=== PATIENT | female | born 1990 | race Caucasian/White ===

== ENCOUNTER 2022-12-03 11:03 | Outpatient (AMB) | payer OTHER, SELFPAY ==
--- NOTE | 2022-12-03 11:13 | A.OFFVIS_ITS ---
Intake Vital Signs 12/03/22 11:14 Height 5 ft 1 in Weight 223 lb BMI 42.1 BP 127/79 Blood Pressure Location Lt brachial Position Sitting Pulse 95 Intake Visit Reasons: IBS and abdominal cramping Intake Note: Patient new consult for IBS and abdominal pain. Patient cc: IBS symptoms ( flare up ), acid reflex on and off and between diarrhea and constipation. Gauge And Weigh Machine Operator Required: No Accompanied by: Self / Same As Patient Allergies morphine Allergy (Severe, Verified 12/03/22 11:23) Hives Penicillins Allergy (Severe, Verified 12/03/22 11:23) Hives fluconazole [From Diflucan] Allergy (Intermediate, Verified 12/03/22 11:23) Anaphylaxis HPI IBS and abdominal cramping HPI Details 32-year-old female here for initial eval uation of IBS cramping. She is referred by [facility] in [place]. 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 This pain also radiated to her back. She also had severe bloating that felt like it stretched my abd. The pain will start with a dull pain above the umbilicus and then progress down more midline/periumbilical. She will at times run a low grade fever. She has had Xrays, colonoscopy/EGD [facility] ([facility]). She had a couple of polyps only. 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 Her last GI felt it was porphoria. One of her levels came back elevated and she was referred to [facility], but she needs a second opinion before they will treat her. She has had food allergy testing Her stools are usually soft to liquid, she has been on Trulance and Linzess which made her very sick (weird given not a specific CIC presentation). She is on motegrity 2mg now. Colace too. She was on some IBS agents like bentyl and maybe donnatol but back in her teens w/o effect. She will have intermittent bouts of N/V and early satiety. This is not specific to foods that she can ID. She has a strong FHX of GB disease and had a neg HIDA scan in her early 20's but this has not been revisited. She has gained a lot of wt from 10lbs to 223. She exercises a great deal and follows diets diligently. She has had allergy and various exclusion diets w/o good effect. She has other possible manifestations of a systemic disease such as the compartment syndrome of her LE's, inability to lose weight. Her mother at age 21 and she used to have CIC. There is no other known FHX of similar sx. We will start her on a trial of dicyclomine and Creon try to get the records from [place] and see her back in 6 weeks. FOR[facility]LY [facility], [facility] Surgical History H/O bilateral inguinal hernia repair H/O fasciotomy History of appendectomy Social History (Updated 12/03/22 @ 11:16 by Ling Donohue) Household Members: Family Alcohol intake: never Patient Tobacco Use Status: Never used Tobacco Review of Systems Const Denies fatigue, Denies fever(s), Denies night sweats, Denies poor appetite, Reports weight gain and Denies weight loss ENT Reports Normal hearing present, Denies dental pain, Denies dysphagia, Denies hearing loss, Denies mouth pain, Denies odynophagia, Denies throat swelling, Denies tongue swelling and Reports other (Dentition adequate) Card Reports leg edema Resp Reports no additional complaints GI Reports abdominal pain, Denies melena, Reports bloating, Denies hematochezia, Reports constipation, Denies GI cramping, Denies dysphagia, Denies excessive flatus, Denies early satiety, Denies heartburn, Reports diarrhea, Reports nausea, Denies odynophagia, Reports vomiting and Denies hematemesis Skin/Breast Denies pruritus, Denies lesions, Denies rash and Denies jaundice Neuro Reports Normal hearing present and Denies Abnormal speech present Endo Denies fatigue Aller/Immun Denies throat swelling and Denies tongue swelling Physical Exam Vital Signs: Last Vital Signs Pulse 95 12/03/22 11:14 BP 127/79 12/03/22 11:14 BMI result Body Mass Index 42.1 Const General: cooperative, no acute distress, well developed and well groomed Nutritional Appearance: well nourished and obese morbidly obese Orientation/consciousness: oriented to person, oriented to place and oriented to time Limitations: No language barrier HEENT Head: Yes normocephalic and Yes atraumatic Eyes General: appearance normal, both eyes and all related structures Pupils: Equal, round and reactive pupils present Neck Neck: Yes normal visual inspection and Yes no lymphadenopathy Thyroid: Thyroid normal Resp Effort & Inspection: normal respiratory effort and able to speak in complete sentences Auscultation: clear to auscultation bilaterally Cardio Rate: regular rate Rhythm: regular rhythm Heart sounds: Normal, physiologic split S2 sound present Peripheral pulses: radial pulses present and posterior tibial pulses present GI Inspection: No distended, Yes Abdominal panniculus present, Yes obesity and Yes striae Palpation (GI): Soft to palpation, Tenderness to palpation present (GI) in the RLQ, no guarding, not rigid and No hepatosplenomegaly present Percussion: Yes normal to percussion Auscultation: normal bowel sounds Rectal Exam - Female: deferred Skin General skin exam: no rashes or lesions noted, turgor normal, skin not dry, no jaundice, No spider nevi and no striae Rashes: no rashes Nails: normal Neuro General: oriented to person, oriented to place and oriented to time Cranial nerves: Yes Equal, round and reactive pupils present and Yes Normal hearing present Speech: No Abnormal speech present Extrem General: Yes normal to inspection, No clubbing, No cyanosis and No edema Psych Appearance: grossly normal and well kempt Mental Status: mental status grossly normal Speech and movement: Normal speech and movement present Affect: normal affect Attitude: cooperative Thought process: Normal thought process present and not confabulating Thought content: Normal thought content present Insight: Fair insight present (Psych) Judgement: Fair judgement present (Psych) Assessment & Plan Assessment & Plan (1) IBS (irritable bowel syndrome): Code(s): K58.9 - Irritable bowel syndrome without diarrhea Plan: Starting in January she was having severe abd pain that started in the gastric area and shot down to the pubic bone area. This pain also radiated to her back. She also had severe bloating that felt like it stretched my abd. The pain will start with a dull pain above the umbilicus and then progress down more midline/periumbilical. She will at times run a low grade fever. She has had Xrays, colonoscopy/EGD [place] ([facility]). She had a couple of polyps only. 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 Her last GI felt it was porphoria. One of her levels came back elevated and she was referred to [facility], but she needs a second opinion before they will treat her. She has had food allergy testing Her stools are usually soft to liquid, she has been on Trulance and Linzess which made her very sick (weird given not a specific CIC presentation). She is on motegrity 2mg now. Colace too. She was on some IBS agents like bentyl and maybe donnatol but back in her teens w/o effect. She will have intermittent bouts of N/V and early satiety. This is not specific to foods that she can ID. She has a strong FHX of GB disease and had a neg HIDA scan in her early 20's but this has not been revisited. She has gained a lot of wt from 10lbs to 223. She exercises a great deal and follows diets diligently. She has had allergy and various exclusion diets w/o good effect. She has other possible manifestations of a systemic disease such as the compartment syndrome of her LE's, inability to lose weight. Her mother at age 21 and she used to have CIC. There is no other known FHX of similar sx. We will start her on a trial of dicyclomine and Creon try to get the records from [place] and see her back in 6 weeks. (2) Periumbilical abdominal pain: Code(s): R10.33 - Periumbilical pain (3) Nausea and vomiting: Code(s): R11.2 - Nausea with vomiting, unspecified Orders: Orders US abdomen complete 12/03/22 K58.9 - Irritable bowel syndrome without diarrhea, R10.33 - Periumbilical pain Pancreatic Elastase-1 12/03/22 K58.9 - Irritable bowel syndrome without diarrhea, R10.33 - Periumbilical pain NM gastric emptying study 12/03/22 R11.2 - Nausea with vomiting, unspecified Medications: New exiquo-gnuijpxy-ebdxhrl 36,000-114,000- 180,000 unit (Creon) administer with meals and/or snacks 2 caps PO BID 120 caps 3RF K58.9 - Irritable bowel syndrome without diarrhea dicyclomine 20 mg PO QID 120 tabs 1RF 30 days Coding Level of Care Code New Pt Level 3 (01516) Diagnoses IBS (irritable bowel syndrome) K58.9 Periumbilical abdominal pain R10.33 Nausea and vomiting R11.2
[2022-12-03 11:14] VITALS: BP 127/79; PULSE 95; BMI 42.1
== END 2022-12-03 12:42 | disposition home or self-care (01) ==
PROVIDERS: PCP Nurse Practitioner Primary Care; Visit Provider Nurse Practitioner
DX: K58.9 Irritable bowel syndrome, unspecified (principal); R10.33 Periumbilical pain; R11.2 Nausea with vomiting, unspecified
CPT/HCPCS: 99203

== ENCOUNTER → 2022-12-03 11:03 | Outpatient (BNVA) | payer SELFPAY | PROVIDERS: PCP Nurse Practitioner Primary Care; Visit Provider Nurse Practitioner ==

== ENCOUNTER 2023-01-03 08:30 | Outpatient (REF) | payer OTHER, SELFPAY ==
--- NOTE | ~2023-01-03 | US_ITS ---
EXAMINATION: US ABDOMEN COMPLETE CLINICAL INFORMATION: Irritable bowel syndrome without diarrhea. Nausea with vomiting. COMPARISON: Ultrasound abdomen complete 08/22/2020. TECHNIQUE: Real-time imaging of the abdominal viscera. FINDINGS: PANCREAS: Limited visualization of pancreatic tail and head. Imaged portion of pancreatic body is unremarkable. ABDOMINAL AORTA: Limited visualization. Imaged portions of abdominal aorta are nonaneurysmal. INFERIOR VENA CAVA: Visualized portions are normal. LIVER: Hepatomegaly, 20.4 cm. Increased hepatic parenchymal heterogeneity and echogenicity which could be associated with hepatic steatosis or hepatocellular disease and severely limits visualization. GALLBLADDER: No gallstones. No gallbladder wall thickening. COMMON BILE DUCT: Normal in caliber measuring 0.4 cm in diameter. RIGHT KIDNEY: No hydronephrosis. No renal calculi. Limited visualization. The kidney measures 12.8 cm in maximum dimension. LEFT KIDNEY: No hydronephrosis. No renal calculi. Limited visualization. The kidney measures 13.2 cm in maximum dimension. SPLEEN: Splenomegaly. The spleen measures 14.3 cm in maximum dimension. FREE FLUID: None. US/US abdomen complete IMPRESSION: 1. Increased hepatic parenchymal heterogeneity and echogenicity which could be associated with hepatic steatosis or hepatocellular disease and severely limits visualization. 2. Hepatosplenomegaly. 3. Limited visualization due to bowel gas and body habitus.
== END 2023-01-03 08:31 | disposition home or self-care (01) ==
LOC: HO.HMGCX 08:30
PROVIDERS: PCP Nurse Practitioner Adult Health; Visit Provider Nurse Practitioner
DX: R10.33 Periumbilical pain (principal); K58.9 Irritable bowel syndrome, unspecified
CPT/HCPCS: 76700

== ENCOUNTER → 2023-01-20 08:01 | Outpatient (REF) | payer OTHER, SELFPAY ==
--- NOTE | ~2023-01-20 | NM_ITS ---
EXAMINATION: OK RADIONUCLIDE SOLID FOOD GASTRIC EMPTYING 4-HOUR STUDY CLINICAL INFORMATION: Irritable bowel syndrome without diarrhea. COMPARISON: None available. TECHNIQUE: A standard meal consisting of 4 oz of Egg Beaters brand tagged with 1000 microcuries Tc-99m Sulfur Colloid, 8 oz water and 2 slices of toast with jelly was administered orally to the patient. Images were obtained using a dual head gamma camera in the anterior and posterior projections over of the stomach immediately post ingestion and at hourly intervals up to 4 hours post ingestion. The anterior and posterior counts at each time interval were averaged using the geometric mean and expressed as percentage of the immediate post ingestion counts. FINDINGS: There is good visualization of activity in the stomach immediately post ingestion. As the study progresses, there is good clearance of activity from the stomach and visualization of progressively increasing small bowel activity. By the end of the study, there is almost no retention noted in the stomach. Retention in the stomach at each time interval was: 1 hour 95% (normal 37%-90%) 2 hours 92% (normal 30%-60%) 3 hours 0% 4 hours imaging was not obtained since at 3 hours the stomach was empty. OK/OK gastric emptying study IMPRESSION: Normal 4-hour solid food gastric emptying study. (For solid meal, rapid gastric emptying is less than 30% at 60 minutes. Delayed gastric emptying criteria is more than 60% remaining at 120 minutes or more than 10% at 240 minutes. The 4-hour value is the best discriminator of a normal or abnormal result). Gastric emptying study grading per JNMT Consensus Recommendations in 2008 (https://tech.snmjournals.org/content/36/44) Grade 1 (mild retention): 11-20% at 4h Grade 2 (moderate retention): 21-35% at 4h Grade 3 (severe retention): 36-50% at 4h Grade 4 (very severe retention): >50% retention at 4h
== END ==
LOC: HO.NUCMED 08:01
PROVIDERS: PCP Nurse Practitioner Adult Health; Visit Provider Nurse Practitioner
DX: R11.2 Nausea with vomiting, unspecified (principal)
CPT/HCPCS: 78264; A9541

== ENCOUNTER 2024-02-01 13:15 | Outpatient (REF) | payer OTHER, SELFPAY ==
[2024-02-01 14:59] LABS: Appearance Urine Clear; Color Urine Yellow; Glucose Urine UA Negative (Negative); Leukocyte Esterase Urine Negative (Negative); Nitrite Urine Negative (Negative); Urine Blood Negative (Negative); Urine Ketones Negative (Negative); Urine Protein Negative (Neg-Trace)
[2024-02-01 15:04] LABS: Bacteria Urine 2+ (None Seen); Hyaline Casts Urine 0-2 /LPF (0-2); RBC Urine 0-2 /HPF (0-2); WBC Urine 0-5 /HPF (0-5)
[2024-02-02 04:35] LABS: HIV AB/AG Nonreactive (Nonreactive); HIV Num 1 0.06 S/CO (0.00-0.99); ~HepC Num1 0.07 S/CO (0.00-0.79); ~Hepatitis C Antibody Nonreactive (Nonreactive)
[2024-02-03 01:59] LABS: IgA 180 mg/dL (47-310); IgG 1102 mg/dL (600-1640); IgM 99 mg/dL (50-300)
== END 2024-02-01 13:16 | disposition home or self-care (01) ==
LOC: HO.LAB 13:15
PROVIDERS: PCP Nurse Practitioner Adult Health; Visit Provider Internal Medicine
DX: R10.33 Periumbilical pain (principal)
CPT/HCPCS: 36415; 81001; 82784; 86803; 87086; 87389

== ENCOUNTER 2024-02-01 13:15 | Outpatient (AMB) | payer OTHER, SELFPAY ==
--- NOTE | 2024-02-01 13:36 | A.OFFVIS_ITS ---
Vital Signs 02/01/24 13:41 Height 5 ft 1 in Weight 197 lb BMI 37.2 Pulse 94 Pulse Source Pulse Oximeter Pulse Oximetry (%) 99 Oxygen Delivery Method Room Air Intake Visit Reasons: [place] Uro/Ureaplasma Allergies morphine Allergy (Severe, Verified 02/01/24 13:42) Hives Penicillins Allergy (Severe, Verified 02/01/24 13:42) Hives fluconazole [From Diflucan] Allergy (Intermediate, Verified 02/01/24 13:42) Anaphylaxis oxcarbazepine [From Trileptal] Allergy (Unknown, Verified 02/01/24 13:42) Hives HPI HPI [place] Uro/Ureaplasma: Details: She is here for evaluation of intermittent abdominal pain in abdomen which is sharp and generalized and sometimes is accompanied by painful sweating as well as pink urine. She says sometimes she gets low back pain as well. She has seen Military Equipment Specialist as well as GI and Urology. She reports worse symptoms over last 24 months. 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 She has last taken Doxycycline for 10 days with not much help. She has anaphylaxis to penicillin. She has had IUD but denies PID or sexual relations at this time. She has had ureaplasma isolated from urine in spring ,summer and fall. [facility] Surgical History H/O bilateral inguinal hernia repair H/O fasciotomy History of appendectomy Social History Household Members: Family Alcohol intake: never Patient Tobacco Use Status: Never used Tobacco Review of Systems GI Reports abdominal pain Physical Exam Vital Signs: Last Vital Signs Pulse 94 02/01/24 13:41 Pulse Ox 99 02/01/24 13:41 Oxygen Delivery Method Room Air 02/01/24 13:41 BMI result Body Mass Index 37.2 Const General: cooperative Orientation/consciousness: patient oriented x3 HEENT Head: Yes normal to inspection Mouth: Normal oral and palatal mucosa present Eyes General: appearance normal, both eyes and all related structures Pupils: Equal, round and reactive pupils present Resp Effort & Inspection: normal respiratory effort Cardio Rate: regular rate Rhythm: regular rhythm GI Palpation (GI): Soft to palpation and nontender General: Yes no CVA tenderness Back/Spine/Pelvis Back: no CVA tenderness Skin General skin exam: no rashes or lesions noted Neuro General: patient oriented x3 Cranial nerves: Yes CN's II-XII intact bilaterally and Yes Equal, round and reactive pupils present Extrem General: Yes normal to inspection Psych Appearance: grossly normal Assessment & Plan Assessment & Plan (1) Periumbilical abdominal pain: Comment: She has had intermittent ureaplasma isolated from urine at [facility]. Antibiotics have not made her feel better consistently so think ureaplasma mostly is a colonizer without clinical effect' Code(s): R10.33 - Periumbilical pain Category: Medical Plan: try Azithromycin. If not feeling better on this please pursue other diagnoses for chronic pelvic pain including but not limited to endometriosis evaluation and evaluation of any potential renal mass Check HIV test Check immunoglobulin test. Orders: Orders Hepatitis C Antibody 02/01/24 R10.33 - Periumbilical pain UA w Microscopic 02/01/24 R10.33 - Periumbilical pain Urine Culture 02/01/24 R10.33 - Periumbilical pain HIV Ab/Ag 02/01/24 R10.33 - Periumbilical pain Immunoglobulins,IgG IgA IgM 02/01/24 R10.33 - Periumbilical pain Mycoplasma Ureaplasma Panel 02/01/24 R10.33 - Periumbilical pain Medications: New azithromycin For 250 mg dose pack: take 500 mg today (day 1), then 250 mg for 4 days (days 2-5) PO 6 tabs 0RF Coding Level of Care Code New Pt Level 3 (75287) Diagnoses Periumbilical abdominal pain R10.33
[2024-02-01 13:41] VITALS: PULSE 94; O2SAT 99; BMI 37.2
--- OUTSIDE RECORDS SUMMARY | 2024-02-03 14:03 | XMS_ITS | Continuity of Care Document ---
Author Organization [facility] [place] Address [address] [place] [address]- Care Team Providers Care Business Unit Manager Name Role Phone Claritza ETHYLBENZENE CRACKING SUPERVISOR, Marybel Godinez Primary Care Physician [phone] Encounter [facility] Date(s): 10/04/23 - 11/03/23 [facility] Care [place] [address], [place] [address] Allergies, Adverse Reactions, Alerts Substance Reaction Severity Status penicillin Severe Active morphine 1 rigidity, difficlut to breathe Active Diflucan hives Active 1rigid mucles Immunizations Given and Recorded Vaccine Date Status Refusal Reason influenza virus vaccine, inactivated 02/12/22 Mike rded influenza virus vaccine, inactivated 12/11/20 Mike rded SARS-CoV-2 (COVID-19) mRNA-1273 vaccine 04/10/20 R ecorded Medications Ativan 0.5 mg oral tablet 1 tablet = 0.5 mg, By Mouth, 2 times a day, PRN as needed for anxiety, 0 Refills, Maintenance, 02/21/18 16:11:52 EST, Tablet Start Date: 02/21/18 Status: Ordered clotrimazole 1% topical cream 1 application, Topically, 2 times a day, PRN fungal rash, # 113 Gm, 1 Refills, Maintenance, 09/09/23 4:54:00 EDT, Cream, [facility]/pharmacy #[id number], Partial fill upon patient request if the prescription is for a schedule II opioid drug., 1 application Topical... Start Date: 09/09/23 Status: Ordered doxycycline hyclate 100 mg oral tablet 1 tablet = 100 mg, By Mouth, 2 times a day, # 28 tablet, 0 Refills, Maintenance, 07/27/23 17:36:00 EDT, Tablet, Partial fill upon patient request if the prescription is for a schedule II opioid drug. Start Date: 07/27/23 Stop Date: 08/10/23 Status: Ordered Excedrin By Mouth, Every 6 hours, 0 Refills, Maintenance, 10/26/23 16:19:00 EDT, Partial fill upon patient request if the prescription is for a schedule II opioid drug. Start Date: 10/26/23 Status: Ordered hydrOXYzine pamoate 25 mg oral capsule 1 capsule = 25 mg, By Mouth, 4 times a day, PRN for anxiety, # 40 capsule, 0 Refills, Maintenance, 10/04/23 17:42:00 EDT, Capsule, Partial fill upon patient request if the prescription is for a schedule II opioid drug. Start Date: 10/04/23 Status: Ordered ketoconazole 2% topical shampoo 1 application, Topically, Once, Three times weekly, # 120 mL, 0 Refills, Maintenance, 07/27/23 17:51:00 EDT, Shampoo, Partial fill upon patient request if the prescription is for a schedule II opioiddrug. Start Date: 07/27/23 Status: Ordered Latuda By Mouth, Daily, 0 Refills, Maintenance, 05/23/19 10:19:00 EDT Start Date: 05/23/19 Status: Ordered metroNIDAZOLE 0.75% topical cream 1 application, Topically, 2 times a day, # 45 Gm, 0 Refills, Maintenance, 07/27/23 17:52:00 EDT, Cream, Partial fill upon patient request if the prescription is for a schedule II opioid drug. Start Date: 07/27/23 Status: Ordered Mirena 52 mg intrauteral device See Instructions, ins info faxed DOI [id number], # 1 each, 0 Refills, Soft Stop, 09/20/17 11:10:18 EDT Start Date: 09/20/17 Status: Ordered Motegrity 2 mg oral tablet 1 tablet = 2 mg, By Mouth, Daily, # 30 tablet, 0 Refills, Maintenance, 08/29/22 8:19:00 EDT, Tablet, Partial fill upon patient request if the prescription is for a schedule II opioid drug. Start Date: 08/29/22 Status: Ordered nystatin topical 064555 u/gm powder 1 application, Topically, 2 times a day, # 60 Gm, 1 Refills, Maintenance, 09/09/23 4:54:00 EDT, Powder, [facility]/pharmacy #[id number], Partial fill upon patient request if the prescription is for a schedule II opioid drug., 1 application Topically 2 times a day,... Start Date: 09/09/23 Status: Ordered omeprazole 40 mg oral enteric coated capsule 1 capsule = 40 mg, By Mouth, 2 times a day, PRN Dyspepsia, # 30 capsule, 0 Refills, Maintenance, 02/21/18 16:01:30 EST, EC Capsule Start Date: 02/21/18 Status: Ordered ondansetron 4 mg oral tablet, disintegrating 1 tablet = 4 mg, By Mouth, Every 6 hours, PRN as needed for nausea/vomiting, # 12 tablet, 0 Refills, Maintenance, 10/04/23 19:48:00 EDT, DIS Tablet, [facility]/pharmacy #[id number], Partial fill upon patient request if the prescription is for a schedule II opioid... Start Date: 10/04/23 Stop Date: 10/07/23 Status: Ordered OXcarbazepine 150 mg oral tablet 150 mg, 1, tablet, Refills 0, Maintenance, 06/21/23 17:38:00 EDT, Partial fill upon patient requestif the prescription is for a schedule II opioid drug. Start Date: 06/21/23 Status: Ordered OXcarbazepine 300 mg oral tablet Refills 0, Maintenance, 06/21/23 17:38:00 EDT, Partial fill upon patient request if the prescription is for a schedule II opioid drug. Start Date: 06/21/23 Status: Ordered propranolol 10 mg oral tablet Refills 0, Maintenance, 06/21/23 17:38:00 EDT, Partial fill upon patient request if the prescription is for a schedule II opioid drug. Start Date: 06/21/23 Status: Ordered Prozac Liquid = 80 mg, By Mouth, Daily, 0 Refills, Maintenance, 02/21/18 16:11:39 EST Start Date: 02/21/18 Status: Ordered spironolactone 50 mg oral tablet 1 tablet = 50 mg, By Mouth, 2 times a day, # 180 tablet, 0 Refills, Maintenance, 07/27/23 17:36:00 EDT, Tablet, Partial fill upon patient request if the prescription is for a schedule II opioid drug. Start Date: 07/27/23 Status: Ordered SUMAtriptan 50 mg oral tablet 1 tablet = 50 mg, By Mouth, Daily, PRN for migraine headache, may repeat dose after 2 hours up to amaximum of 2, # 20 tablet, 0 Refills, Maintenance, 10/06/23 16:59:00 EDT, Tablet, [id number], Partial fill upon patient request if the prescrip... Start Date: 10/06/23 Status: Ordered Tylenol 8 Hour 650 mg oral tablet, extended release 2 tablet = 1,300 mg, By Mouth, Every 8 hours, 0 Refills, Maintenance, 10/26/23 16:19:00 EDT, Partial fill upon patient request if the prescription is for a schedule II opioid drug. Start Date: 10/26/23 Status: Ordered Wegovy (1.7 mg dose) subcutaneous solution = 1.7 mg, Subcutaneous Injection, Every week, for 12 week(s), in the abdomen, thigh, or upper arm, # 9 mL, 1 Refills, Acute 03/08/24 17:45:00 EST, 09/22/23 17:45:00 EDT, Solution, [id number],Partial fill upon patient request if the prescripti... 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21, she is followed by neurosurgery Confirmed Active Excessive hair on females Confirmed Active GERD (gastroesophageal reflux disease) Confirmed Active Headache Confirmed Active Major depression, single episode Confirmed Active Migraine Confirmed Active Obsessive-compulsive disorder Confirmed Active PCOS (polycystic ovarian syndrome) Confirmed Active Posttraumatic stress disorder Confirmed Active Renal mass Confirmed Active Severe obesity Confirmed Active Uncomplicated asthma Confirmed Active 1benign 2colpo and pap smear at 6 month intervals x 1 year Social History Social History Type Response Smoking Status Never smoker entered on: 09/13/13 Sex Implantable Device List Procedure Provider Procedure Date Device Type Site Ethmoidectomy Maxillary Antrostomy Endos Lenny Jarquin MD 02/28/18 Unknown Nares Left Device Identifier Serial Number Lot or Batch Number Manufacturing Date Expiration Date Distinct Identification Code MRI Safety Implantable Status Assigning Authority Unknown Unknown [id number] Unknown 03/13/19 Unknown Unknown Active Unknown Patient Care team information Care Team Personnel Name: Syed Jimenes DO Position: [facility] EVIDENCE TECHNICIAN MD Member Role: Lifetime EVIDENCE TECHNICIAN Physician Address: Address: [address] [place] [id number] Name: Marybel Jerry NP Position: [facility] PCO Associate Professional Member Role: PCP Address: Address: [address] [place] [address] Primary Care [place], [place] [facility] Name: Izzy Muse RN Position: [facility] AMB Nurse Member Role: Primary Care Nurse Care Team Related Persons Name: SHANNAN FERREIRA Address: home [address] [place], [place] Name: SALMA RHODES Address: [address] [place], [place] Name: ELLIOT GARCIA Address: home [address] [place] [address] Name: ENIO GARCIA Address: home [address] [place], [place]
--- OUTSIDE RECORDS SUMMARY | 2024-02-03 14:03 | XMS_ITS | Continuity of Care Document ---
Author Organization [facility] Primary [facility] [place] Address [address] [place] [address]- Care Team Providers Care Athletics Teacher Name Role Phone Claritza WALTON, Marybel Godinez Primary Care Physician Encounter [facility] Date(s): 06/29/23 - 07/29/23 [facility] Care [place] [address] [place] [address]- Allergies, Adverse Reactions, Alerts Substance Reaction Severity Status penicillin Severe Active morphine 1 rigidity, difficlut to breathe Active Diflucan hives Active 1rigid mucles Immunizations Given and Recorded Vaccine Date Status Refusal Reason influenza virus vaccine, inactivated 02/12/22 Mike rded influenza virus vaccine, inactivated 12/11/20 Mike rded SARS-CoV-2 (COVID-19) mRNA-1569 vaccine 04/10/20 R ecorded Medications Ativan 0.5 mg oral tablet 1 tablet = 0.5 mg, By Mouth, 2 times a day, PRN as needed for anxiety, 0 Refills, Maintenance, 02/21/18 16:11:52 EST, Tablet Start Date: 02/21/18 Status: Ordered doxycycline hyclate 100 mg oral tablet 1 tablet = 100 mg, By Mouth, 2 times a day, # 28 tablet, 0 Refills, Maintenance, 07/27/23 17:36:00 EDT, Tablet, Partial fill upon patient request if the prescription is for a schedule II opioid drug. Start Date: 07/27/23 Stop Date: 08/10/23 Status: Ordered ketoconazole 2% topical shampoo 1 [...] device See Instructions, ins info faxed DOI [id number], # 1 each, 0 Refills, Soft Stop, 09/20/17 11:10:18 EDT Start Date: 09/20/17 Status: Ordered Motegrity 2 mg oral tablet 1 tablet = 2 mg, By Mouth, Daily, # 30 tablet, 0 Refills, Maintenance, 08/29/22 8:19:00 EDT, Tablet, Partial fill upon patient request if the prescription is for a schedule II opioid drug. Start Date: 08/29/22 Status: Ordered omeprazole 40 mg oral enteric coated capsule 1 capsule = 40 mg, By Mouth, 2 times a day, PRN Dyspepsia, # 30 capsule, 0 Refills, Maintenance, 02/21/18 16:01:30 EST, EC Capsule Start Date: 02/21/18 Status: Ordered OXcarbazepine 150 mg oral tablet [...] 16:11:39 EST Start Date: 02/21/18 Status: Ordered semaglutide 0.5 mg/0.5 mL (0.5 mg dose) subcutaneous solution = 0.5 mg, Subcutaneous Injection, Every week, for 4 week(s), in the abdomen, thigh, or upper arm, #2 mL, 0 Refills, Acute 08/24/23 17:48:00 EDT, 07/27/23 17:48:00 EDT, Solution, [id number], Partial fill upon patient request if the prescriptio... Start Date: 07/27/23 Stop Date: 08/24/23 Status: Ordered spironolactone 50 mg oral tablet 1 tablet = 50 mg, By Mouth, 2 times a day, # 180 tablet, 0 Refills, Maintenance, 07/27/23 17:36:00 EDT, Tablet, Partial fill upon patient request if the prescription is for a schedule II opioid drug. Start Date: 07/27/23 Status: Ordered ZyrTEC 10 mg oral tablet [...] Safety Implantable Status Assigning Authority Unknown Unknown [id number] Unknown 03/13/19 Unknown Unknown Active Unknown Patient Care team information Care Team Personnel Name: Syed Jimenes DO Position: [facility] HAMMER ADJUSTER MD Member Role: Lifetime HAMMER ADJUSTER Physician Address: Address: [address] [place] [address] - Name: Marybel Jerry NP Position: [facility] PCO Associate Professional Member Role: PCP Address: Address: [address] [place] [address] Primary [place], [place] - Name: Izzy Muse RN Position: [facility] AMB Nurse Member Role: Primary Care Nurse Care Team Related Persons Name: SHANNAN FERREIRA Address: [address] [place], [place] Name: SALMA RHODES Address: [address] [place], [place] Name: ELLIOT GARCIA Address: [address] [place] [address] Name: ENIO GARCIA Address: [address] [place] [address]
--- OUTSIDE RECORDS SUMMARY | 2024-02-03 14:03 | XMS_ITS | Continuity of Care Document ---
Author Organization [facility] Primary [facility] [place] Address [address] [place] [address]- Care Team Providers Care Machine Plate Stacker Name Role Phone Claritza DOG LICENSE OFFICER SUPERVISOR, Marybel Godinez Primary Care Physician Encounter [facility] Date(s): 10/07/23 - 11/06/23 [facility] [place] [address] [place], [place] [address] Allergies, Adverse Reactions, Alerts Substance Reaction [...] 1 Refills, Maintenance, 09/09/23 4:54:00 EDT, Cream, [id number], Partial fill upon patient request if the [...] Start Date: 08/29/22 Status: Ordered nystatin topical 452408 u/gm powder 1 application, Topically, 2 times a day, # 60 Gm, 1 Refills, Maintenance, 09/09/23 4:54:00 EDT, Powder, [facility]/pharmacy #[id number], Partial fill upon patient request if [...] Refills, Maintenance, 10/04/23 19:48:00 EDT, DIS Tablet, [facility]/pharmacy #[id number], Partial fill upon patient request if [...] Device Type Site Ethmoidectomy Maxillary Antrostomy Endos Milka FRY, Lenny Mohr 02/28/18 Unknown Nares Left Device Identifier Serial Number Lot or Batch Number Manufacturing Date Expiration Date Distinct Identification Code MRI Safety Implantable Status Assigning Authority Unknown Unknown [id number] Unknown 03/13/19 Unknown Unknown Active Unknown Patient Care team information Care Team Personnel Name: Syed Jimenes DO Position: [facility] INNOVATION MANAGER MD Member Role: Lifetime INNOVATION MANAGER Physician Address: Address: [address] [place] [address] - Name: Marybel Jerry NP Position: [facility] PCO Associate Professional Member Role: PCP Address: Address: [address] [place] [address] Primary Care [place], [place] [facility] Name: Izzy Muse RN Position: [facility] AMB Nurse Member Role: Primary Care Nurse Care Team Related Persons Name: SHANNAN FERREIRA Address: [address] [place], [place] Name: SALMA RHODES Address: [address] [place], [place] Name: ELLIOT GARCIA Address: [address] [place] [address] Name: ENIO GARCIA Address: [address] [place], [place]
--- OUTSIDE RECORDS SUMMARY | 2024-02-03 14:03 | XMS_ITS | Continuity of Care Document ---
Author Organization [facility] [place] Address [address] [place] [address]- Care Team Providers Care Certified Forklift Operator Name Role Phone Ana Maria Ramachandran NP Primary Care Physician [id number] Date[facility] - 06/25/[facility] [place] [address] [place], [place] [address] Attending Physician: Ana Maria Ramachandran NP Allergies, Adverse Reactions, Alerts Substance Reaction Severity [...] EST, Tablet Start Date: 02/21/18 Status: Ordered Latuda By Mouth, Daily, 0 Refills, Maintenance, 05/23/19 10:19:00 EDT Start Date: 05/23/19 Status: Ordered Mirena 52 mg intrauteral device See Instructions, ins info faxed DOI [phone], # 1 each, 0 Refills, Soft Stop, [...] 16:11:39 EST Start Date: 02/21/18 Status: Ordered Wegovy (0.25 mg dose) subcutaneous solution = 0.25 mg, Subcutaneous Injection, Every week, for 4 week(s), in the abdomen, thigh, or upper arm, # 2 mL, 0 Refills, Acute 07/19/23 18:22:00 EDT, 06/21/23 18:22:00 EDT, Solution, [facility]/pharmacy #[id number],Partial fill upon patient request if the prescripti... Start Date: 06/21/23 Stop Date: 07/19/23 Status: Ordered ZyrTEC 10 mg oral tablet [...] Safety Implantable Status Assigning Authority Unknown Unknown [id number] [id number] Unknown 03/13/19 Unknown Unknown Active Unknown Patient Care team information Care Team Personnel Name: Ana Maria Ramachandran NP Position: [facility] PCO Associate Professional Member Role: PCP Address: Address: [address] [place] [address]- Name: Syed Jimenes DO Position: [facility] PATIENT COORDINATOR MD Member Role: Lifetime PATIENT COORDINATOR Physician Address: Address: [address] [place] [id number]- Name: Izzy Muse RN Position: [facility] AMB Nurse Member Role: Primary Care Nurse Care Team Related Persons Name: SHANNAN FERREIRA Address: [address] [place], [place] Name: SALMA RHODES Address: [address] [place], [place] Name: ELLIOT GARCIA Address: [address] [place] [address] Name: ENIO GARCIA Address: [address] [place], [place]
--- OUTSIDE RECORDS SUMMARY | 2024-02-03 14:03 | XMS_ITS | Continuity of Care Document ---
Author Organization [facility] Primary Car [facility] [place] Address [address] [place] [address]- Care Team Providers Care Dog Handler Name Role Phone Claritza DENTURE LABORATORY TECHNICIAN, Marybel Godinez Primary Care Physician [id number] Date(s[facility]21[facility]23 - 10/21/23 [facility] Care [place] [address] [place], [place] [address] Allergies, Adverse Reactions, Alerts Substance [...] Refills, Maintenance, 09/09/23 4:54:00 EDT, Cream, [id number], Partial fill upon patient request if the [...] Date: 07/27/23 Stop Date: 08/10/23 Status: Ordered hydrOXYzine pamoate 25 mg oral [...] Start Date: 08/29/22 Status: Ordered nystatin topical 935808 u/gm powder 1 application, Topically, 2 times a day, # 60 Gm, 1 Refills, Maintenance, 09/09/23 4:54:00 EDT, Powder, [facility]/pharmacy #[id number], Partial fill upon patient request if the [...] Refills, Maintenance, 10/04/23 19:48:00 EDT, DIS Tablet, [facility]/pharmacy #[id number], Partial fill upon patient request if [...] the prescrip... Start Date: 10/06/23 Status: Ordered Wegovy (1.7 mg dose) subcutaneous [...] Active Renal mass Confirmed Active Severe obesity (BMI 35.0-39.9) with comorbidity Confirmed Active Uncomplicated asthma Confirmed Active 1benign 2colpo and pap smear at 6 month intervals x 1 year Social History Social History Type Response Smoking Status Never smoker entered on: 09/13/13 Sex Implantable Device List Procedure Provider Procedure Date Device Type Site Ethmoidectomy Maxillary Antrostomy Lenny Castorena MD 02/28/18 Unknown Nares Left Device Identifier Serial Number Lot or Batch Number Manufacturing Date Expiration Date Distinct Identification Code MRI Safety Implantable Status Assigning Authority Unknown Unknown [id number] Unknown 03/13/19 Unknown Unknown Active Unknown Patient Care team information Care Team Personnel Name: Syed Jimenes DO Position: [facility] ALL AROUND GEAR MACHINE OPERATOR MD Member Role: Lifetime ALL AROUND GEAR MACHINE OPERATOR Physician Address: Address: [address] [place] [address]- Name: Marybel Jerry NP Position: [facility] PCO Associate Professional Member Role: PCP Address: Address: [address] [facility] Primary Care [place], [place] - Name: Izzy Muse RN Position: [facility] AMB Nurse Member Role: Primary Care Nurse Care Team Related Persons Name: SHANNAN FERREIRA Address: [address] [place], [place] Name: SALMA RHODES Address: [address] [place], [place] Name: ELLIOT GARCIA Address: [address] [place] [address] Name: ENIO GARCIA Address: [address] [place] [address]
--- OUTSIDE RECORDS SUMMARY | 2024-02-03 14:03 | XMS_ITS | Continuity of Care Document ---
Author Organization [facility] Primary Car e [place] Address [address] [place] [address]- Care Team Providers Care Professor Of Poultry Science Name Role Phone Claritza DIRECTOR OF ACADEMIC SUPPORT, Marybel Godinez Primary Care Physician Encounter [facility] Date(s): 08/24/23 - 09/23/23 [facility] Primary [facility] [place] [address] [place], [place] [address] Allergies, Adverse Reactions, Alerts Substance Reaction Severity [...] Refills, Maintenance, 09/09/23 4:54:00 EDT, Cream, [id number], Partial fill upon patient request if the [...] device See Instructions, ins info faxed DOI 8, # 1 each, 0 Refills, Soft Stop, 09/20/17 11:10:18 EDT Start Date: 09/20/17 Status: Ordered Motegrity 2 mg oral tablet 1 tablet = 2 mg, By Mouth, Daily, # 30 tablet, 0 Refills, Maintenance, 08/29/22 8:19:00 EDT, Tablet, Partial fill upon patient request if the prescription is for a schedule II opioid drug. Start Date: 08/29/22 Status: Ordered nystatin topical 115087 u/gm powder 1 application, Topically, 2 times a day, # 60 Gm, 1 Refills, Maintenance, 09/09/23 4:54:00 EDT, Powder, [facility]/pharmacy #[id number], Partial fill upon patient request if the [...] opioid drug. Start Date: 07/27/23 Status: Ordered Wegovy (1.7 mg dose) subcutaneous solution = 1.7 mg, Subcutaneous Injection, Every week, for 12 week(s), in the abdomen, thigh, or upper arm, # 9 mL, 1 Refills, Acute 03/08/24 17:45:00 EST, 09/22/23 17:45:00 EDT, Solution, [facility]/pharmacy #[id number],Partial fill upon patient request if the [...] Safety Implantable Status Assigning Authority Unknown Unknown [id number] Unknown 03/13/19 Unknown Unknown Active Unknown Patient Care team information Care Team Personnel Name: Syed Jimenes DO Position: [facility] WORKCELL OPERATOR MD Member Role: Lifetime WORKCELL OPERATOR Physician Address: Address: [address] [place] [address] - Name: Marybel Jerry NP Position: [facility] PCO Associate Professional Member Role: PCP Address: Address: [address] [place] [address] Primary Care [place], [place] - Name: Izzy Muse RN Position: [facility] AMB Nurse Member Role: Primary Care Nurse Care Team Related Persons Name: SHANNAN FERREIRA Address: home [address] [place], [place] Name: SALMA RHODES Address: [address] [place], [place] Name: ELLIOT GARCIA Address: home [address] [place] [address] Name: ENIO GARCIA Address: home [address] [place], [place]
--- OUTSIDE RECORDS SUMMARY | 2024-02-03 14:03 | XMS_ITS | Continuity of Care Document ---
Author Organization [facility] Primary Car [place] Address [address] [place] [address]- Care Team Providers Care Local Driver Name Role Phone Claritza PERSONAL FITNESS TRAINER, Marybel Godinez Primary Care Physician [phone] [id number] Date(s): 06/23/23 - 07/23/23 [facility] Care [place] [address] [place], [place] [address] Allergies, Adverse Reactions, Alerts Substance Reaction Severity Status penicillin Severe Active morphine 1 rigidity, difficlut to breathe Active Diflucan hives Active 1rigid mucles Immunizations Given and Recorded Vaccine Date Status Refusal Reason influenza virus vaccine, inactivated 02/12/22 Mike rded influenza virus vaccine, inactivated 12/11/20 Mike rded SARS-CoV-2 (COVID-19) mRNA-127 vaccine 04/10/20 R ecorded Medications Ativan 0.5 [...] 16:11:39 EST Start Date: 02/21/18 Status: Ordered ZyrTEC 10 mg oral tablet [...] Response Smoking Status Never smoker entered on: 7/3/14 Sex Implantable Device List Procedure Provider Procedure Date Device Type Site Ethmoidectomy Maxillary Antrostomy Endos Lenny Jarquin MD 02/28/18 Unknown Nares Left Device Identifier Serial Number Lot or Batch Number Manufacturing Date Expiration Date Distinct Identification Code MRI Safety Implantable Status Assigning Authority Unknown Unknown [id number] Unknown 03/13/19 Unknown Unknown Active Unknown Patient Care team information Care Team Personnel Name: Syed Jimenes DO Position: [facility] FAMILY RESOURCE SPECIALIST MD Member Role: Lifetime FAMILY RESOURCE SPECIALIST Physician Address: Address: [address] [place] [address]- Name: Claritza PERSONAL FITNESS TRAINER, Marybel Godinez Position: [facility] PCO Associate Professional Member Role: PCP Address: Address: [address] [place] [address] Primary Care [place], [place] [facility] Name: Izzy Muse RN Position: [facility] AMB Nurse Member Role: Primary Care Nurse Care Team Related Persons Name: SHANNAN FERREIRA Address: home [address] [place], [place] Name: SALMA RHODES Address: [address] [place], [place] Name: ELLIOT GARCIA Address: [address] [place] [address] Name: ENIO GARCIA Address: home [address] [place] [address]
--- OUTSIDE RECORDS SUMMARY | 2024-02-03 14:03 | XMS_ITS | Continuity of Care Document ---
Author Organization [facility] Primary Car e [place] Address [address] [place] [address]- Care Team Providers Care Medical Coding Technician Name Role Phone Duarte AWLTON, Ana Maria Mohr Primary Care Physician Encounter [facility] Date(s): 04/25/23 - 05/25/23 [facility] [place] [address] [place], [place] [address] Allergies, Adverse Reactions, Alerts Substance Reaction Severity Status penicillin Severe Active morphine 1 rigidity, difficlut to breathe Active Diflucan hives Active 1rigid mucles Medications acetaminophen 500 mg oral capsule 2 capsule = 1,000 mg, By Mouth, Every 8 hours, # 100 capsule, 0 Refills, Maintenance, 05/12/20 8:29:00 EST, Capsule, [facility], Partial fill upon patient request if the prescriptionis for a schedule II opioid drug., 158, cm, ... Start Date: 05/12/20 Status: Ordered Ativan 0.5 mg oral tablet 1 tablet = 0.5 mg, By Mouth, 2 times a day, PRN as needed for anxiety, 0 Refills, Maintenance, 02/21/18 16:11:52 EST, Tablet Start Date: 02/21/18 Status: Ordered azelastine 137 mcg/inh (0.1%) nasal spray 2 sprays, Nares, Both, 2 times a day, PRN nasal allergy symptoms, # 1 each, 0 Refills, Maintenance,01/10/23 19:00:00 EDT, [id number], Partial fill upon patient request if the prescription is for a schedule II opioid drug., 2 sprays Carlos... Start Date: 01/10/23 Stop Date: 02/09/23 Status: Ordered Flonase 50 mcg/inh nasal spray Daily, 0 Refills, Maintenance, 02/21/18 16:12:11 EST Start Date: 02/21/18 Status: Ordered fluticasone 50 mcg/inh nasal spray 2 sprays, Nares, Both, Daily, # 1 each, 0 Refills, Maintenance, 01/10/23 19:02:00 EDT, [place], [id number], Partial fill upon patient request if the prescription is for a schedule II opioid drug., 2 sprays Nares, Both Daily,x30 days, 157, cm, 10... Start Date: 01/10/23 Stop Date: 02/09/23 Status: Ordered hydrOXYzine hydrochloride 25 mg oral tablet 1 tablet = 25 mg, By Mouth, Daily at bedtime, PRN Sleep, 0 Refills, Maintenance, 10/22/22 11:41:00 EDT, Partial fill upon patient request if the prescription is for a schedule II opioid drug. Start Date: 10/22/22 Status: Ordered Latuda By Mouth, Daily, 0 [...] opioid drug. Start Date: 08/29/22 Status: Ordered Multivitamin 1 tab, By Mouth, Daily, 0 Refills, Maintenance, 10/20/11 10:04:36 Start Date: 10/20/11 Status: Ordered omeprazole 40 mg oral enteric coated capsule 1 capsule = 40 mg, By Mouth, 2 times a day, PRN Dyspepsia, # 30 capsule, 0 Refills, Maintenance, 02/21/18 16:01:30 EST, EC Capsule Start Date: 02/21/18 Status: Ordered Prozac Liquid = 80 mg, [...] Safety Implantable Status Assigning Authority Unknown Unknown [id number] Unknown 03/13/19 Unknown Unknown Active Unknown Patient Care team information Care Team Personnel Name: Ana Maria Ramachandran NP Position: [facility] PCO Associate Professional Member Role: PCP Address: Address: [address] [place] [address] Primary Care [place], [place] [facility] Name: Syed Jimenes DO Position: [facility] IMPLEMENTATION DIRECTOR MD Member Role: Lifetime IMPLEMENTATION DIRECTOR Physician Address: Address: [address] [place] [address] [facility] Name: Izzy Muse RN Position: [facility] AMB Nurse Member Role: Primary Care Nurse Care Team Related Persons Name: SHANNAN FERREIRA Address: home [address] [place], [place] Name: SALMA RHODES Address: [address] [place], [place] Name: ELLIOT GARCIA Address: [address] [place] [address] Name: ENIO GARCIA Address: [address] [place] [address]
--- OUTSIDE RECORDS SUMMARY | 2024-02-03 14:03 | XMS_ITS | Continuity of Care Document ---
Author Organization [facility] Primary Car e [place] Address [address] [place] [address]- Care Team Providers Care Chief Design Drafter Name Role Phone Claritza PROGRAM DIRECTOR GROUP WORK, Marybel Godinez Primary Care Physician Encounter [facility] Date(s): 10/04/23 - 11/03/23 [facility] Care [place] [address] [place], [place] [email or web address] Allergies, Adverse Reactions, Alerts Substance Reaction Severity [...] Refills, Maintenance, 09/09/23 4:54:00 EDT, Cream, [id number], Partial fill upon patient request if the [...] Start Date: 08/29/22 Status: Ordered nystatin topical 269716 u/gm powder 1 application, Topically, 2 times a day, # 60 Gm, 1 Refills, Maintenance, 09/09/23 4:54:00 EDT, Powder, [facility]/pharmacy #[id number], Partial fill upon patient request [...] Refills, Maintenance, 10/04/23 19:48:00 EDT, DIS Tablet, [facility]/pharmacy #[id number], Partial fill upon patient request [...] Device Type Site Ethmoidectomy Maxillary Antrostomy Endos Mlika FRY, Lenny Mohr 02/28/18 Unknown Nares Left Device Identifier Serial Number Lot or Batch Number Manufacturing Date Expiration Date Distinct Identification Code MRI Safety Implantable Status Assigning Authority Unknown Unknown [id number] 8-114 Unknown 03/13/19 Unknown Unknown Active Unknown Patient Care team information Care Team Personnel Name: Syed Jimenes DO Position: [facility] SENIOR SVP MD Member Role: Lifetime SENIOR SVP Physician Address: Address: [address] [place] [address] - Name: Marybel Jerry NP Position: [facility] PCO Associate Professional Member Role: PCP Address: Address: [address] [place] [address] Primary Care [place], [place] [facility] [[email or web address]] Name: Izzy Muse RN Position: [facility] AMB Nurse Member Role: Primary Care Nurse Care Team Related Persons Name: SHANNAN FERREIRA Address: [address] [place], [place] Name: SALMA RHODES Address: [address] [place], [place] Name: ELLIOT GARCIA Address: [address] [place] [address] Name: ENIO GARCIA Address: home [address] [place], [place]
--- OUTSIDE RECORDS SUMMARY | 2024-02-03 14:03 | XMS_ITS | Continuity of Care Document ---
Author Organization [facility] Primary Car e [place] Address [address] [place] [address]- Care Team Providers Care Powder Worker Name Role Phone Claritza PAYROLL TECHNICIAN, Marybel Godinez Primary Care Physician Encounter [facility] Date(s): 07/08/23 - 08/07/23 [facility] Care [place] [address] [place] [address]- Allergies, Adverse Reactions, Alerts Substance Reaction Severity Status penicillin Severe Active morphine 1 rigidity, difficlut to breathe Active Diflucan hives Active 1rigid mucles Immunizations Given and Recorded Vaccine Date Status Refusal Reason influenza virus vaccine, inactivated 02/12/22 Mike rded influenza virus vaccine, inactivated 12/11/20 Mike rded SARS-CoV-2 (COVID-19) mRNA-5064 vaccine 04/10/20 R ecorded Medications Ativan 0.5 [...] Safety Implantable Status Assigning Authority Unknown Unknown [id number] 8-114 Unknown 03/13/19 Unknown Unknown Active Unknown Patient Care team information Care Team Personnel Name: Syed Jimenes DO Position: [facility] WEB CONTENT EXECUTIVE MD Member Role: Lifetime WEB CONTENT EXECUTIVE Physician Address: Address: [address] [place] [address] - Name: Marybel Jerry NP Position: [facility] PCO Associate Professional Member Role: PCP Address: Address: [address] [place] [address] Primary Care [place], [place] - Name: Izzy Muse RN Position: [facility] AMB Nurse Member Role: Primary Care Nurse Care Team Related Persons Name: SHANNAN FERREIRA Address: [address] [place], [place] Name: SALMA RHODES Address: [address] [place], [place] Name: ELLIOT GARCIA Address: [address] [place] [address] Name: ENIO GARCIA Address: [address] [place] [address]
--- OUTSIDE RECORDS SUMMARY | 2024-02-03 14:04 | XMS_ITS | Continuity of Care Document ---
Author Organization [facility] Primary Car e [place] Address [address] [place] [address]- Care Team Providers Care Research Test Engine Operator Name Role Phone Duarte WALTON, Ana Maria Mohr Primary Care Physician [id number] Date(s): 05/22/23 - 06/21/23 [facility] Care [place] [address] [place], [place] [address] Allergies, Adverse Reactions, Alerts Substance Reaction Severity Status penicillin Severe Active morphine 1 rigidity, difficlut to breathe Active Diflucan hives Active 1rigid mucles Immunizations Given and Recorded Vaccine Date Status Refusal Reason influenza virus vaccine, inactivated 02/12/22 Mike rded influenza virus vaccine, inactivated 12/11/20 Mike rded SARS-CoV-2 (COVID-19) mRNA-8761 vaccine 04/10/20 R ecorded Medications Ativan 0.5 [...] 07/19/23 18:22:00 EDT, 06/21/23 18:22:00 EDT, Solution, [id number] fill upon patient [...] Safety Implantable Status Assigning Authority Unknown Unknown [id number] 8-114 Unknown 03/13/19 Unknown Unknown Active Unknown Patient Care team information Care Team Personnel Name: Ana Maria Ramachandran NP Position: [facility] PCO Associate Professional Member Role: PCP Address: Address: [address] [place] [address] [place] [address]- Name: Syed Jimenes DO Position: [facility] OENOLOGIST MD Member Role: Lifetime OENOLOGIST Physician Address: Address: [address] [place] [address]- Name: Izzy Muse RN Position: [facility] AMB Nurse Member Role: Primary Care Nurse Care Team Related Persons Name: SHANNAN FERREIRA Address: [address] [place], [place] Name: SALMA RHODES Address: [address] [place], [place] Name: ELLIOT GARCIA Address: [address] [place] [address] Name: ENIO GARCIA Address: [address] [place], [place]
--- OUTSIDE RECORDS SUMMARY | 2024-02-03 14:04 | XMS_ITS | Continuity of Care Document ---
Author Organization [facility] Primary Car e [place] Address [address] [place] [address]- Care Team Providers Care Knifer Up Name Role Phone Claritza METAL FABRICATOR WELDER, Marybel Godinez Primary Care Physician Encounter [facility] Date(s): 06/13/23 - 07/13/23 [facility] Care [place] [address] [place], [place] [address] Allergies, Adverse Reactions, Alerts Substance Reaction Severity Status penicillin Severe Active Diflucan hives Active morphine 1 rigidity, difficlut to breathe Active 1rigid mucles Immunizations Given and Recorded [...] 07/19/23 18:22:00 EDT, 06/21/23 18:22:00 EDT, Solution, [facility]/pharmacy #[id number],Partial fill upon patient request if the prescripti... [...] Safety Implantable Status Assigning Authority Unknown Unknown [id number] [id number] Unknown 03/13/19 Unknown Unknown Active Unknown Patient Care team information Care Team Personnel Name: Syed Jimenes DO Position: [facility] SECONDARY SPANISH TEACHER MD Member Role: Lifetime SECONDARY SPANISH TEACHER Physician Address: Address: [address] [place] [address] Name: Claritza WALTON, Marybel Godinez Position: [facility] PCO Associate Professional Member Role: PCP Address: Address: [address] [place] [id number] Name: Izzy Muse RN Position: [facility] AMB Nurse Member Role: Primary Care Nurse Care Team Related Persons Name: SHANNAN FERREIRA Address: [address] [place], [place] Name: SALMA RHODES Address: [address] [place], [place] Name: ELLIOT GARCIA Address: [address] [place] [address] Name: ENIO GARCIA Address: [address] [place], [place]
--- OUTSIDE RECORDS SUMMARY | 2024-02-03 14:04 | XMS_ITS | Continuity of Care Document ---
Author Organization [facility] Primary Car e [place] Address [address] [place] [address]- Care Team Providers Care Any Commodity Buyer Name Role Phone Claritza EATING DISORDER SPECIALIST, Marybel Godinez Primary Care Physician [phone] Encounter [facility] Date(s): 10/05/23 - 11/04/23 [facility] Care [place] [address] [place], [place] [address] Allergies, Adverse Reactions, Alerts Substance Reaction [...] Refills, Maintenance, 09/09/23 4:54:00 EDT, Cream, [id number], Partial fill upon patient request if the [...] Start Date: 08/29/22 Status: Ordered nystatin topical 901897 u/gm powder 1 application, Topically, 2 times a day, # 60 Gm, 1 Refills, Maintenance, 09/09/23 4:54:00 EDT, Powder, [facility]/pharmacy #[id number], Partial fill upon patient request [...] Maintenance, 10/04/23 19:48:00 EDT, DIS Tablet, [facility]/pharmacy #[id number], Partial fill upon patient request [...] Safety Implantable Status Assigning Authority Unknown Unknown [id number] 8-114 Unknown 03/13/19 Unknown Unknown Active Unknown Patient Care team information Care Team Personnel Name: Syed Jimenes DO Position: [facility] OCEAN TRANSPORTATION INTERMEDIARY MD Member Role: Lifetime OCEAN TRANSPORTATION INTERMEDIARY Physician Address: Address: [address] [place] [address] - Name: Marybel Jerry NP Position: [facility] PCO Associate Professional Member Role: PCP Address: Address: [address] [place] [address] Primary Care [place], [place] [facility] Name: Izzy Muse RN Position: [facility] AMB Nurse Member Role: Primary Care Nurse Care Team Related Persons Name: SHANNAN FERREIRA Address: [address] [place], [place] Name: SALMA RHODES Address: [address] [place], [place] Name: ELLIOT GARCIA Address: [address] [place] [address] Name: ENIO GARCIA Address: [address] [place], [place]
--- OUTSIDE RECORDS SUMMARY | 2024-02-03 14:04 | XMS_ITS | Continuity of Care Document ---
Author Organization [facility] Primary Car e [place] Address [address] [place] [address]- Care Team Providers Care Route Sales Trainee Name Role Phone Claritza FULL STACK WEB DEVELOPER, Marybel Godinez Primary Care Physician En[facility] Date(s): 07/13/23 - 08/12/23 [facility] Care [place] [address] [place] [address]- Allergies, Adverse Reactions, Alerts Substance Reaction Severity Status penicillin Severe Active morphine 1 rigidity, difficlut to breathe Active Diflucan hives Active 1rigid mucles Immunizations Given and Recorded Vaccine Date Status Refusal Reason influenza virus vaccine, inactivated 02/12/22 Mkie rded influenza virus vaccine, inactivated 12/11/20 Mike [...] Safety Implantable Status Assigning Authority Unknown Unknown [id number] 8-114 Unknown 03/13/19 Unknown Unknown Active Unknown Patient Care team information Care Team Personnel Name: Syed Jimenes DO Position: [facility] VISUAL SUPERVISOR MD Member Role: Lifetime VISUAL SUPERVISOR Physician Address: Address: [address] [place] [address] - Name: Marybel Jerry NP Position: [facility] PCO Associate Professional Member Role: PCP Address: Address: [address] [place] [address] Primary Care [place], [place] - Name: Izzy Muse RN Position: [facility] AMB Nurse Member Role: Primary Care Nurse Care Team Related Persons Name: SHANNAN FERREIRA Address: [address] [place] [address] Name: SALMA RHODES Address: [address] [place] [address] Name: ELLIOT GARCIA Address: [address] [place] [address] Name: ENIO GARCIA Address: [address] [place] [address]
--- OUTSIDE RECORDS SUMMARY | 2024-02-03 14:04 | XMS_ITS | Continuity of Care Document ---
Author Organization [facility] Primary Car e [place] Address [address] [place] [address]- Care Team Providers Care Bell Person Name Role Phone Claritza STATISTICAL PROGRAMMER, Marybel Godinez Primary Care Physician Encounter [facility] Date(s): 08/12/23 - 09/11/23 [facility] Primary [place] [address] [place], [place] [address] Allergies, Adverse Reactions, Alerts Substance Reaction Severity Status penicillin Severe Active morphine 1 rigidity, difficlut to breathe Active Diflucan hives Active 1rigid mucles Immunizations Given and Recorded Vaccine Date Status Refusal Reason influenza virus vaccine, inactivated 02/12/22 Mike rded influenza virus vaccine, inactivated 12/11/20 Mike rded SARS-CoV-2 (COVID-19) mRNA-0243 vaccine 04/10/20 R ecorded Medications Ativan 0.5 mg oral tablet 1 tablet = 0.5 mg, By Mouth, 2 times a day, PRN as needed for anxiety, 0 Refills, Maintenance, 02/21/18 16:11:52 EST, Tablet Start Date: 02/21/18 Status: Ordered clotrimazole 1% topical cream 1 application, Topically, 2 times a day, PRN fungal rash, # 113 Gm, 1 Refills, Maintenance, 09/09/23 4:54:00 EDT, [facility], [id number], Partial fill upon patient request if the [...] Start Date: 08/29/22 Status: Ordered nystatin topical 161042 u/gm powder 1 application, Topically, 2 times a day, # 60 Gm, 1 Refills, Maintenance, 09/09/23 4:54:00 EDT, Powder, [facility]/pharmacy #[id number], Partial fill upon patient request if the [...] drug. Start Date: 07/27/23 Status: Ordered Wegovy (1 mg dose) subcutaneous solution = 1 mg, Subcutaneous Injection, Every week, for 4 week(s), in the abdomen, thigh, or upper arm, # 2mL, 0 Refills, Acute 09/23/23 6:22:00 EDT, 08/26/23 6:22:00 EDT, Solution, [facility]/pharmacy #[id number], Partial fill upon patient request if the prescription is... Start Date: 08/26/23 Stop Date: 09/23/23 Status: Ordered ZyrTEC 10 mg oral tablet [...] Safety Implantable Status Assigning Authority Unknown Unknown [id number] Unknown 03/13/19 Unknown Unknown Active Unknown Patient Care team information Care Team Personnel Name: Syed Jimenes DO Position: [facility] MEDICAL DETAILIST MD Member Role: Lifetime MEDICAL DETAILIST Physician Address: Address: [address] [place] [address] - Name: Marybel Jerry NP Position: [facility] PCO Associate Professional Member Role: PCP Address: Address: [address] [facility] Primary Care [place], [place] - Name: Izzy Muse RN Position: [facility] AMB Nurse Member Role: Primary Care Nurse Care Team Related Persons Name: SHANNAN FERREIRA Address: [address] [place] [address] Name: SALMA RHODES Address: [address] [place], [place] Name: ELLIOT GARCIA Address: [address] [place] [address] Name: ENIO GARCIA Address: [address] [place] [address]
--- OUTSIDE RECORDS SUMMARY | 2024-02-03 14:04 | XMS_ITS | Continuity of Care Document ---
Author Organization [facility] Address [address] [place] [address]- Care Team Providers Care Biscuitware Brusher Name Role Phone Duarte WALTON, Ana Maria Mohr Primary Care Physician Encounter [facility] NBR [id number] Date(s): 06/08/23 - 06/08/[address] [address]- Discharge Disposition: A-D/C Home Attending Physician: Johnathon Velasco MD Admitting Physician: Johnathon Velasco MD Referring Physician: Not on Staff, Referring MD Allergies, Adverse Reactions, Alerts Substance Reaction Severity Status penicillin Severe Active morphine 1 rigidity, difficlut to breathe Active Diflucan hives Active 1rigid mucles Medications acetaminophen 500 mg oral capsule 2 capsule = 1,000 mg, By Mouth, Every 8 hours, # 100 capsule, 0 Refills, Maintenance, 05/12/20 8:29:00 EST, Capsule, [facility], Partial fill upon patient request if the prescriptionis for a schedule II opioid drug., 158, cm, 2... Start Date: 05/12/20 Status: Ordered Ativan 0.5 [...] 1 each, 0 Refills, Maintenance,01/10/23 19:00:00 EDT, [place], [id number], Partial fill upon patient request [...] each, 0 Refills, Maintenance, 01/10/23 19:02:00 EDT, [place], [facility] #[id number], Partial fill upon patient request [...] tablet = 4 mg, By Mouth, Every 8 hours, PRN as needed for nausea/vomiting, for 3 days, # 10 tablet, 0 Refills, Acute 06/11/23 12:50:00 EDT, 06/08/23 12:50:00 EDT, DIS Tablet, [id number], Partial fill upon patient request if the prescription... Start Date: 06/08/23 Stop Date: 06/11/23 Status: Ordered Prozac Liquid = 80 mg, By Mouth, Daily, 0 Refills, Maintenance, 02/21/18 16:11:39 EST Start Date: 02/21/18 Status: Ordered Toradol Inj 15 mg, Injection, IV Push Slowly, Once, Routine, 06/08/23 11:00:00 EDT, Stop date 06/08/23 11:00:00EDT Start Date: 06/08/23 Stop Date: 06/08/23 Status: Completed ZyrTEC 10 mg oral tablet 1 tablet [...] at 6 month intervals x 1 year Results Radiology Reports * Exam Date Time Procedure Performing Provider Status 06/08/23 11:[address] Abd/Pelvis W/ IV Contrast Only Riri Lemons; Geovanni (Verified) Notes: (CT Abd/Pelvis W/ IV Contrast Only) Reason For Exam: Sided abdominal pain, tenderness, fever, status post appendectomy 5 years ago;Pain RESULT: CT Abd/Pelvis W/ IV Contrast Only CT Abd/Pelvis W/ IV Contrast Only Hx of Present Illness: abd pain, flank pain with nausea and fevers. Denies urinary symptoms. Abd pain is intermittent.; Reason: Pain; Sided abdominal pain, tenderness, fever, status post appendectomy5 years ago; Clinical Question(s): Biliary Obstruction TECHNIQUE: Spiral CT through the abdomen and pelvis with IV contrast formatted in 3 planes. 100 cc of Omnipaque 300 was administered intravenously. This study was performed oral contrast. Weight-based protocol using automatic tube modulation was used to optimize exposure parameters. CTDIvol Body: 23.99 mGy, DLP Body: 1154 mGy*cm. COMPARISON: None. FINDINGS: Photogrammetric Compilation Specialist View Findings, Lines and Tubes: None. Visualized Chest: Lung bases are clear. 5 mm subpleural nodule within the right lower lobe. No pleural effusion. The heart is normal in size. No pericardial effusion. Diaphragm: Normal. Liver: Liver is enlarged and moderately fatty infiltrated. Gallbladder: No CT evidence of gallbladder pathology. Bile ducts: No biliary ductal dilation. Spleen: Normal. Pancreas: Normal. Adrenal glands: Normal. Kidneys and ureters: No hydronephrosis, or stones. 4 mm exophytic enhancing lesion within the midpole of the left kidney posteriorly Bladder: Normal. Reproductive organs: There is a 2.1 cm right ovarian cyst. Small amount of free fluid in the right adnexa and cul-de-sac. An IUD is in place. Stomach, small bowel, and large bowel: Normal. Appendix: Status post appendectomy. Peritoneum and retroperitoneum: No ascites or pneumoperitoneum. No omental or mesenteric lesions. Lymph nodes: No enlarged lymph nodes. Blood vessels: Normal. No aneurysm. No evidence of venous thrombosis. Abdominal and pelvic wall: Unremarkable. Bones: No acute abnormality. IMPRESSION: Hepatomegaly with moderate hepatic steatosis. 5 mm exophytic area within the posterior aspect of the midpole of the left kidney. Recommend ultrasound or MRI with gadolinium for further evaluation. An actionable message (Cobb) has been communicated via the [employer] system on 06/08/2023 12:12 PM, Message ID [id number]. WSN: [id number] Ordering Physician: Johnathon Velasco Dictated By: Edilia Farah MD Dictated Date/Time: 06/08/23 12:13 p Reviewed By: Edilia Farah MD Signed By: Edilia Farah MD Signed Date/Time: 06/08/23 12:13 pm Transcribed By: DAO Transcribed Date/Time: 06/08/23 11:52 am Vital Signs Most recent to oldest [Reference Range]: 1 2 3 Height 155 cm (06/08/23 12:59 PM) 155 cm (06/08/23 9:32 AM) 155 cm (06/08/23 9:31 AM) Weight 97.8 kg (06/08/23 12:59 PM) 97.8 kg (06/08/23 9:32 AM) 97.8 kg (06/08/23 9:31 AM) Oxygen Saturation [94-100 %] 100 % (06/08/23 12:59 PM) 98 % (06/08/23 9:32 AM) Pulse Rate [55-90 bpm] 65 bpm (06/08/23 12:59 PM) 86 bpm (06/08/23 9:32 AM) Body Mass Index [18.5-24.99 kg/m2] 40.71 kg/m2 *>HHI* (06/08/23 12:59 PM) 40.71 kg/m2 *>HHI* (06/08/23 9:31 AM) Blood Pressure [90-138/55-84 mm Hg] 127/66mm Hg (06/08/23 12:59 PM) 138/85mm Hg (06/08/23 9:32 AM) Respiratory Rate [16-30 br/min] 17 br/min (06/08/23 12:59 PM) 18 br/min (06/08/23 11:44 AM) 18 br/min (06/08/23 9:32 AM) Temperature [96.8-100.4 DegF] 97.0 DegF (06/08/23 9:32 AM) Mode of Delivery (Oxygen) Room air (06/08/23 12:59 PM) Room air (06/08/23 9:32 AM) Blood pressure sites Arm, left (06/08/23 12:59 PM) Arm, left (06/08/23 9:32 AM) Temperature Route Temporal (06/08/23 9:32 AM) Dry Weight 97.8 kg (06/08/23 12:59 PM) 97.8 kg (06/08/23 9:32 AM) 97.8 kg (06/08/23 9:31 AM) Weight Obtained Via Standing scale (06/08/23 9:31 AM) Dry Weight Obtained Via Standing scale (06/08/23 9:32 AM) Standing scale (06/08/23 9:31 AM) Social History Social History Type Response Smoking Status Never smoker entered on: 09/13/13 Sex Implantable Device List Procedure Provider Procedure Date Device Type Site Ethmoidectomy Maxillary Antrostomy Endos Lenny Jarquin MD 02/28/18 Unknown Nares Left Device Identifier Serial Number Lot or Batch Number Manufacturing Date Expiration Date Distinct Identification Code MRI Safety Implantable Status Assigning Authority Unknown Unknown [id number] Unknown 03/13/19 Unknown Unknown Active Unknown Note * Johnathon Velasco MD: PERFORM Event Display: Patient Education Leaflets Authored Date: [id number] Viral Gastroenteritis (Adult) ?? [id number] Viral Gastroenteritis (Adult) Gastroenteritis is often called the stomach flu. But it has nothing to do with influenza. It's mostoften caused by a virus that affects the stomach and intestinal tract. Most bouts last from 2 to 7 days. Common viruses causing gastroenteritis include norovirus, rotavirus, and hepatitis A. Nonviralcauses of gastroenteritis include bacteria, parasites, and toxins. The danger from repeated vomiting or diarrhea is dehydration. This is when the body loses too??muchfluid. When this occurs, you must replace the body fluids. Antibiotics aren't an effective treatment for this condition because it's caused by a virus. Symptoms of viral gastroenteritis may include: ??? Watery, loose stools ??? Stomach pain or belly (abdominal) cramps ??? Fever and chills ??? Nausea and vomiting ??? Loss of bowel control ??? Headache Home care Gastroenteritis is spread by contact with the stool or vomit of an infected person. This can occur from person to person or from contact with a contaminated surface. Follow these guidelines when caring for yourself at home: ??? If symptoms are severe, rest at home for the next 24 hours or until you are feeling better. ???Wash your hands with soap and clean, running water or use alcohol-based dispatcher radio to prevent the spread of infection. Wash your hands after touching anyone who is sick. ??? Wash your hands or use alcohol-based dispatcher radio after using the toilet and before meals. Clean the toilet after each use. Remember these tips when preparing food: ??? People with diarrhea should not prepare or serve food??to others. When preparing foods, wash your hands before and after. ??? Wash your hands after using cutting boards, counter tops, knives, or utensils??that have been in contact with raw food. ??? Dry your hands with a single-use disposable towel. ??? Keep uncooked meats away from cooked and dfbrt-mg-eue foods. Medicine Use acetaminophen or nonsteroidal anti-inflammatory drugs (NSAID) such as ibuprofen or naproxen to control fever, unless another medicine was given. If you have chronic liver or kidney disease, talk with your healthcare provider before using these medicines. Also talk with your provider if you've??had a stomach ulcer or??gastrointestinal bleeding. Don't give aspirin??to anyone under 18 years of age who is ill with a fever. It may result in a serious illness called Luiz syndrome that may cause severe liver damage or even . Don't use NSAIDS if you're already taking one for another condition (like arthritis) or are on aspirin (such as for heart disease or after a stroke). If medicines for vomiting or diarrhea are prescribed, take these only as directed. Nausea and diarrhea medicines are generally OK unless you have bleeding, fever, or severe abdominal pain. Diet Follow these guidelines for??food: ??? Water and liquids are important so you don't get dehydrated. Drink small amounts often or suck on ice chips as tolerated if you are vomiting. ??? If you eat, stay away from fatty, greasy, spicy, or fried foods. ??? Don't eat dairy if you have diarrhea. This can make diarrhea worse. ??? Avoid tobacco, alcohol, and caffeine. These may worsen symptoms. During the first 24 hours (the first full day), follow the diet below: ??? Beverages. Sip sports drinks, soft drinks without caffeine, madhuri eloisa, mineral water (plain orflavored), decaffeinated tea and coffee. If you are very dehydrated, sports drinks aren't a good choice. They have too much sugar and not enough electrolytes. In this case, use products called oral rehydration solutions. You can buy these at pharmacies and grocery stores. ??? Soups. Eat clear broth, consomm??, and bouillon. ??? Desserts. Eat gelatin, ice pops, and fruit juice bars. During the next 24 hours (the second day), you may add the following to the above: ??? Hot cereal, plain toast, bread, rolls, and crackers ??? Plain noodles, rice, mashed potatoes, chicken noodle or rice soup ??? Unsweetened canned fruit (avoid pineapple), bananas ??? Limit fat intake to less than 15 grams per day. Do this by avoiding margarine, butter, oils, mayonnaise, sauces, gravies, fried foods, peanut butter, meat, poultry, and fish. ??? Limit fiber and avoid raw or cooked vegetables, fresh fruits (except bananas), and bran cereals. ??? Limit caffeine and chocolate. Don't use spices or seasonings other than salt. ??? Limit dairy products. ??? Avoid alcohol. During the next 24 hours: ??? Gradually resume a normal diet as you feel better and your symptoms improve. ??? If at any time it starts getting worse again, go back to clear liquids until you feel better. ?? Follow-up care Follow up with your healthcare provider, or??as advised. Call your provider if you don't get betterwithin 24 hours or if diarrhea lasts more than a few days. It's also important to follow up if you can't keep down liquids, which can lead to becoming dehydrated. If a stool (diarrhea) sample was taken, call as directed for the results. ?? Call 911 Call 911 if any of these occur: ??? Trouble breathing ??? Chest pain ??? Confused ??? Severe drowsiness or trouble awakening ??? Fainting or loss of consciousness ??? Rapid heart rate ??? Seizure ???Stiff neck ?? When to get medical advice Call your healthcare provider right away if any of these occur: ??? Abdominal pain that gets worse ??? Continued vomiting (can't keep liquids down) ??? Frequent diarrhea (more than 5 times a day) ???Blood in vomit or stool (black or red color) ??? Dark urine, reduced urine output, or extreme thirst ??? Weakness or dizziness ??? Drowsiness ??? Fever of 100.4??F (38??C)??or higher, or as advised by your provider ??? New rash ?? Last Reviewed Date: 2021 ?? [id number] [employer]. All rights reserved. This information is not intended as a substitute for professional medical care. Always follow your healthcare professional's instructions. ?? Patient Care team information Care Team Personnel Name: Ana Maria Ramachandran NP Position: [facility] PCO Associate Professional Member Role: PCP Address: Address: [address] [place] [address] Name: Syed Jimenes DO Position: [facility] MUTUAL FUND MANAGER MD Member Role: [employer] MUTUAL FUND MANAGER Physician Address: Address: [address], [place] [address] Name: Izzy Muse RN Position: [facility] AMB Nurse Member Role: Primary Care Nurse Care Team Related Persons Name: SHANNAN FERREIRA Address: home [address] [place] [address] Name: SALMA RHODES Address: [address] [place] [address] Name: ELLIOT GARCIA Address: [address] [place] [address] Name: ENIO GARCIA Address: [address] [place] [address]
--- OUTSIDE RECORDS SUMMARY | 2024-02-03 14:04 | XMS_ITS | Continuity of Care Document ---
Author Organization [facility] Primary [facility] [place] Address [address] [place] [address]- Care Team Providers Care Director Of Cardiopulmonary Services Name Role Phone Claritza COMPLIANCE FIELD TECHNICIAN, Marybel Godinez Primary Care Physician [phone] Encounter [facility] Date(s): 07/20/23 - 08/19/23 [facility] Care [place] [address] [place], [place] [address] Allergies, Adverse Reactions, Alerts Substance Reaction Severity Status penicillin Severe Active morphine 1 rigidity, difficlut to breathe Active Diflucan hives Active 1rigid mucles Immunizations Given and Recorded Vaccine Date Status Refusal Reason influenza virus vaccine, inactivated 02/12/22 Mike rded influenza virus vaccine, inactivated 12/11/20 Mike rded SARS-CoV-2 (COVID-19) mRNA-3205 vaccine 04/10/20 R ecorded Medications Ativan 0.5 [...] device See Instructions, ins info faxed DOI 8--18, # 1 each, 0 Refills, Soft Stop, [...] Safety Implantable Status Assigning Authority Unknown Unknown [id number] Unknown 03/13/19 Unknown Unknown Active Unknown Patient Care team information Care Team Personnel Name: Syed Jimenes DO Position: [facility] DOBBY LOOM FIXER MD Member Role: [employer] DOBBY LOOM FIXER Physician Address: Address: [address] [place] [address] - Name: Marybel Jerry NP Position: [facility] PCO Associate Professional Member Role: PCP Address: Address: [address] [place] [address] Primary Care [place], [place] - Name: Izzy Muse RN Position: [facility] AMB Nurse Member Role: Primary Care Nurse Care Team Related Persons Name: SHANNAN FERREIRA Address: home [address] [place], [place] Name: SALMA RHODES Address: [address] [place], [place] Name: ELLIOT GARCIA Address: [address] [place] [address] Name: ENIO GARCIA Address: [address] [place] [address]
--- OUTSIDE RECORDS SUMMARY | 2024-02-03 14:04 | XMS_ITS | Continuity of Care Document ---
Author Organization [facility] Primary Car e [place] Address [address] [place] [address]- Care Team Providers Care Surgical Garment Assembler Name Role Phone Claritza VICE SQUAD POLICE OFFICER, Marybel Godinez Primary Care Physician Encounter [facility] Date(s): 10/26/23 - 11/25/[address] [address] Attending Physician: Admtr, [id number] Admitting Physician: Admtr, [id number] Referring Physician: Admtr, [id number] Allergies, Adverse Reactions, Alerts Substance Reaction Severity [...] Refills, Maintenance, 09/09/23 4:54:00 EDT, [id number] Partial fill upon patient request if the [...] device See Instructions, ins info faxed DOI 8--, # 1 each, 0 Refills, Soft Stop, 09/20/17 11:10:18 EDT Start Date: 09/20/17 Status: Ordered Motegrity 2 mg oral tablet 1 tablet = 2 mg, By Mouth, Daily, # 30 tablet, 0 Refills, Maintenance, 08/29/22 8:19:00 EDT, Tablet, Partial fill upon patient request if the prescription is for a schedule II opioid drug. Start Date: 08/29/22 Status: Ordered nystatin topical 426000 u/gm powder 1 application, Topically, 2 times a day, # 60 Gm, 1 Refills, Maintenance, 09/09/23 4:54:00 EDT, [place], [facility]/pharmacy #[id number], Partial fill upon patient request if [...] Refills, Maintenance, 10/04/23 19:48:00 EDT, DIS Tablet, [facility]/pharmacy #[id number], Partial fill upon patient request if [...] drug. Start Date: 10/26/23 Status: Ordered Wegovy (1 mg dose) subcutaneous solution = 1 mg, Subcutaneous Injection, Every week, for 4 week(s), in the abdomen, thigh, or upper arm, # 2mL, 0 Refills, Acute 12/16/23 18:11:00 EDT, 11/18/23 18:11:00 EDT, [place], [id number] Partial fill upon patient request if the prescription... Start Date: 11/18/23 Stop Date: 12/16/23 Status: Ordered Wegovy (1.7 mg dose) subcutaneous [...] Safety Implantable Status Assigning Authority Unknown Unknown [id number] Unknown 03/13/19 Unknown Unknown Active Unknown Patient Care team information Care Team Personnel Name: Syed Jimenes DO Position: [facility] DRY DRUG WORKER MD Member Role: [employer]etime DRY DRUG WORKER Physician Address: Address: [address] [place] [address] - Name: Marybel Jerry NP Position: [facility] PCO Associate Professional Member Role: PCP Address: Address: [address] [place] [address] - Name: Izzy Muse RN Position: [facility] AMB Nurse Member Role: Primary Care Nurse Care Team Related Persons Name: SHANNAN FERREIRA Address: [address] [place], [place] Name: SALMA RHODES Address: [address] [place], [place] Name: ELLIOT GARCIA Address: [address] [place] [address] Name: ENIO GARCIA Address: [address] [place], [place]
--- OUTSIDE RECORDS SUMMARY | 2024-02-03 14:04 | XMS_ITS | Continuity of Care Document ---
Author Organization [facility] Primary Car e [place] Address [address] [place] [address]- Care Team Providers Care Chute Puller Name Role Phone Claritza CONTINUOUS PROCESS MACHINE OPERATOR, Marybel Godinez Primary Care Physician Encounter [facility] Date(s): 09/23/23 - 10/23/23 [facility] Care [place] [address] [place], [place] [address] Allergies, Adverse Reactions, Alerts Substance [...] Refills, Maintenance, 09/09/23 4:54:00 EDT, [place], [facility]/pharmacy #[id number], Partial fill upon patient request if the [...] Start Date: 08/29/22 Status: Ordered nystatin topical 124341 u/gm powder 1 application, Topically, 2 times a day, # 60 Gm, 1 Refills, Maintenance, 09/09/23 4:54:00 EDT, Pow[place], [facility]/pharmacy #[id number], Partial fill upon patient request if the [...] Safety Implantable Status Assigning Authority Unknown Unknown [id number] Unknown 03/13/19 Unknown Unknown Active Unknown Patient Care team information Care Team Personnel Name: Syed Jimenes DO Position: [facility] ELECTRON BEAM PHOTO MASK TECHNICIAN MD Member Role: Lifetime ELECTRON BEAM PHOTO MASK TECHNICIAN Physician Address: Address: [address] [place] [address]- Name: Marybel Jerry NP Position: [facility] PCO Associate Professional Member Role: PCP Address: Address: [address] [facility] Primary [place], [place] - Name: Izzy Muse RN Position: [facility] AMB Nurse Member Role: Primary Care Nurse Care Team Related Persons Name: SHANNAN FERREIRA Address: home [address] [place], [place] Name: SALMA RHODES Address: [address] [place], [place] Name: ELLIOT GARCIA Address: [address] [place] [address] Name: ENIO GARCIA Address: [address] [place] [address]
--- OUTSIDE RECORDS SUMMARY | 2024-02-03 14:04 | XMS_ITS | Continuity of Care Document ---
Author Organization [facility] Primary Car e [place] Address [address] [place] [address]- Care Team Providers Care Remote Control Assembler Name Role Phone Claritza TRIP FOLLOWER, Marybel Godinez Primary Care Physician Encounter [facility] Date(s): 08/22/23 - 09/21/23 [facility] Primary [facility] [place] [address] [place], [place] [address] Allergies, Adverse Reactions, Alerts Substance Reaction Severity Status penicillin Severe Active morphine 1 rigidity, difficlut to breathe Active Diflucan hives Active 1rigid mucles Immunizations Given and Recorded Vaccine Date Status Refusal Reason influenza virus vaccine, inactivated 02/12/22 Mike rded influenza virus vaccine, inactivated 12/11/20 Mike rded SARS-CoV-2 (COVID-19) mRNA-7363 vaccine 04/10/20 R ecorded Medications Ativan 0.5 mg oral tablet 1 tablet = 0.5 mg, By Mouth, 2 times a day, PRN as needed for anxiety, 0 Refills, Maintenance, 02/21/18 16:11:52 EST, Tablet Start Date: 02/21/18 Status: Ordered clotrimazole 1% topical cream 1 application, Topically, 2 times a day, PRN fungal rash, # 113 Gm, 1 Refills, Maintenance, 09/09/23 4:54:00 EDT, [id number] Partial fill upon patient request if the [...] Start Date: 08/29/22 Status: Ordered nystatin topical 383896 u/gm powder 1 application, Topically, 2 times a day, # 60 Gm, 1 Refills, Maintenance, 09/09/23 4:54:00 EDT, Powder, [facility]/pharmacy #[id number], Partial fill upon patient request if the [...] 09/23/23 6:22:00 EDT, 08/26/23 6:22:00 EDT, Solution, [facility]/pharmacy #[id number], Partial fill upon patient request if [...] Safety Implantable Status Assigning Authority Unknown Unknown [id number] Unknown 03/13/19 Unknown Unknown Active Unknown Patient Care team information Care Team Personnel Name: Syed Jimenes DO Position: [facility] BEHAVIORAL HEALTH CASE MANAGER MD Member Role: [employer] BEHAVIORAL HEALTH CASE MANAGER Physician Address: Address: [address] [place] [address] - Name: Marybel Jerry NP Position: [facility] PCO Associate Professional Member Role: PCP Address: Address: [address] [facility] Primary Care [place], [place] - Name: Izzy Muse RN Position: [facility] AMB Nurse Member Role: Primary Care Nurse Care Team Related Persons Name: SHANNAN FERREIRA Address: [address] [place], [place] Name: SALMA RHODES Address: [address] [place], [place] Name: ELLIOT GARCIA Address: [address] [place] [address] Name: ENIO GARCIA Address: [address] [place] [address]
--- OUTSIDE RECORDS SUMMARY | 2024-02-03 14:04 | XMS_ITS | Continuity of Care Document ---
Author Organization [facility] Primary Car [place] Address [address] [place] [address]- Care Team Providers Care Unattended Ground Sensor Specialist Name Role Phone Claritza WALTON, Marybel Godinez Primary Care Physician [phone] Encounter [facility] Date(s): 07/27/23 - 08/26/23 [facility] [address], [place] [address] Attending Physician: Juanis Will Admitting Physician: Juanis Wlil Referring Physician: AdmtrJuanis Allergies, Adverse Reactions, Alerts Substance Reaction Severity [...] 09/23/23 6:22:00 EDT, 08/26/23 6:22:00 EDT, Solution, [id number], Partial fill upon [...] Safety Implantable Status Assigning Authority Unknown Unknown [id number] Unknown 03/13/19 Unknown Unknown Active Unknown Patient Care team information Care Team Personnel Name: Syed Jimenes DO Position: [facility] SEO MARKETING SPECIALIST MD Member Role: Lifetime SEO MARKETING SPECIALIST Physician Address: Address: [address] [place] [address]- Name: Marybel Jerry NP Position: [facility] PCO Associate Professional Member Role: PCP Address: Address: [address] [place] [address] Primary Care [place], [place] [facility] Name: Izzy Muse RN Position: [facility] AMB Nurse Member Role: Primary Care Nurse Care Team Related Persons Name: SHANNAN FERREIRA Address: home [address] [place], [place] Name: SALMA RHODES Address: [address] [place], [place] Name: ELLIOT GARCIA Address: home [address] [place] [address] Name: ENIO GARCIA Address: home [address] [place], [place]
--- OUTSIDE RECORDS SUMMARY | 2024-02-03 14:04 | XMS_ITS | Continuity of Care Document ---
Author Organization [facility] Primary Car e [place] Address [address] [place] [address]- Care Team Providers Care Warp Tension Tester Name Role Phone Claritza HR REPRESENTATIVE, Marybel Godinez Primary Care Physician [id number] Date(s): 09/16/23 - 10/16/23 [facility] Care [place] [address] [place], [place] [address] Allergies, Adverse Reactions, Alerts Substance Reaction Severity [...] Refills, Maintenance, 09/09/23 4:54:00 EDT, Cream, [id number], Partial fill upon patient request if the [...] Start Date: 08/29/22 Status: Ordered nystatin topical 602053 u/gm powder 1 application, Topically, 2 times a day, # 60 Gm, 1 Refills, Maintenance, 09/09/23 4:54:00 EDT, Powder, [id number], Partial fill upon patient request if the [...] Maintenance, 10/04/23 19:48:00 EDT, DIS Tablet, [facility][id number], Partial fill upon patient request if [...] Safety Implantable Status Assigning Authority Unknown Unknown [id number] [id number] Unknown 03/13/19 Unknown Unknown Active Unknown Patient Care team information Care Team Personnel Name: Syed Jimenes DO Position: [facility] MOTEL KEEPER MD Member Role: Lifetime MOTEL KEEPER Physician Address: Address: [address] [place] [address]- Name: Marybel Jerry NP Position: [facility] PCO Associate Professional Member Role: PCP Address: Address: [address] [facility] Primary Care [place], [place] - Name: Izzy Muse RN Position: [facility]B Nurse Member Role: Primary Care Nurse Care Team Related Persons Name: SHANNAN FERREIRA Address: home [address] [place], [place] Name: SALMA RHODES Address: [address] [place], [place] Name: ELLIOT GARCIA Address: [address] [place] [address] Name: ENIO GARCIA Address: [address] [place] [address]
--- OUTSIDE RECORDS SUMMARY | 2024-02-03 14:04 | XMS_ITS | Continuity of Care Document ---
Author Organization [facility] Primary Car e [place] Address [address] [place] [address]- Care Team Providers Care Mammal Control Agent Name Role Phone Claritza WARRANTY ADMINISTRATOR, Marybel Godinez Primary Care Physician [phone] [facility] Date(s): 08/05/23 - 09/04/23 [facility] Care [place] [address] [place], [place] [address] Allergies, Adverse Reactions, Alerts Substance Reaction Severity Status penicillin Severe Active Diflucan hives Active morphine 1 rigidity, difficlut to breathe Active 1rigid mucles Immunizations Given and Recorded Vaccine Date Status Refusal Reason influenza virus vaccine, inactivated 02/12/22 Mike rded influenza virus vaccine, inactivated 12/11/20 Mike rded SARS-CoV-2 (COVID-19) mRNA-[id number] vaccine 04/10/20 R ecorded Medications Ativan 0.5 [...] Date Device Type Site Ethmoidectomy Maxillary Antrostomy Gwendolyn Jarquin MD, Lenny Mohr 02/28/18 Unknown Nares Left Device Identifier Serial Number Lot or Batch Number Manufacturing Date Expiration Date Distinct Identification Code MRI Safety Implantable Status Assigning Authority Unknown Unknown [id number] Unknown 03/13/19 Unknown Unknown Active Unknown Patient Care team information Care Team Personnel Name: Syed Jimenes DO Position: [facility] COMMERCIAL DRONE SOFTWARE DEVELOPER MD Member Role: Lifetime COMMERCIAL DRONE SOFTWARE DEVELOPER Physician Address: Address: [address] [place] [address]- Name: Marybel Jerry NP Position: [facility] PCO Associate Professional Member Role: PCP Address: Address: [address] [place] [address] Primary Care [place], [place] - Name: Izzy Muse RN Position: [facility] AMB Nurse Member Role: Primary Care Nurse Care Team Related Persons Name: SHANNAN FERREIRA Address: [address] [place] [address] Name: SALMA RHODES Address: [address] [place] [address] Name: ELLIOT GARCIA Address: [address] [place] [address] Name: ENIO GARCIA Address: [address] [place] [address]
--- OUTSIDE RECORDS SUMMARY | 2024-02-03 14:04 | XMS_ITS | Continuity of Care Document ---
Author Organization [facility] Primary Car e [place] Address [address] [place] [address]- Care Team Providers Care Smoking Tobacco Packer Hand Name Role Phone Claritza CAN FEEDER, Marybel Godinez Primary Care Physician [phone] Encounter [facility] Date(s): 07/18/23 - 08/17/23 [facility] [place] [address] [place], [place] [address] Allergies, Adverse Reactions, Alerts Substance Reaction Severity Status penicillin Severe Active morphine 1 rigidity, difficlut to breathe Active Diflucan hives Active 1rigid mucles Immunizations Given and Recorded Vaccine Date Status Refusal Reason influenza virus vaccine, inactivated 02/12/22 Mike rded influenza virus vaccine, inactivated 12/11/20 Mike rded SARS-CoV-2 (COVID-19) mRNA-[id number] vaccine 04/10/20 R ecorded Medications Ativan 0.5 [...] Safety Implantable Status Assigning Authority Unknown Unknown [id number] Unknown 03/13/19 Unknown Unknown Active Unknown Patient Care team information Care Team Personnel Name: Syed Jimenes DO Position: [facility] CASINO GAMING INSPECTOR MD Member Role: Lifetime CASINO GAMING INSPECTOR Physician Address: Address: [address] [place] [address] - Name: Marybel Jerry NP Position: [facility] PCO Associate Professional Member Role: PCP Address: Address: [address] [place] [address] Primary Care [place], [place] - Name: Izzy Muse RN Position: [facility] AMB Nurse Member Role: Primary Care Nurse Care Team Related Persons Name: SHANNAN FERREIRA Address: home [address] [place], [place] Name: SALMA RHODES Address: home [address] [place], [place] Name: ELLIOT GARCIA Address: [address] [place] [address] Name: ENIO GARCIA Address: [address] [place] [address]
--- OUTSIDE RECORDS SUMMARY | 2024-02-03 14:04 | XMS_ITS | Continuity of Care Document ---
Author Organization [facility] Primary Car e [place] Address [address] [place] [address]- Care Team Providers Care Security Advisor Name Role Phone Claritza WALTON, Marybel Godinez Primary Care Physician [facility] [id number] Date(s): 06/29/23 - 07/29/23 [facility] Care [place] [address] [place] [address]- Allergies, Adverse Reactions, Alerts Substance Reaction Severity Status penicillin Severe Active morphine 1 rigidity, difficlut to breathe Active Diflucan hives Active 1rigid mucles Immunizations Given and Recorded Vaccine Date Status Refusal Reason influenza virus vaccine, inactivated 02/12/22 Mike rded influenza virus vaccine, inactivated 12/11/20 Mike rded SARS-CoV-2 (COVID-19) mRNA-[id number] vaccine 04/10/20 R ecorded Medications Ativan 0.5 [...] Safety Implantable Status Assigning Authority Unknown Unknown [id number] 8-114 Unknown 03/13/19 Unknown Unknown Active Unknown Patient Care team information Care Team Personnel Name: Syed Jimenes DO Position: [facility] DOUBLE BASS PLAYER MD Member Role: Lifetime DOUBLE BASS PLAYER Physician Address: Address: [address] [place] [address] - Name: Marybel Jerry NP Position: [facility] PCO Associate Professional Member Role: PCP Address: Address: [address] [place] [address] Primary Care [place], [place] - Name: Izzy Muse RN Position: [facility] AMB Nurse Member Role: Primary Care Nurse Care Team Related Persons Name: SHANNAN FERREIRA Address: home [address] [place], [place] Name: SALMA RHODES Address: [address] [place], [place] Name: ELLIOT GARCIA Address: home [address] [place] [address] Name: ENIO GARCIA Address: home [address] [place] [address]
--- OUTSIDE RECORDS SUMMARY | 2024-02-03 14:04 | XMS_ITS | Continuity of Care Document ---
Author Organization [facility] Address [address] [place] [address]- Care Team Providers Care Leadership Intern Name Role Phone Edna Mathis NP Primary Care Physician Encounter [facility] NBR [id number] Date(s): 10/22/22 - 10/22/[address] [address]- Encounter Diagnosis Rectal bleeding(Final) - 10/22/22 Discharge Disposition: A-D/C Home Attending Physician: Maciel Alexandra MD Admitting Physician: Maciel Alexandra MD Referring Physician: Not on Staff, Referring MD Allergies, Adverse Reactions, Alerts Substance Reaction Severity Status penicillin Severe Active morphine 1 rigidity, difficlut to breathe Active Diflucan hives Active 1rigid mucles Medications acetaminophen 500 mg oral capsule 2 capsule = 1,000 mg, By Mouth, Every 8 hours, # 100 capsule, 0 Refills, Maintenance, 05/12/20 8:29:00 EST, Capsule, [facility], Partial fill upon patient request if the prescriptionis for a schedule II opioid drug., 158, cm, 2... 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 Excessive hair on females Confirmed Active Migraine Confirmed Active PCOS (polycystic ovarian syndrome) Confirmed Active Severe obesity Confirmed Active 1benign 2colpo and pap smear at 6 month intervals x 1 year Vital Signs Most recent to oldest [Reference Range]: 1 2 Height 157 cm (10/22/22 11:52 AM) 157 cm (10/22/22:34 AM) Weight 102.8 kg (10/22/22:52 AM) 102.8 kg (10/22/22:34 AM) Oxygen Saturation [94-100 %] 97 % (10/22/22:34 AM) Pulse Rate [55-90 bpm] 93 bpm *H* (10/22/2234 AM) Body Mass Index [18.5-24.99 kg/m2] 41.71 kg/m2 *>HHI* (10/22/22 11:52 AM) Blood Pressure [90-138/55-84 mm Hg] 147/ 85mm Hg *H* (10/22/22: AM) Respiratory Rate [16-30 br/min] 18 br/mi n (10/22/22:34 AM) Temperature [96.8-100.4 DegF] 98.4 DegF (10/22/22: AM) Mode of Delivery (Oxygen) Room air (10/22/22 AM) Blood pressure sites Arm, right (10/22/22 11:52 AM) Temperature Route Oral (10/22/22:34 AM) Dry Weight 102.8 kg (10/22/22 11:52 AM) 102.8 kg (10/22/22:34 AM) Social History Social History Type Response Smoking Status Never smoker entered on: 09/13/13 Sex Implantable Device List Procedure Provider Procedure Date Device Type Site Ethmoidectomy Maxillary Antrostomy Endos Milka FRY, Lenny Mohr 02/28/18 Unknown Nares Left Device Identifier Serial Number Lot or Batch Number Manufacturing Date Expiration Date Distinct Identification Code MRI Safety Implantable Status Assigning Authority Unknown Unknown [id number] Unknown 03/13/19 Unknown Unknown Active Unknown Note * Maged Lucia DO: PERFORM Event Display: Patient Education Leaflets Authored Date: [id number] Hemorrhoids ?? [id number] Hemorrhoids Hemorrhoids are swollen and inflamed veins inside the rectum and near the anus. The rectum is the last several inches of the colon. The anus is the passage between the rectum and the outside of the body. Causes The veins can become swollen because of increased pressure in them. This is most often caused by: ??? Long-term (chronic) constipation or diarrhea ??? Straining when having a bowel movement ??? Sitting too long on the toilet ??? A low-fiber diet ? Weakening of supporting tissues of the anus and rectum from aging ?? Symptoms ??? Bleeding from the rectum. You may notice this after bowel movements. If you see blood from bowel movements, talk with your provider. They can determine if it's likely to be hemorrhoids, or if youneed more assessment. ??? Lump near the anus ??? Itching around the anus ??? Pain around the anus ??? Mucus leaks from the anus There are different types of hemorrhoids. Depending on the type you have and the severity, you may be able to treat yourself at home. In some cases, certain procedures may be the best treatment options. Your healthcare provider can tell you more about this, if needed. ?? Home care General care ??? To get relief from pain or itching, try: o Medicines. Your healthcare provider may recommend stool softeners, suppositories, or laxatives to help manage constipation. Use these exactly as directed. o Sitz baths. A sitz bath involves sitting in a few inches of warm bath water. Be careful not to make the water so hot that you burn yourself???test it before sitting in it. Soak for about 10 to 15minutes a few times a day. This may help relieve pain. o Topical products. Your healthcare providermay prescribe or recommend creams, ointments, or pads that can be applied to the hemorrhoid. Use these exactly as directed. Tips to help prevent hemorrhoids ??? Eat more fiber. Fiber adds bulk to stool and absorbs water as it moves through your colon. This makes stool softer and easier to pass. o Increase the fiber in your diet with more fiber-rich foods. These include fresh fruit, vegetables, and whole grains. o Take afiber supplement or bulking agent, if advised by your healthcare provider. These include products such as psyllium or methylcellulose. ??? Drink??more water. Your healthcare provider may direct you to drink plenty of water. This can help keep stool soft. ??? Be more active. Frequent exercise aids digestion and helps prevent constipation. It may also help make bowel movements more regular. ??? Don???t strain during bowel movements. This can make hemorrhoids more likely. Also, don???t sit on the toilet for long periods of time. ?? Follow-up care Follow up with your healthcare provider as advised. If a culture or imaging tests were done, someone will let you know the results when they are ready. This may take a few days or longer.??If your healthcare provider recommends a procedure for your hemorrhoids, these options can be discussed. Options may include surgery and outpatient office treatments. ?? When to seek medical advice Call your healthcare provider right away if any of these occur: ??? Increased bleeding from the rectum ??? Increased pain around the rectum or anus ??? Weakness or dizziness ?? Call 911 Call 911??if any of these occur: ??? Trouble breathing or swallowing ??? Fainting or loss of consciousness ??? Unusually fast heart rate ??? Vomiting blood ??? Large amounts of blood in stool or black, tarry stools ?? Last Reviewed Date: 2021 ?? [id number] The [employer]. All rights reserved. This information is not intended as a substitute for professional medical care. Always follow your healthcare professional's instructions. ?? * Maged Lucia DO: PERFORM Event Display: Patient Education Leaflets Authored Date: [id number] Lower Gastrointestinal (GI) Bleeding (Stable) ?? [id number] Lower Gastrointestinal (GI) Bleeding (Stable) You have signs of blood in your stool. This is called rectal bleeding. The bleeding may have begun in another part of your gastrointestinal (GI) tract. If the blood is bright red, it's likely coming from the lower part of the GI tract. If the blood is black or dark, it might be coming from higher up in the GI tract. Very small amounts of GI bleeding may not be visible and can only be discovered during a test on your stool. Possible causes of lower GI bleeding include: ??? Swollen inflamed veins in the rectum (hemorrhoids) ??? Tear in the lining of the anus (anal fissures) ??? Bleeding from a blood vessel in a small pouch in the large intestine (diverticular bleeding) ??? Inflammatory bowel disease (Crohn's disease or ulcerative colitis) ??? Polyps (growths) in the intestine ??? Swelling and irritation of the colon (infectious colitis or other types of colitis)??? Colon cancer Note:??Iron supplements and medicines for diarrhea or upset stomach can cause black stools. Foods, such as licorice and red beets, can also discolor the stool and be mistaken for bleeding. These are not bleeding and are not a cause for alarm. Home care You have not lost a large amount of blood and your condition appears stable at this time.??You may resume normal activity as long as you feel well. Don't take NSAIDs, such as aspirin, ibuprofen, or naproxen. They can irritate the stomach and causefurther bleeding. If you are taking these medicines for other medical reasons, talk to your healthcare provider before you stop them.? Follow-up care Follow up with your healthcare provider, or as advised. Further tests may be needed to find??the cause of your bleeding. ?? When to get medical advice Call your healthcare provider??right away??if any of the following occur: ??? Rectal bleeding?Increasing belly (abdominal) pain ??? Weakness, dizziness ??? Current symptoms get worse, or you have new symptoms ?? Call 911 Call 911 if any of the following occur: ??? Loss of consciousness ??? Vomiting blood ??? Large amount of rectal bleeding? Last Reviewed Date: 2022 ?? [id number] [employer]. All rights reserved. This information is not intended as a substitute for professional medical care. Always follow your healthcare professional's instructions. ?? * Maged Lucia DO: PERFORM Event Display: Patient Education Leaflets Authored Date: [id number] Lower Gastrointestinal (GI) Bleeding (Stable) ?? [id number] Lower Gastrointestinal (GI) Bleeding (Stable) You have signs of blood in your stool. This is called rectal bleeding. The bleeding may have begun in another part of your gastrointestinal (GI) tract. If the blood is bright red, it's likely coming from the lower part of the GI tract. If the blood is black or dark, it might be coming from higher up in the GI tract. Very small amounts of GI bleeding may not be visible and can only be discovered during a test on your stool. Possible causes of lower GI bleeding include: ??? Swollen inflamed veins in the rectum (hemorrhoids) ??? Tear in the lining of the anus (anal fissures) ??? Bleeding from a blood vessel in a small pouch in the large intestine (diverticular bleeding) ??? Inflammatory bowel disease (Crohn's disease or ulcerative colitis) ??? Polyps (growths) in the intestine ??? Swelling and irritation of the colon (infectious colitis or other types of colitis)??? Colon cancer Note:??Iron supplements and medicines for diarrhea or upset stomach can cause black stools. Foods, such as licorice and red beets, can also discolor the stool and be mistaken for bleeding. These are not bleeding and are not a cause for alarm. Home care You have not lost a large amount of blood and your condition appears stable at this time.??You may resume normal activity as long as you feel well. Don't take NSAIDs, such as aspirin, ibuprofen, or naproxen. They can irritate the stomach and causefurther bleeding. If you are taking these medicines for other medical reasons, talk to your healthcare provider before you stop them.? Follow-up care Follow up with your healthcare provider, or as advised. Further tests may be needed to find??the cause of your bleeding. ?? When to get medical advice Call your healthcare provider??right away??if any of the following occur: ??? Rectal bleeding?Increasing belly (abdominal) pain ??? Weakness, dizziness ??? Current symptoms get worse, or you have new symptoms ?? Call 911 Call 911 if any of the following occur: ??? Loss of consciousness ??? Vomiting blood ??? Large amount of rectal bleeding? Last Reviewed Date: 2022 ?? [employer]. All rights reserved. This information is not intended as a substitute for professional medical care. Always follow your healthcare professional's instructions. ?? Patient Care team information Care Team Personnel Name: Edna Mathis NP Position: [facility] Office Staff Member Role: PCP Address: Address: [address] [place] [address] [address] [place] [address]- Name: Syed Jimenes DO Position: [facility] RETAIL CHAIN STORE AREA SUPERVISOR MD Member Role: [employer]etime RETAIL CHAIN STORE AREA SUPERVISOR Physician Address: Address: [address] [facility] [employer] [place] [address]- [place] Name: Izzy Muse RN Position: [facility] AMB Nurse Member Role: Primary Care Nurse Name: Edwige Ferrell Position: [facility] ED [facility] Name: Lola [place] RN Position: [facility] ED RN W/OE and Tasks Member Role: Patient Care Provider Name: Maciel Alexandra MD Position: [facility] ED Medicine MD Member Role: Admitting Physician Address: Address: [address] [facility] [address]- Name: Maged Lucia DO Position: [facility] Resident Member Role: ED Resident Address: Address: [address] [place] [address] [place] [address]- Care Team Related Persons Name: SHANNAN FERREIRA Address: [address] [place] [address] Name: SALMA RHODES Address: [address] [place] [address] Name: ELLIOT GARCIA Address: [address] [place] [address] Name: ENIO GARCIA Address: [address] [place] [address]
--- OUTSIDE RECORDS SUMMARY | 2024-02-03 14:04 | XMS_ITS | Continuity of Care Document ---
Author Organization [facility] Primary Car e [place] Address [address] [place] [address]- Care Team Providers Care Special Education Para Professional Name Role Phone Claritza SCRAP BURNER, Marybel Godinez Primary Care Physician Encounter [facility] NBR [id number] Date(s): 12/12/23 - 01/11/24 [facility] [place] [address] [place], [place] [address] Allergies, Adverse Reactions, Alerts Substance [...] Refills, Maintenance, 09/09/23 4:54:00 EDT, Cream, [id number], Partial fill upon patient request if the [...] opioid drug. Start Date: 10/26/23 Status: Ordered Flonase Allergy Relief 50 mcg/inh nasal spray 2 sprays = 100 mcg, Nares, Both, Daily, shake well before using, # 15.8 mL, 0 Refills, Maintenance,12/31/23 18:54:00 EDT, [place], [facility]/pharmacy #[id number], Partial fill upon patient request if the prescription is for a schedule II opioid drug., 155, cm, 10... Start Date: 12/31/23 Status: Ordered hydrOXYzine pamoate 25 mg oral [...] Start Date: 08/29/22 Status: Ordered nystatin topical 250064 u/gm powder 1 application, Topically, 2 times a day, # 60 Gm, 1 Refills, Maintenance, 09/09/23 4:54:00 EDT, Powder, [facility]/pharmacy #[id number], Partial fill upon patient request if the prescription is for a schedule II opioid drug., 1 application Topically 2 times a day,... Start Date: 09/09/23 Status: Ordered Morteza Daily Energy Morteza Daily Energy, Refills 0, Maintenance, 12/13/23 14:06:00 EDT, Supply Start Date: 12/13/23 Status: Ordered omeprazole 40 mg oral enteric [...] Refills, Maintenance, 10/04/23 19:48:00 EDT, DIS Tablet, [facility]/pharmacy #[id number], Partial fill upon patient request [...] upper arm, #2 mL, 0 Refills, Acute 02/03/24 15:44:00 EST, 01/06/24 15:44:00 EDT, Solution, [facility]/pharmacy #[id number], Partial fill upon patient request if the prescriptio... Start Date: 01/06/24 Stop Date: 02/03/24 Status: Ordered spironolactone 50 mg oral tablet [...] 0 Refills, Maintenance, 10/06/23 16:59:00 EDT, Tablet, [facility]/pharmacy #[id number], Partial fill upon patient request if the prescrip... Start Date: 10/06/23 Status: Ordered Tylenol 8 Hour 650 mg oral tablet, extended release 2 tablet = 1,300 mg, By Mouth, Every 8 hours, 0 Refills, Maintenance, 10/26/23 16:19:00 EDT, Partial fill upon patient request if the prescription is for a schedule II opioid drug. Start Date: 10/26/23 Status: Ordered ZyrTEC 10 mg oral tablet [...] Safety Implantable Status Assigning Authority Unknown Unknown [id number] Unknown 03/13/19 Unknown Unknown Active Unknown Patient Care team information Care Team Personnel Name: Syed Jimenes DO Position: [facility] CASINO GAMING WORKER MD Member Role: Lifetime CASINO GAMING WORKER Physician Address: Address: [address] [place] [address] - Name: Marybel Jerry NP Position: [facility] PCO Associate Professional Member Role: PCP Address: Address: [address] [place] [address] - Name: Izzy Muse RN Position: [facility] AMB Nurse Member Role: Primary Care Nurse Care Team Related Persons Name: SHANNAN FERREIRA Address: home [address] [place], [place] Name: SALMA RHODES Address: [address] [place], [place] Name: ELLIOT GARCIA Address: home [address] [place] [address] Name: ENIO GARCIA Address: home [address] [place] [address]
--- OUTSIDE RECORDS SUMMARY | 2024-02-03 14:05 | XMS_ITS | Continuity of Care Document ---
Author Organization [facility] Primary Car e [place] Address [address] [place] [address]- Care Team Providers Care Engine Oiler Name Role Phone Claritza ENGINE OILER, Marybel Godinez Primary Care Physician [phone] Encounter [facility] NBR [id number] Date(s): 11/18/23 - 12/18/23 [facility] [place] [address] [place], [place] [address] Allergies, Adverse Reactions, Alerts Substance [...] 1 Refills, Maintenance, 09/09/23 4:54:00 EDT, Cream, [facility]/pharmacy #[id number], Partial fill upon patient request if the [...] drug. Start Date: 10/26/23 Status: Ordered Flonase = 50 mcg, Daily, 0 Refills, Maintenance, 12/13/23 14:07:00 EDT, Partial fill upon patient request if the prescription is for a schedule II opioid drug. Start Date: 12/13/23 Status: Ordered hydrOXYzine pamoate 25 mg oral [...] Start Date: 08/29/22 Status: Ordered nystatin topical 332458 u/gm powder 1 application, Topically, 2 times a day, # 60 Gm, 1 Refills, Maintenance, 09/09/23 4:54:00 EDT, Powder, [facility]/pharmacy #[id number], Partial fill upon [...] Refills, Maintenance, 10/04/23 19:48:00 EDT, DIS Tablet, [facility]/pharmacy #[id number], Partial fill upon [...] upper arm, # 2mL, 0 Refills, Acute 01/10/24 17:29:00 EDT, 12/13/23 17:29:00 EDT, Solution, [id number], Partial fill upon patient request if the prescription... Start Date: 12/13/23 Stop Date: 01/10/24 Status: Ordered ZyrTEC 10 mg oral tablet [...] Safety Implantable Status Assigning Authority Unknown Unknown [id number] Unknown 03/13/19 Unknown Unknown Active Unknown Patient Care team information Care Team Personnel Name: Syed Jimenes DO Position: [facility] FRUIT II FARMWORKER MD Member Role: Lifetime FRUIT II FARMWORKER Physician Address: Address: [address] [place] [address] - Name: Marybel Jerry NP Position: [facility] PCO Associate Professional Member Role: PCP Address: Address: [address] [place] [address] Primary [place], [place] - Name: Izzy Muse RN Position: [facility] AMB Nurse Member Role: Primary Care Nurse Care Team Related Persons Name: SHANNAN FERREIRA Address: home [address] [place], [place] Name: SALMA RHODES Address: [address] [place], [place] Name: ELLIOT GARCIA Address: home [address] [place] [address] Name: ENIO GARCIA Address: [address] [place], [place]
--- OUTSIDE RECORDS SUMMARY | 2024-02-03 14:05 | XMS_ITS | Continuity of Care Document ---
Author Organization [facility] Primary Car e [place] Address [address] [place] [address]- Care Team Providers Care Galvanizing Pot Runner Name Role Phone Claritza ELECTRICAL CONTRACTOR, Marybel Godinez Primary Care Physician Encounter [facility] Date(s): 08/05/23 - 09/04/23 [facility] Care [place] [address] [place], [place] [address] Allergies, Adverse Reactions, Alerts Substance Reaction Severity Status penicillin Severe Active morphine 1 rigidity, difficlut to breathe Active Diflucan hives Active 1rigid mucles Immunizations Given and Recorded Vaccine Date Status Refusal Reason influenza virus vaccine, inactivated 02/12/22 Mike rded influenza virus vaccine, inactivated 12/11/20 Mike rded SARS-CoV-2 (COVID-19) mRNA-6066 vaccine 04/10/20 R ecorded Medications Ativan 0.5 [...] Safety Implantable Status Assigning Authority Unknown Unknown [id number] Unknown 03/13/19 Unknown Unknown Active Unknown Patient Care team information Care Team Personnel Name: Syed Jimenes DO Position: [facility] LUNCH COUNTER MANAGER MD Member Role: Lifetime LUNCH COUNTER MANAGER Physician Address: Address: [address] [place] [address]- Name: Marybel Jerry NP Position: [facility] PCO Associate Professional Member Role: PCP Address: Address: [address] [place] [address] - Name: Izzy Muse RN Position: [facility] AMB Nurse Member Role: Primary Care Nurse Care Team Related Persons Name: SHANNAN FERREIRA Address: [address] [place] [address] Name: SALMA RHODES Address: [address] [place] [address] Name: ELLIOT GARCIA Address: home [address] [place] [address] Name: ENIO GARCIA Address: [address] [place] [address]
--- OUTSIDE RECORDS SUMMARY | 2024-02-03 14:05 | XMS_ITS | Continuity of Care Document ---
Author Organization [facility] Primary Car e [place] Address [address] [place] [address]- Care Team Providers Care Manager Internship Name Role Phone Claritza ORACLE DBA, Marybel Godinez Primary Care Physician Encounter [facility] Date(s): 08/15/23 - 09/14/23 [facility] Primary [facility] [place] [address] [place], [place] [address] Allergies, Adverse Reactions, Alerts Substance Reaction Severity Status penicillin Severe Active morphine 1 rigidity, difficlut to breathe Active Diflucan hives Active 1rigid mucles Immunizations Given and Recorded Vaccine Date Status Refusal Reason influenza virus vaccine, inactivated 02/12/22 Mike rded influenza virus vaccine, inactivated 12/11/20 Mike rded SARS-CoV-2 (COVID-19) mRNA-9833 vaccine 04/10/20 R ecorded Medications Ativan 0.5 mg oral tablet 1 tablet = 0.5 mg, By Mouth, 2 times a day, PRN as needed for anxiety, 0 Refills, Maintenance, 02/21/18 16:11:52 EST, Tablet Start Date: 02/21/18 Status: Ordered clotrimazole 1% topical cream 1 application, Topically, 2 times a day, PRN fungal rash, # 113 Gm, 1 Refills, Maintenance, 09/09/23 4:54:00 EDT, Cream, [id number], Partial fill upon patient request if the [...] Start Date: 08/29/22 Status: Ordered nystatin topical 924722 u/gm powder 1 application, Topically, 2 times a day, # 60 Gm, 1 Refills, Maintenance, 09/09/23 4:54:00 EDT, Powder, [facility]/pharmacy #[id number], Partial fill upon patient request if the [...] 09/23/23 6:22:00 EDT, 08/26/23 6:22:00 EDT, Solution, [facility]/pharmacy #[id number], Partial fill upon patient request [...] Safety Implantable Status Assigning Authority Unknown Unknown [id number] Unknown 03/13/19 Unknown Unknown Active Unknown Patient Care team information Care Team Personnel Name: Syed Jimenes DO Position: [facility] TITLE LAWYER MD Member Role: Lifetime TITLE LAWYER Physician Address: Address: [address] [place] [address] - Name: Marybel Jerry NP Position: [facility] PCO Associate Professional Member Role: PCP Address: Address: [address] [facility] [place] [address]- Name: Izzy Muse RN Position: [facility] AMB Nurse Member Role: Primary Care Nurse Care Team Related Persons Name: SHANNAN FERREIRA Address: [address] [place], [place] Name: SALMA RHODES Address: [address] [place], [place] Name: ELLIOT GARCIA Address: [address] [place] [address] Name: ENIO GARCIA Address: [address] [place] [address]
--- OUTSIDE RECORDS SUMMARY | 2024-02-03 14:05 | XMS_ITS | Continuity of Care Document ---
Author Organization [facility] Primary Car e [place] Address [address] [place] [address]- Care Team Providers Care Show Host Name Role Phone Claritza FERMENTATION SCIENTIST, Marybel Godinez Primary Care Physician Encounter [facility] Date(s): 10/07/23 - 11/06/23 [facility] Care [place] [address] [place], [place] [address] Allergies, Adverse Reactions, Alerts Substance Reaction [...] 1 Refills, Maintenance, 09/09/23 4:54:00 EDT, Cream, [facility]/pharmacy #[id number], Partial fill upon patient request if the [...] Start Date: 08/29/22 Status: Ordered nystatin topical 669823 u/gm powder 1 application, Topically, 2 times a day, # 60 Gm, 1 Refills, Maintenance, 09/09/23 4:54:00 EDT, Powder, [facility]/pharmacy #[id number], Partial fill upon patient request [...] Refills, Maintenance, 10/04/23 19:48:00 EDT, DIS Tablet, [facility]/pharmacy #[id number], Partial fill upon patient request [...] Safety Implantable Status Assigning Authority Unknown Unknown [id number] Unknown 03/13/19 Unknown Unknown Active Unknown Patient Care team information Care Team Personnel Name: Syed Jimenes DO Position: [facility] FLOOR MANAGER MD Member Role: Lifetime FLOOR MANAGER Physician Address: Address: [address] [place] [address] Name: Marybel Jerry NP Position: [facility] PCO Associate Professional Member Role: PCP Address: Address: [address] [place] [address] Primary Care [place], [place] [facility] Name: Izzy Muse RN Position: [facility] AMB Nurse Member Role: Primary Care Nurse Care Team Related Persons Name: SHANNAN FERREIRA Address: [address] [place], [place] Name: SALMA RHODES Address: [address] [place], [place] Name: ELLIOT GARCIA Address: [address] [place] [address] Name: ENIO GARCIA Address: [address] [place], [place]
--- OUTSIDE RECORDS SUMMARY | 2024-02-03 14:05 | XMS_ITS | Continuity of Care Document ---
Author Organization [facility] Address [address] [place] [address]- Care Team Providers Care Ecd Name Role Phone Claritza HARD ROCK MINER BLASTING, Marybel Godinez Primary Care Physician [phone] [id number] Date(s): 10/06/23 - 10/06/[address] [address]- Encounter Diagnosis Migraine headache(Final) - 10/06/23 Discharge Disposition: A-D/C Home Attending Physician: Johnathon [...] vaccine, inactivated 12/11/20 Mike rded SARS-CoV-2 (COVID-19) mRNA-1308 vaccine 04/10/20 R ecorded Medications Ativan 0.5 mg oral tablet 1 tablet = 0.5 mg, By Mouth, 2 times a day, PRN as needed for anxiety, 0 Refills, Maintenance, 02/21/18 16:11:52 EST, Tablet Start Date: 02/21/18 Status: Ordered clotrimazole 1% topical cream 1 application, Topically, 2 times a day, PRN fungal rash, # 113 Gm, 1 Refills, Maintenance, 09/09/23 4:54:00 EDT, Cream, [id number], Partial fill upon patient request if the [...] 10:19:00 EDT Start Date: 05/23/19 Status: Ordered meclizine 25 mg oral tablet 1 tablet = 25 mg, By Mouth, 3 times a day, PRN for dizziness, for 7 days, # 21 tablet, 0 Refills, Acute 10/11/23 19:48:00 EDT, 10/04/23 19:48:00 EDT, Tablet, [facility]/pharmacy #[id number], Partial fill upon patient request if the prescription is for a schedule I... Start Date: 10/04/23 Stop Date: 10/11/23 Status: Ordered metroNIDAZOLE 0.75% topical cream 1 [...] Start Date: 08/29/22 Status: Ordered nystatin topical 136933 u/gm powder 1 application, Topically, 2 times a day, # 60 Gm, 1 Refills, Maintenance, 09/09/23 4:54:00 EDT, Powder, [facility]/pharmacy #[id number], Partial fill upon patient [...] Refills, Maintenance, 10/04/23 19:48:00 EDT, DIS Tablet, [facility]/pharmacy #[id number], Partial fill upon patient [...] Range]: 1 2 3 Height 155 cm (10/06/23 5:03 PM) 155 cm (10/06/23 4:35 PM) 155 cm (10/06/23 2:19 PM) Weight 96.1 kg (10/06/23 5:03 PM) 96.1 kg (10/06/23 4:35 PM) 96.1 kg (10/06/23 2:19 PM) Oxygen Saturation [94-100 %] 99 % (10/06/23 5:03 PM) 97 % (10/06/23 4:35 PM) 98 % (10/06/23 2:19 PM) Pulse Rate [55-90 bpm] 71 bpm (10/06/23 5:03 PM) 79 bpm (10/06/23 4:35 PM) 90 bpm (10/06/23 2:19 PM) Body Mass Index [18.5-24.99 kg/m2] 40 kg/m2 *>HHI* (10/06/23 5:03 PM) 40 kg/m2 *>HHI* (10/06/23 4:35 PM) Blood Pressure [90-138/55-84 mm Hg] 113/64mm Hg (10/06/23 5:03 PM) 102/68mm Hg (10/06/23 4:35 PM) 123/81mm Hg (10/06/23 2:19 PM) Respiratory Rate [16-30 br/min] 18 br/min (10/06/23 5:03 PM) 14 br/min *L* (10/06/23 4:35 PM) 18 br/min (10/06/23 2:19 PM) Temperature [96.8-100.4 DegF] 97.9 DegF (10/06/23 2:19 PM) Mode of Delivery (Oxygen) Room air (10/06/23 5:03 PM) Room air (10/06/23 4:35 PM) Room air (10/06/23 2:19 PM) Blood pressure sites Arm, right (10/06/23 4:35 PM) Arm, left (10/06/23 2:19 PM) Temperature Route Temporal (10/06/23 2:19 PM) Dry Weight 96.1 kg (10/06/23 5:03 PM) 96.1 kg (10/06/23 4:35 PM) 96.1 kg (10/06/23 2:19 PM) Weight Obtained Via Standing scale (10/06/23 2:19 PM) Social History Social History Type Response Smoking Status Never smoker entered on: 09/13/13 Sex Implantable Device List Procedure Provider Procedure Date Device Type Site Ethmoidectomy Maxillary Antrostomy Endos Milka FRY, Lenny Mohr 02/28/18 Unknown Nares Left Device Identifier Serial Number Lot or Batch Number Manufacturing Date Expiration Date Distinct Identification Code MRI Safety Implantable Status Assigning Authority Unknown Unknown [id number] Unknown 03/13/19 Unknown Unknown Active Unknown Patient Care team information Care Team Personnel Name: Syed Jimenes DO Position: [facility] REHABILITATION SUPERVISOR MD Member Role: Lifetime REHABILITATION SUPERVISOR Physician Address: Address: [address] [place] [address]- Name: Marybel Jerry NP Position: [facility] PCO Associate Professional Member Role: PCP Address: Address: [address] [place] [address] [place] [address]- Name: Izzy Muse RN Position: [facility] AMB Nurse Member Role: Primary Care Nurse Care Team Related Persons Name: SHANNAN FERREIRA Address: home [address] [place], [place] Name: SALMA RHODES Address: [address] [place], [place] Name: ELLIOT GARCIA Address: [address] [place] [address] Name: ENIO GARCIA Address: [address] [place], [place]
--- OUTSIDE RECORDS SUMMARY | 2024-02-03 14:05 | XMS_ITS | Continuity of Care Document ---
Author Organization [facility] Primary Car e [place] Address [address] [place] [address]- Care Team Providers Care Cost Estimator Name Role Phone Claritza GLASSWARE FINISHER, Marybel Godinez Primary Care Physician Encounter [facility] Date(s): 10/31/23 - 11/30/23 [facility] Care [place] [address] [place], [place] [address] Allergies, Adverse Reactions, Alerts Substance Reaction Severity Status penicillin Severe Active morphine 1 rigidity, difficlut to breathe Active Diflucan hives Active 1rigid mucles Immunizations Given and Recorded Vaccine Date Status Refusal Reason influenza virus vaccine, inactivated 02/12/22 Mike rded influenza virus vaccine, inactivated 12/11/20 Mike rded SARS-CoV-2 (COVID-19) mRNA-5321 vaccine 04/10/20 R ecorded Medications Ativan 0.5 mg oral tablet 1 tablet = 0.5 mg, By Mouth, 2 times a day, PRN as needed for anxiety, 0 Refills, Maintenance, 02/21/18 16:11:52 EST, Tablet Start Date: 02/21/18 Status: Ordered clotrimazole 1% topical cream 1 application, Topically, 2 times a day, PRN fungal rash, # 113 Gm, 1 Refills, Maintenance, 09/09/23 4:54:00 EDT, [facility], [id number], Partial fill upon patient request if the [...] Start Date: 08/29/22 Status: Ordered nystatin topical 493445 u/gm powder 1 application, Topically, 2 times a day, # 60 Gm, 1 Refills, Maintenance, 09/09/23 4:54:00 EDT, Powder, [facility]/pharmacy #[id number], Partial fill upon patient request [...] Refills, Maintenance, 10/04/23 19:48:00 EDT, DIS Tablet, [facility]/pharmacy #[id number], Partial fill upon patient request [...] Safety Implantable Status Assigning Authority Unknown Unknown [id number] Unknown 03/13/19 Unknown Unknown Active Unknown Patient Care team information Care Team Personnel Name: Syed Jimenes DO Position: [facility] AUDIO VISUAL MANAGER MD Member Role: Lifetime AUDIO VISUAL MANAGER Physician Address: Address: [address] [place] [address] - Name: Marybel Jerry NP Position: [facility] PCO Associate Professional Member Role: PCP Address: Address: [address] [place] [address] Primary [place], [place] - Name: Izzy Muse RN Position: [facility] AMB Nurse Member Role: Primary Care Nurse Care Team Related Persons Name: SHANNAN FERREIRA Address: [address] [place], [place] Name: SALMA RHODES Address: [address] [place], [place] Name: ELLIOT GARCIA Address: [address] [place] [address] Name: ENIO GARCIA Address: [address] [place], [place]
--- OUTSIDE RECORDS SUMMARY | 2024-02-03 14:05 | XMS_ITS | Continuity of Care Document ---
Author Organization [facility] Primary Car e [place] Address [address] [place] [address]- Care Team Providers Care Litharge Mill Operator Name Role Phone Claritza SORT OPERATIONS SUPERVISOR, Marybel Godinez Primary Care Physician Encounter [facility] Date(s): 08/26/23 - 09/25/23 [facility] Primary [place] [address] [place], [place] [address] Allergies, Adverse Reactions, Alerts Substance Reaction Severity Status penicillin Severe Active morphine 1 rigidity, difficlut to breathe Active Diflucan hives Active 1rigid mucles Immunizations Given and Recorded Vaccine Date Status Refusal Reason influenza virus vaccine, inactivated 02/12/22 Mike rded influenza virus vaccine, inactivated 12/11/20 Mike rded SARS-CoV-2 (COVID-19) mRNA-7723 vaccine 04/10/20 R ecorded Medications Ativan 0.5 mg oral tablet 1 tablet = 0.5 mg, By Mouth, 2 times a day, PRN as needed for anxiety, 0 Refills, Maintenance, 02/21/18 16:11:52 EST, Tablet Start Date: 02/21/18 Status: Ordered clotrimazole 1% topical cream 1 application, Topically, 2 times a day, PRN fungal rash, # 113 Gm, 1 Refills, Maintenance, 09/09/23 4:54:00 EDT, [facility], [id number], Partial fill upon patient request if the [...] Start Date: 08/29/22 Status: Ordered nystatin topical 699609 u/gm powder 1 application, Topically, 2 times a day, # 60 Gm, 1 Refills, Maintenance, 09/09/23 4:54:00 EDT, Powder, [facility]/pharmacy #[id number], Partial fill upon patient request if the [...] 03/08/24 17:45:00 EST, 09/22/23 17:45:00 EDT, Solution, [facility]/pharmacy #[id number],Partial fill upon patient request if the [...] Safety Implantable Status Assigning Authority Unknown Unknown [id number] Unknown 03/13/19 Unknown Unknown Active Unknown Patient Care team information Care Team Personnel Name: Syed Jimenes DO Position: [facility] VP RESEARCH MD Member Role: Lifetime VP RESEARCH Physician Address: Address: [address] [place] [address] - Name: Marybel Jerry NP Position: [facility] PCO Associate Professional Member Role: PCP Address: Address: [address] [place] [address] Primary Care [place], [place] - Name: Izzy Muse RN Position: [facility] AMB Nurse Member Role: Primary Care Nurse Care Team Related Persons Name: SHANNAN FERREIRA Address: [address] [place], [place] Name: SALMA RHODES Address: [address] [place], [place] Name: ELLIOT GARCIA Address: [address] [place] [address] Name: ENIO GARCIA Address: [address] [place], [place]
--- OUTSIDE RECORDS SUMMARY | 2024-02-03 14:05 | XMS_ITS | Continuity of Care Document ---
Author Organization [facility] Address [address] [place] [address]- Care Team Providers Care Cable Installation Technician Name Role Phone Claritza FLOWER PICKER, Marybel Godinez Primary Care Physician [phone] Encounter [facility] Date(s): 10/05/23 - 11/04/[address] [address] Allergies, Adverse Reactions, Alerts Substance Reaction [...] 1 Refills, Maintenance, 09/09/23 4:54:00 EDT, Cream, [facility]/pharmacy #[id number], Partial fill upon patient request if the [...] Start Date: 08/29/22 Status: Ordered nystatin topical 843611 u/gm powder 1 application, Topically, 2 times a day, # 60 Gm, 1 Refills, Maintenance, 09/09/23 4:54:00 EDT, Powder, [facility]/pharmacy #[id number], Partial fill upon patient [...] Refills, Maintenance, 10/04/23 19:48:00 EDT, DIS Tablet, [facility]/pharmacy #[id number], Partial fill upon patient [...] Safety Implantable Status Assigning Authority Unknown Unknown [id number] Unknown 03/13/19 Unknown Unknown Active Unknown Patient Care team information Care Team Personnel Name: Syed Jimenes DO Position: [facility] HEAD AND NECK SURGEON MD Member Role: Lifetime HEAD AND NECK SURGEON Physician Address: Address: [address] [place] [address]- Name: Marybel Jerry NP Position: [facility] PCO Associate Professional Member Role: PCP Address: Address: [address] [place] [address] Primary Care [place], [place] [facility] Name: Izzy Muse RN Position: [facility] AMB Nurse Member Role: Primary Care Nurse Care Team Related Persons Name: SHANNAN FERREIRA Address: [address] [place], [place] Name: SALMA HRODES Address: [address] [place] [address] Name: ELLIOT GARCIA Address: [address] [place] [address] Name: ENIO GARCIA Address: [address] [place] [address]
--- OUTSIDE RECORDS SUMMARY | 2024-02-03 14:05 | XMS_ITS | Continuity of Care Document ---
Author Organization [facility] Primary Car e [place] Address [address] [place] [address]- Care Team Providers Care Apprentice Carpenter Name Role Phone Claritza SOFTWARE CONFIGURATION MANAGER, Marybel Godinez Primary Care Physician [phone] Encounter [facility] Date(s): 08/01/23 - 08/31/23 [facility] Care [place] [address] [place], [place] [address] Allergies, Adverse Reactions, Alerts Substance Reaction Severity Status penicillin Severe Active morphine 1 rigidity, difficlut to breathe Active Diflucan hives Active 1rigid mucles Immunizations Given and Recorded Vaccine Date Status Refusal Reason influenza virus vaccine, inactivated 02/12/22 Mike rded influenza virus vaccine, inactivated 12/11/20 Mike rded SARS-CoV-2 (COVID-19) mRNA-5059 vaccine 04/10/20 R ecorded Medications Ativan 0.5 [...] Safety Implantable Status Assigning Authority Unknown Unknown [id number] Unknown 03/13/19 Unknown Unknown Active Unknown Patient Care team information Care Team Personnel Name: Syed Jimenes DO Position: [facility] RAMP BOSS MD Member Role: Lifetime RAMP BOSS Physician Address: Address: [address] [place] [address] - Name: Marybel Jerry NP Position: [facility] PCO Associate Professional Member Role: PCP Address: Address: [address] [place] [address] - Name: Izzy Muse RN Position: [facility] AMB Nurse Member Role: Primary Care Nurse Care Team Related Persons Name: SHANNAN FERREIRA Address: home [address] [place] [address] Name: SALMA RHODES Address: [address] [place] [address] Name: ELLIOT GARCIA Address: home [address] [place] [address] Name: ENIO GARCIA Address: home [address] [place] [address]
--- OUTSIDE RECORDS SUMMARY | 2024-02-03 14:05 | XMS_ITS | Continuity of Care Document ---
Author Organization [facility] Primary Car e [place] Address [address] [place] [address]- Care Team Providers Care Six Sigma Black Trainer Name Role Phone Claritza MARINE SCIENTIST, Marybel Godinez Primary Care Physician [phone] Encounter [facility] Date(s): 10/12/23 - 11/11/23 [facility] Primary Care [place] [address] [place], [place] [address] Allergies, Adverse Reactions, Alerts Substance Reaction Severity Status penicillin Severe Active morphine 1 rigidity, difficlut to breathe Active Diflucan hives Active 1rigid mucles Immunizations Given and Recorded Vaccine Date Status Refusal Reason influenza virus vaccine, inactivated 02/12/22 Mike rded influenza virus vaccine, inactivated 12/11/20 Mike rded SARS-CoV-2 (COVID-19) mRNA-0483 vaccine 04/10/20 R ecorded Medications Ativan 0.5 mg oral tablet 1 tablet = 0.5 mg, By Mouth, 2 times a day, PRN as needed for anxiety, 0 Refills, Maintenance, 02/21/18 16:11:52 EST, Tablet Start Date: 02/21/18 Status: Ordered clotrimazole 1% topical cream 1 application, Topically, 2 times a day, PRN fungal rash, # 113 Gm, 1 Refills, Maintenance, 09/09/23 4:54:00 EDT, Cream, [id number], Partial fill upon patient request if the [...] Start Date: 08/29/22 Status: Ordered nystatin topical 596234 u/gm powder 1 application, Topically, 2 times a day, # 60 Gm, 1 Refills, Maintenance, 09/09/23 4:54:00 EDT, Powder, [facility]/pharmacy #[id number], Partial fill [...] Refills, Maintenance, 10/04/23 19:48:00 EDT, DIS Tablet, [facility]/pharmacy #[id number], Partial fill [...] 0 Refills, Maintenance, 10/06/23 16:59:00 EDT, Tablet, [facility]/pharmacy #[id number], Partial fill [...] Safety Implantable Status Assigning Authority Unknown Unknown [id number] Unknown 03/13/19 Unknown Unknown Active Unknown Patient Care team information Care Team Personnel Name: Syed Jimenes DO Position: [facility] REVENUE ANALYST MD Member Role: Lifetime REVENUE ANALYST Physician Address: Address: [address] [place] [address]- Name: Marybel Jerry NP Position: [facility] PCO Associate Professional Member Role: PCP Address: Address: [address] [place] [address] [facility] Name: Izzy Muse RN Position: [facility] AMB Nurse Member Role: Primary Care Nurse Care Team Related Persons Name: SHANNAN FERREIRA Address: home [address] [place], [place] Name: SALMA RHODES Address: [address] [place], [place] Name: ELLIOT GARCIA Address: home [address] [place] [address] Name: ENIO GARCIA Address: home [address] [place] [address]
--- OUTSIDE RECORDS SUMMARY | 2024-02-03 14:05 | XMS_ITS | Continuity of Care Document ---
Author Organization [facility] Primary Car e [place] Address [address] [place] [address]- Care Team Providers Care Telesales Specialist Name Role Phone Claritza M1 ARMOR CREWMAN, Marybel Godinez Primary Care Physician [phone] Encounter [facility] Date(s): 11/09/23 - 12/09/23 [facility] Care [place] [address] [place], [place] [address] Allergies, Adverse Reactions, Alerts Substance Reaction Severity Status penicillin Severe Active morphine 1 rigidity, difficlut to breathe Active Diflucan hives Active 1rigid mucles Immunizations Given and Recorded Vaccine Date Status Refusal Reason influenza virus vaccine, inactivated 02/12/22 Mike rded influenza virus vaccine, inactivated 12/11/20 Mike rded SARS-CoV-2 (COVID-19) mRNA-9975 vaccine 04/10/20 R ecorded Medications Ativan 0.5 mg oral tablet 1 tablet = 0.5 mg, By Mouth, 2 times a day, PRN as needed for anxiety, 0 Refills, Maintenance, 02/21/18 16:11:52 EST, Tablet Start Date: 02/21/18 Status: Ordered clotrimazole 1% topical cream 1 application, Topically, 2 times a day, PRN fungal rash, # 113 Gm, 1 Refills, Maintenance, 09/09/23 4:54:00 EDT, Cream, [id number], Partial fill upon patient request if the [...] Start Date: 08/29/22 Status: Ordered nystatin topical 891836 u/gm powder 1 application, Topically, 2 times [...] Safety Implantable Status Assigning Authority Unknown Unknown [id number] Unknown 03/13/19 Unknown Unknown Active Unknown Patient Care team information Care Team Personnel Name: Syed Jimenes DO Position: [facility] SALESPERSON PARTS MD Member Role: Lifetime SALESPERSON PARTS Physician Address: Address: [address] [place] [address] - Name: Marybel Jerry NP Position: [facility] PCO Associate Professional Member Role: PCP Address: Address: [address] [place] [address] Primary [place] - Name: Izzy Muse RN Position: [facility] AMB Nurse Member Role: Primary Care Nurse Care Team Related Persons Name: SHANNAN FERREIRA Address: home [address] [place], [place] Name: SALMA RHODES Address: home [address] [place], [place] Name: ELLIOT GARCIA Address: [address] [place] [address] Name: ENIO GARCIA Address: home [address] [place], [place]
--- OUTSIDE RECORDS SUMMARY | 2024-02-03 14:05 | XMS_ITS | Continuity of Care Document ---
Author Organization [facility] ter Address [address] [place] [address]- Care Team Providers Care Tool Dresser Name Role Phone Claritza WALTON, Marybel Godinez Primary Care Physician Encounter 11/07/23 - 11/08/[address] [address]- Attending Physician: Not on Staff, Attending MD Referring Physician: Not on Staff, Referring MD Allergies, Adverse Reactions, Alerts Substance Reaction Severity Status penicillin Severe Active morphine 1 rigidity, difficlut to breathe Active Diflucan hives Active 1rigid mucles Immunizations Given and Recorded Vaccine Date Status Refusal Reason influenza virus vaccine, inactivated 02/12/22 Mike rded influenza virus vaccine, inactivated 12/11/20 Mike rded SARS-CoV-2 (COVID-19) mRNA-9123 vaccine 04/10/20 R ecorded Medications Ativan 0.5 mg oral tablet 1 tablet = 0.5 mg, By Mouth, 2 times a day, PRN as needed for anxiety, 0 Refills, Maintenance, 02/21/18 16:11:52 EST, Tablet Start Date: 02/21/18 Status: Ordered clotrimazole 1% topical cream 1 application, Topically, 2 times a day, PRN fungal rash, # 113 Gm, 1 Refills, Maintenance, 09/09/23 4:54:00 EDT, Cream, [id number], Partial fill upon patient request if the [...] Start Date: 08/29/22 Status: Ordered nystatin topical 064601 u/gm powder 1 application, Topically, 2 times a day, # 60 Gm, 1 Refills, Maintenance, 09/09/23 4:54:00 EDT, Powder, [facility]/pharmacy #[id number], Partial fill upon patient request if [...] Refills, Maintenance, 10/04/23 19:48:00 EDT, DIS Tablet, [facility]/pharmacy #[id number], Partial fill upon patient request if [...] 0 Refills, Maintenance, 10/06/23 16:59:00 EDT, Tablet, [facility]/pharmacy #[id number], Partial fill upon patient request if [...] Exam Date Time Procedure Performing Provider Status 11/07/23 10:34 AM MRI Brain W+W/O Contrast Auth (Verified) Notes: (MRI Brain W+W/O Contrast) Reason For Exam: dizziness, cyst on head CT;dizziness, cyst on head CT RESULT: MRI Brain W+W/O Contrast [facility] VISIT NUMBER :[id number] Patient Name: Dwayne Grace Date of : 1990 Date of Exam: 11-07-2023 Referring Physician: Alfa Rodriguez [facility] Primary Care [address] [place] [id number] Exam: MR Brain (C-/C+) CPT 87533 Room Description: [facility] 1.5 MRI of the brain without and with contrast. HISTORY: Bilateral facial pain. Increased to dizziness. History of pineal cyst. Comparison: 10/04/2017 FINDINGS: There is an approximately 8 x 10 x 6 mm either pineal cyst pineal cyst which is stable since prior study. This is an interval finding and requires no further follow-up. The ventricles, cisterns and sulci are normal. No hydrocephalus. There is no acute intracranial hemorrhage, tumor or infarct. No white matter disease is seen. There is no abnormal enhancement after contrast. There are normal flow-voids within major intracranial vessels. There is mild mucosal thickening with a mucus retention cyst within the right inferior maxillary sinus. 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 No acute pathology or abnormal enhancement is seen in the brain. No change to prior study. Electronically Signed By: Raad Casillas MD Dictated By: Not on Staff FELICITAS MD Dictated Date/Time: 11/08/23 2:34 pm Reviewed By: Not on Staff FELICITAS MD Signed By: Not on Staff , FELICITAS FRY Signed Date/Time: 11/08/23 2:34 pm Transcribed By: STEVE Transcribed Date/Time: 11/08/23 2:34 pm Social History Social History Type Response Smoking Status Never smoker entered on: 09/13/13 Sex Implantable Device List Procedure Provider Procedure Date Device Type Site Ethmoidectomy Maxillary Antrostomy Endos Milka FRY, Lenny Mohr 02/28/18 Unknown Nares Left Device Identifier Serial Number Lot or Batch Number Manufacturing Date Expiration Date Distinct Identification Code MRI Safety Implantable Status Assigning Authority Unknown Unknown [id number] Unknown 03/13/19 Unknown Unknown Active Unknown Patient Care team information Care Team Personnel Name: Syed Jimenes DO Position: [facility] QUALITY CONTROL SYSTEMS MANAGER MD Member Role: Lifetime QUALITY CONTROL SYSTEMS MANAGER Physician Address: Address: [address] [place] [address]- Name: Marybel Jerry NP Position: [facility] PCO Associate Professional Member Role: PCP Address: Address: [address] [place] [address] Primary [place], [place] - Name: Izzy Muse RN Position: [facility] AMB Nurse Member Role: Primary Care Nurse Care Team Related Persons Name: ALFA FERREIRA Address: [address] [place] [address] Name: SALMA RHODES Address: [address] [place] [address] Name: ELLIOT GRACE Address: home [address] [place] [address] Name: ENIO GRACE Address: [address] [place] [address]
--- OUTSIDE RECORDS SUMMARY | 2024-02-03 14:05 | XMS_ITS | Continuity of Care Document ---
Author Organization [facility] ter Address [address] [place] [address]- Care Team Providers Care Senior Quantity Surveyor Name Role Phone Delfina WALTON, Edna Primary Care Physician Encounter [facility] Date(s): 05/23/19 - 05/23/[address] [address]- [facility] Attending Physician: Syed Jimenes DO Allergies, Adverse Reactions, Alerts Substance Reaction Severity Status morphine 1 rigidity, difficlut to breathe Active Diflucan hives Active 1rigid mucles Medications Ativan 0.5 mg oral tablet 1 tablet = 0.5 mg, By Mouth, 2 times a day, PRN as needed for anxiety, 0 Refills, Maintenance, 02/21/18 16:11:52 EST, Tablet Start Date: 02/21/18 Status: Ordered Cranberry Fruit oral capsule 1 tablet, By Mouth, Daily, 0 Refills, Maintenance, 05/02/17 10:18:09 Start Date: 05/02/17 Status: Ordered Flonase 50 mcg/inh nasal spray Daily, 0 Refills, Maintenance, 02/21/18 16:12:11 EST Start Date: 02/21/18 Status: Ordered Inderal LA 80 mg oral capsule, extended release 80 mg, 1, capsule, By Mouth, Daily, Refills 0, Maintenance, 05/02/17 10:17:13 Start Date: 05/02/17 Status: Ordered Mirena 52 mg intrauteral device See Instructions, ins info faxed DOI 10-13-17, # 1 each, 0 Refills, Soft Stop, 09/20/17 11:10:18 EDT Start Date: 09/20/17 Status: Ordered Multivitamin 1 tab, By Mouth, Daily, 0 Refills, Maintenance, 10/20/11 10:04:36 Start Date: 10/20/11 Status: Ordered omeprazole 40 mg oral enteric coated capsule 1 capsule = 40 mg, By Mouth, 2 times a day, PRN Dyspepsia, # 30 capsule, 0 Refills, Maintenance, 02/21/18 16:01:30 EST, EC Capsule Start Date: 02/21/18 Status: Ordered Probiotic Formula 1 capsule, By Mouth, Daily, 0 Refills, Maintenance, 02/21/18 16:11:25 EST Start Date: 02/21/18 Status: Ordered Prozac Liquid = 80 mg, By Mouth, Daily, 0 Refills, Maintenance, 02/21/18 16:11:39 EST Start Date: 02/21/18 Status: Ordered ZyrTEC 10 mg oral tablet 1 tablet = 10 mg, By Mouth, Daily, 0 Refills, Maintenance, 05/02/17 10:18:44 Start Date: 05/02/17 Status: Ordered Problem List Condition Effective Dates Status Health Status Inform ant Brain tumor(Confirmed) 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
--- OUTSIDE RECORDS SUMMARY | 2024-02-03 14:05 | XMS_ITS | Continuity of Care Document ---
Author Organization [facility] Primary Car e [place] Address [address] [place] [address]- Care Team Providers Care Head Cashier Name Role Phone Claritza AUDIOLOGY TECHNICIAN, Marybel Godinez Primary Care Physician [id number] Date(s[facility] 11/15/23 - 12/15/23 [facility] Care [place] [address] [place], [place] [address] Allergies, Adverse Reactions, Alerts Substance Reaction [...] 1 Refills, Maintenance, 09/09/23 4:54:00 EDT, Cream, [facility]/pharmacy #[id number], Partial fill upon patient request if the [...] Start Date: 08/29/22 Status: Ordered nystatin topical 405144 u/gm powder 1 application, Topically, 2 times a day, # 60 Gm, 1 Refills, Maintenance, 09/09/23 4:54:00 EDT, Powder, [facility]/pharmacy #[id number], Partial fill upon patient [...] Refills, Maintenance, 10/04/23 19:48:00 EDT, DIS Tablet, [facility]/pharmacy #[id number], Partial fill upon patient [...] 11/18/23 Stop Date: 12/16/23 Status: Ordered Wegovy (1 mg dose) subcutaneous [...] Safety Implantable Status Assigning Authority Unknown Unknown [id number] Unknown 03/13/19 Unknown Unknown Active Unknown Patient Care team information Care Team Personnel Name: Syed Jimenes DO Position: [facility] HOME VISITOR MD Member Role: Lifetime HOME VISITOR Physician Address: Address: [address] [place] [address] - Name: Marybel Jerry NP Position: [facility] PCO Associate Professional Member Role: PCP Address: Address: [address] [facility] Primary [place], [place] - Name: Izzy Muse RN Position: [facility] AMB Nurse Member Role: Primary Care Nurse Care Team Related Persons Name: SHANNAN FERREIRA Address: [address] [place], [place] Name: SALMA RHODES Address: [address] [place], [place] Name: ELLIOT GARCIA Address: [address] [place] [address] Name: ENIO GARCIA Address: [address] [place], [place]
--- OUTSIDE RECORDS SUMMARY | 2024-02-03 14:06 | XMS_ITS | Continuity of Care Document ---
Author Organization [facility] Primary Car e [place] Address [address] [place] [address]- Care Team Providers Care Fixed Wing Aircraft Crew Chief Name Role Phone Claritza STEEP TENDER, Marybel Godinez Primary Care Physician [phone] Encounter [facility] Date(s): 10/16/23 - 11/15/23 [facility] Primary Care [place] [address] [place], [place] [address] Allergies, Adverse Reactions, Alerts Substance Reaction Severity Status penicillin Severe Active morphine 1 rigidity, difficlut to breathe Active Diflucan hives Active 1rigid mucles Immunizations Given and Recorded Vaccine Date Status Refusal Reason influenza virus vaccine, inactivated 02/12/22 Mike rded influenza virus vaccine, inactivated 12/11/20 Mike rded SARS-CoV-2 (COVID-19) mRNA-9613 vaccine 04/10/20 R ecorded Medications Ativan 0.5 mg oral tablet 1 tablet = 0.5 mg, By Mouth, 2 times a day, PRN as needed for anxiety, 0 Refills, Maintenance, 02/21/18 16:11:52 EST, Tablet Start Date: 02/21/18 Status: Ordered clotrimazole 1% topical cream 1 application, Topically, 2 times a day, PRN fungal rash, # 113 Gm, 1 Refills, Maintenance, 09/09/23 4:54:00 EDT, [facility], [id number], Partial fill upon patient request if the [...] Start Date: 08/29/22 Status: Ordered nystatin topical 570892 u/gm powder 1 application, Topically, 2 times a day, # 60 Gm, 1 Refills, Maintenance, 09/09/23 4:54:00 EDT, Powder, [facility]/pharmacy #[id number], Partial fill upon patient [...] Refills, Maintenance, 10/04/23 19:48:00 EDT, DIS Tablet, [facility]/pharmacy #[id number], Partial fill upon patient [...] 0 Refills, Maintenance, 10/06/23 16:59:00 EDT, Tablet, [facility]/pharmacy #[id number], Partial fill upon patient [...] Safety Implantable Status Assigning Authority Unknown Unknown [id number] Unknown 03/13/19 Unknown Unknown Active Unknown Patient Care team information Care Team Personnel Name: Syed Jimenes DO Position: [facility] BLOCKER AND CUTTER CONTACT LENS MD Member Role: Lifetime BLOCKER AND CUTTER CONTACT LENS Physician Address: Address: [address] [place] [address]- Name: Marybel Jerry NP Position: [facility] PCO Associate Professional Member Role: PCP Address: Address: [address] [place] [address] [facility] Name: Izzy Muse RN Position: [facility] AMB Nurse Member Role: Primary Care Nurse Care Team Related Persons Name: SHANNAN FERREIRA Address: [address] [place], [place] Name: SALMA RHODES Address: [address] [place], [place] Name: ELLIOT GARCIA Address: [address] [place] [address] Name: ENIO GARCIA Address: [address] [place] [address]
--- OUTSIDE RECORDS SUMMARY | 2024-02-03 14:06 | XMS_ITS | Continuity of Care Document ---
Author Organization [facility] Primary Car e [place] Address [address] [place] [address]- Care Team Providers Care Volumetric Weigher Name Role Phone Claritza FINANCIAL INVESTMENT MANAGER, Marybel Godinez Primary Care Physician Encounter [facility] Date(s): 10/11/23 - 11/10/23 [facility] Care [place] [address] [place], [place] [address] Allergies, Adverse Reactions, Alerts Substance Reaction Severity Status penicillin Severe Active morphine 1 rigidity, difficlut to breathe Active Diflucan hives Active 1rigid mucles Immunizations Given and Recorded Vaccine Date Status Refusal Reason influenza virus vaccine, inactivated 02/12/22 Mike rded influenza virus vaccine, inactivated 12/11/20 Mike rded SARS-CoV-2 (COVID-19) mRNA-3393 vaccine 04/10/20 R ecorded Medications Ativan 0.5 mg oral tablet 1 tablet = 0.5 mg, By Mouth, 2 times a day, PRN as needed for anxiety, 0 Refills, Maintenance, 02/21/18 16:11:52 EST, Tablet Start Date: 02/21/18 Status: Ordered clotrimazole 1% topical cream 1 application, Topically, 2 times a day, PRN fungal rash, # 113 Gm, 1 Refills, Maintenance, 09/09/23 4:54:00 EDT, Cream, [id number], Partial fill upon patient request if the [...] Start Date: 08/29/22 Status: Ordered nystatin topical 091681 u/gm powder 1 application, Topically, 2 times a day, # 60 Gm, 1 Refills, Maintenance, 09/09/23 4:54:00 EDT, Powder, [facility]/pharmacy #[id number], Partial fill upon patient request [...] Maintenance, 10/04/23 19:48:00 EDT, DIS Tablet, [facility]/pharmacy #[id number], Partial fill upon patient request [...] 0 Refills, Maintenance, 10/06/23 16:59:00 EDT, Tablet, [facility]/pharmacy #[id number], Partial fill upon patient request [...] Safety Implantable Status Assigning Authority Unknown Unknown [id number] Unknown 03/13/19 Unknown Unknown Active Unknown Patient Care team information Care Team Personnel Name: Syed Jimenes DO Position: [facility] YARD ASSISTANT MD Member Role: Lifetime YARD ASSISTANT Physician Address: Address: [address] [place] [address]- Name: Claritza FINANCIAL INVESTMENT MANAGER, Marybel Godinez Position: [facility] PCO Associate Professional Member Role: PCP Address: Address: [address] [place] [address] Primary [place], [place] - Name: Izzy Muse RN Position: [facility] AMB Nurse Member Role: Primary Care Nurse Care Team Related Persons Name: SHANNAN FERREIRA Address: [address] [place], [place] Name: SALMA RHODES Address: [address] [place], [place] Name: ELLIOT GARCIA Address: [address] [place] [address] Name: ENIO GARCIA Address: [address] [place] [address]
--- OUTSIDE RECORDS SUMMARY | 2024-02-03 14:06 | XMS_ITS | Continuity of Care Document ---
Author Organization [facility] Primary [facility] e [place] Address [address] [place] [address]- Support Name Relationship Address Phone ROLLET, JEFRERY Personal Relationship Unknown Senait vailable ROLLET, JEFRERY Personal Relationship Unknown Senait vailable ROLLET, JEFRERY Personal Relationship Unknown Senait vailable ROLLET, JEFRERY Personal Relationship Unknown Senait vailable ROLLET, JEFRERY Personal Relationship Unknown Senait vailable ROLLET, JEFRERY Personal Relationship Unknown Senait vailable ROLLET, JEFRERY Personal Relationship Unknown Senait vailable ROLLET, JEFRERY Personal Relationship Unknown Senait vailable ROLLET, JEFRERY Personal Relationship Unknown Senait vailable ROLLET, ENIO mother Unknown Unavailable BREN, SHANNAN domestic partner Unknown Unavailable ROLLET, ELVIRA Personal Relationship Unknown Senait vailable ROLLET, JEFRERY Personal Relationship Unknown Senait vailable ROLLET, JEFRERY Personal Relationship Unknown Senait vailable ROLLET, JEFRERY Personal Relationship Unknown Senait vailable ROLLET, JEFRERY Personal Relationship Unknown Senait vailable ROLLET, ELLIOT father Unknown Unavailable ROLLET, JEFRERY Personal Relationship Unknown Senait vailable ROLLET, JEFRERY Personal Relationship Unknown Senait vailable DUHAMEL, SALMA Other Unknown Unavailable ROLLET, JEFRERY Personal Relationship Unknown Senait vailable ROLLET, JEFRERY Personal Relationship Unknown Senait vailable ROLLET, JEFRERY Personal Relationship Unknown Senait vailable Care Team Providers Care Shoulder Pad Molder Name Role Phone Claritza WALTON, Marybel Godinez Primary Care Physician Encounter [facility] [id number] Date(s): 12/26/23 - 01/25/24 [facility] [address] [place], [place] [address] Encounter Type: Triage Allergies, Adverse Reactions, Alerts Substance Criticality Severity Reaction Reaction Severity Status penicillin High criticality Severe Ac tive morphine 1 rigidity, diffi clut to breathe Active Diflucan hives Active 1rigid [...] needed for anxiety, 0 Refills, Maintenance, 02/21/18 4:11:52 PM EST, Tablet Start Date: 02/21/18 Status: Ordered Repeat number: 1 clotrimazole 1% topical cream 1 application, Topically, 2 times a day, PRN fungal rash, # 113 Gm, 1 Refills, Maintenance, 244:54:00 AM EDT, Cream, [facility]/pharmacy #[id number], Partial fill upon patient request if the prescription isfor a schedule II opioid drug., 1 application Topically 2 times a day,PRN:fungal rash, 155, cm, 07/27/23 17:37:00 EDT, Height, 97.8, kg, 06/08/23 12:59:00 EDT, Dry Weight Start Date: 09/09/23 Status: Ordered Quantity: 113.0 Unit: g Repeat number: 2 doxycycline hyclate 100 mg oral tablet 1 tablet = 100 mg, By Mouth, 2 times a day, # 28 tablet, 0 Refills, Maintenance, 07/27/23 5:36:00 PMEDT, Tablet, Partial fill upon patient request if the prescription is for a schedule II opioid drug. Start Date: 07/27/23 Stop Date: 08/10/23 Status: Ordered Quantity: 28.0 Unit: tablet Repeat number: 1 Excedrin By Mouth, Every 6 hours, 0 Refills, Maintenance, 10/26/23 4:19:00 PM EDT, Partial fill upon patient request if the prescription is for a schedule II opioid drug. Start Date: 10/26/23 Status: Ordered Repeat number: 1 Flonase Allergy Relief 50 mcg/inh nasal spray 2 sprays = 100 mcg, Nares, Both, Daily, shake well before using, # 15.8 mL, 0 Refills, Maintenance,12/31/23 6:54:00 PM EDT, [place], [facility]/pharmacy #[id number], Partial fill upon patient request if the prescription is for a schedule II opioid drug., 155, cm, 12/13/23 13:56:00 EDT, Height, 96.1, kg, 10/05/2416:03:00 EDT, Dry Weight Start Date: 12/31/23 Status: Ordered Quantity: 15.8 Unit: mL Repeat number: 1 hydrOXYzine pamoate 25 mg oral capsule 1 capsule = 25 mg, By Mouth, 4 times a day, PRN for anxiety, # 40 capsule, 0 Refills, Maintenance, 10/04/23 5:42:00 PM EDT, Capsule, Partial fill upon patient request if the prescription is for a schedule II opioid drug. Start Date: 10/04/23 Status: Ordered Quantity: 40.0 Unit: capsule Repeat number: 1 ketoconazole 2% topical shampoo 1 application, Topically, Once, Three times weekly, # 120 mL, 0 Refills, Maintenance, 07/27/23 5:51:00 PM EDT, Shampoo, Partial fill upon patient request if the prescription is for a schedule II opioid drug. Start Date: 07/27/23 Status: Ordered Quantity: 120.0 Unit: mL Repeat number: 1 Latuda By Mouth, Daily, 0 Refills, Maintenance, 05/23/19 10:19:00 AM EDT Start Date: 05/23/19 Status: Ordered Repeat number: 1 metroNIDAZOLE 0.75% topical cream 1 application, Topically, 2 times a day, # 45 Gm, 0 Refills, Maintenance, 07/27/23 5:52:00 PM EDT, Cream, Partial fill upon patient request if the prescription is for a schedule II opioid drug. Start Date: 07/27/23 Status: Ordered Quantity: 45.0 Unit: g Repeat number: 1 Mirena 52 mg intrauteral device See Instructions, ins info faxed DOI [phone], # 1 each, 0 Refills, Soft Stop, 09/20/17 11:10:18 AM EDT, [facility] Start Date: 09/20/17 Status: Ordered Quantity: 1.0 Unit: each Repeat number: 1 Motegrity 2 mg oral tablet 1 tablet = 2 mg, By Mouth, Daily, # 30 tablet, 0 Refills, Maintenance, 08/29/22 8:19:00 AM EDT, Tablet, Partial fill upon patient request if the prescription is for a schedule II opioid drug. Start Date: 08/29/22 Status: Ordered Quantity: 30.0 Unit: tablet Repeat number: 1 nystatin topical 126657 u/gm powder 1 application, Topically, 2 times a day, # 60 Gm, 1 Refills, Maintenance, 09/09/23 4:54:00 AM EDT, Powder, [facility]/pharmacy #[id number], Partial fill upon patient request if the prescription is for a schedule II opioid drug., 1 application Topically 2 times a day, 155, cm, 07/27/23 17:37:00 EDT, Height, 97.8,kg, 06/08/23 12:59:00 EDT, Dry Weight Start Date: 09/09/23 Status: Ordered Quantity: 60.0 Unit: g Repeat number: 2 Morteza Daily Energy Morteza [employer], Refills 0, Maintenance, 12/13/23 2:06:00 PM EDT, Supply Start Date: 12/13/23 Status: Ordered Repeat number: 1 omeprazole 40 mg oral enteric coated capsule 1 capsule = 40 mg, By Mouth, 2 times a day, PRN Dyspepsia, # 30 capsule, 0 Refills, Maintenance, 02/21/18 4:01:30 PM EST, EC Capsule Start Date: 02/21/18 Status: Ordered Quantity: 30.0 Unit: capsule Repeat number: 1 ondansetron 4 mg oral tablet, disintegrating 1 tablet = 4 mg, By Mouth, Every 6 hours, PRN as needed for nausea/vomiting, # 12 tablet, 0 Refills, Maintenance, 10/04/23 7:48:00 PM EDT, DIS Tablet, [facility]/pharmacy #[id number], Partial fill upon patient request if the prescription is for a schedule II opioid drug., 155, cm, 10/04/23 18:10:00 EDT, Height, 98.1, kg, 10/04/23 18:16:00 EDT, Dry Weight Start Date: 10/04/23 Stop Date: 10/07/23 Status: Ordered Quantity: 12.0 Unit: tablet Repeat number: 1 OXcarbazepine 150 mg oral tablet 150 mg, 1, tablet, Refills 0, Maintenance, 06/21/23 5:38:00 PM EDT, Partial fill upon patient requestif the prescription is for a schedule II opioid drug. Start Date: 06/21/23 Status: Ordered Repeat number: 1 OXcarbazepine 300 mg oral tablet Refills 0, Maintenance, 06/21/23 5:38:00 PM EDT, Partial fill upon patient request if the prescription is for a schedule II opioid drug. Start Date: 06/21/23 Status: Ordered Repeat number: 1 propranolol 10 mg oral tablet Refills 0, Maintenance, 06/21/23 5:38:00 PM EDT, Partial fill upon patient request if the prescription is for a schedule II opioid drug. Start Date: 06/21/23 Status: Ordered Repeat number: 1 Prozac Liquid = 80 mg, By Mouth, Daily, 0 Refills, Maintenance, 02/21/18 4:11:39 PM EST Start Date: 02/21/18 Status: Ordered Repeat number: 1 semaglutide 0.5 mg/0.5 mL (0.5 mg dose) subcutaneous solution = 0.5 mg, Subcutaneous Injection, Every week, for 4 week(s), in the abdomen, thigh, or upper arm, #2 mL, 0 Refills, Acute 02/03/24 3:44:00 PM EST, 01/06/24 3:44:00 PM EDT, Solution, [facility]/pharmacy #[id number], Partial fill upon patient request if the prescription is for a schedule II opioid drug., 155, cm, 12/13/23 13:56:00 EDT, Height, 96.1, kg, 10/06/23 17:03:00 EDT, Dry Weight Start Date: 01/06/24 Stop Date: 02/03/24 Status: Ordered Quantity: 2.0 Unit: mL Repeat number: 1 spironolactone 50 mg oral tablet 1 tablet = 50 mg, By Mouth, 2 times a day, # 180 tablet, 0 Refills, Maintenance, 07/27/23 5:36:00 PMEDT, Tablet, Partial fill upon patient request if the prescription is for a schedule II opioid drug. Start Date: 07/27/23 Status: Ordered Quantity: 180.0 Unit: tablet Repeat number: 1 SUMAtriptan 50 mg oral tablet 1 tablet = 50 mg, By Mouth, Daily, PRN for migraine headache, may repeat dose after 2 hours up to amaximum of 2, # 20 tablet, 0 Refills, Maintenance, 10/06/23 4:59:00 PM EDT, Tablet, [facility]/pharmacy #[id number], Partial fill upon patient request if the prescription is for a schedule II opioid drug., 155, cm, 10/06/23 16:35:00 EDT, Height, 96.1, kg, 10/06/23 16:35:00 EDT, Dry Weight Start Date: 10/06/23 Status: Ordered Quantity: 20.0 Unit: tablet Repeat number: 1 Tylenol 8 Hour 650 mg oral tablet, extended release 2 tablet = 1,300 mg, By Mouth, Every 8 hours, 0 Refills, Maintenance, 10/26/23 4:19:00 PM EDT, Partial fill upon patient request if the prescription is for a schedule II opioid drug. Start Date: 10/26/23 Status: Ordered Repeat number: 1 ZyrTEC 10 mg oral tablet 1 tablet = 10 mg, By Mouth, Daily, 0 Refills, Maintenance, 05/02/17 10:18:44 AM EST Start Date: 05/02/17 Status: Ordered Repeat number: 1 Problem List Condition Confirmation Course Effective Dates [...] Status Never smoker entered on: 09/13/13 Sex Sex Representation Female (finding) Implantable Device List Procedure Provider Procedure Date Device Type Site Ethmoidectomy Maxillary Antrostomy Endos Lenny Jarquin MD 02/28/18 Unknown Nares Left Device Identifier Serial Number Lot or Batch Number Manufacturing Date Expiration Date Distinct Identification Code MRI Safety Implantable Status Assigning Authority Unknown Unknown [id number] Unknown 03/13/19 Unknown Unknown Active Unknown Patient Care team information Care Team Personnel Name: Syed Jimenes DO Position: [facility] OIL ANALYST MD Member Role: Lifetime OIL ANALYST Physician Address: [address] [place], [place] [id number] Telecom: Name: Marybel Jerry NP Position: [facility] PCO Associate Professional Member Role: PCP Address: [address] [place] [id number] Telecom: Name: Izzy Muse RN Position: [facility] AMB Nurse Member Role: Primary Care Nurse Care Team Related Persons Name: SHANNAN FERREIRA Name: SALMA RHODES Name: ELLIOT GARCIA Name: ENIO GARCIA Insurance Providers Guarantor name: [facility] Plan Information #: 1 Payer: [facility] POS Member Number: NA Policy Number: NA Group Number: NA
--- OUTSIDE RECORDS SUMMARY | 2024-02-03 14:06 | XMS_ITS | Continuity of Care Document ---
Author Organization [facility] Primary Car e [place] Address [address] [place] [address]- Care Team Providers Care Die Mounter Name Role Phone Claritza LIBRARY TECHNICAL ASSISTANT, Marybel Godinez Primary Care Physician Encounter [facility] Date(s): 09/26/23 - 10/26/23 [facility] Care [place] [address] [place], [place] [address] Allergies, Adverse Reactions, Alerts [...] 1 Refills, Maintenance, 09/09/23 4:54:00 EDT, Cream, [facility]/pharmacy #[id number], Partial fill upon patient request if the [...] Start Date: 08/29/22 Status: Ordered nystatin topical 491242 u/gm powder 1 application, Topically, 2 times a day, # 60 Gm, 1 Refills, Maintenance, 09/09/23 4:54:00 EDT, Powder, [facility]/pharmacy #[id number], Partial fill upon patient request [...] Refills, Maintenance, 10/04/23 19:48:00 EDT, DIS Tablet, [facility]/pharmacy #[id number], Partial fill upon patient request [...] Safety Implantable Status Assigning Authority Unknown Unknown [id number] Unknown 03/13/19 Unknown Unknown Active Unknown Patient Care team information Care Team Personnel Name: Syed Jimenes DO Position: [facility] COPY COORDINATOR MD Member Role: Lifetime COPY COORDINATOR Physician Address: Address: [address] [place] [address] Name: Marybel Jerry NP Position: [facility] PCO Associate Professional Member Role: PCP Address: Address: [address] [place] [address] Primary Care [place], [place] [facility] Name: Izzy Muse RN Position: [facility] AMB Nurse Member Role: Primary Care Nurse Care Team Related Persons Name: SHANNAN FERREIRA Address: home [address] [place], [place] Name: SALMA RHODES Address: home [address] [place], [place] Name: ELLIOT GARCIA Address: home [address] [place] [address] Name: ENIO GARCIA Address: home [address] [place], [place]
--- OUTSIDE RECORDS SUMMARY | 2024-02-03 14:06 | XMS_ITS | Continuity of Care Document ---
Author Organization [facility] Primary Car e [place] Address [address] [place] [address]- Care Team Providers Care Scouring Train Operator Chief Name Role Phone Claritza WALTON, Marybel Godinez Primary Care Physician Encounter [facility] Date(s): 07/05/23 - 08/04/23 [facility] Care [place] [address] [place] [address]- Allergies, Adverse Reactions, Alerts Substance Reaction Severity Status penicillin Severe Active morphine 1 rigidity, difficlut to breathe Active Diflucan hives Active 1rigid mucles Immunizations Given and Recorded Vaccine Date Status Refusal Reason influenza virus vaccine, inactivated 02/12/22 Mike rded influenza virus vaccine, inactivated 12/11/20 Mike rded SARS-CoV-2 (COVID-19) mRNA-1609 vaccine 04/10/20 R ecorded Medications Ativan 0.5 [...] Safety Implantable Status Assigning Authority Unknown Unknown [id number] Unknown 03/13/19 Unknown Unknown Active Unknown Patient Care team information Care Team Personnel Name: Syed Jimenes DO Position: [facility] RECEIVING DOCK CHECKER MD Member Role: Lifetime RECEIVING DOCK CHECKER Physician Address: Address: [address] [place] [address] - Name: Marybel Jerry NP Position: [facility] PCO Associate Professional Member Role: PCP Address: Address: [address] [place] [address] Primary Care [place], [place] - Name: Izzy Muse RN Position: [facility] AMB Nurse Member Role: Primary Care Nurse Care Team Related Persons Name: SHANNAN FERREIRA Address: home [address] [place], [place] Name: SALMA RHODES Address: [address] [place], [place] Name: ELLIOT GARCIA Address: [address] [place] [address] Name: ENIO GARCIA Address: home [address] [place] [address]
--- OUTSIDE RECORDS SUMMARY | 2024-02-03 14:06 | XMS_ITS | Continuity of Care Document ---
Author Organization [facility] Primary Car e [place] Address [address] [place] [address]- Care Team Providers Care High School Librarian Name Role Phone Claritza ANALYST MICROBIOLOGY LAB, Marybel Godinez Primary Care Physician [phone] [id number] Date[facility] 11/18/23 - 12/18/23 [facility] [place] [address] [place], [place] [address] Allergies, Adverse Reactions, Alerts Substance [...] Refills, Maintenance, 09/09/23 4:54:00 EDT, [place], [id number], Partial fill upon patient request if the [...] Start Date: 08/29/22 Status: Ordered nystatin topical 623987 u/gm powder 1 application, Topically, 2 times [...] Safety Implantable Status Assigning Authority Unknown Unknown [id number] Unknown 03/13/19 Unknown Unknown Active Unknown Patient Care team information Care Team Personnel Name: Syed Jimenes DO Position: [facility] SCIENTIFIC DIVER MD Member Role: Lifetime SCIENTIFIC DIVER Physician Address: Address: [address] [place] [address] - Name: Marybel Jerry NP Position: [facility] PCO Associate Professional Member Role: PCP Address: Address: [address] [place] [address] Primary Care [place], [place] - Name: Izzy Muse RN Position: [facility] AMB Nurse Member Role: Primary Care Nurse Care Team Related Persons Name: SHANNAN FERREIRA Address: [address] [place], [place] Name: SALMA RHODES Address: [address] [place], [place] Name: ELLIOT GARCIA Address: [address] [place] [address] Name: ENIO GARCIA Address: [address] [place], [place]
--- OUTSIDE RECORDS SUMMARY | 2024-02-03 14:06 | XMS_ITS | Continuity of Care Document ---
Author Organization [facility] Primary Car e [place] Address [address] [place] [address]- Care Team Providers Care Tax Appraiser Name Role Phone Claritza BLENDER CONVEYOR OPERATOR, Marybel Godinez Primary Care Physician [phone] [id number] Date(s[facility] 12/07/23 - 01/06/24 [facility] Care [place] [address] [place], [place] [address] Allergies, Adverse Reactions, Alerts Substance Reaction [...] Refills, Maintenance, 09/09/23 4:54:00 EDT, [place], [id number], Partial fill upon patient request if the [...] 15.8 mL, 0 Refills, Maintenance,12/31/23 18:54:00 EDT, [place], [facility]/pharmacy #[id number], Partial fill upon patient [...] Start Date: 08/29/22 Status: Ordered nystatin topical 806270 u/gm powder 1 application, Topically, 2 times a day, # 60 Gm, 1 Refills, Maintenance, 09/09/23 4:54:00 EDT, Pow[place], [facility]/pharmacy #[id number], Partial fill upon patient [...] 10/04/23 19:48:00 EDT, DIS Tablet, [facility]/pharmacy #[id number], Partial fill upon patient [...] 02/03/24 15:44:00 EST, 01/06/24 15:44:00 EDT, Solution, [facility]/pharmacy #[id number], Partial fill upon patient [...] 01/10/24 17:29:00 EDT, 12/13/23 17:29:00 EDT, Solution, [facility]/pharmacy #[id number], Partial fill upon patient request if the [...] Safety Implantable Status Assigning Authority Unknown Unknown [id number] Unknown 03/13/19 Unknown Unknown Active Unknown Patient Care team information Care Team Personnel Name: Syed Jimenes DO Position: [facility] INTERNET DEVELOPER MD Member Role: Lifetime INTERNET DEVELOPER Physician Address: Address: [address] [place] [id number]- Name: Marybel Jerry NP Position: [facility] PCO Associate Professional Member Role: PCP Address: Address: [address] [place] [address]- Name: Izzy Muse RN Position: [facility] AMB Nurse Member Role: Primary Care Nurse Care Team Related Persons Name: SHANNAN FERREIRA Address: home [address] [place] [address] Name: SALMA RHODES Address: home [address] [place] [address] Name: ELLIOT GARCIA Address: [address] [place] [address] Name: ENIO GARCIA Address: home [address] [place] [address]
--- OUTSIDE RECORDS SUMMARY | 2024-02-03 14:06 | XMS_ITS | Continuity of Care Document ---
Author Organization [facility] Primary Car e [place] Address [address] [place] [address]- Care Team Providers Care Recruiter Name Role Phone Claritza SSDS MK 2 ADVANCED OPERATOR, Marybel Godinez Primary Care Physician [phone] Encounter [facility] Date(s): 07/18/23 - 08/17/23 [facility] Care [place] [address] [place] [address]- Allergies, Adverse Reactions, Alerts Substance Reaction Severity [...] Safety Implantable Status Assigning Authority Unknown Unknown [id number] Unknown 03/13/19 Unknown Unknown Active Unknown Patient Care team information Care Team Personnel Name: Seyd Jimenes DO Position: [facility] SIGNAL TECHNICIAN MD Member Role: Lifetime SIGNAL TECHNICIAN Physician Address: Address: [address] [place] [address]- Name: Marybel Jerry NP Position: [facility] PCO Associate Professional Member Role: PCP Address: Address: [address] [place] [address] Primary Care [place], [place] - Name: Izzy Muse RN Position: [facility] AMB Nurse Member Role: Primary Care Nurse Care Team Related Persons Name: SHANNAN FERREIRA Address: [address] [place] [address] Name: SALMA RHODES Address: [address] [place] [address] Name: ELLIOT GARCIA Address: [address] [place] [address] Name: ENIO GARCIA Address: [address] [place] [address]
--- OUTSIDE RECORDS SUMMARY | 2024-02-03 14:06 | XMS_ITS | Continuity of Care Document ---
Author Organization [facility] Primary [facility] e [place] Address [address] [place] [address]- Support Name Relationship Address Phone ROLLET, JEFRERY [...] Unknown Senait vailable Care Team Providers Care Central Supply Manager Name Role Phone Claritza WALTON, Marybel Godinez Primary Care Physician Encounter [facility] [id number] Date(s): 12/26/23 - 01/25/24 [facility] [place] [address] [place], [place] [address] Encounter Type: Triage Allergies, Adverse Reactions, Alerts [...] 1 Refills, Maintenance, 244:54:00 AM EDT, [place], [facility]/pharmacy #[id number], Partial fill upon patient request if the [...] mL, 0 Refills, Maintenance,12/31/23 6:54:00 PM EDT, [place], [facility]/pharmacy #[id number], Partial fill upon [...] Refills, Soft Stop, 09/20/17 11:10:18 AM EDT, [facility] Start Date: 09/20/17 Status: [...] Unit: tablet Repeat number: 1 nystatin topical 113877 u/gm powder 1 application, Topically, 2 times a day, # 60 Gm, 1 Refills, Maintenance, 09/09/23 4:54:00 AM EDT, [place], [facility]/pharmacy #[id number], Partial [...] Maintenance, 10/04/23 7:48:00 PM EDT, DIS Tablet, [facility]/pharmacy #[id number], [...] PM EST, 01/06/24 3:44:00 PM EDT, Solution, [facility]/pharmacy #0938, Partial fill upon patient request if the [...] Refills, Maintenance, 10/06/23 4:59:00 PM EDT, Tablet, [facility]/pharmacy #[id number], Partial fill [...] Safety Implantable Status Assigning Authority Unknown Unknown [id number] Unknown 03/13/19 Unknown Unknown Active Unknown Patient Care team information Care Team Personnel Name: Syed Jimenes DO Position: [facility] LOW EMISSION AUTOMOBILE DESIGNER MD Member Role: Lifetime LOW EMISSION AUTOMOBILE DESIGNER Physician Address: [address] [place], [place] [address] Telecom: Name: Marybel Jerry NP Position: [facility] PCO Associate Professional Member Role: PCP Address: [address] [place] [address] Telecom: Name: Izzy Muse RN Position: [facility] AMB Nurse Member Role: Primary Care Nurse Care Team Related Persons Name: SHANNAN FERREIRA Name: SALMA RHODES Name: ELLIOT GARCIA Name: ENIO GARCIA Insurance Providers Guarantor name: [facility] Plan Information #: 1 Payer: [facility] POS Member Number: NA Policy Number: NA Group Number: NA
--- OUTSIDE RECORDS SUMMARY | 2024-02-03 14:06 | XMS_ITS | Continuity of Care Document ---
Author Organization [facility] Primary Car e [place] Address [address] [place] [address]- Care Team Providers Care Sample Dye Mixer Name Role Phone Duarte WALTON, Ana Maria Mohr Primary Care Physician [id number] Date(s): 04/27/23 - 06/26/23 [facility] Care [place] [address] [place], [place] [address] Attending Physician: Claritza WALTON, Marybel Godinez Allergies, Adverse Reactions, Alerts Substance Reaction Severity [...] 07/19/23 18:22:00 EDT, 06/21/23 18:22:00 EDT, Solution, [facility]/pharmacy #[id number],Partial fill upon patient request if the [...] Safety Implantable Status Assigning Authority Unknown Unknown [id number] Unknown 03/13/19 Unknown Unknown Active Unknown Patient Care team information Care Team Personnel Name: Ana Maria Ramachandran NP Position: [facility] PCO Associate Professional Member Role: PCP Address: Address: [address] [place] [address] Care [place], [place] - Name: Syed Jimenes DO Position: [facility] WALNUT DEHYDRATOR OPERATOR MD Member Role: Lifetime WALNUT DEHYDRATOR OPERATOR Physician Address: Address: [address] [place] [address] - Name: Izzy Muse RN Position: [facility] AMB Nurse Member Role: Primary Care Nurse Care Team Related Persons Name: SHANNAN FERREIRA Address: home [address] [place], [place] Name: SALMA RHODES Address: [address] [place], [place] Name: ELLIOT GARCIA Address: home [address] [place] [address] Name: ENIO GARCIA Address: home [address] [place], [place]
--- OUTSIDE RECORDS SUMMARY | 2024-02-03 14:06 | XMS_ITS | Continuity of Care Document ---
Author Organization [facility] Primary Car e [place] Address [address] [place] [address]- Care Team Providers Care Rigging And Controls Aircraft Mechanic Name Role Phone Claritza SMOKED MEAT PREPARER, Marybel Godinez Primary Care Physician Encounter [facility] Date(s): 07/15/23 - 08/14/23 [facility] Care [place] [address] [place], [place] [address] Allergies, Adverse Reactions, Alerts Substance Reaction Severity Status penicillin Severe Active morphine 1 rigidity, difficlut to breathe Active Diflucan hives Active 1rigid mucles Immunizations Given and Recorded Vaccine Date Status Refusal Reason influenza virus vaccine, inactivated 02/12/22 Mike rded influenza virus vaccine, inactivated 12/11/20 Mike rded SARS-CoV-2 (COVID-19) [id number] vaccine 04/10/20 R ecorded Medications Ativan 0.5 [...] Safety Implantable Status Assigning Authority Unknown Unknown [id number] Unknown 03/13/19 Unknown Unknown Active Unknown Patient Care team information Care Team Personnel Name: Syed Jimenes DO Position: [facility] SEXUAL ASSAULT COUNSELLOR MD Member Role: Lifetime SEXUAL ASSAULT COUNSELLOR Physician Address: Address: [address] [place] [address] - Name: Marybel Jerry NP Position: [facility] PCO Associate Professional Member Role: PCP Address: Address: [address] [place] [address] Primary Care [place], [place] - Name: Izzy Muse RN Position: [facility] AMB Nurse Member Role: Primary Care Nurse Care Team Related Persons Name: SHANNAN FERREIRA Address: [address] [place], [place] Name: SALMA RHODES Address: [address] [place], [place] Name: ELLIOT GARCIA Address: home [address] [place] [address] Name: ENIO GARCIA Address: home [address] [place] [address]
--- OUTSIDE RECORDS SUMMARY | 2024-02-03 14:06 | XMS_ITS | Continuity of Care Document ---
Author Organization [facility] Primary Car e [place] Address [address] [place] [address]- Care Team Providers Care Silk Screener Name Role Phone Claritza IMMIGRATION CONSULTANT, Marybel Godinez Primary Care Physician [phone] Encounter [facility] Date(s): 08/02/23 - 09/01/23 [facility] Care [place] [address] [place], [place] [address] Allergies, Adverse Reactions, Alerts Substance Reaction Severity Status penicillin Severe Active morphine 1 rigidity, difficlut to breathe Active Diflucan hives Active 1rigid mucles Immunizations Given and Recorded Vaccine Date Status Refusal Reason influenza virus vaccine, inactivated 02/12/22 Mike rded influenza virus vaccine, inactivated 12/11/20 Mike rded SARS-CoV-2 (COVID-19) [id number] vaccine 04/10/20 R ecorded Medications Ativan 0.5 [...] Safety Implantable Status Assigning Authority Unknown Unknown [id number] Unknown 03/13/19 Unknown Unknown Active Unknown Patient Care team information Care Team Personnel Name: Syed Jimenes DO Position: [facility] DYNAMOMETER TESTER MD Member Role: Lifetime DYNAMOMETER TESTER Physician Address: Address: [address] [place] [address]- Name: Marybel Jerry NP Position: [facility] PCO Associate Professional Member Role: PCP Address: Address: [address] [place] [address] Primary Care [place], [place] - Name: Izzy Muse RN Position: [facility] AMB Nurse Member Role: Primary Care Nurse Care Team Related Persons Name: SHANNAN FERREIRA Address: home [address] [place] [address] Name: SALMA RHODES Address: [address] [place] [address] Name: ELLIOT GARCIA Address: home [address] [place] [address] Name: ENIO GARCIA Address: [address] [place] [address]
--- OUTSIDE RECORDS SUMMARY | 2024-02-03 14:06 | XMS_ITS | Continuity of Care Document ---
Author Organization [facility] Address [address] [place] [address]- Care Team Providers Care Intellectual Property Counsel Name Role Phone Edna Mathis NP Primary Care Physician Encounter [facility] NBR [id number] Date(s): 01/28/22 - 01/29/[address] [address]- Encounter Diagnosis Abdominal pain(Final) - 01/29/22 Discharge Disposition: A-D/C Home Attending Physician: Toño Young DO Admitting Physician: Toño Young DO Referring Physician: Not on Staff, Referring MD Allergies, Adverse Reactions, Alerts Substance Reaction Severity Status penicillin Severe Active morphine 1 rigidity, difficlut to breathe Active Diflucan hives Active 1rigid mucles Medications acetaminophen 500 mg oral capsule 2 capsule = 1,000 mg, By Mouth, Every 8 hours, # 100 capsule, 0 Refills, Maintenance, 05/12/20 8:29:00 EST, Capsule, [facility], Partial fill upon patient request if the prescriptionis for a schedule II opioid drug., 158, cm, 2... Start Date: 05/12/20 Status: Ordered aspirin buffered 325 mg oral tablet 1 tablet = 325 mg, By Mouth, Daily, # 30 tablet, 0 Refills, Maintenance, 05/12/20 8:28:00 EST, Tablet, [facility], Partial fill upon patient request if the prescription is for a schedule II opioid drug., 158, cm, 01/29/20 10:18:00 EST... Start Date: 05/12/20 Status: Ordered Ativan 0.5 mg oral tablet 1 tablet = 0.5 mg, By Mouth, 2 times a day, PRN as needed for anxiety, 0 Refills, Maintenance, 02/21/18 16:11:52 EST, Tablet Start Date: 02/21/18 Status: Ordered Azithromycin 5 Day Dose Pack 250 mg oral tablet See Instructions, 2 tablets By Mouth Once on day #1, then 1 tablet by mouth once daily for the next4 days, # 6 tablet, 0 Refills, Soft Stop, 06/05/21 0:23:00 EDT, Tablet, [facility]/pharmacy #[id number], Partialfill upon patient request if the prescription is fo... Start Date: 06/05/21 Status: Ordered Flonase 50 mcg/inh nasal spray Daily, 0 Refills, Maintenance, 02/21/18 16:12:11 EST Start Date: 02/21/18 Status: Ordered Gabapentin = 300 mg, By Mouth, 0 Refills, Maintenance, 01/28/22 23:06:00 EST, Partial fill upon patient request if the prescription is for a schedule II opioid drug. Start Date: 01/28/22 Status: Ordered Latuda By Mouth, Daily, 0 [...] 8 hours, PRN as needed for nausea/vomiting, # 12 tablet, 0 Refills, Maintenance, 01/29/22 0:47:00 EST, DIS Tablet, [facility]/pharmacy #[id number], Partial fill upon patient request if the prescription is for a schedule II opioid d... Start Date: 01/29/22 Status: Ordered oxyCODONE 5 mg oral tablet 10 mg, 2, tablet, By Mouth, Every 6 hours, PRN, 1-2 tabs PO q 4-6hrs prn pain, # 48 tablet, Refills0, Tot. Refills 0, Maintenance, as needed for pain, 05/12/20 8:28:00 EST, Route to Pharmacy Electronically, [facility], Partial fill u... Start Date: 05/12/20 Status: Ordered Prozac Liquid = 80 mg, By Mouth, Daily, 0 Refills, Maintenance, 02/21/18 16:11:39 EST Start Date: 02/21/18 Status: Ordered spironolactone 100 mg oral tablet 100 mg, 1, tablet, By Mouth, 2 times a day, with meals, electrolytes to be completed before starting new dose, # 180 tablet, Refills 4, Tot. Refills 4, Maintenance, 09/02/20 8:10:00 EDT, Route to Pharmacy Electronically, [facility]/pharmacy #[id number], Partial fi... Start Date: 09/02/20 Stop Date: 11/26/21 Status: Ordered Zofran 4 mg oral tablet 1 tablet = 4 mg, By Mouth, Every 8 hours, PRN Nausea, # 12 tablet, 0 Refills, Maintenance, 218:29:00 EST, Tablet, [facility], Partial fill upon patient request if the prescription is for a schedule II opioid drug., 158, cm, 11... Start Date: 05/12/20 Status: Ordered ZyrTEC 10 mg oral tablet [...] Exam Date Time Procedure Performing Provider Status 01/29/22 12:[address] Abdomen and Pelvi s W/O Contrast Lorri King; Auth (Verified) Notes: (CT Abdomen and Pelvis W/O Contrast) Reason For Exam: Right flank pain, Ultra Low Dose Protocol;Other: RESULT: CT Abdomen and Pelvis W/O Contrast CT Abdomen and Pelvis W/O Contrast Hx of Present Illness: abd pain, chills; Reason: Other:; Right flank pain, Ultra Low Dose Protocol;Clinical Question(s): Calculus TECHNIQUE: Spiral CT through the abdomen and pelvis without IV contrast formatted in 3 planes. Thisstudy was performed without oral contrast. Weight- based protocol using automatic tube modulation was used to optimize exposure parameters. CTDIvol Body: 25.77 mGy, DLP Body: 1183 mGy*cm. COMPARISON: 05/02/2017 FINDINGS: School Psychologist Assistant View Findings, Lines and Tubes: None. Visualized Chest: Lung bases are clear. No pleural effusion. The heart is normal in size. No pericardial effusion. Diaphragm: Normal. Limited evaluation of the solid abdominal organs without IV contrast. Liver: Diffuse hepatic steatosis. Mildly enlarged overall size of the liver. Gallbladder: No CT evidence of gallbladder pathology. Bile ducts: No biliary ductal dilation. Spleen: Normal. Pancreas: Normal. Adrenal glands: Normal. Kidneys and ureters: No hydronephrosis. No nephrolithiasis. Subcentimeter partially exophytic lesion at the upper pole of the left kidney is most likely a tiny cyst. Bladder: Nondistended urinary bladder. Reproductive organs: IUD present. Stomach, small bowel, and large bowel: Stomach and small bowel loops are without evidence for obstruction. Minimal wall thickening present of jejunal loops in the left abdomen with mild haziness of the mesentery without fluid collection. No free fluid. Appendix: Not seen, likely surgically absent. No right lower quadrant inflammation. Peritoneum and retroperitoneum: No ascites or pneumoperitoneum. Lymph nodes: No adenopathy. Blood vessels: Nonaneurysmal abdominal aorta. Limited evaluation of the vasculature without IV contrast. Abdominal and pelvic wall: No bowel containing hernia Bones: No acute or destructive osseous abnormality IMPRESSION: Mild wall thickening involving loops of jejunum without dilatation or evidence for bowel obstruction. No regional free fluid. These findings can be seen with mild enteritis. Hepatic steatosis. This report is concordant with the preliminary vRAD report. WSN: [id number] Ordering Physician: Toño Young Dictated By: Sendy Beauchamp MD Dictated Date/Time: 01/29/22 8:42 am Reviewed By: Sendy Beauchamp MD Signed By: Sendy Beauchamp MD Signed Date/Time: 01/29/22 8:42 am Transcribed By: DAO Transcribed Date/Time: 01/29/22 8:34 am Vital Signs Most recent to oldest [Reference Range]: 1 2 3 Height 155 cm (01/29/22 1:19 AM) 155 cm (01/28/22 11:01 PM) 155 cm (01/28/22 10:58 PM) Weight 98.7 kg (01/29/22 1:19 AM) 98.7 kg (01/28/22 11:01 PM) 98.7 kg (01/28/22 10:58 PM) Oxygen Saturation [94-100 %] 98 % (01/29/22 1:19 AM) 99 % (01/28/22 10:58 PM) Pulse Rate [55-90 bpm] 67 bpm (01/29/22 1:19 AM) 88 bpm (01/28/22 10:58 PM) Body Mass Index [18.5-24.99 kg/m2] 41.08 kg/m2 *>HHI* (01/29/22 1:19 AM) 41.08 kg/m2 *>HHI* (01/28/22 10:58 PM) Blood Pressure [90-138/55-84 mm Hg] 122/76mm Hg (01/29/22 1:19 AM) 132/90mm Hg (01/28/22 10:58 PM) Respiratory Rate [16-30 br/min] 16 br/min (01/29/22 1:19 AM) 18 br/min (01/28/22 10:58 PM) Temperature [96.8-100.4 DegF] 98.1 DegF (01/29/22 1:19 AM) 96.9 DegF (01/28/22 10:58 PM) Mode of Delivery (Oxygen) Room air (01/29/22 1:19 AM) Blood pressure sites Arm, right (01/29/22 1:19 AM) Temperature Route Oral (01/29/22 1:19 AM) Temporal (01/28/22 10:58 PM) Dry Weight 98.7 kg (01/29/22 1:19 AM) 98.7 kg (01/28/22 11:01 PM) 98.7 kg (01/28/22 10:58 PM) Social History Social History Type Response Smoking Status Never smoker entered on: 09/13/13 Sex Implantable Device List Procedure Provider Procedure Date Device Type Site Ethmoidectomy Maxillary Antrostomy Endos Milka FRY, Lenny Mohr 02/28/18 Unknown Nares Left Device Identifier Serial Number Lot or Batch Number Manufacturing Date Expiration Date Distinct Identification Code MRI Safety Implantable Status Assigning Authority Unknown Unknown [id number] Unknown 03/13/19 Unknown Unknown Active Unknown CT Abdomen and Pelvis WO contrast * BH[employer] , CIS S: TRANSCRIBE Quynh FRY, Sendy: VERIFY Event Display: Result: Authored Date: [id number] CT Abdomen and Pelvis W/O Contrast Hx of Present Illness: abd pain, chills; Reason: Other:; Right flank pain, Ultra Low Dose Protocol;Clinical Question(s): Calculus TECHNIQUE: Spiral CT through the abdomen and pelvis without IV contrast formatted in 3 planes. Thisstudy was performed without oral contrast. Weight- based protocol using automatic tube modulation was used to optimize exposure parameters. CTDIvol Body: 25.77 mGy, DLP Body: 1183 mGy*cm. COMPARISON: 05/02/2017 FINDINGS: School Psychologist Assistant View Findings, Lines and Tubes: None. Visualized Chest: Lung bases are clear. No pleural effusion. The heart is normal in size. No pericardial effusion. Diaphragm: Normal. Limited evaluation of the solid abdominal organs without IV contrast. Liver: Diffuse hepatic steatosis. Mildly enlarged overall size of the liver. Gallbladder: No CT evidence of gallbladder pathology. Bile ducts: No biliary ductal dilation. Spleen: Normal. Pancreas: Normal. Adrenal glands: Normal. Kidneys and ureters: No hydronephrosis. No nephrolithiasis. Subcentimeter partially exophytic lesion at the upper pole of the left kidney is most likely a tiny cyst. Bladder: Nondistended urinary bladder. Reproductive organs: IUD present. Stomach, small bowel, and large bowel: Stomach and small bowel loops are without evidence for obstruction. Minimal wall thickening present of jejunal loops in the left abdomen with mild haziness of the mesentery without fluid collection. No free fluid. Appendix: Not seen, likely surgically absent. No right lower quadrant inflammation. Peritoneum and retroperitoneum: No ascites or pneumoperitoneum. Lymph nodes: No adenopathy. Blood vessels: Nonaneurysmal abdominal aorta. Limited evaluation of the vasculature without IV contrast. Abdominal and pelvic wall: No bowel containing hernia Bones: No acute or destructive osseous abnormality IMPRESSION: Mild wall thickening involving loops of jejunum without dilatation or evidence for bowel obstruction. No regional free fluid. These findings can be seen with mild enteritis. Hepatic steatosis. This report is concordant with the preliminary vRAD report. WSN: [id number] Ordering Physician: Toño Young Dictated By: Sendy Beauchamp MD Dictated Date/Time: 01/29/22 8:42 am Reviewed By: Sendy Beauchamp MD Signed By: Sendy Beauchamp MD Signed Date/Time: 01/29/22 8:42 am Transcribed By: DAO Transcribed Date/Time: 01/29/22 8:34 am Patient Care team information Care Team Personnel Name: Edna Mathis NP Position: [facility] MARCELINO Office Staff Member Role: PCP Address: Address: [address] [place] [address] [address] [place] [address]- Name: Syed Jimenes DO Position: [facility] MERCHANDISE SUPPORT ASSOCIATE MD Member Role: Lifetime MERCHANDISE SUPPORT ASSOCIATE Physician Address: Address: [address] [place] [address] Womens [facility] [place] [address]- Name: Izzy Muse RN Position: [facility] AMB Nurse Member Role: Primary Care Nurse Name: Trae Rebolledo Position: [facility] ED TA [facility] Member Role: Patient Care Provider Name: Anuradha Francisco RN Position: [facility] ED RN W/OE and Tasks Member Role: Patient Care Provider Name: Toño Young DO Position: [facility] ED Medicine MD Member Role: ED Attending Physician Address: Address: [address] [place] [address] [place] [address]- Care Team Related Persons Name: SHANNAN FERREIRA Address: [address] [place] [address] Name: SALMA RHODES Name: ELLIOT GARCIA Address: [address] [place] [address] Name: ENIO GARCIA Address: [address] [place] [address]
--- OUTSIDE RECORDS SUMMARY | 2024-02-03 14:06 | XMS_ITS | Continuity of Care Document ---
Author Organization [facility] Primary Car e [place] Address [address] [place] [address]- Care Team Providers Care Drop Wire Builder Name Role Phone Claritza WALTON, Marybel Godinez Primary Care Physician [facility] [id number] Date(s): 06/30/23 - 07/30/23 [facility] Care [place] [address] [place] [address]- Allergies, Adverse Reactions, Alerts Substance Reaction Severity Status penicillin Severe Active morphine 1 rigidity, difficlut to breathe Active Diflucan hives Active 1rigid mucles Immunizations Given and Recorded Vaccine Date Status Refusal Reason influenza virus vaccine, inactivated 02/12/22 Mike rded influenza virus vaccine, inactivated 12/11/20 Mike rded SARS-CoV-2 (COVID-19) mRNA-1849 vaccine 04/10/20 R ecorded Medications Ativan 0.5 [...] Safety Implantable Status Assigning Authority Unknown Unknown [id number] Unknown 03/13/19 Unknown Unknown Active Unknown Patient Care team information Care Team Personnel Name: Syed Jimenes DO Position: [facility] FURNITURE CLEANER MD Member Role: Lifetime FURNITURE CLEANER Physician Address: Address: [address] [place] [address] - Name: Marybel Jerry NP Position: [facility] PCO Associate Professional Member Role: PCP Address: Address: [address] [place] [address] Primary Care [place], [place] - Name: Izzy Muse RN Position: [facility] AMB Nurse Member Role: Primary Care Nurse Care Team Related Persons Name: SHANNAN FERREIRA Address: [address] [place], [place] Name: SALMA RHODES Address: [address] [place], [place] Name: ELLIOT GARCIA Address: [address] [place] [address] Name: ENIO GARCIA Address: [address] [place] [address]
--- OUTSIDE RECORDS SUMMARY | 2024-02-03 14:07 | XMS_ITS | Continuity of Care Document ---
Author Organization [facility] Primary Car e [place] Address [address] [place] [address]- Care Team Providers Care Rug Cutter Helper Name Role Phone Claritza WALTON, Marybel Godinez Primary Care Physician [id number] Date(s): 06/29/23 - 07/29/23 [facility] [place] [address] [place] [address]- Allergies, Adverse Reactions, Alerts Substance Reaction Severity Status penicillin Severe Active morphine 1 rigidity, difficlut to breathe Active Diflucan hives Active 1rigid mucles Immunizations Given and Recorded Vaccine Date Status Refusal Reason influenza virus vaccine, inactivated 02/12/22 Mike rded influenza virus vaccine, inactivated 12/11/20 Mike rded SARS-CoV-2 (COVID-19) mRNA-1871 vaccine 04/10/20 R ecorded Medications Ativan 0.5 [...] Safety Implantable Status Assigning Authority Unknown Unknown [id number] Unknown 03/13/19 Unknown Unknown Active Unknown Patient Care team information Care Team Personnel Name: Syed Jimenes DO Position: [facility] LINE ERECTOR APPRENTICE MD Member Role: Lifetime LINE ERECTOR APPRENTICE Physician Address: Address: [address] [place] [address] - Name: Marybel Jerry NP Position: [facility] PCO Associate Professional Member Role: PCP Address: Address: [address] [place] [address] Primary Care [place], [place] - Name: Izzy Muse RN Position: [facility] AMB Nurse Member Role: Primary Care Nurse Care Team Related Persons Name: SHANNAN FERREIRA Address: [address] [place], [place] Name: SALMA RHODES Address: [address] [place], [place] Name: ELLIOT GARCIA Address: [address] [place] [address] Name: ENIO GARCIA Address: [address] [place] [address]
--- OUTSIDE RECORDS SUMMARY | 2024-02-03 14:07 | XMS_ITS | Continuity of Care Document ---
Author Organization [facility] Primary Car e [place] Address [address] [place] [address]- Care Team Providers Care Assistant Loan Processor Name Role Phone Claritza CAKE MIXER, Marybel Godinez Primary Care Physician Encounter [facility] Date(s): 10/28/23 - 11/27/23 [facility] Care [place] [address] [place], [place] [address] Allergies, Adverse Reactions, Alerts Substance Reaction Severity Status penicillin Severe Active morphine 1 rigidity, difficlut to breathe Active Diflucan hives Active 1rigid mucles Immunizations Given and Recorded Vaccine Date Status Refusal Reason influenza virus vaccine, inactivated 02/12/22 Mike rded influenza virus vaccine, inactivated 12/11/20 Mike rded SARS-CoV-2 (COVID-19) mRNA-[id number] vaccine 04/10/20 R ecorded Medications Ativan 0.5 mg oral tablet 1 tablet = 0.5 mg, By Mouth, 2 times a day, PRN as needed for anxiety, 0 Refills, Maintenance, 02/21/18 16:11:52 EST, Tablet Start Date: 02/21/18 Status: Ordered clotrimazole 1% topical cream 1 application, Topically, 2 times a day, PRN fungal rash, # 113 Gm, 1 Refills, Maintenance, 09/09/23 4:54:00 EDT, Cream, [id number], Partial fill upon patient request if the [...] Start Date: 08/29/22 Status: Ordered nystatin topical [id number] u/gm powder 1 application, Topically, 2 times a day, # 60 Gm, 1 Refills, Maintenance, 09/09/23 4:54:00 EDT, Powder, [facility]/pharmacy #[id number], Partial fill upon [...] Refills, Maintenance, 10/04/23 19:48:00 EDT, DIS Tablet, [facility]/pharmacy #[id number], Partial fill upon [...] Safety Implantable Status Assigning Authority Unknown Unknown [id number] Unknown 03/13/19 Unknown Unknown Active Unknown Patient Care team information Care Team Personnel Name: Syed Jimenes DO Position: [facility] BLACK TOP SPREADER MACHINE OPERATOR MD Member Role: Lifetime BLACK TOP SPREADER MACHINE OPERATOR Physician Address: Address: [address] [place] [address] - Name: Marybel Jerry NP Position: [facility] PCO Associate Professional Member Role: PCP Address: Address: [address] [place] [address] Primary Care [place], [place] - Name: Izzy Muse RN Position: [facility] AMB Nurse Member Role: Primary Care Nurse Care Team Related Persons Name: SHANNAN FERREIRA Address: [address] [place], [place] Name: SALMA RHODES Address: [address] [place], [place] Name: ELLIOT GARCIA Address: [address] [place] [address] Name: ENIO GARCIA Address: [address] [place], [place]
--- OUTSIDE RECORDS SUMMARY | 2024-02-03 14:07 | XMS_ITS | Continuity of Care Document ---
Author Organization [facility] Primary Car e [place] Address [address] [place] [address]- Care Team Providers Care Digital Printer Name Role Phone Duarte WALTON, Ana Maria Mohr Primary Care Phys[id number] Date(s[facility] 05/20/23 - 06/19/23 [facility] Care [place] [address] [place] [address]- Allergies, Adverse Reactions, Alerts Substance Reaction Severity Status penicillin Severe Active morphine 1 rigidity, difficlut to breathe Active Diflucan hives Active 1rigid mucles Medications acetaminophen 500 mg oral capsule 2 capsule = 1,000 mg, By Mouth, Every 8 hours, # 100 capsule, 0 Refills, Maintenance, 05/12/20 8:29:00 EST, Capsule, [facility], Partial fill upon patient request [...] 1 each, 0 Refills, Maintenance,01/10/23 19:00:00 EDT, [place], [facility]/pharmacy #[id number], Partial fill upon patient request if the prescription is for a schedule II opioid drug., 2 sprays Carlos... Start Date: 01/10/23 Stop Date: 02/09/23 Status: Ordered Flonase 50 mcg/inh nasal spray Daily, 0 Refills, Maintenance, 02/21/18 16:12:11 EST Start Date: 02/21/18 Status: Ordered fluticasone 50 mcg/inh nasal spray 2 sprays, Nares, Both, Daily, # 1 each, 0 Refills, Maintenance, 01/10/23 19:02:00 EDT, [place], [facility]/pharmacy #[id number], Partial fill upon patient [...] Safety Implantable Status Assigning Authority Unknown Unknown [id number] Unknown 03/13/19 Unknown Unknown Active Unknown Patient Care team information Care Team Personnel Name: Ana Maria Ramachandran NP Position: [facility] PCO Associate Professional Member Role: PCP Address: Address: [address] [place] [address] Primary Care [place], [place] [facility] Name: Syed Jimenes DO Position: [facility] FRUIT PACKER FACE AND FILL MD Member Role: Lifetime FRUIT PACKER FACE AND FILL Physician Address: Address: [address] [place] [address] - Name: Izzy Muse RN Position: [facility] AMB Nurse Member Role: Primary Care Nurse Care Team Related Persons Name: SHANNAN FERREIRA Address: home [address] [place] [address] Name: SALMA RHODES Address: [address] [place] [address] Name: ELLIOT GARCIA Address: home [address] [place] [address] Name: ENIO GARCIA Address: [address] [place] [address]
--- OUTSIDE RECORDS SUMMARY | 2024-02-03 14:07 | XMS_ITS | Continuity of Care Document ---
Author Hub Preferred Language Yemeni Marital Status Single Gnosticist Affiliation Spiritism Race White Ethnic Group Not or Lati no Author Organization [facility] Primary [place] Address [address] [place] [address]- Care Team Providers Care Caustic Mixer Name Role Phone Claritza CORE ANALYST, Marybel Godinez Primary Care Physician Encounter [facility] Date(s): 10/10/23 - 11/09/23 [facility] Primary [place] [address] [place], [place] [address] Allergies, Adverse Reactions, Alerts Substance Reaction Severity Status penicillin Severe Active morphine 1 rigidity, difficlut to breathe Active Diflucan hives Active 1rigid mucles Immunizations Given and Recorded Vaccine Date Status Refusal Reason influenza virus vaccine, inactivated 02/12/22 Mike rded influenza virus vaccine, inactivated 12/11/20 Mike rded SARS-CoV-2 (COVID-19) mRNA-9943 vaccine 04/10/20 R ecorded Medications Ativan 0.5 mg oral tablet 1 tablet = 0.5 mg, By Mouth, 2 times a day, PRN as needed for anxiety, 0 Refills, Maintenance, 02/21/18 16:11:52 EST, Tablet Start Date: 02/21/18 Status: Ordered clotrimazole 1% topical cream 1 application, Topically, 2 times a day, PRN fungal rash, # 113 Gm, 1 Refills, Maintenance, 09/09/23 4:54:00 EDT, Cream, [id number], Partial fill upon patient request if the [...] Start Date: 08/29/22 Status: Ordered nystatin topical 545917 u/gm powder 1 application, Topically, 2 times a day, # 60 Gm, 1 Refills, Maintenance, 09/09/23 4:54:00 EDT, Powder, [facility]/pharmacy #[id number], Partial fill upon patient [...] 10/04/23 19:48:00 EDT, DIS Tablet, [facility]/pharmacy #[id number], Partial fill upon patient [...] Refills, Maintenance, 10/06/23 16:59:00 EDT, Tablet, [facility]/pharmacy #[id number], Partial fill upon patient [...] Safety Implantable Status Assigning Authority Unknown Unknown [id number] Unknown 03/13/19 Unknown Unknown Active Unknown Patient Care team information Care Team Personnel Name: Syed Jimenes DO Position: [facility] DISCOVERY MANAGER MD Member Role: Lifetime DISCOVERY MANAGER Physician Address: Address: [address] [place] [address]- Name: Marybel Jerry NP Position: [facility] PCO Associate Professional Member Role: PCP Address: Address: [address] [place] [address] [facility] Name: Izzy Muse RN Position: [facility] AMB Nurse Member Role: Primary Care Nurse Care Team Related Persons Name: SHANNAN FERREIRA Address: [address] [place], [place] Name: SALMA RHODES Address: [address] [place], [place] Name: ELLIOT GARCIA Address: [address] [place] [address] Name: ENIO GARCIA Address: [address] [place] [address]
--- OUTSIDE RECORDS SUMMARY | 2024-02-03 14:07 | XMS_ITS | Continuity of Care Document ---
Author Organization [facility] Primary Car e [place] Address [address] [place] [address]- Care Team Providers Care Game Design Instructor Name Role Phone Claritza PERSONAL PROPERTY APPRAISER, Marybel Godinez Primary Care Physician Encounter [facility] Date(s): 07/19/23 - 08/18/23 [facility] Care [place] [address] [place], [place] [address] Allergies, Adverse Reactions, Alerts Substance Reaction Severity [...] Safety Implantable Status Assigning Authority Unknown Unknown [id number] Unknown 03/13/19 Unknown Unknown Active Unknown Patient Care team information Care Team Personnel Name: Syed Jimenes DO Position: [facility] WATER RECLAMATION SYSTEMS OPERATOR MD Member Role: Lifetime WATER RECLAMATION SYSTEMS OPERATOR Physician Address: Address: [address] [place] [address] - Name: Marybel Jerry NP Position: [facility] PCO Associate Professional Member Role: PCP Address: Address: [address] [place] [address] Primary Care [place], [place] - Name: Izzy Muse RN Position: [facility] AMB Nurse Member Role: Primary Care Nurse Care Team Related Persons Name: SHANNAN FERREIRA Address: [address] [place], [place] Name: SALMA RHODES Address: [address] [place], [place] Name: ELLIOT GARCIA Address: [address] [place] [address] Name: ENIO GARCIA Address: home [address] [place] [address]
--- OUTSIDE RECORDS SUMMARY | 2024-02-03 14:07 | XMS_ITS | Continuity of Care Document ---
Author Organization [facility] Address [address] [place] [address]- Care Team Providers Care Tattooer Name Role Phone Claritza LAYBOY OPERATOR, Marybel Godinez Primary Care Physician Encounter [facility] Date(s): 06/27/23 - 07/27/[address] [address] Allergies, Adverse Reactions, Alerts Substance Reaction Severity Status penicillin Severe Active morphine 1 rigidity, difficlut to breathe Active Diflucan hives Active 1rigid mucles Immunizations Given and Recorded Vaccine Date Status Refusal Reason influenza virus vaccine, inactivated 02/12/22 Mike rded influenza virus vaccine, inactivated 12/11/20 Mike rded SARS-CoV-2 (COVID-19) mRNA-0671 vaccine 04/10/20 R ecorded Medications Ativan 0.5 [...] 08/24/23 17:48:00 EDT, 07/27/23 17:48:00 EDT, Solution, [facility]/pharmacy #[id number], Partial fill upon patient request [...] Safety Implantable Status Assigning Authority Unknown Unknown [id number] 8-114 Unknown 03/13/19 Unknown Unknown Active Unknown Patient Care team information Care Team Personnel Name: Syed Jimenes DO Position: [facility] CURAM DEVELOPER MD Member Role: Lifetime CURAM DEVELOPER Physician Address: Address: [address] [place] [address]- Name: Marybel Jerry NP Position: [facility] PCO Associate Professional Member Role: PCP Address: Address: [address] [place] [address] Primary Care [place], [place] - Name: Izzy Muse RN Position: [facility] AMB Nurse Member Role: Primary Care Nurse Care Team Related Persons Name: SHANNAN FERREIRA Address: [address] [place] [address] Name: SALMA RHODES Address: [address] [place] [address] Name: ELLIOT GARCIA Address: [address] [place] [address] Name: ENIO GARCIA Address: [address] [place] [address]
--- OUTSIDE RECORDS SUMMARY | 2024-02-03 14:07 | XMS_ITS | Continuity of Care Document ---
Author Organization [facility] Primary Car e [place] Address [address] [place] [address]- Care Team Providers Care Production Hand Name Role Phone Duarte WALTON, Ana Maria Mohr Primary Care Physician Encounter [facility] Date(s): 04/25/23 - 05/25/23 [facility] Care [place] [address] [place], [place] [address] Allergies, Adverse Reactions, Alerts Substance Reaction Severity Status penicillin Severe Active morphine 1 rigidity, difficlut to breathe Active Diflucan hives Active 1rigid mucles Medications acetaminophen 500 mg oral capsule 2 capsule = 1,000 mg, By Mouth, Every 8 hours, # 100 capsule, 0 Refills, Maintenance, 05/12/20 8:29:00 EST, Capsule, [facility], Partial fill upon patient [...] 1 each, 0 Refills, Maintenance,01/10/23 19:00:00 EDT, [place], [facility]/pharmacy #[id number], Partial fill upon patient request if the prescription is for a schedule II opioid drug., 2 sprays Carlos... Start Date: 01/10/23 Stop Date: 02/09/23 Status: Ordered Flonase 50 mcg/inh nasal spray Daily, 0 Refills, Maintenance, 02/21/18 16:12:11 EST Start Date: 02/21/18 Status: Ordered fluticasone 50 mcg/inh nasal spray 2 sprays, Nares, Both, Daily, # 1 each, 0 Refills, Maintenance, 01/10/23 19:02:00 EDT, [place], [facility]/pharmacy #[id number], Partial fill upon patient [...] Safety Implantable Status Assigning Authority Unknown Unknown [id number] Unknown 03/13/19 Unknown Unknown Active Unknown Patient Care team information Care Team Personnel Name: Ana Maria Ramachandran NP Position: [facility] PCO Associate Professional Member Role: PCP Address: Address: [address] [place] [address] Primary [place], [place] [facility] Name: Syed Jimenes DO Position: [facility] ENGLISH TUTOR MD Member Role: Lifetime ENGLISH TUTOR Physician Address: Address: [address] [place] [address] Name: Izzy Muse RN Position: [facility] AMB Nurse Member Role: Primary Care Nurse Care Team Related Persons Name: SHANNAN FERREIRA Address: [address] [place], [place] Name: SALMA RHODES Address: [address] [place], [place] Name: ROLLET, ELLIOT Address: [address] [place] [address] Name: ENIO GARCIA Address: [address] [place] [address]
--- OUTSIDE RECORDS SUMMARY | 2024-02-03 14:07 | XMS_ITS | Continuity of Care Document ---
Author Organization [facility] Primary Car e [place] Address [address] [place] [address]- Care Team Providers Care Insurance Claims Analyst Name Role Phone Claritza VENEER PRESS OPERATOR, Marybel Godinez Primary Care Physician Encounter [facility] Date(s): 10/04/23 - 11/03/23 [facility] Care [place] [address] [place], [place] [address] Allergies, Adverse Reactions, Alerts Substance Reaction Severity [...] Refills, Maintenance, 09/09/23 4:54:00 EDT, Cream, [id number], Partial fill upon patient request if the [...] Start Date: 08/29/22 Status: Ordered nystatin topical 706425 u/gm powder 1 application, Topically, 2 times a day, # 60 Gm, 1 Refills, Maintenance, 09/09/23 4:54:00 EDT, Powder, [facility]/pharmacy [...] Refills, Maintenance, 10/04/23 19:48:00 EDT, DIS Tablet, [facility] [...] Safety Implantable Status Assigning Authority Unknown Unknown [id number] 8-114 Unknown 03/13/19 Unknown Unknown Active Unknown Patient Care team information Care Team Personnel Name: Syed Jimenes DO Position: [facility] PALLET SORTER MD Member Role: Lifetime PALLET SORTER Physician Address: Address: [address] [place] [address] - Name: Marybel Jerry NP Position: [facility] PCO Associate Professional Member Role: PCP Address: Address: [address] [place] [address] Primary Care [place], [place] [facility] Name: Izzy Muse RN Position: [facility] AMB Nurse Member Role: Primary Care Nurse Care Team Related Persons Name: SHANNAN FERERIRA Address: [address] [place], [place] Name: SALMA RHODES Address: [address] [place], [place] Name: ELLIOT GARCIA Address: [address] [place] [address] Name: ENIO GARCIA Address: [address] [place], [place]
--- OUTSIDE RECORDS SUMMARY | 2024-02-03 14:07 | XMS_ITS | Continuity of Care Document ---
Author Organization [facility] Primary [facility] [place] Address [address] [place] [address]- Support Name Relationship Address Phone ROLLET, JEFRERY [...] Unknown Senait vailable Care Team Providers Care Rn Sane Name Role Phone Claritza WALTON, Marybel Godinez Primary Care Physician Encounter [facility] [id number] Date(s): 12/26/23 - 01/25/24 [facility] Care [place] [address] [place], [place] [address] Encounter Type: Triage Allergies, Adverse Reactions, Alerts [...] 1 Refills, Maintenance, 244:54:00 AM EDT, Cream, [id number], Partial fill upon patient request if the [...] mL, 0 Refills, Maintenance,12/31/23 6:54:00 PM EDT, [place], [facility]/pharmacy #[id number], Partial fill upon patient request if [...] Refills, Soft Stop, 09/20/17 11:10:18 AM EDT, [facility] Start Date: 09/20/17 Status: Ordered [...] Unit: tablet Repeat number: 1 nystatin topical 098440 u/gm powder 1 application, Topically, 2 times a day, # 60 Gm, 1 Refills, Maintenance, 09/09/23 4:54:00 AM EDT, Powder, [facility]/pharmacy #[id number], Partial fill upon patient request if [...] 10/04/23 7:48:00 PM EDT, DIS Tablet, [facility]/pharmacy #[id number], Partial fill upon patient request if [...] EST, 01/06/24 3:44:00 PM EDT, Solution, [facility]/pharmacy #0949, Partial fill upon patient request if the [...] Maintenance, 10/06/23 4:59:00 PM EDT, Tablet, [facility]/pharmacy #[id number], Partial fill upon patient request if [...] Safety Implantable Status Assigning Authority Unknown Unknown [id number] Unknown 03/13/19 Unknown Unknown Active Unknown Patient Care team information Care Team Personnel Name: Syed Jimenes DO Position: [facility] SUPERVISOR CHEMICAL MD Member Role: Lifetime SUPERVISOR CHEMICAL Physician Address: [address] [place], [place] [address] Telecom: Name: Marybel Jerry NP Position: [facility] PCO Associate Professional Member Role: PCP Address: [address] [place] [id number] Telecom: Name: Izzy Muse RN Position: [facility] AMB Nurse Member Role: Primary Care Nurse Care Team Related Persons Name: SHANNAN FERREIRA Name: SALMA RHODES Name: ELLIOT GARCIA Name: ENIO GARCIA Insurance Providers Guarantor name: [facility] Plan Information #: 1 Payer: [facility] POS Member Number: NA Policy Number: NA Group Number: NA
--- OUTSIDE RECORDS SUMMARY | 2024-02-03 14:07 | XMS_ITS | Continuity of Care Document ---
Author Organization [facility] Primary Car e [place] Address [address] [place] [address]- Care Team Providers Care Professor Of Architecture Name Role Phone Claritza SUPERVISOR LIVESTOCK YARD, Marybel Godinez Primary Care Physician Encounter [facility] Date(s): 07/19/23 - 08/18/23 [facility] Care [place] [address] [place], [place] [address] Allergies, Adverse Reactions, Alerts Substance Reaction Severity Status penicillin Severe Active morphine 1 rigidity, difficlut to breathe Active Diflucan hives Active 1rigid mucles Immunizations Given and Recorded Vaccine Date Status Refusal Reason influenza virus vaccine, inactivated 02/12/22 Mike rded influenza virus vaccine, inactivated 12/11/20 Mike rded SARS-CoV-2 (COVID-19) mRNA-3404 vaccine 04/10/20 R ecorded Medications Ativan 0.5 [...] Safety Implantable Status Assigning Authority Unknown Unknown [id number] 8-114 Unknown 03/13/19 Unknown Unknown Active Unknown Patient Care team information Care Team Personnel Name: Syed Jimenes DO Position: [facility] SUPERINTENDENT TRANSPORTATION MD Member Role: Lifetime SUPERINTENDENT TRANSPORTATION Physician Address: Address: [address] [place] [address] - Name: Marybel Jerry NP Position: [facility] PCO Associate Professional Member Role: PCP Address: Address: [address] [place] [address] Primary Care [place], [place] - Name: Izzy Muse RN Position: [facility] AMB Nurse Member Role: Primary Care Nurse Care Team Related Persons Name: SHANNAN FERREIRA Address: [address] [place], [place] Name: SALMA RHODES Address: [address] [place], [place] Name: ELLIOT GARCIA Address: [address] [place] [address] Name: ENIO GARCIA Address: [address] [place] [address]
--- OUTSIDE RECORDS SUMMARY | 2024-02-03 14:07 | XMS_ITS | Continuity of Care Document ---
Author Organization [facility] Primary Car e [place] Address [address] [place] [address]- Care Team Providers Care Steam Meter Reader Name Role Phone Claritza MANAGER COMMISSION, Marybel Godinez Primary Care Physician Encounter [facility] Date(s): 10/11/23 - 11/10/23 [facility] Primary Care [place] [address] [place], [place] [address] Allergies, Adverse Reactions, Alerts Substance Reaction Severity Status penicillin Severe Active morphine 1 rigidity, difficlut to breathe Active Diflucan hives Active 1rigid mucles Immunizations Given and Recorded Vaccine Date Status Refusal Reason influenza virus vaccine, inactivated 02/12/22 Mike rded influenza virus vaccine, inactivated 12/11/20 Mike rded SARS-CoV-2 (COVID-19) mRNA-6243 vaccine 04/10/20 R ecorded Medications Ativan 0.5 mg oral tablet 1 tablet = 0.5 mg, By Mouth, 2 times a day, PRN as needed for anxiety, 0 Refills, Maintenance, 02/21/18 16:11:52 EST, Tablet Start Date: 02/21/18 Status: Ordered clotrimazole 1% topical cream 1 application, Topically, 2 times a day, PRN fungal rash, # 113 Gm, 1 Refills, Maintenance, 09/09/23 4:54:00 EDT, [facility], [id number], Partial fill upon patient request if the [...] Start Date: 08/29/22 Status: Ordered nystatin topical 082814 u/gm powder 1 application, Topically, 2 times a day, # 60 Gm, 1 Refills, Maintenance, 09/09/23 4:54:00 EDT, Powder, [facility]/pharmacy #[id number], Partial fill upon patient request [...] Refills, Maintenance, 10/04/23 19:48:00 EDT, DIS Tablet, [facility]/pharmacy #[id number], Partial fill upon patient request [...] 0 Refills, Maintenance, 10/06/23 16:59:00 EDT, Tablet, [facility]/pharmacy #[id number], Partial fill upon patient request [...] Safety Implantable Status Assigning Authority Unknown Unknown [id number] Unknown 03/13/19 Unknown Unknown Active Unknown Patient Care team information Care Team Personnel Name: Syed Jimenes DO Position: [facility] BUSINESS AGENT MD Member Role: Lifetime BUSINESS AGENT Physician Address: Address: [address] [place] [address]- Name: Marybel Jerry NP Position: [facility] PCO Associate Professional Member Role: PCP Address: Address: [address] [place] [address] [facility] Name: Izzy Muse RN Position: [facility] AMB Nurse Member Role: Primary Care Nurse Care Team Related Persons Name: SHANNAN FERREIRA Address: [address] [place], [place] Name: SALMA RHODES Address: [address] [place], [place] Name: ELLIOT GARCIA Address: [address] [place] [address] Name: ENIO GARCIA Address: [address] [place] [address]
--- OUTSIDE RECORDS SUMMARY | 2024-02-03 14:07 | XMS_ITS | Continuity of Care Document ---
Author Organization [facility] Primary Car e [place] Address [address] [place] [address]- Care Team Providers Care Seam Sewer Name Role Phone Claritza ESTABLISHMENT GUIDE, Marybel Godinez Primary Care Physician Encounter [facility] Date(s): 10/03/23 - 11/02/23 [facility] Care [place] [address] [place], [place] [address] Allergies, Adverse Reactions, [...] 1 Refills, Maintenance, 09/09/23 4:54:00 EDT, Cream, [facility]/pharmacy #[id number], Partial fill upon patient request if the [...] Start Date: 08/29/22 Status: Ordered nystatin topical 119480 u/gm powder 1 application, Topically, 2 times a day, # 60 Gm, 1 Refills, Maintenance, 09/09/23 4:54:00 EDT, Powder, [facility]/pharmacy #[id number], Partial fill [...] Safety Implantable Status Assigning Authority Unknown Unknown [id number] Unknown 03/13/19 Unknown Unknown Active Unknown Patient Care team information Care Team Personnel Name: Syed Jimenes DO Position: [facility] AGRICULTURAL ENGINEER MD Member Role: Lifetime AGRICULTURAL ENGINEER Physician Address: Address: [address] [place] [address] Name: Marybel Jerry NP Position: [facility] PCO Associate Professional Member Role: PCP Address: Address: [address] [place] [address] Primary Care [place], [place] [facility] Name: Izzy Muse RN Position: [facility] AMB Nurse Member Role: Primary Care Nurse Care Team Related Persons Name: SHANNAN FERREIRA Address: [address] [place], [place] Name: SALMA RHODES Address: [address] [place], [place] Name: ELLIOT GARCIA Address: [address] [place] [address] Name: ENIO GARCIA Address: [address] [place], [place]
--- OUTSIDE RECORDS SUMMARY | 2024-02-03 14:07 | XMS_ITS | Continuity of Care Document ---
Author Organization [facility] Primary Car e [place] Address [address] [place] [address]- Care Team Providers Care Wire Spring Relay Adjuster Name Role Phone Claritza VALVE GRINDER, Marybel Godinez Primary Care Physician Encounter [facility] Date(s): 08/15/23 - 09/14/23 [facility] Primary [facility] [place] [address] [place], [place] [address] Allergies, Adverse Reactions, Alerts Substance Reaction Severity Status penicillin Severe Active morphine 1 rigidity, difficlut to breathe Active Diflucan hives Active 1rigid mucles Immunizations Given and Recorded Vaccine Date Status Refusal Reason influenza virus vaccine, inactivated 02/12/22 Mike rded influenza virus vaccine, inactivated 12/11/20 Mike rded SARS-CoV-2 (COVID-19) mRNA-4923 vaccine 04/10/20 R ecorded Medications Ativan 0.5 mg oral tablet 1 tablet = 0.5 mg, By Mouth, 2 times a day, PRN as needed for anxiety, 0 Refills, Maintenance, 02/21/18 16:11:52 EST, Tablet Start Date: 02/21/18 Status: Ordered clotrimazole 1% topical cream 1 application, Topically, 2 times a day, PRN fungal rash, # 113 Gm, 1 Refills, Maintenance, 09/09/23 4:54:00 EDT, Cream, [id number], Partial fill upon patient request if the [...] Start Date: 08/29/22 Status: Ordered nystatin topical 080382 u/gm powder 1 application, Topically, 2 times a day, # 60 Gm, 1 Refills, Maintenance, 09/09/23 4:54:00 EDT, Powder, [facility]/pharmacy #[id number], Partial fill upon patient request if the [...] 09/23/23 6:22:00 EDT, 08/26/23 6:22:00 EDT, Solution, [facility]/pharmacy #[id number], Partial fill upon patient request if [...] Safety Implantable Status Assigning Authority Unknown Unknown [id number] Unknown 03/13/19 Unknown Unknown Active Unknown Patient Care team information Care Team Personnel Name: Syed Jimenes DO Position: [facility] NANOSCIENCE TECHNICIAN MD Member Role: Lifetime NANOSCIENCE TECHNICIAN Physician Address: Address: [address] [place] [address] - Name: Marybel Jerry NP Position: [facility] PCO Associate Professional Member Role: PCP Address: Address: [address] [facility] [place] [address]- Name: Izzy Muse RN Position: [facility] AMB Nurse Member Role: Primary Care Nurse Care Team Related Persons Name: SHANNAN FERREIRA Address: home [address] [place], [place] Name: SALMA RHODES Address: [address] [place], [place] Name: ELLIOT GARCIA Address: [address] [place] [address] Name: ENIO GARCIA Address: [address] [place] [address]
--- OUTSIDE RECORDS SUMMARY | 2024-02-03 14:07 | XMS_ITS | Continuity of Care Document ---
Author Organization [facility] Primary Car e [place] Address [address] [place] [address]- Care Team Providers Care Hosiery Operator Name Role Phone Duarte WALTON, Ana Maria Mohr Primary Care Physician [phone] [facility]counter [id number] Date(s): 05/19/23 - 06/18/23 [facility] Care [place] [address] [place] [address]- Allergies, Adverse Reactions, Alerts Substance Reaction Severity Status penicillin Severe Active morphine 1 rigidity, difficlut to breathe Active Diflucan hives Active 1rigid mucles Medications acetaminophen 500 mg oral capsule 2 capsule = 1,000 mg, By Mouth, Every 8 hours, # 100 capsule, 0 Refills, Maintenance, 05/12/20 8:29:00 EST, Capsule, [facility], Partial fill upon patient request [...] 1 each, 0 Refills, Maintenance,01/10/23 19:00:00 EDT, [place], [facility]/pharmacy #[id number], Partial fill upon patient request if the prescription is for a schedule II opioid drug., 2 sprays Carlos... Start Date: 01/10/23 Stop Date: 02/09/23 Status: Ordered Flonase 50 mcg/inh nasal spray Daily, 0 Refills, Maintenance, 02/21/18 16:12:11 EST Start Date: 02/21/18 Status: Ordered fluticasone 50 mcg/inh nasal spray 2 sprays, Nares, Both, Daily, # 1 each, 0 Refills, Maintenance, 01/10/23 19:02:00 EDT, [place], [facility]/pharmacy #[id number], Partial fill upon patient request if [...] Safety Implantable Status Assigning Authority Unknown Unknown [id number] Unknown 03/13/19 Unknown Unknown Active Unknown Patient Care team information Care Team Personnel Name: Ana Maria Ramachandran NP Position: [facility] PCO Associate Professional Member Role: PCP Address: Address: [address] [place] [address] Primary Care [place] [place] [facility] Name: Syed Jimenes DO Position: [facility] TECHNICIAN INVENTORY SPECIALIST MD Member Role: Lifetime TECHNICIAN INVENTORY SPECIALIST Physician Address: Address: [address] [place] [address] - Name: Izzy Muse RN Position: [facility] AMB Nurse Member Role: Primary Care Nurse Care Team Related Persons Name: SHANNAN FERREIRA Address: [address] [place] [address] Name: SALMA RHODES Address: [address] [place] [address] Name: ELLIOT GARCIA Address: [address] [place] [address] Name: ENIO GARCIA Address: [address] [place] [address]
--- OUTSIDE RECORDS SUMMARY | 2024-02-03 14:08 | XMS_ITS | Continuity of Care Document ---
Author Organization [facility] Primary Car e [place] Address [address] [place] [address]- Care Team Providers Care Senior Technical Manager Name Role Phone Claritza RAIL CAR PAINTER/SANDBLASTER, Marybel Godinez Primary Care Physician Encounter [facility] Date(s): 11/09/23 - 12/09/23 [facility] Care [place] [address] [place], [place] [address] Allergies, Adverse Reactions, Alerts Substance Reaction Severity Status penicillin Severe Active morphine 1 rigidity, difficlut to breathe Active Diflucan hives Active 1rigid mucles Immunizations Given and Recorded Vaccine Date Status Refusal Reason influenza virus vaccine, inactivated 02/12/22 Mike rded influenza virus vaccine, inactivated 12/11/20 Mike rded SARS-CoV-2 (COVID-19) mRNA-3243 vaccine 04/10/20 R ecorded Medications Ativan 0.5 mg oral tablet 1 tablet = 0.5 mg, By Mouth, 2 times a day, PRN as needed for anxiety, 0 Refills, Maintenance, 02/21/18 16:11:52 EST, Tablet Start Date: 02/21/18 Status: Ordered clotrimazole 1% topical cream 1 application, Topically, 2 times a day, PRN fungal rash, # 113 Gm, 1 Refills, Maintenance, 09/09/23 4:54:00 EDT, [facility], [id number], Partial fill upon patient request if the [...] Start Date: 08/29/22 Status: Ordered nystatin topical 397401 u/gm powder 1 application, Topically, 2 times a day, # 60 Gm, 1 Refills, Maintenance, 09/09/23 4:54:00 EDT, Powder, [facility]/pharmacy #[id number], Partial fill upon patient request [...] Refills, Maintenance, 10/04/23 19:48:00 EDT, DIS Tablet, [facility]/pharmacy #[id number], Partial fill upon patient request [...] Safety Implantable Status Assigning Authority Unknown Unknown [id number] Unknown 03/13/19 Unknown Unknown Active Unknown Patient Care team information Care Team Personnel Name: Syed Jimenes DO Position: [facility] FIELD CONTROL INSPECTOR MD Member Role: Lifetime FIELD CONTROL INSPECTOR Physician Address: Address: [address] [place] [address] - Name: Marybel Jerry NP Position: [facility] PCO Associate Professional Member Role: PCP Address: Address: [address] [place] [address] Primary Care [place], [place] - Name: Izzy Muse RN Position: [facility] AMB Nurse Member Role: Primary Care Nurse Care Team Related Persons Name: SHANNAN FERREIRA Address: [address] [place], [place] Name: SALMA RHODES Address: [address] [place], [place] Name: ELLIOT GARCIA Address: [address] [place] [address] Name: ENIO GARCIA Address: [address] [place], [place]
--- OUTSIDE RECORDS SUMMARY | 2024-02-03 14:08 | XMS_ITS | Continuity of Care Document ---
Author Organization [facility] Primary Car e [place] Address [address] [place] [address]- Care Team Providers Care Paralegals Name Role Phone Claritza FOOD SERVICE STEWARD, Marybel Godinez Primary Care Physician Encounter [facility] Date(s): 07/20/23 - 08/19/23 [facility] Care [place] [address] [place], [place] [address] Allergies, Adverse Reactions, Alerts Substance Reaction Severity Status penicillin Severe Active morphine 1 rigidity, difficlut to breathe Active Diflucan hives Active 1rigid mucles Immunizations Given and Recorded Vaccine Date Status Refusal Reason influenza virus vaccine, inactivated 02/12/22 Mike rded influenza virus vaccine, inactivated 12/11/20 Mike rded SARS-CoV-2 (COVID-19) mRNA-7354 vaccine 04/10/20 R ecorded Medications Ativan 0.5 [...] Safety Implantable Status Assigning Authority Unknown Unknown [id number] Unknown 03/13/19 Unknown Unknown Active Unknown Patient Care team information Care Team Personnel Name: Syed Jimenes DO Position: [facility] BODY MAKER MACHINE SETTER MD Member Role: Lifetime BODY MAKER MACHINE SETTER Physician Address: Address: [address] [place] [address] - Name: Marybel Jerry NP Position: [facility] PCO Associate Professional Member Role: PCP Address: Address: [address] [place] [address] Primary Care [place], [place] - Name: Izzy Muse RN Position: [facility] AMB Nurse Member Role: Primary Care Nurse Care Team Related Persons Name: SHANNAN FERREIRA Address: [address] [place], [place] Name: SALMA RHODES Address: [address] [place], [place] Name: ELLIOT GARCIA Address: [address] [place] [address] Name: ENIO GARCIA Address: [address] [place] [address]
--- OUTSIDE RECORDS SUMMARY | 2024-02-03 14:08 | XMS_ITS | Continuity of Care Document ---
Author Organization [facility] Primary Car e [place] Address [address] [place] [address]- Care Team Providers Care Sound Effects Technician Name Role Phone Claritza METROLOGY MANAGER, Marybel Godinez Primary Care Physician [phone] Encounter [facility] Date(s): 10/04/23 - 11/03/23 [facility] Care [place] [address] [place], [place] [address] Allergies, Adverse Reactions, [...] Refills, Maintenance, 09/09/23 4:54:00 EDT, [facility], [id number], Partial fill upon patient request if the [...] Start Date: 08/29/22 Status: Ordered nystatin topical 132588 u/gm powder 1 application, Topically, 2 times a day, # 60 Gm, 1 Refills, Maintenance, 09/09/23 4:54:00 EDT, Powder, [facility]/pharmacy #[id number], Partial fill [...] Maintenance, 10/04/23 19:48:00 EDT, DIS Tablet, [facility]/pharmacy #[id number], Partial fill [...] Safety Implantable Status Assigning Authority Unknown Unknown [id number] Unknown 03/13/19 Unknown Unknown Active Unknown Patient Care team information Care Team Personnel Name: Syed Jimenes DO Position: [facility] ADMINISTRATOR HEALTH CARE FACILITY MD Member Role: Lifetime ADMINISTRATOR HEALTH CARE FACILITY Physician Address: Address: [address] [place] [address] - Name: Marybel Jerry NP Position: [facility] PCO Associate Professional Member Role: PCP Address: Address: [address] [place] [address] Primary Care [place], [place] [facility] Name: Izzy Muse RN Position: [facility] AMB Nurse Member Role: Primary Care Nurse Care Team Related Persons Name: SHANNAN FERREIRA Address: [address] [place], [place] Name: SALMA RHODES Address: [address] [place], [place] Name: ELLIOT GARCIA Address: [address] [place] [address] Name: ENIO GARCIA Address: [address] [place], [place]
--- OUTSIDE RECORDS SUMMARY | 2024-02-03 14:08 | XMS_ITS | Continuity of Care Document ---
Author Organization [facility] Address [address] [place] [address]- Care Team Providers Care Mobile Sales Assistant Name Role Phone Claritza PAINTING CONTRACTOR, Marybel Godinez Primary Care Physician [phone] [facility] Date(s): 06/08/23 - 07/08/[address] [place] [address] [address] Allergies, Adverse Reactions, Alerts Substance Reaction Severity Status penicillin Severe Active morphine 1 rigidity, difficlut to breathe Active Diflucan hives Active 1rigid mucles Immunizations Given and Recorded Vaccine Date Status Refusal Reason influenza virus vaccine, inactivated 02/12/22 Mike rded influenza virus vaccine, inactivated 12/11/20 Miek rded SARS-CoV-2 (COVID-19) mRNA-1273 vaccine 04/10/20 R [...] Daily, # 30 tablet, 0 Refills, Maintenance, 06/18/23 8:19:00 EDT, Tablet, Partial fill upon patient [...] 07/19/23 18:22:00 EDT, 06/21/23 18:22:00 EDT, Solution, [facility]/pharmacy #[id number],Partial fill upon patient request if the prescripti... [...] Safety Implantable Status Assigning Authority Unknown Unknown [id number] Unknown 03/13/19 Unknown Unknown Active Unknown Patient Care team information Care Team Personnel Name: Syed Jimenes DO Position: [facility] STRATEGIC PARTNERSHIP SPECIALIST MD Member Role: Lifetime STRATEGIC PARTNERSHIP SPECIALIST Physician Address: Address: [address] [place] [address]- Name: Marybel Jerry NP Position: [facility] PCO Associate Professional Member Role: PCP Address: Address: [address] [place] [address] [facility] Name: Izzy Muse RN Position: [facility] AMB Nurse Member Role: Primary Care Nurse Care Team Related Persons Name: SHANNAN FERREIRA Address: [address] [place], [place] Name: SALMA RHODES Address: [address] [place], [place] Name: ELLIOT GARCIA Address: [address] [place] [address] Name: ENIO GARCIA Address: [address] [place], [place]
--- OUTSIDE RECORDS SUMMARY | 2024-02-03 14:08 | XMS_ITS | Continuity of Care Document ---
Author Organization [facility] Primary Car e [place] Address [address] [place] [address]- Care Team Providers Care Civil Engineering Drafter Name Role Phone Claritza HYPERION DEVELOPER, Marybel Godinez Primary Care Physician Encounter [facility] Date(s): 06/08/23 - 07/08/23 [facility] Primary Care [place] [address] [place], [place] [address] Allergies, Adverse Reactions, Alerts Substance Reaction [...] 07/19/23 18:22:00 EDT, 06/21/23 18:22:00 EDT, Solution, [facility]/pharmacy #[id number],Partial fill upon patient request if the prescripti... [...] Safety Implantable Status Assigning Authority Unknown Unknown [id number] Unknown 03/13/19 Unknown Unknown Active Unknown Patient Care team information Care Team Personnel Name: Syed Jimenes DO Position: [facility] NATURAL REMEDY CONSULTANT MD Member Role: Lifetime NATURAL REMEDY CONSULTANT Physician Address: Address: [address] [place] [address] Name: Claritza WALTON, Marybel Godinez Position: [facility] PCO Associate Professional Member Role: PCP Address: Address: [address] [place] [id number] Name: Izzy Muse RN Position: [facility] AMB Nurse Member Role: Primary Care Nurse Care Team Related Persons Name: SHANNAN FERREIRA Address: [address] [place], [place] Name: SALMA RHODES Address: [address] [place], [place] Name: ELLIOT GARCIA Address: [address] [place] [address] Name: ENIO GARCIA Address: [address] [place], [place]
--- OUTSIDE RECORDS SUMMARY | 2024-02-03 14:08 | XMS_ITS | Continuity of Care Document ---
Author Organization [facility] Primary Car e [place] Address [address] [place] [address]- Care Team Providers Care Brick Dropper Name Role Phone Claritza FINISHING MACHINE OPERATOR, Marybel Godinze Primary Care Physician [phone] [facility] Date(s): 10/11/23 - 11/10/23 [facility] Primary Care [place] [address] [place], [place] [address] Allergies, Adverse Reactions, Alerts Substance Reaction Severity Status penicillin Severe Active morphine 1 rigidity, difficlut to breathe Active Diflucan hives Active 1rigid mucles Immunizations Given and Recorded Vaccine Date Status Refusal Reason influenza virus vaccine, inactivated 02/12/22 Mike rded influenza virus vaccine, inactivated 12/11/20 Mike rded SARS-CoV-2 (COVID-19) mRNA-2243 vaccine 04/10/20 R ecorded Medications Ativan 0.5 mg oral tablet 1 tablet = 0.5 mg, By Mouth, 2 times a day, PRN as needed for anxiety, 0 Refills, Maintenance, 02/21/18 16:11:52 EST, Tablet Start Date: 02/21/18 Status: Ordered clotrimazole 1% topical cream 1 application, Topically, 2 times a day, PRN fungal rash, # 113 Gm, 1 Refills, Maintenance, 09/09/23 4:54:00 EDT, [facility], [id number], Partial fill upon patient request if the [...] Start Date: 08/29/22 Status: Ordered nystatin topical 626190 u/gm powder 1 application, Topically, 2 times a day, # 60 Gm, 1 Refills, Maintenance, 09/09/23 4:54:00 EDT, Powder, [facility]/pharmacy #[id number], Partial fill upon patient request if [...] Refills, Maintenance, 10/04/23 19:48:00 EDT, DIS Tablet, [facility]/pharmacy #[id number], Partial fill upon patient request if [...] 0 Refills, Maintenance, 10/06/23 16:59:00 EDT, Tablet, [facility]/pharmacy #[id number], Partial fill upon patient request if [...] Safety Implantable Status Assigning Authority Unknown Unknown [id number] 8-114 Unknown 03/13/19 Unknown Unknown Active Unknown Patient Care team information Care Team Personnel Name: Syed Jimenes DO Position: [facility] EYELET CUTTER MD Member Role: Lifetime EYELET CUTTER Physician Address: Address: [address] [place] [address]- Name: Marybel Jerry NP Position: [facility] PCO Associate Professional Member Role: PCP Address: Address: [address] [place] [address] [facility] Name: Izzy Muse RN Position: [facility] AMB Nurse Member Role: Primary Care Nurse Care Team Related Persons Name: SHANNAN FERREIRA Address: [address] [place], [place] Name: SALMA RHODES Address: [address] [place], [place] Name: ELLIOT GARCIA Address: [address] [place] [address] Name: ENIO GARCIA Address: [address] [place] [address]
--- OUTSIDE RECORDS SUMMARY | 2024-02-03 14:08 | XMS_ITS | Continuity of Care Document ---
Author Organization [facility] Primary Car e [place] Address [address] [place] [address]- Care Team Providers Care Configuration Management Administrator Name Role Phone Claritza QUENCHING MACHINE OPERATOR, Marybel Godinez Primary Care Physician Encounter [facility] Date(s): 10/06/23 - 11/05/23 [facility] Care [place] [address] [place], [place] [address] Allergies, Adverse Reactions, Alerts Substance [...] 1 Refills, Maintenance, 09/09/23 4:54:00 EDT, Cream, [facility]/pharmacy #[id number], Partial fill upon patient request if the [...] Start Date: 08/29/22 Status: Ordered nystatin topical 687867 u/gm powder 1 application, Topically, 2 times a day, # 60 Gm, 1 Refills, Maintenance, 09/09/23 4:54:00 EDT, Powder, [facility]/pharmacy #[id number], Partial fill upon patient [...] Maintenance, 10/04/23 19:48:00 EDT, DIS Tablet, [facility]/pharmacy #[id number], Partial fill upon patient [...] Safety Implantable Status Assigning Authority Unknown Unknown [id number] Unknown 03/13/19 Unknown Unknown Active Unknown Patient Care team information Care Team Personnel Name: Syed Jimenes DO Position: [facility] ELECTRIC MOTOR REBUILDER MD Member Role: Lifetime ELECTRIC MOTOR REBUILDER Physician Address: Address: [address] [place] [id number] Name: Marybel Jerry NP Position: [facility] PCO Associate Professional Member Role: PCP Address: Address: [address] [place] [address] Primary Care [place], [place] [facility] Name: Izzy Muse RN Position: [facility] AMB Nurse Member Role: Primary Care Nurse Care Team Related Persons Name: SHANNAN FERREIRA Address: [address] [place], [place] Name: SALMA RHODES Address: [address] [place], [place] Name: ELLIOT GARCIA Address: [address] [place] [address] Name: ENIO GARCIA Address: [address] [place], [place]
--- OUTSIDE RECORDS SUMMARY | 2024-02-03 14:08 | XMS_ITS | Continuity of Care Document ---
Author Organization [facility] Primary Car e [place] Address [address] [place] [address]- Care Team Providers Care Change Control Analyst Name Role Phone Claritza AIRCRAFT TOOL MAKER, Marybel Godinez Primary Care Physician Encounter [facility] Date(s): 08/01/23 - 08/31/23 [facility] Care [place] [address] [place], [place] [address] Allergies, Adverse Reactions, Alerts Substance Reaction Severity Status penicillin Severe Active morphine 1 rigidity, difficlut to breathe Active Diflucan hives Active 1rigid mucles Immunizations Given and Recorded Vaccine Date Status Refusal Reason influenza virus vaccine, inactivated 02/12/22 Mike rded influenza virus vaccine, inactivated 12/11/20 Mike rded SARS-CoV-2 (COVID-19) mRNA-8822 vaccine 04/10/20 R ecorded Medications Ativan 0.5 [...] Safety Implantable Status Assigning Authority Unknown Unknown [id number] Unknown 03/13/19 Unknown Unknown Active Unknown Patient Care team information Care Team Personnel Name: Syed Jimenes DO Position: [facility] SUPERINTENDENT OVERHEAD DISTRIBUTION MD Member Role: Lifetime SUPERINTENDENT OVERHEAD DISTRIBUTION Physician Address: Address: [address] [place] [address] - Name: Marybel Jerry NP Position: [facility] PCO Associate Professional Member Role: PCP Address: Address: [address] [place] [address] - Name: Izzy Muse RN Position: [facility] AMB Nurse Member Role: Primary Care Nurse Care Team Related Persons Name: SHANNAN FERREIRA Address: [address] [place] [address] Name: SALMA RHODES Address: [address] [place] [address] Name: ELLIOT GARCIA Address: [address] [place] [address] Name: ENIO GARCIA Address: [address] [place] [address]
--- OUTSIDE RECORDS SUMMARY | 2024-02-03 14:08 | XMS_ITS | Continuity of Care Document ---
Author Organization [facility] [place] Address [address] [place] [address]- Care Team Providers Care Object Oriented Programmer Name Role Phone Claritza GAS MASK ASSEMBLER, Marybel Godinez Primary Care Physician [phone] Encounter [facility] Date(s): 08/15/23 - 09/14/23 [facility] [place] [address] [place], [place] [address] Allergies, Adverse Reactions, Alerts Substance Reaction Severity Status penicillin Severe Active morphine 1 rigidity, difficlut to breathe Active Diflucan hives Active 1rigid mucles Immunizations Given and Recorded Vaccine Date Status Refusal Reason influenza virus vaccine, inactivated 02/12/22 Mike rded influenza virus vaccine, inactivated 12/11/20 Mike rded SARS-CoV-2 (COVID-19) mRNA-[id number] vaccine 04/10/20 R ecorded Medications Ativan 0.5 mg oral tablet 1 tablet = 0.5 mg, By Mouth, 2 times a day, PRN as needed for anxiety, 0 Refills, Maintenance, 02/21/18 16:11:52 EST, Tablet Start Date: 02/21/18 Status: Ordered clotrimazole 1% topical cream 1 application, Topically, 2 times a day, PRN fungal rash, # 113 Gm, 1 Refills, Maintenance, 09/09/23 4:54:00 EDT, Cream, [id number], Partial fill upon patient request if the [...] Start Date: 08/29/22 Status: Ordered nystatin topical [id number] u/gm powder 1 application, Topically, 2 times a day, # 60 Gm, 1 Refills, Maintenance, 09/09/23 4:54:00 EDT, Powder, [facility]/pharmacy #[id number], Partial fill upon patient request if the [...] 09/23/23 6:22:00 EDT, 08/26/23 6:22:00 EDT, Solution, [facility]/pharmacy #[id number], Partial fill upon patient request if [...] Safety Implantable Status Assigning Authority Unknown Unknown [id number] Unknown 03/13/19 Unknown Unknown Active Unknown Patient Care team information Care Team Personnel Name: Syed Jimenes DO Position: [facility] TRACK MAINTAINER MD Member Role: Lifetime TRACK MAINTAINER Physician Address: Address: [address] [place] [address] - Name: Marybel Jerry NP Position: [facility] PCO Associate Professional Member Role: PCP Address: Address: [address] [facility] [place] [address]- Name: Izzy Muse RN Position: [facility] AMB Nurse Member Role: Primary Care Nurse Care Team Related Persons Name: SHANNAN FERREIRA Address: home [address] [place], [place] Name: SALMA RHODES Address: home [address] [place], [place] Name: ELLIOT GARCIA Address: home [address] [place] [address] Name: ENIO GARCIA Address: home [address] [place] [address]
--- OUTSIDE RECORDS SUMMARY | 2024-02-03 14:08 | XMS_ITS | Continuity of Care Document ---
Author Organization [facility] [place] Address [address] [place] [address]- Care Team Providers Care Atm Mechanic Name Role Phone Claritza TURNTABLE MAN, Marybel Godinez Primary Care Physician [phone] Encounter [facility] Date(s): 08/19/23 - 09/18/23 [facility] [place] [address] [place], [place] [address] Allergies, Adverse Reactions, Alerts Substance Reaction Severity Status penicillin Severe Active morphine 1 rigidity, difficlut to breathe Active Diflucan hives Active 1rigid mucles Immunizations Given and Recorded Vaccine Date Status Refusal Reason influenza virus vaccine, inactivated 02/12/22 Mike rded influenza virus vaccine, inactivated 12/11/20 Mike rded SARS-CoV-2 (COVID-19) mRNA-4463 vaccine 04/10/20 R ecorded Medications Ativan 0.5 mg oral tablet 1 tablet = 0.5 mg, By Mouth, 2 times a day, PRN as needed for anxiety, 0 Refills, Maintenance, 02/21/18 16:11:52 EST, Tablet Start Date: 02/21/18 Status: Ordered clotrimazole 1% topical cream 1 application, Topically, 2 times a day, PRN fungal rash, # 113 Gm, 1 Refills, Maintenance, 09/09/23 4:54:00 EDT, Cream, [id number], Partial fill upon patient request if the [...] Start Date: 08/29/22 Status: Ordered nystatin topical 419307 u/gm powder 1 application, Topically, 2 times a day, # 60 Gm, 1 Refills, Maintenance, 09/09/23 4:54:00 EDT, Powder, [facility]/pharmacy #[id number], Partial fill upon patient request if the [...] 6:22:00 EDT, 08/26/23 6:22:00 EDT, Solution, [facility]/pharmacy #[id number], Partial fill upon patient [...] Safety Implantable Status Assigning Authority Unknown Unknown [id number] Unknown 03/13/19 Unknown Unknown Active Unknown Patient Care team information Care Team Personnel Name: Syed Jimenes DO Position: [facility] FACILITY SALES AND ADMIN MD Member Role: Lifetime FACILITY SALES AND ADMIN Physician Address: Address: [address] [place] [address] - Name: Marybel Jerry NP Position: [facility] PCO Associate Professional Member Role: PCP Address: Address: [address] [facility] [place] [address]- Name: Izzy Muse RN Position: [facility] AMB Nurse Member Role: Primary Care Nurse Care Team Related Persons Name: SHANNAN FERREIRA Address: home [address] [place], [place] Name: SALMA RHODES Address: [address] [place], [place] Name: ELLIOT GARCIA Address: [address] [place] [address] Name: ENIO GARCIA Address: [address] [place] [address]
--- OUTSIDE RECORDS SUMMARY | 2024-02-03 14:08 | XMS_ITS | Continuity of Care Document ---
Author Organization [facility] Primary [facility] [place] Address [address] [place] [address]- Care Team Providers Care Aerospace Project Engineer Name Role Phone Claritza AUTOMATED CUTTING MACHINE OPERATOR, Marybel Godinez Primary Care Physician [phone] Encounter [facility] Date(s): 11/22/23 - 12/22/23 [facility] Care [place] [address] [place], [place] [address] Allergies, Adverse Reactions, Alerts Substance [...] Refills, Maintenance, 09/09/23 4:54:00 EDT, Cream, [id number], Partial fill upon patient request if the [...] Start Date: 08/29/22 Status: Ordered nystatin topical [id number] u/gm powder 1 application, Topically, 2 times a day, # 60 Gm, 1 Refills, Maintenance, 09/09/23 4:54:00 EDT, Powder, [facility]/pharmacy #[id number], Partial fill upon [...] Refills, Maintenance, 10/04/23 19:48:00 EDT, DIS Tablet, [facility]/pharmacy #[id number], Partial fill upon [...] Safety Implantable Status Assigning Authority Unknown Unknown [id number] Unknown 03/13/19 Unknown Unknown Active Unknown Patient Care team information Care Team Personnel Name: Syed Jimenes DO Position: [facility] SHOP ASSISTANT MD Member Role: Lifetime SHOP ASSISTANT Physician Address: Address: [address] [place] [address] - Name: Marybel Jerry NP Position: [facility] PCO Associate Professional Member Role: PCP Address: Address: [address] [place] [address] Primary [place], [place] - Name: Izzy Muse RN Position: [facility] AMB Nurse Member Role: Primary Care Nurse Care Team Related Persons Name: SHANNAN FERREIRA Address: home [address] [place], [place] Name: SALMA RHODES Address: [address] [place], [place] Name: ELLIOT GARCIA Address: [address] [place] [address] Name: ENIO GARCIA Address: [address] [place], [place]
--- OUTSIDE RECORDS SUMMARY | 2024-02-03 14:08 | XMS_ITS | Continuity of Care Document ---
Author Organization [facility] [place] Address [address] [place] [address]- Care Team Providers Care Surgical Instrument Mechanic Name Role Phone Claritza HYDRAULIC HAMMER OPERATOR, Marybel Godinez Primary Care Physician Encounter [facility] Date(s): 12/13/23 - 01/12/[address] [address] Attending Physician: Admtr, [id number] Admitting Physician: Admtr, [...] Refills, Maintenance, 09/09/23 4:54:00 EDT, Cream, [id number], Partial fill upon patient request if the [...] 15.8 mL, 0 Refills, Maintenance,12/31/23 18:54:00 EDT, [place], [facility]/pharmacy #[id number], Partial fill upon patient request if the prescription is for a schedule II opioid drug., 155, cm, 10/... Start Date: 12/31/23 Status: Ordered hydrOXYzine pamoate [...] Start Date: 08/29/22 Status: Ordered nystatin topical [id number] u/gm powder 1 application, Topically, 2 times a day, # 60 Gm, 1 Refills, Maintenance, 09/09/23 4:54:00 EDT, Powder, [facility]/pharmacy #[id number], Partial fill upon patient request [...] Maintenance, 10/04/23 19:48:00 EDT, DIS Tablet, [facility]/pharmacy #[id number], Partial fill upon patient request [...] 02/03/24 15:44:00 EST, 01/06/24 15:44:00 EDT, Solution, [facility]/pharmacy #[id number], Partial fill upon patient request [...] Safety Implantable Status Assigning Authority Unknown Unknown [id number] Unknown 03/13/19 Unknown Unknown Active Unknown Patient Care team information Care Team Personnel Name: Syed Jimenes DO Position: [facility] CASKET COVERER MD Member Role: Lifetime CASKET COVERER Physician Address: Address: [address] [place] [address] - Name: Marybel Jerry NP Position: [facility] PCO Associate Professional Member Role: PCP Address: Address: [address] [facility] Primary [place], [place] - Name: Izzy Muse RN Position: [facility] AMB Nurse Member Role: Primary Care Nurse Care Team Related Persons Name: SHANNAN FERREIRA Address: home [address] [place], [place] Name: SALMA RHODES Address: [address] [place], [place] Name: ELLIOT GARCIA Address: [address] [place] [address] Name: ENIO GARCIA Address: [address] [place], [place]
--- OUTSIDE RECORDS SUMMARY | 2024-02-03 14:08 | XMS_ITS | Continuity of Care Document ---
Author Organization [facility] [place] Address [address] [place] [address]- Care Team Providers Care Midwife And Birth Center Owner Name Role Phone Claritza WALLPAPER PRINTER HELPER, Marybel Godinez Primary Care Physician [phone] [id number] Date(s): 09/09/23 - 10/09/23 [facility] [place] [address] [place], [place] [address] Allergies, Adverse Reactions, Alerts [...] 1 Refills, Maintenance, 09/09/23 4:54:00 EDT, Cream, [facility]/pharmacy #[id number], Partial fill upon patient request if the [...] 10/11/23 19:48:00 EDT, 10/04/23 19:48:00 EDT, Tablet, [facility]/pharmacy #[id number], [...] Start Date: 08/29/22 Status: Ordered nystatin topical [id number] u/gm powder 1 application, Topically, 2 times [...] Safety Implantable Status Assigning Authority Unknown Unknown [id number] Unknown 03/13/19 Unknown Unknown Active Unknown Patient Care team information Care Team Personnel Name: Syed Jimenes DO Position: [facility] RADIOLOGY TECH MD Member Role: Lifetime RADIOLOGY TECH Physician Address: Address: [address] [place] [address] Name: Claritza WALLPAPER PRINTER HELPER, Marybel Godinez Position: [facility] PCO Associate Professional Member Role: PCP Address: Address: [address] [place] [address] Primary [place], [place] [address] Name: Izzy Muse RN Position: [facility] AMB Nurse Member Role: Primary Care Nurse Care Team Related Persons Name: SHANNAN FERREIRA Address: [address] [place] [address] Name: SALMA RHODES Address: [address] [place] [address] Name: ELLIOT GARCIA Address: [address] [place] [address] Name: ENIO GARCIA Address: [address] [place] [address]
--- OUTSIDE RECORDS SUMMARY | 2024-02-03 14:08 | XMS_ITS | Continuity of Care Document ---
Author Organization [facility] [place] Address [address] [place] [address]- Care Team Providers Care Quality Manager Name Role Phone Claritza STEAM TRAP WORKER, Marybel Godinez Primary Care Physician Encounter [facility] Date(s): 08/15/23 - 09/14/23 [facility] [place] [address] [place], [place] [address] Allergies, Adverse Reactions, Alerts Substance [...] Refills, Maintenance, 09/09/23 4:54:00 EDT, Cream, [id number], Partial fill upon patient request if the [...] Start Date: 08/29/22 Status: Ordered nystatin topical [id number] u/gm powder 1 application, Topically, 2 times a day, # 60 Gm, 1 Refills, Maintenance, 09/09/23 4:54:00 EDT, Powder, [facility]/pharmacy #0931, Partial fill upon patient request if the [...] 09/23/23 6:22:00 EDT, 08/26/23 6:22:00 EDT, Solution, [facility]/pharmacy #[id number], Partial fill upon patient [...] Safety Implantable Status Assigning Authority Unknown Unknown [id number] Unknown 03/13/19 Unknown Unknown Active Unknown Patient Care team information Care Team Personnel Name: Syed Jimenes DO Position: [facility] SCREEN TENDER MD Member Role: Lifetime SCREEN TENDER Physician Address: Address: [address] [place] [address]- Name: Marybel Jerry NP Position: [facility] PCO Associate Professional Member Role: PCP Address: Address: [address] [facility] [place] [address]- Name: Izzy Muse RN Position: [facility] AMB Nurse Member Role: Primary Care Nurse Care Team Related Persons Name: SHANNAN FERREIRA Address: [address] [place] [address] Name: SALMA RHODES Address: [address] [place], [place] Name: ELLIOT GARCIA Address: [address] [place] [address] Name: ENIO GARCIA Address: [address] [place] [address]
--- OUTSIDE RECORDS SUMMARY | 2024-02-03 14:08 | XMS_ITS | Continuity of Care Document ---
Author Organization [facility] [place] Address [address] [place] [address]- Care Team Providers Care Hemodialysis Technician Name Role Phone Edna Mathis NP Primary Care Physician [id number] Date(s): 02/25/23 - 03/27/23 [facility] [place] [address] [place] [address]- Allergies, Adverse Reactions, Alerts Substance Reaction Severity Status penicillin Severe Active morphine 1 rigidity, difficlut to breathe Active Diflucan hives Active 1rigid mucles Medications acetaminophen 500 mg oral capsule 2 capsule = 1,000 mg, By Mouth, Every 8 hours, # 100 capsule, 0 Refills, Maintenance, 05/12/20 8:29:00 EST, Capsule, [facility], Partial fill upon patient [...] 1 each, 0 Refills, Maintenance,01/10/23 19:00:00 EDT, [place], [facility]/pharmacy #0909, Partial fill upon patient request if the prescription is for a schedule II opioid drug., 2 sprays Carlos... Start Date: 01/10/23 Stop Date: 02/09/23 Status: Ordered Flonase 50 mcg/inh nasal spray Daily, 0 Refills, Maintenance, 02/21/18 16:12:11 EST Start Date: 02/21/18 Status: Ordered fluticasone 50 mcg/inh nasal spray 2 sprays, Nares, Both, Daily, # 1 each, 0 Refills, Maintenance, 01/10/23 19:02:00 EDT, [place], [facility]/pharmacy #[id number], Partial fill upon patient request if [...] Safety Implantable Status Assigning Authority Unknown Unknown [id number] Unknown 03/13/19 Unknown Unknown Active Unknown Patient Care team information Care Team Personnel Name: Edna Mathis NP Position: [facility] [place] Office Staff Member Role: PCP Address: Address: [address] [place] [address] [address] [place] [address]- Name: Syed Jimenes DO Position: [facility] PAVER LAYER MD Member Role: Lifetime PAVER LAYER Physician Address: Address: [address] [place] [address]- [place] Name: Izzy Muse RN Position: [facility] [place] Nurse Member Role: Primary Care Nurse Care Team Related Persons Name: SHANNAN FERREIRA Address: [address] [place] [address] Name: SALMA RHODES Address: [address] [place] [address] Name: ELLIOT GARCIA Address: [address] [place] [address] Name: ENIO GARCIA Address: [address] [address]
--- OUTSIDE RECORDS SUMMARY | 2024-02-03 14:08 | XMS_ITS | Continuity of Care Document ---
Author Organization [facility] Address [address] [place] [address]- Care Team Providers Care Customer Operations Specialist Name Role Phone Edna Mathis NP Primary Care Physician [phone] Encounter [facility] NBR [id number] Date(s): 06/04/21 - 06/05/[address] [address]- Discharge Disposition: A-D/C Home Attending Physician: Irma Correa MD Admitting Physician: Irma Correa MD Referring Physician: Not on Staff, Referring MD Allergies, Adverse Reactions, Alerts Substance Reaction Severity Status morphine 1 rigidity, difficlut to breathe Active Diflucan hives Active 1rigid mucles Medications acetaminophen 500 mg oral capsule 2 capsule = 1,000 mg, By Mouth, Every 8 hours, # 100 capsule, 0 Refills, Maintenance, 05/12/20 8:29:00 EST, Capsule, [facility], Partial fill upon patient request if the prescriptionis for a schedule II opioid drug., 158, cm, ... Start Date: 05/12/20 Status: Ordered aspirin buffered 325 mg oral tablet 1 tablet = 325 mg, By Mouth, Daily, # 30 tablet, 0 Refills, Maintenance, 05/12/20 8:28:00 EST, Tablet, [facility], Partial fill upon patient [...] Refills, Soft Stop, 06/05/21 0:23:00 EDT, Tablet, [facility]/pharmacy #[id number], Partialfill upon patient request if the prescription is fo... Start Date: 06/05/21 Status: Ordered Flonase 50 mcg/inh nasal spray Daily, 0 Refills, Maintenance, 02/21/18 16:12:11 EST Start Date: 02/21/18 Status: Ordered Mirena 52 mg intrauteral device [...] EC Capsule Start Date: 02/21/18 Status: Ordered oxyCODONE 5 mg oral tablet 10 mg, 2, tablet, By Mouth, Every 6 hours, PRN, 1-2 tabs PO q 4-6hrs prn pain, # 48 tablet, Refills0, Tot. Refills 0, Maintenance, as needed for pain, 05/12/20 8:28:00 EST, Route to Pharmacy Electronically, [facility], Partial fill u... Start Date: 05/12/20 Status: Ordered Prozac Liquid = 80 mg, By Mouth, Daily, 0 Refills, Maintenance, 02/21/18 16:11:39 EST Start Date: 02/21/18 Status: Ordered Zofran 4 mg oral tablet 1 tablet = 4 mg, By Mouth, Every 8 hours, PRN Nausea, # 12 tablet, 0 Refills, Maintenance, 218:29:00 EST, Tablet, [facility], Partial fill upon patient request if the prescription is for a schedule II opioid drug., 158, cm, ... 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 hair on females(Confirmed) Active Migraine(Confirmed) Active PCOS (polycystic ovarian syndrome)(Confirmed) Active Severe obesity(Confirmed) Active 1benign 2colpo and pap smear at 6 month intervals x 1 year Vital Signs Most recent to oldest [Reference Range]: 1 2 3 Height 155 cm (06/05/21 12:32 AM) 155 cm (06/04/21 9:19 PM) 155 cm (06/04/21 9:18 PM) Weight 100 kg (06/05/21 12:32 AM) 100 kg (06/04/21 9:19 PM) 100 kg (06/04/21 9:18 PM) Oxygen Saturation [94-100 %] 97 % (06/05/21 12:32 AM) 100 % (06/04/21 9:18 PM) Pulse Rate [55-90 bpm] 102 bpm *H* (06/05/21 12:32 AM) 110 bpm *H* (06/04/21 9:18 PM) Body Mass Index [18.5-24.99] 41.62 *>HHI* (06/05/21 12:32 AM) 41.62 *>HHI* (06/04/21 9:18 PM) Blood Pressure [90-138/55-84 mm Hg] 117/83mm Hg (06/05/21 12:32 AM) 145/94mm Hg *H* (06/04/21 9:18 PM) Respiratory Rate [16-30 br/min] 18 br/min (06/05/21 12:32 AM) 17 br/min (06/04/21 9:18 PM) Temperature [96.8-100.4 DegF] 96.8 DegF (06/05/21 12:32 AM) 98.3 DegF (06/04/21 9:18 PM) Mode of Delivery (Oxygen) Room air (06/05/21 12:32 AM) Room air (06/04/21 9:18 PM) Blood pressure sites Arm, left (06/05/21 12:32 AM) Arm, left (06/04/21 9:18 PM) Temperature Route Temporal (06/05/21 12:32 AM) Tympanic (06/04/21 9:18 PM) Dry Weight 100 kg (06/05/21 12:32 AM) 100 kg (06/04/21 9:19 PM) 100 kg (06/04/21 9:18 PM) Weight Obtained Via Standing scale (06/04/21 9:18 PM) Dry Weight Obtained Via Standing scale (06/04/21 9:18 PM) Social History Social History Type Response Smoking Status Never smoker entered on: 09/13/13 Sex Medical Equipment Implanted Date:02/28/18Target Site:Nares Left Description Quantity [employer] Model zzGRAFT ALLODERM GBR 2X4 THI N - LFCL ([id number]) 1 [email or web address] Unknown FELI:No Information Assigning Authority: FDA
--- OUTSIDE RECORDS SUMMARY | 2024-02-03 14:08 | XMS_ITS | Continuity of Care Document ---
Author Organization [facility] Primary Car e [place] Address [address] [place] [address]- Care Team Providers Care Experience Design Director Name Role Phone Claritza RAILWAYS ASSISTANT, Marybel Godinez Primary Care Physician Encounter [facility] Date(s): 07/18/23 - 08/17/23 [facility] Care [place] [address] [place] [address]- Allergies, Adverse Reactions, Alerts Substance Reaction Severity [...] Safety Implantable Status Assigning Authority Unknown Unknown [id number] Unknown 03/13/19 Unknown Unknown Active Unknown Patient Care team information Care Team Personnel Name: Syed Jimenes DO Position: [facility] ENGINE ROOM HELPER MD Member Role: Lifetime ENGINE ROOM HELPER Physician Address: Address: [address] [place] [address]- Name: Marybel Jerry NP Position: [facility] PCO Associate Professional Member Role: PCP Address: Address: [address] [place] [address] Primary [place], [place] - Name: Izzy Muse RN Position: [facility] AMB Nurse Member Role: Primary Care Nurse Care Team Related Persons Name: SHANNAN FERREIRA Address: [address] [place] [address] Name: SALMA RHODES Address: [address] [place] [address] Name: ELLIOT GARCIA Address: [address] [place] [address] Name: ENIO GARCIA Address: [address] [place] [address]
--- OUTSIDE RECORDS SUMMARY | 2024-02-03 14:09 | XMS_ITS ---
Author Organization [facility] Address [address] [address] Care Team Providers Care Target Trimmer Name Role Phone Jamar Tucker Primary Care Provider DEMI Gamboa [phone] REASON FOR VISIT receipt of payment Encounters Encounter Location Date Provider Diagnosis [facility] [address] [address] 11/24/2023 DEMI CHA PLAN OF TREATMENT No Information Progress Notes * JOSEDouglaspawelDOB:1990 (33 yo F)Acc No.[id number]:11/24/2023 Patient:??Margareth GRACE :1990?Age:33 Y?Sex:Fe male Address:[address] [place] [address] * true * Date:??
--- OUTSIDE RECORDS SUMMARY | 2024-02-03 14:09 | XMS_ITS ---
Author Organization [facility] Address [address] [address] Care Team Providers Care Blue Line Trimmer Name Role Phone Jamar Tucker Primary Care Provider PRISCILA Gamboa [phone] REASON FOR VISIT 1 month f/u Encounters Encounter Location Date Provider Diagnosis [facility] [address] [address] 10/07/2023 PRISCILA DEL [place] PLAN OF TREATMENT No Information Progress Notes * Margareth GRACEDOB:1990 (33 yo F)Acc No.[id number]:10/07/2023 Progress Note Patient:??Margareth GRACE Provider:??Priscila Del Valle DPM :1990?Age:32 Y?Sex:Fe male Date:10/07/2023 Address:[address] [place] [address] [id number] Pcp:Jamar Tucker Subjective: * Chief Complaints: * ?1. 1 month f/u. * Medical History:?? Objective: Assessment: Plan: * Treatment: * Billing Information: * Visit Code:?? * Procedure Codes:?? * Sign off status: Pending * Provider:??Priscila Del Valle DPM Date: ??10/07/2023
--- OUTSIDE RECORDS SUMMARY | 2024-02-03 14:09 | XMS_ITS | Patient Health Record ---
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 Role Phone MICHELLE MERCEDES Primary Care Provider [phone] MICHELLE MERCEDES Unavailable [phone] Allergies Allergen (clinical drug ingredient) Drug/Non Drug Allergy documented on EMR Reaction Allergy Type Onset Date Status fluconazole diflucan (uncoded) hives Allergy Active morphine Morphine Sulfate shortness of breath Drug Allergy 05/12/2017 Active Penicillin syncope Drug Allergy Active Reason For Referral No Information Medications Medication SIG (Take, Route, Frequency, Duration) Notes Start Date End Date Status oxyCODONE HCl 5 MG 1 tablet as needed Orally every 6 hrs for 10 days 11/25/2022 Active Flovent HFA 220 MCG/ACT 2 puffs Inhalation Twice a day PRN Active Pantoprazole Sodium 40 MG 1 TAB Orally Once a day Active hydrOXYzine HCl 25 MG 1 TAB Orally Once a day PRN Active Yurycxqc-Rmkxigbnv-WZ 3.5-02059-9 4 drops into affected ear Otic Three times a day for 7 days 10/14/2021 Not-Taking Luvox CR 12.5 mg for ocd Not- Taking Wegovy 0.5 MG/0.5ML 0.5 ml Subcutaneous weekly 11/18/2022 Active Trileptal 150 MG 1 tablet Orally Twice a day for 30 day(s) Active predniSONE 20 MG 1 tablet Orally Once a day for 7 days Not-Taking Meclizine HCl 25 MG 1 tablet as needed Orally every 8 hours for 10 days Not-Taking Cortisporin-TC 3.3-3-10-0.5 MG/ML 5 drops into affected ear Otic Three times a day for 5 day(s) Not-Taking Spironolactone 100 MG 1 tablet Orally Twice a day rx from [facility] Not-Taking Trulance 3 MG 1 tablet Orally Once a day for 30 day(s) prn Not-Taking Zofran Not-Taking Gabapentin 300 MG 1 capsule Orally Three times a day for 30 days from ortho for leg pain Not-Taking PriLOSEC 40 MG 1 tab Oral Once a day PRN 11/28/2013 Not-Taking Fluticasone Propionate 50 MCG/ACT Nasal for 30 INHALE 1-2 SPRAYS IN EACH NOSTRIL ONCE DAILY 04/15/2014 Not-Taking Biotin 5 MG Not-Taki ng Tessalon Perles 100 MG 1 capsule as needed Orally Three times a day for 10 days Not-Taking Cholestyramine 4 GM 1 packet mixed with water or non-carbonated drink Orally Once a day for 30 day(s) PRN 08/15/2020 Not-Taking Linzess 290 MCG 1 capsule at least 30 minutes before the first meal of the day on an empty stomach Orally Once a day for 30 day(s) Not-Taking Delsym Cough Relief Not-Taking Cephalexin 500 MG 1 tablet Orally Four times a day for 10 days Not-Taking Dania-[place] Pls Sinus & Cough 10-5-325 MG 2 capsules as needed Orally every 4 hrs Not-Taking Fluticasone Propionate 50 MCG/ACT 1 -2 spray in each nostril Nasally Once a day for 30 day(s) PRN Active Diflucan 150 MG 1 tablet Orally Once a day for 1 days 10/10/2015 Not-Taking ProAir RespiClick 108 (90 Base) MCG/ACT Inhalation for 0 Use one to two inhalations every 6 hours if needed. 09/02/2014 Not-Taking Maxalt 10 MG 1 tablet as needed one time Orally Once a day for 30 days 05/12/2015 Not-Taking Latuda 40 MG 1 tablet with food Orally Once a day Active FLUoxetine HCl 20 MG 3 TABS Orally 60mg daily Active ZyrTEC Allergy 10 MG 1 tablet Orally Once a day Active Multi-Vitamin 1 tablet Oral Once a day 11/28/2013 Active Mirena 20 MCG/24HR Intrauterine for 0 11/28/2013 Active Gabapentin 300 MG 1 tablet Orally Once a day QHS Not-Taking Cyclobenzaprine HCl 5 MG 2 TAB Orally QHS Active Motegrity 2 MG 1 tablet Orally Once a day for 30 day(s) Active Immunizations Vaccine Route Administration Date Status Comme nts Tdap Unknown Pending MIG_SID-Immuni za tion Date :05/06/2009 @pediatric Tdap IM Intramuscular 06/01/2022 Administered PPD IM Intramuscular 12/22/2016 Administered given at work PPD ID Intradermal 12/14/2021 Administered [facility] - FOR WORK Pneumococcal polysaccharide PPV23 IM Intramuscular 09/08/2015 Administered EXP DATE -Oct [employer] MMR Unknown Pending MIG_SID-Immuni za tion Date :10/30/1997 @pediatric Influenza (split), 3 yrs and above IM Intramuscular 12/22/2016 Administered given at work Influenza (split), 3 yrs and above IM Intramuscular 12/11/2020 Administered Influenza (split), 3 yrs and above IM Intramuscular 12/14/2021 Administered [facility] Hep B, dialysis (3 dose schedule) Unknown 08/07/2021 Administered 08/07/21 09/07/2102/2022 Social History Tobacco Use: Social History Observation Description Date Details (start date - stop date) Never Smoker NA - NA Tobacco Use/Smoking Question Answer Notes Are you a nonsmoker Additional Findings: Tobacco Non-User Aggressive non-smoker Alcohol Screen (Audit-C) Question Answer Notes Did you have a drink contain ing alcohol in the past year? Yes How often did you have a dri nk containing alcohol in the past year? Monthly or less (1 point) How many drinks did you have on a typical day when you were drinking in the past year? 1 or 2 drinks (0 point) How often did you have 6 or more drinks on one occasion in the past year? Never (0 point) Points 1 Interpretation Negative Tobacco use other than smoking: Question Answer Notes Are you an other tobacco user? 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 med changes in progress. denies depressive or risky behavior. Problem Anxiety disorder (223298249) Anxiety disorder, unspecified (F41.9) Active confirmed Problem Obsessive-compul sive disorder (747859781) Obsessive-compu lsive disorder (F42) Active confirmed Problem Posttraumatic stress disorder (49702790) Post-traumatic stress disorder, chronic (F43.12) Active confirmed Problem 63472511 Other chronic pain (G89.29) Active confirmed Problem Allergic rhinitis caused by pollen (disorder) (62268771) Allergic rhinitis due to pollen (J30.1) Active confirmed resume fluticasone spray, cont zyrtec. work note written that her sx due to allergies not illness. Problem Uncomplicated asthma (disorder) (828040989) Unspecified asthma, uncomplicated (J45.909) Active confirmed No daily cough, SOB, wheezing. Only used proair once with her spring allergy sx. Has had 3 doses of covid vaccine Problem 379417552 Eosinophilic esophagitis (K20.0) Active confirmed Problem Enthesopathy of ankle AND/OR tarsus (08035362) Metatarsalgia, unspecified foot (M77.40) Active confirmed follows with Amilcar Del Valle. plan is for work to resume 12/2021 after 1 y 10 mo out of work for surgery. is very careful to follow podiatry instructions. on gabapentin for post surg pain Problem Urinary tract infectious disease (disorder) (24749820) Urinary tract infection, site not specified (N39.0) Active confirmed Problem Hematuria (71195029) Hematuria, unspecified (R31.9) Active confirmed Problem Urinary incontinence (721974098) Unspecified urinary incontinence (R32) Active confirmed Problem Headache (79053457) Headache (R51) Active confirmed Dr Sudhir vallejo Problem Abnormal cytological finding in specimen from female genital organ (963420377) Unspecified abnormal cytological findings in specimens from cervix uteri (R87.619) Active confirmed gynecholigist Dr Jimenes at [facility] Problem Morbid obesity (776855773) Obesity (BMI 35.0-39.9 without comorbidity) (E66.01) Active confirmed Problem 987191307 Environmental allergies (Z91.09) Active confirmed Problem 927245078 Neuropathy (G62.9) Active confirmed Problem Abdominal pain (86236320) Abdominal pain (R10.9) Active confirmed 11/25/22 Will give Oxycodone 5 mg #28 to try if it gives relief. Abdominal exam was benign. Will write note she missed work today Problem Irritable bowel syndrome (47691346) Irritable bowel syndrome (K58.9) Active confirmed 08/15/20 diagnosed in the past, this bout lasting longer. does not have any medications she can take for IBS symptoms. will trial cholestyramine 4gm packet dissolved in water twice a day. will also get US of abdomen 08/22. pt has GI appointment 09/11/20. all labs wnl including liver. kidney function cbc, amd amylase and lipase. currently no concern of gallbladder or pancreas activity. labs wnl. symptoms more concurrent with IBS. pt educated if symptoms worsen develops pain, fever, chills to seek ed or call office 09/11/20 saw GI today, PA believes it may be related to small intestine disfunction, will send labs to [facility] GI [id number] 09/18/21 has had colonoscopy this year- negative. Linzess too strong, now using Trulance less than once weekly and feels sx well controlled. Dr Alejandre Problem Weight gain (614719551) Weight gain (R63.5) Active confirmed 08/14/20 has gained weight since last seen due to surgery and not being as active as she would want. on fluoxetine for many years, increased by psychiatry to 80mg 6 months ago. educated patient she may need increase or addition of medication. fluxetine SSRI can often help with IBS symptoms however will not increase due to pt already at maximum dose. will defer to specialist. pt will call and make earlier renate with psychiatry. pt feels mood well controlled and does not feel depressed. 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 Problem 679443948 Paresthesia of both hands (R20.2) Active confirmed Problem 84945547 Acute non-recurrent frontal sinusitis (J01.10) Active confirmed Will need abx, steroids and leave from work Problem 971551771 Stress at home (F43.9) Active confirmed Problem 83916078881817 Compartment syndrome of right lower extremity due to exertion (M79.A21) Active confirmed has surgery completed , seeing ortho tomorrow 08/14/20 and 09/03 for f/u Problem 73904634109414 Compartment syndrome of left lower extremity due to exertion (M79.A22) Active confirmed Problem 57715881 Sebaceous cyst of skin of left breast (N60.82) Active confirmed avoid pickin g cysts. use stridex or oxy10 Problem 922389790 Renal mass, left (N28.89) Active confirmed Plan Of Treatment Pending Test Test Name Order Date RPR 09/08/2015 Chlamydia/GC Amplification 09/08/2015 HIV 09/08/2015 CT kidney 05/07/2022 Lipid Panel 11/06/2018 Comp. Metabolic Panel (14) 11/06/2018 Future Test Test Name Order Date TSH 10/21/2016 PTH, Intact 10/21/2016 FSH and LH 10/21/2016 TESTOSTERONE 10/21/2016 LYME ABS IGG, IGM WESTERN BLOT 8 RPR 03/15/2018 urine GC and chlamydia 03/15/2018 RPR 04/19/2019 vaginal culture 04/19/2019 urine GC and chlamydia 04/19/2019 URINALYSIS, MICROSCOPIC ONLY 04/19/2019 COMPREHENSIVE METABOLIC PANEL 01/13/2021 LIPID PROFILE 01/13/2021 HgA1C 01/13/2021 PORPHYRINS, PLASMA 06/25/2022 Insurance Providers Payer Name Payer Address Payer Phone Subscriber Number Group Number Insured Name Patient Relationship to Insured Coverage Start Date Coverage End Date [employer] MIGSIF [facility] [address] [place] [id number] Margareth Grace Self - patient is the insured Medical (General) History Medical History History ICD Code , 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 05/12/2020 left ankle and foot surgery Dr Silverman 2020 excision of calaneonavicular joint coalition right foot and tarsel tunnel release 03/17/2021
--- OUTSIDE RECORDS SUMMARY | 2024-02-03 14:09 | XMS_ITS | Patient Health Record ---
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 Name Role Phone LaguerreNicole sullivan Primary Care Provider Unavailab makayla RosasDanaeKlever Unavailable [phone] Priscila Del Valle Unavailable Unavailable Reason For Referral No Information Problems Problem Type SNOMED Code ICD Code Onset Dates Problem Status W/U Status Risk Notes Problem Skin sensation disturbance (83272536) Bilateral leg paresthesia (R20.2) Active confirmed Encounters Encounter Location Date Provider Diagnosis [facility], [address] [place] [address] 06/24/2023 Klever Rosas Bilateral leg paresthesia R20.2 Assessments Encounter Date Diagnosis (ICD Code) Assessment Notes Treatment Notes Treatment Clinical Notes Section Notes 06/24/2023 Bilateral leg paresthesia (ICD-10 - R20.2) EMG and nerve conduction studies of the bilateral lower extremities is normal. There is no evidence of a large fiber polyneuropathy or lumbosacral radiculopathies. A small fiber neuropathy is not excluded. Plan Of Treatment No Information Insurance Providers Payer Name Payer Address Payer Phone Subscriber Number Group Number Insured Name Patient Relationship to Insured Coverage Start Date Coverage End Date [facility] [address] [place] [id number] [phone] [id number] Margareth Grace Self - patient is the insured
--- OUTSIDE RECORDS SUMMARY | 2024-02-03 14:09 | XMS_ITS ---
Author Organization [facility] Address [address] [facility] [address] [place] [address] Care Team Providers Care Breakdown Man Name Role Phone Jamar Tucker Primary Care Provider PRISCILA Gambao Unavailable [phone] ALLERGIES Allergen (clinical drug ingredient) Drug/Non Drug Allergy documented on EMR Reaction Allergy Type Onset Date Status fluconazole Diflucan Unknown Drug Allergy Activ e morphine Morphine Sulfate Unknown Drug Allergy Active Penicillin anaphylaxis Drug Allergy Acti ve REASON FOR VISIT Lt foot pain MEDICATIONS Medication SIG (Take, Route, Frequency, Duration) Notes Start Date End Date Status Acetaminophen 500 MG 1 tablet as needed Orally every 4 hrs for 30 days prn 03/12/2021 Active hydrOXYzine HCl 25 MG 1 tablet as needed Orally every 8 hrs PRn itching/nausea for 10 days prn Active Cyclobenzaprine HCl 5 MG 1 tablet Orally three times a day as needed for spasms/cramping for 30 days Not-Taking PriLOSEC OTC 20 MG 2 tablets Orally twice a day 40 MG Active Mederma - apply to right foot scar as directed Externally three times a day for 60 days prn Active Fluoxetine 80MG daily Active Latuda 40 MG 1 tablet with food Orally Once a day Active Mirena (52 MG) 20 MCG/24HR as directed Intrauterine Active ZyrTEC Allergy 10 MG 1 tablet Orally Onc e a day Active Ibuprofen 600 MG 1 tablet with food or milk as needed Orally every 6 hrs for 30 days prn 03/12/2021 Active Wegovy 0.25 MG/0.5ML 0.5 mL Subcutaneous Active Motegrity 2 MG 1 tablet Orally Once a day Active Flovent Diskus PRN Activ e Propranolol HCl 10 MG 1 tablet Orally On ce a day Active Trileptal 300 MG 1 tablet Orally Once a day 450MG Active Ibuprofen 600 MG 1 tablet with food or milk as needed Orally every 6 hrs for 30 days 10/27/2020 Not-Taking hydrOXYzine HCl 25 MG 1 tablet as needed Orally every 8 hrs PRN pain/nausea for 10 days 10/27/2020 Not-Taking Gabapentin 300 MG 1 capsule Orally Once a day after surgery for 5 days 10/27/2020 Not-Taking Meloxicam 15 MG 1 tablet Orally Once a day Not-Taking oxyCODONE HCl 5 MG 1 tablet as needed Orally every 4 hrs PRN severe pain for 5 days 10/27/2020 Not-Taking MiraLax 17 GM/SCOOP as directed Orally Not-Taking Acetaminophen 500 MG 1 tablet as needed Orally every 6 hrs for 30 days 10/27/2020 Not-Taking Amoxicillin-Pot Clavulanate 875-125 MG 1 tablet Orally every 12 hrs for 7 day(s) 04/10/2021 Not-Taking oxyCODONE HCl 5 MG 1 tablet as needed Orally every 4 hours for 5 days 03/12/2021 Not-Taking Linzess Not-Taking Macrobid 100 MG 1 capsule with food Orally every 12 hrs Not-Taking Zithromax Z-John 250 MG 2 tablet on the first day, then 1 tablet daily for 4 days Orally Once a day Not-Taking Pantoprazole Sodium 40 MG 1 tablet Orally Twice a day Not-Taking Trulance 3 MG 1 tablet Orally Once a day prn Not-Taking Gabapentin 600 MG TAKE 1 TABLET BY MOUTH EVERY DAY FOR 30 DAYS for 30 Not-Taking Spironolactone 100 MG 1 tablet Orally twice a day Not-Taking Multivitamin - 1 tablet Orally Once a day Not-Taking Gabapentin 300 MG 1 capsule Orally take one capsule one to two times a day for 30 days Not-Taking Cyclobenzaprine HCl 7.5 MG 1 tablet Orally three times a day for 30 days Not-Taking VITAL SIGNS Weight 207.7 lbs 11/18/2023 Height 5ft 1in in 11/18/2023 BMI 39.24 kg/m2 11/18/2023 Heart Rate 70 /min 11/18/2023 Blood pressure systolic 122 mm Hg 11/18/19 24 Blood pressure diastolic 64 mm Hg 024 Temperature 97.1 degrees Fahrenheit 11/18/19 24 Respiratory Rate 16 /min 11/18/2023 Encounters Encounter Location Date Provider Diagnosis [facility] [address] [facility] [address] [place] [address] 11/18/2023 PRISCILA DEL VALLE Extensor tendinitis of foot M77.8 ; Leg swelling M79.89 ; Leg cramping R25.2 ; Neuritis of foot, unspecified laterality G57.90 ; Pain in left leg M79.605 and Pain in right leg M79.604 ASSESSMENTS Encounter Date Diagnosis Assessment Notes Treatment Notes Treatment Clinical Notes 11/18/2023 Extensor tendinitis of foot (ICD-10 - M77.8) We discussed she has tendinitis of the extensor tendon of the left ankle and foot. I reviewed her x-rays and she has no evidence of a fracture or other bony deformity. She has no evidence of a tear or rupture of the peroneal tendons. She has no weakness of the tendon groups on examination today. We discussed tendon injuries typically do worsen with use or activity. I explained it can take 4-8 weeks for the areas to heal from the point of injury. We discussed ice can be helpful at first, but now I would recommend heat instead. I also recommended that she start an NSAID. The other recommendation that I discussed with the patient is temporary immobilization of the tendons to allow for rest and healing. She would like to avoid this option for now. 11/18/2023 Leg swelling (ICD-10 - M79.89) This is an outpatient visit for evaluation and management of an established patient, which required appropriate review of pertinent medical history, review of any previous imaging, review of all previous records, and examination and complex decision-making. Time was 30 minutes spent in review of all these facets including face to face discussion with the patient regarding my findings and in discussion of a current and future treatment plan. Her EMG/NCV came back normal. No evidence of any large fiber neuropathy or radiculopathy. 11/18/2023 Leg cramping (ICD-10 - R25.2) She has been going to physical therapy and training for her fitness test with improvement. Overall her feet and legs have improved. 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 She is scheduled for the fitness tests on December 11 and December 18. 11/18/2023 Neuritis of foot, unspecified laterality (ICD-10 - G57.90) 11/18/2023 Pain in left leg (ICD-10 - M79.605) 11/18/2023 Pain in right leg (ICD-10 - M79.604) PLAN OF TREATMENT Treatment Notes Assessment Notes Extensor tendinitis of foot We discussed she has tendinitis of the extensor tendon of the left ankle and foot. I reviewed her x-rays and she has no evidence of a fracture or other bony deformity. She has no evidence of a tear or rupture of the peroneal tendons. She has no weakness of the tendon groups on examination today. We discussed tendon injuries typically do worsen with use or activity. I explained it can take 4-8 weeks for the areas to heal from the point of injury. We discussed ice can be helpful at first, but now I would recommend heat instead. I also recommended that she start an NSAID. The other recommendation that I discussed with the patient is temporary immobilization of the tendons to allow for rest and healing. She would like to avoid this option for now. Pending Test Test Name Order Date X ray : Foot, left 3v 11/18/2023 Next Appt Details Follow Up: prn, Reason: Progress Notes * Douglas GRACEpawelDOB:1990 (33 yo F)Acc No.[id number]:11/18/2023 Progress Note Patient:??Margareth GRACE Provider:??Priscila Del Valle DPM :1990?Age:33 Y?Sex:Fe male Date:11/18/2023 Address:[address] [place] [address] [id number] Pcp:Jamra Tucker Subjective: * Chief Complaints: * ?Lt foot pain * HPI: ?Constitutional:? This 33 y/o female returns to my office with a follow-up of bilateral foot pain. 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 She is scheduled for her fitness tests December 11 and October 18. She continued training for her fitness test and going to a different physical therapist. She states she has been increasing her activity level. She notes that she still struggles with swelling in her legs. She states she is working on her sprinting. She feels like her feet and legs are doing better overall. She also did buy new shoes and this has improved. She states the left foot has been getting an occasional aching pain on the top. She states the aching pain comes and goes, massage usually helps. She has no other foot complaints this visit. * ROS:?GENERAL: Pt denies nausea, fever, vomiting, chills, or shortness of breath. Pt in NAD. ALLERGY: patient denies any new allergy HEME/ONC: patient denies any bleeding or clotting disorders CARDIOLOGY: pt denies chest pain, palpitations LUNGS: pt denies shortness of breath ABDOMEN: patient denies any bloating, abdominal pain, or swelling MUSCULOSKELETAL: See HPI, patient has noted hip and back pain as well. SKIN: see HPI, otherwise no lesions, rash or itching NEURO: No persistent headache, weakness or numbness PSYCH: patient is depressed based on lack of improvement regarding her symptoms. She denies any feelings of self harm. The remainder of the review of systems is noncontributory. * Medical History:?? 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 grandmother- rheumatoid arthritis. * Social History:?Never smoker Alcohol use; rarely. * Medications:??TakingWegovy 0 .25 MG/0.5ML Solution Auto-injector 0.5 mL Subcutaneous Propranolol HCl 10 MG Tablet 1 tablet Orally Once a day Trileptal 300 MG Tablet 1 tablet Orally Once a day , Notes to Pharmacist: 450MGMotegrity 2 MG Tablet 1 tablet Orally Once a day Flovent Diskus , Notes to Pharmacist: PRNMirena (52 MG) 20 MCG/24HR Intrauterine Device as directed Intrauterine Fluoxetine , Notes to Pharmacist: 80MG dailyLatuda 40 MG Tablet 1 tablet with food Orally Once a day ZyrTEC Allergy 10 MG Tablet 1 tablet Orally Once a day Ibuprofen 600 MG Tablet 1 tablet with food or milk as needed Orally every 6 hrs , Notes to Pharmacist: prnAcetaminophen 500 MG Tablet 1 tablet as needed Orally every 4 hrs , Notes to Pharmacist: prnhydrOXYzine HCl 25 MG Tablet 1 tablet as needed Orally every 8 hrs PRn itching/nausea , Notes to Pharmacist: prnPriLOSEC OTC 20 MG Tablet Delayed Release 2 tablets Orally twice a day , Notes to Pharmacist: 40 MGMederma - Gel apply to right foot scar as directed Externally three times a day , Notes to Pharmacist: prnTaking Wegovy 0.25 MG/0.5ML Solution Auto-injector 0.5 mL Subcutaneous Taking Propranolol HCl 10 MG Tablet 1 tablet Orally Once a day Taking Trileptal 300 MG Tablet 1 tablet Orally Once a day , Notes to Pharmacist: 450MGTaking Motegrity 2 MG Tablet 1 tablet Orally Once a day Taking Flovent Diskus , Notes to Pharmacist: PRNTaking Mirena (52 MG) 20 MCG/24HR Intrauterine Device as directed Intrauterine Taking Fluoxetine , Notes to Pharmacist: 80MG dailyTaking Latuda 40 MG Tablet 1 tablet with food Orally Once a day Taking ZyrTEC Allergy 10 MG Tablet 1 tablet Orally Once a day Taking Ibuprofen 600 MG Tablet 1 tablet with food or milk as needed Orally every 6 hrs , Notes to Pharmacist: prnTaking Acetaminophen 500 MG Tablet 1 tablet as needed Orally every 4 hrs , Notes to Pharmacist: prnTaking hydrOXYzine HCl 25 MG Tablet 1 tablet as needed Orally every 8 hrs PRn itching/nausea , Notes to Pharmacist: prnTaking PriLOSEC OTC 20 MG Tablet Delayed Release 2 tablets Orally twice a day , Notes to Pharmacist: 40 MGTaking Mederma - Gel apply to right foot scar as directed Externally three times a day , Notes to Pharmacist: prnNot-TakingCyclobenzaprine HCl 5 MG Tablet 1 tablet Orally three times a day as needed for spasms/cramping Gabapentin 300 MG Capsule 1 capsule Orally take one capsule one to two times a day Cyclobenzaprine HCl 7.5 MG Tablet 1 tablet Orally three times a day Spironolactone 100 MG Tablet 1 tablet Orally twice a day Multivitamin - Tablet 1 tablet Orally Once a day Pantoprazole Sodium 40 MG Tablet Delayed Release 1 tablet Orally Twice a day Johnnce 3 MG Tablet 1 tablet Orally Once a day , Notes to Pharmacist: prnMacrobid 100 MG Capsule 1 capsule with food Orally every 12 hrs Zithromax Z-John 250 MG Tablet 2 tablet on the first day, then 1 tablet daily for 4 days Orally Once a day Gabapentin 600 MG Tablet TAKE 1 TABLET BY MOUTH EVERY DAY FOR 30 DAYS Linzess MiraLax 17 GM/SCOOP Powder as directed Orally Amoxicillin-Pot Clavulanate 875-125 MG Tablet 1 tablet Orally every 12 hrs oxyCODONE HCl 5 MG Tablet 1 tablet as needed Orally every 4 hours Acetaminophen 500 MG Tablet 1 tablet as needed Orally every 6 hrs Ibuprofen 600 MG Tablet 1 tablet with food or milk as needed Orally every 6 hrs Meloxicam 15 MG Tablet 1 tablet Orally Once a day oxyCODONE HCl 5 MG Tablet 1 tablet as needed Orally every 4 hrs PRN severe pain hydrOXYzine HCl 25 MG Tablet 1 tablet as needed Orally every 8 hrs PRN pain/nausea Gabapentin 300 MG Capsule 1 capsule Orally Once a day after surgery Medication List reviewed and reconciled with the patientNot-Taking Cyclobenzaprine HCl 5 MG Tablet 1 tablet Orally three times a day as needed for spasms/cramping Not-Taking Gabapentin 300 MG Capsule 1 capsule Orally take one capsule one to two times a day Not- Taking Cyclobenzaprine HCl 7.5 MG Tablet 1 tablet Orally three times a day Not-Taking Spironolactone 100 MG Tablet 1 tablet Orally twice a day Not-Taking Multivitamin - Tablet 1 tablet Orally Once a day Not-Taking Pantoprazole Sodium 40 MG Tablet Delayed Release 1 tablet Orally Twice a day Not-Taking Trulance 3 MG Tablet 1 tablet Orally Once a day , Notes to Pharmacist: prnNot-Taking Macrobid 100 MG Capsule 1 capsule with food Orally every 12 hrs Not-Taking Zithromax Z-John 250 MG Tablet 2 tablet on the first day, then 1 tablet daily for 4 days Orally Once a day Not-Taking Gabapentin 600 MG Tablet TAKE 1 TABLET BY MOUTH EVERY DAY FOR 30 DAYS Not-Taking Linzess Not-Taking MiraLax 17 GM/SCOOP Powder as directed Orally Not-Taking Amoxicillin- Pot Clavulanate 875-125 MG Tablet 1 tablet Orally every 12 hrs Not-Taking oxyCODONE HCl 5 MG Tablet 1 tablet as needed Orally every 4 hours Not-Taking Acetaminophen 500 MG Tablet 1 tablet as needed Orally every 6 hrs Not-Taking Ibuprofen 600 MG Tablet 1 tablet with food or milk as needed Orally every 6 hrs Not-Taking Meloxicam 15 MG Tablet 1 tablet Orally Once a day Not-Taking oxyCODONE HCl 5 MG Tablet 1 tablet as needed Orally every 4 hrs PRN severe pain Not-Taking hydrOXYzine HCl 25 MG Tablet 1 tablet as needed Orally every 8 hrs PRN pain/nausea Not-Taking Gabapentin 300 MG Capsule 1 capsule Orally Once a day after surgery Medication List reviewed and reconciled with the patient * Allergies:??DiflucanMorphine SulfatePenicillin: anaphylaxisno[Allergies Verified] Objective: * Vitals:??Wt:207.7lbs, Ht: 5f t 1in, BMI:39.24Index, HR:70/min, BP:122/64mm Hg, Temp:97.1F, RR:16/min, Ht-cm: 154.94, Wt-k.21 kg. * Examination: ?General Examination: ?GENERAL: Patient appears well nourished, with NAD. ?VASCULAR: Dorsalis pedis pulses are 2/4 right and Posterior tibial pulses are 2/4 right. Capillary filling time within normal limits the digits. Denies rest pain or claudication pain.Trace edema of each leg. Right foot temperature is within normal limits. ?NEUROLOGICAL: Sharp/dull sensation intact right, position sense intact right to the tibial tuberosity. Patient is able to wiggle all 5 toes of the right foot. Vibratory sensation with tuning fork diminished bilaterally to the tibial tuberosity. Sharp dull sensation 10/10 with [place] monofilament to both feet bilaterally. ?ORTHOPEDIC: Dorsi flexion of ankle, -5 degrees, plantar flexion WNL. No muscle atrophy. No Tinel's on compression of the right arch. No tenderness on palpation of the tarsal tunnel. No Pain on dorsiflexion/plantarflexion but soreness. + tightness of the arch and the Achilles/ proximal calf of the right and left foot. Medial side of the leg along the fasciotomy scar, there is scar tissue build up with tightness of the Achilles tendon. Tenderness on palpation along the extensor tendon left foot. ?DERMATOLOGICAL: 6 cm curvilinear scar along the medial side of the right foot and ankle, tenderness on palpation, with slight keloid appearance. 3.5 cm linear scar dorsolateral foot, improved compared to the last visit. ?SHOES: crocs. Assessment: * Assessment: 1.??Extensor tendinitis of f oot - M77.8 (Primary)??2.??Leg swelling - M79.89??3.??Leg cramping - R25.2??4.??Neuritis of foot, unspecified laterality - G57.90??5.??Pain in left leg - M79.605??6.??Pain in right leg - M79.604?? Plan: * Treatment: Notes: We discussed she has tendinitis of the extensor tendon of the left ankle and foot. I reviewed her x-rays and she has no evidence of a fracture or other bony deformity. She has no evidence of atear or rupture of the peroneal tendons. She has no weakness of the tendon groups on examination today. We discussed tendon injuries typically do worsen with use or activity. I explained it can take 4-8 weeks for the areas to heal from the point of injury. We discussed ice can be helpful at first, but now I would recommend heat instead. I also recommended that she start an NSAID. The other recommendation that I discussed with the patient is temporary immobilization of the tendons to allow for rest and healing. She would like to avoid this option for now. ?2.??Leg swelling?? Clinical Notes: This is an outpatient visit for evaluation and management of an established patient, which required appropriate review of pertinent medical history, review of any previous imaging, review of all previous records, and examination and complex decision-making. Time was 30 minutes spentin review of all these facets including face to face discussion with the patient regarding my findings and in discussion of a current and future treatment plan. Her EMG/NCV came back normal. No evidence of any large fiber neuropathy or radiculopathy.?3.??Leg cramping?? Clinical Notes: She has been going to physical therapy and training for her fitness test with improvement. Overall her feet and legs have improved. 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 She is scheduled for the fitness tests on December 11 and December 18. ?4.??Pain in left leg?Imaging: X ray : Foot, left 3v* LEFT FOOT WEIGHT BEARING X-R AYS 3 VIEWS obtained during todays visit. On the AP view there is evidence of supination with a medial translation of the metatarsals. There is also an adductovarus rotation of toes 2,3,4,5. On the Lateral view there is sclerosis around the posterior subtalar joint with beaking of the proximal aspect of the talus. There is cystic changes of the calcaneus and cuneiforms. No evidence of a residual C-N coalition. * Procedure Codes:??28961 X-RA Y EXAM OF FOOT 3 Views, Modifiers: LT * Follow Up:??prn * Billing Information: * Visit Code:?? 47877 Office Visit, Est Pt., Level 4. * Procedure Codes:?? 31106 X-RAY EXAM OF FOOT 3 Views. Modifiers: LT * Sign off status: Completed true * Provider:??Priscila Del Valle DPM Date: ??11/18/2023
--- OUTSIDE RECORDS SUMMARY | 2024-02-03 14:09 | XMS_ITS | Patient Health Record ---
Author Organization [facility] Address [address] [place] [address] Care Team Providers Care Telehealth Director Name Role Phone Jamar Tucker Primary Care Provider DEMI Gamboa Unavailable [phone] ALLERGIES Allergen (clinical drug ingredient) Drug/Non Drug Allergy documented on EMR Reaction Allergy Type Onset Date Status fluconazole Diflucan Unknown Drug Allergy Activ e morphine Morphine Sulfate Unknown Drug Allergy Active Penicillin anaphylaxis Drug Allergy Acti ve RESULTS Component Value Reference Range Notes EMG/NCV Bilateral lower extr emities. Reviewed date:06/28/2023 09:58:39 AM Interpretation: Performing Lab: Notes/Report: REASON FOR REFERRAL No Information MEDICATIONS Medication SIG (Take, Route, Frequency, Duration) Notes Start Date End Date Status Spironolactone 100 MG 1 tablet Orally twice a day Not-Taking Multivitamin - 1 tablet Orally Once a day Not-Taking Gabapentin 300 MG 1 capsule Orally take one capsule one to two times a day for 30 days Not-Taking Cyclobenzaprine HCl 7.5 MG 1 tablet Orally three times a day for 30 days Not-Taking Macrobid 100 MG 1 capsule with food Orally every 12 hrs Not-Taking Wegovy 0.25 MG/0.5ML 0.5 mL Subcutaneous Active Zithromax Z-John 250 MG 2 tablet on the first day, then 1 tablet daily for 4 days Orally Once a day Not-Taking Pantoprazole Sodium 40 MG 1 tablet Orally Twice a day Not-Taking Trulance 3 MG 1 tablet Orally Once a day prn Not-Taking Motegrity 2 MG 1 tablet Orally Once a day Active Flovent Diskus PRN Activ e Propranolol HCl 10 MG 1 tablet Orally On ce a day Active Gabapentin 600 MG TAKE 1 TABLET BY MOUTH EVERY DAY FOR 30 DAYS for 30 Not-Taking Trileptal 300 MG 1 tablet Orally Once a day 450MG Active Linzess Not-Taking MiraLax 17 GM/SCOOP as directed Orally Not-Taking Fluoxetine 80MG daily Active Acetaminophen 500 MG 1 tablet as needed Orally every 6 hrs for 30 days 10/27/2020 Not-Taking Latuda 40 MG 1 tablet with food Orally Once a day Active Ibuprofen 600 MG 1 tablet with food or milk as needed Orally every 6 hrs for 30 days 10/27/2020 Not-Taking Amoxicillin-Pot Clavulanate 875-125 MG 1 tablet Orally every 12 hrs for 7 day(s) 04/10/2021 Not-Taking Mirena (52 MG) 20 MCG/24HR as directed Intrauterine Active oxyCODONE HCl 5 MG 1 tablet as needed Orally every 4 hours for 5 days 03/12/2021 Not-Taking Acetaminophen 500 MG 1 tablet as needed Orally every 4 hrs for 30 days prn 03/12/2021 Active hydrOXYzine HCl 25 MG 1 tablet as needed Orally every 8 hrs PRN pain/nausea for 10 days 10/27/2020 Not-Taking hydrOXYzine HCl 25 MG 1 tablet as needed Orally every 8 hrs PRn itching/nausea for 10 days prn Active Gabapentin 300 MG 1 capsule Orally Once a day after surgery for 5 days 10/27/2020 Not-Taking ZyrTEC Allergy 10 MG 1 tablet Orally Onc e a day Active Meloxicam 15 MG 1 tablet Orally Once a day Not-Taking Ibuprofen 600 MG 1 tablet with food or milk as needed Orally every 6 hrs for 30 days prn 03/12/2021 Active oxyCODONE HCl 5 MG 1 tablet as needed Orally every 4 hrs PRN severe pain for 5 days 10/27/2020 Not-Taking Cyclobenzaprine HCl 5 MG 1 tablet Orally three times a day as needed for spasms/cramping for 30 days Not-Taking PriLOSEC OTC 20 MG 2 tablets Orally twice a day 40 MG Active Mederma - apply to right foot scar as directed Externally three times a day for 60 days prn Active PROBLEMS Problem Type ICD Code Onset Dates Problem Status W/U Status Risk SNOMED Code Notes 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 148386219 Problem Tarsal tunnel syndrome, right lower limb (G57.51) Active confirmed 712875672873715 Problem Neuritis of foot, unspecified laterality (G57.90) Active confirmed 116404065 Problem Tarsal tunnel syndrome of both lower extremities (G57.53) Active confirmed Tarsal tunnel syndrome (18610892) 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 confirmed 78746311 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 VITAL SIGNS Heart Rate 70 /min 11/18/2023 Temperature 97.1 degrees Fahrenheit 11/18/2023 Respiratory Rate 16 /min 11/18/2023 Blood pressure diastolic 64 mm Hg 11/18/2023 Height 5ft 1in in 11/18/2023 Blood pressure systolic 122 mm Hg 11/18/2023 Weight 207.7 lbs 11/18/2023 BMI 39.24 kg/m2 11/18/2023 Encounters Encounter Location Date Provider Diagnosis [facility] [address] [address] 02/25/2023 DEMI CHA [facility] [address] [address] 03/28/2023 DEMI CHA [facility] [address] [address] 10/07/2023 DEMI CHA [facility] [address] [address] 04/08/2023 DEMI CHA Leg swelling M79.89 ; Leg cramping R25.2 ; Neuritis of foot, unspecified laterality G57.90 ; Pain in left leg M79.605 ; Pain in right leg M79.604 and Lumbar radiculopathy M54.16 [facility] [address] [address] 07/04/2023 DEMI CHA Leg swelling M79.89 ; Leg cramping R25.2 ; Neuritis of foot, unspecified laterality G57.90 ; Pain in left leg M79.605 ; Pain in right leg M79.604 and Lumbar radiculopathy M54.16 [facility] [address] [address] 07/22/2023 DEMI CHA Leg swelling M79.89 ; Leg cramping R25.2 ; Neuritis of foot, unspecified laterality G57.90 ; Pain in left leg M79.605 ; Pain in right leg M79.604 and Lumbar radiculopathy M54.16 [facility] [address] 11/18/2023 DEMI CHA Extensor tendinitis of foot M77.8 ; Leg swelling M79.89 ; Leg cramping R25.2 ; Neuritis of foot, unspecified laterality G57.90 ; Pain in left leg M79.605 and Pain in right leg M79.604 [facility] [address] 03/01/2023 DEMI CHA [facility] [address] 03/21/2023 DEMI CHA [facility] [address] 04/08/2023 DEMI CHA [facility] [address] 05/06/2023 DEMI CHA [facility] [address] 05/30/2023 DEMI CHA [facility] [address] 05/30/2023 DEMI CHA [facility] [address] 05/30/2023 DEMI CHA [facility] [address] 07/06/2023 DEMI CHA [facility] [address] 07/06/2023 DEMI CHA [facility] [address] 07/22/2023 DEMI CHA [facility] [address] [address] 07/22/2023 DEMI CHA [facility] [address] [address] 11/24/2023 DEMI CHA ASSESSMENTS Encounter Date Diagnosis Assessment Notes Treatment Notes Treatment Clinical Notes 04/08/2023 Leg swelling (ICD-10 - M79.89) This is [...] of a current and future treatment plan. We discussed the worsening cramping/spasms of the legs and pain in the feet. We discussed the possibility of recurrence of the exertional compartment syndrome vs. a neurological component. She is frustrated due to the recent increase in pain, especially in her feet. I am recommending that we start with a EMG?NCV of the legs. SHe is also having back pain. We discussed this test can give us a better picture if the nerve component is more localized or systemic. She is in agreement with this plan. Order placed to Dr. Rosas's office in [place]. 04/08/2023 Leg cramping (ICD-10 - R25.2) We discussed needing a further workup at this time for the foot and leg pain. We will start with the EMG/NCV. At this time, I believe she should stop physical therapy until more testing is completed. She can continue stretching exercises at home. I would like her to continue light duty. The plan at this time is still to have her complete the fitness test in June. I will contact her once I receive the results of the EMG/NCV. 07/04/2023 Leg swelling (ICD-10 - M79.89) This is [...] of any large fiber neuropathy or radiculopathy. 07/22/2023 Leg swelling (ICD-10 - M79.89) This is [...] large fiber neuropathy or radiculopathy. 11/18/2023 Leg swelling (ICD-10 - M79.89) This [...] any large fiber neuropathy or radiculopathy. 11/18/2023 Extensor tendinitis of foot (ICD-10 - [...] avoid this option for now. 11/18/2023 Leg cramping (ICD-10 - R25.2) She has been going to physical therapy and training for her fitness test with improvement. Overall her feet and legs have improved. 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 She is scheduled for the fitness tests on December 11 and December 18. 07/22/2023 Leg cramping (ICD-10 - R25.2) She has been going to physical therapy and training for her fitness test with improvement. Overall her feet and legs have improved. I believe she is ready to resume full duty starting on 07/25/2023. Paperwork completed. We discussed the only restriction is that she be allowed to periodically sit once every hour. I am also recommending the PT test be delayed until November. She is in agreement with this plan. 07/04/2023 Leg cramping (ICD-10 - R25.2) She has been going to physical therapy and training for her fitness test with improvement. Overall her feet and legs have improved. I believe she should be ready to resume full duty in 1-2 months. We discussed she is not quite ready for the fitness test. I also believe she should be ready for the test in 1-2 months/ For now, the light duty restrictions remain. I will see her back in 1 month to discuss the plan to resume all full duty responsibilities. SHe is in agreement with this plan. 04/08/2023 Neuritis of foot, unspecified laterality (ICD-10 - G57.90) 04/08/2023 Pain in left leg (ICD-10 - M79.605) 07/22/2023 Neuritis of foot, unspecified laterality (ICD-10 - G57.90) 07/04/2023 Neuritis of foot, unspecified laterality (ICD-10 - G57.90) 11/18/2023 Neuritis of foot, unspecified laterality (ICD-10 - G57.90) 07/22/2023 Pain in left leg (ICD-10 - M79.605) 11/18/2023 Pain in left leg (ICD-10 - M79.605) 04/08/2023 Pain in right leg (ICD-10 - M79.604) 07/04/2023 Pain in left leg (ICD-10 - M79.605) 07/04/2023 Pain in right leg (ICD-10 - M79.604) 07/22/2023 Pain in right leg (ICD-10 - M79.604) 04/08/2023 Lumbar radiculopathy (ICD-10 - M54.16) 11/18/2023 Pain in right leg (ICD-10 - M79.604) 07/22/2023 Lumbar radiculopathy (ICD-10 - M54.16) 07/04/2023 Lumbar radiculopathy (ICD-10 - M54.16) PLAN OF TREATMENT Pending Test Test Name Order Date MRI : Lower Ext Joint W and WO Contrast 09/05/2020 X ray : Foot, left 3v 09/05/2020 X ray : Foot, left 3v 12/05/2020 X ray : Foot, left 3v 11/18/2023 X ray : Foot, right 3v 05/06/2021 X ray : Foot, right 3v 09/05/2020 Insurance Providers Payer Name Payer Address Payer Phone Subscriber Number Group Number Insured Name Patient Relationship to Insured Coverage Start Date Coverage End Date [place] [address] RACHANA CABALLERO [id number] Margareth Grace Self - patient is the insured MEDICATIONS ADMINISTERED Medication Instructions Date of Administration Dosage Notes Kenalog 11/05/2021 0.5 mL Kenalog 12/08/2021 0.5 mL Kenalog 01/15/2022 0.5 mL MEDICAL (GENERAL) HISTORY Medical History History ICD Code depression bipolar disorder pineal brain tumor asthma PCOS hirsuitism GERD UTI 02/2022 left inner ear infection 02/2022 + COVID 02/2020, 2020 and 2021 COVID vaccinated X 2 (Moderna) and 1 miller ster (Moderna) Surgical History Surgery Date(Month/Year) Leg Compartment surgery 03/02 and 06/01 resection of calcaneonavicular joint coa lition left foot 10/30/2020 left foot tarsal tunnel release 1 resection of calcaneonavicular joint coa lition right foot 03/17/2021 right foot tarsal tunnel release 2 Hospitalization History Reason Date(Month/Year) ER visit [facility]- rectal bleeding 10/2022
--- OUTSIDE RECORDS SUMMARY | 2024-02-03 14:09 | XMS_ITS ---
Author Organization [facility], [facility] Address [address] [address] Care Team Providers Care Slinger Sequins Name Role Phone Nicole Laguerre Primary Care Provider Unavailab Klever Adams Unavailable [phone] Priscila Del Valle Unavailable Unavailable REASON FOR VISIT 60 min EMG BLE Problems Problem Type SNOMED Code ICD Code Onset Dates Problem Status W/U Status Risk Notes Problem Skin sensation disturbance (65786113) Bilateral leg paresthesia (R20.2) Active confirmed Encounters Encounter Location Date Provider Diagnosis [address] [place] [address] 06/24/2023 Klever Rosas Bilateral leg paresthesia R20.2 [...] not excluded. Plan Of Treatment No Information Progress Notes * JOSEDouglaspawelDOB:1990 (32 yo F)Acc No.[id number]:06/24/2023 Patient:?Douglas GARCIAley Provider:?Klever Rosas M.D :1990???Age:32 Y???Sex:Female D ate:06/24/2023 Address:[address] [place] [address] [id number] Pcp:Nicole Laguerre Subjective: * Chief Complaints: * ???60 min EMG BLE * HPI: ???CS:? numbness and tingling in her feet and legs, has a history of compartment syndrome in her lower extremities and had surgery for this. * Medical History:? * Medications:? Objective: * Vitals:? Assessment: * Assessment: 1.?Bilateral leg paresthesia - R20.2 (Primary)? Plan: * Treatment: * Procedure Codes:?65557 NRV C NDJ TEST 7-8 [id number] MUSC TEST DONE W/N TEST COMP, Units: 2.00 * * Sign off status: Completed true * Provider:?Klever Rosas M.D Date:? Generated for Glynn narayan/Toshia/Garyitting on:?02/03/2024 02:03 PM EST History and Physical Notes * HPI (History of Present Illness) Category Sub-Category Detail Notes Category Not es CS numbness and ti ngling in her feet and legs, has a history of compartment syndrome in her lower extremities and had surgery for this.
--- OUTSIDE RECORDS SUMMARY | 2024-02-03 14:09 | XMS_ITS ---
Author Organization [facility] Address [address] [place] [address] Care Team Providers Care Tie Presser Name Role Phone MICHELLE MERCEDES Primary Care Provider MICHELLE MERCEDES Unavailable [phone] EM PEOPLES Unavailable [phone] REASON FOR VISIT RE:RE:Reorder Lab Work Encounters Encounter Location Date Provider Diagnosis [facility] [address] [place] [address] 12/23/2022 EM PEOPLES Plan Of Treatment No Information Progress Notes * Maragreth GRACEDOB:1990 (32 yo F)Acc No.[id number]:12/23/2022 Patient:?Margareth Grace :1990???Age:32 Y???Sex:Female Address:[address] [place], [address] * true * Date:? Generated for Printi ng/Faottog/eTransmitting on:?02/03/2024 02:04 PM EST
--- OUTSIDE RECORDS SUMMARY | 2024-02-03 14:09 | XMS_ITS ---
Author Organization [facility] Address [address] [place] [address] Care Team Providers Care Blower Installer Name Role Phone MICHLELE MERCEDES Primary Care Provider MICHELLE MERCEDES Unavailable [phone] REASON FOR VISIT labs faxed Encounters Encounter Location Date Provider Diagnosis [facility] [address] [place] [address] 12/27/2022 MICHELLE MERCEDES Plan Of Treatment No Information Progress Notes * SANJAY DouglaspawelDOB:1990 (32 yo F)Acc No.[id number]:12/27/2022 Patient:?Margareth Grace :1990???Age:32 Y???Sex:Female Address:[address] [place], [address] * true * Date:? Generated for Printi ng/Faxing/eTransmitting on:?02/03/2024 02:04 PM EST
--- OUTSIDE RECORDS SUMMARY | 2024-02-03 14:09 | XMS_ITS ---
Author Organization [facility], [facility] Address [address] [place] [address] Care Team Providers Care Director Of Retail Merchandising Name Role Phone Nicole Laguerre Primary Care Provider Unavailab Klever Adams Unavailable [phone] Priscila Del Valle Unavailable Unavailable REASON FOR VISIT 60 min emg jovanni Encounters Encounter Location Date Provider Diagnosis [facility], [facility] [address] [facility] [address] [place] [address] 05/26/2023 Klever Rosas Plan Of Treatment No Information Progress Notes * Douglas GRACEpawelDOB:1990 (33 yo F)Acc No.[id number]:05/26/2023 Patient:?Douglas GRACEley Provider:?Klever Rosas M.D :1990???Age:32 Y???Sex:Female D ate:05/26/2023 Address:[address] [place] [address] [id number] Pcp:Nicole Laguerre Subjective: * Chief Complaints: * ???1. 60 min emg jovanni. * Medical History:? Objective: * Vitals:? Assessment: Plan: * Treatment: * * Electronic signature of Nader Rosas MD on 02/03/2024 at 02:04 PM EST Sign off status: Pending * Provider:?Klever Rosas M.D Date:? Generated for Glynn narayna/Toshia/Zoya on:?02/03/2024 02:04 PM EST
--- OUTSIDE RECORDS SUMMARY | 2024-02-03 14:09 | XMS_ITS ---
Author Organization [facility] Address [address] [facility] [place] [address] Care Team Providers Care Machine Joiner Cementer Name Role Phone MICHELLE MERCEDES Primary Care Provider MICHELLE MERCEDES Unavailable [phone] REASON FOR VISIT Reorder Lab Work Encounters Encounter Location Date Provider Diagnosis [facility] [address] [place] [address] 12/23/2022 MICHELLE MERCEDES Plan Of Treatment No Information Progress Notes * SANJAY DouglaspawelDOB:1990 (32 yo F)Acc No.[id number]:12/23/2022 Patient:?Margareth Grace :1990???Age:32 Y???Sex:Female Address:[address] [place], [address] * true * Date:? Generated for Printi ng/Faottog/eTransmitting on:?02/03/2024 02:04 PM EST
== END 2024-02-03 10:09 | disposition home or self-care (01) ==
LOC: HO.HID 13:15
PROVIDERS: PCP Nurse Practitioner Adult Health; Visit Provider Internal Medicine
DX: R10.33 Periumbilical pain (principal)
CPT/HCPCS: 99203

== ENCOUNTER 2024-12-05 11:31 | Outpatient (AMB) | payer OTHER, SELFPAY ==
--- OUTSIDE RECORDS SUMMARY | 2023-10-07 09:00 | XMS_ITS ---
Author Organization [facility] Address [address] [address] Care Team Providers Care Webbing Supervisor Name Role Phone Jamar Tucker Primary Care Provider Unavailabl DEMI Sánchez [phone] REASON FOR VISIT 1 month f/u Encounters Encounter Location Date Provider Diagnosis [facility] [address] [address] 10/07/2023 DEMI DEL VALLE Plan Of Treatment No Information Progress Notes * Margareth GRACEDOB:1990 (34 yo F)Acc No.[id number]:10/07/2023 Progress Note Patient: Margareth GROSS Provider: Julia Del Valle DPM :1990 A ge:32 Y S ex:Female Date:10/07/2023 Address:[address] [place] [address] [address] [id number] Pcp:Jamar Tucker Subjective: * Chief Complaints: * 1 . 1 month f/u. * Medical History: Objective: * Vitals: Assessment: Plan: * Treatment: * Billing Information: * Visit Code: * Procedure Codes: * Electronic signature of RISSA DEL VALLE D.P.M on 12/05/2024 at 02:38 PM EDT Sign off status: Pending * Provider: Julia Del Valle DPM Date: 10/07/2023 Generated for Printi ng/Faxing/eTransmitting on: 12/05/2024 02:38 PM EDT
[2024-12-05 12:07] VITALS: BP 124/88; PULSE 104; RESP 16; O2SAT 97; BMI 40.4
--- NOTE | 2024-12-05 12:07 | A.OFFVIS_ITS ---
Vital Signs 12/05/24 12:07 Height 5 ft 1 in Weight 214 lb BMI 40.4 BP 124/88 Blood Pressure Location Rt brachial Position Sitting Respiration 16 Pulse 104 H Pulse Oximetry (%) 97 Intake Visit Reasons: Re-Establish Care Service Department Manager Required: No Allergies morphine Allergy (Severe, Verified 02/01/24 13:42) Hives Penicillins Allergy (Severe, Verified 02/01/24 13:42) Hives fluconazole (From Diflucan) Allergy (Intermediate, Verified 02/01/24 13:42) Anaphylaxis oxcarbazepine (From Trileptal) Allergy (Unknown, Verified 02/01/24 13:42) Hives HPI Comments Details: Margareth is a 34-year-old female patient with a past medical history of gastroenteritis, allergic rhinitis, allergies, anxiety disorder, benign neoplasm of the pineal gland, depression, PCOS, OCD, presenting today to reestablish care here at [facility]. It was previously overseeing her care at [facility]. According to previously documented history, I saw her initially in May of 2024 at which time she reported migraines for many years but more recently getting worse. She was experiencing migraines on average 3 days per week though was still having a low-grade headache on a near daily basis. Migraine-type headaches were generally unilateral, throbbing, and associated with brain fog, nausea, light and sound sensitivity, dizziness, and occasional vomiting. Sleep was likely playing a role as she had reported a significant history of poor sleep. She has trialed numerous therapies for her migraines. 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 At the time of her last visit with me at [facility], I did recommend an EEG, sleep study, discontinuation of Ajovy due to poor efficacy, a trial of Vyepti infusions, and a trial of nasal zolmitriptan for abortive measures. A repeat MRI was ordered and performed 11/27/2024 with and without contrast. 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 She was seen in follow-up at [facility] by Augustus Laureano MD who did recommend a lumbar puncture, sleep study, ophthalmology consult, and continuation of current migraine management. Today she tells me that she continues to have a constant headache. She did go to the ER where she had a migraine cocktail with about 4 days of relief. Since then has had return of her headache. She is currently seeing double, has intense bilateral head pain and eye pain. She feels as though her head is going to explode. She is having severe light and sound sensitivity. Caffeine helps slightly though the relief is short lived. Laying flat and bending forward is making her head pain much worse. She also feels dizzy epecially when looking upward, is having trouble finding her words, and is feeling severely brain fogged. She denies any vision loss though her visal acuity she feels has gotten progressively worse over the last month or so. She has not had any relief with zomig nasal spray and it has perhaps made her pain worse. Vyepti has had little effect so far as well. She sees [facility] in [facility] but has not seen on here and at that time did not show any evidence of papilledema on exam. FOR[facility]LY [facility], [facility] Surgical History H/O bilateral inguinal hernia repair H/O fasciotomy History of appendectomy Social History Household Members: Family Alcohol intake: never Patient Tobacco Use Status: Never used Tobacco Review of Systems Const All systems reviewed & are unremarkable except as noted in HPI and below Physical Exam Vital Signs: Last Vital Signs Pulse 104 H 12/05/24 12:07 Resp 16 12/05/24 12:07 BP 124/88 12/05/24 12:07 Pulse Ox 97 12/05/24 12:07 BMI result Body Mass Index 40.4 Const General: cooperative, healthy appearing, comfortable and no acute distress Nutritional Appearance: well nourished Orientation/consciousness: patient oriented x3 Limitations: no limitations HEENT Head: Yes normal to inspection and Yes normocephalic Eyes General: appearance normal, both eyes and all related structures Visual Guevara: normal visual guevara by confrontation Alignment and Position: alignment normal Periorbital: periorbital findings normal Eyelids: Yes eyelids normal Conjunctivae: conjunctivae normal Sclerae: sclerae normal Direct Ophthalmoscopy: normal light reflex and other (Possible bilateral mild papilledema on exam but not definitive) Neck Neck: Yes normal visual inspection and Yes full ROM General: Yes no CVA tenderness Back/Spine/Pelvis Back: no CVA tenderness Cervical Spine: normal cervical lordosis Thoracic/Lumbar Spine: thoracic and lumbar spine normal to inspection Neuro General: patient oriented x3 and deep tendon reflexes 2+ bilaterally Cranial nerves: Yes CN's II-XII intact bilaterally and Yes Facial sensation intact/muscles of mastication intact Cognition (Neuro): normal cognition Gait exam (Neuro): Normal gait present Motor exam (neuro): 5/5 motor strength present throughout and no tremor noted Sensory Exam: double simultaneous stimulation for sensation normal Romberg Test: Negative Pupils: Normal pupillary reactivity/response: bilateral Psych Appearance: grossly normal Mental Status: mental status grossly normal Speech and movement: Normal speech and movement present and Clear speech present Affect: normal affect Attitude: cooperative Thought process: Normal thought process present Thought content: Normal thought content present Insight: Good insight present (Psych) Judgement: Good judgement present (Psych) Assessment & Plan Assessment & Plan (1) IIH (idiopathic intracranial hypertension): Code(s): G93.2 - Benign intracranial hypertension Category: Medical Plan: Margareth is a 34-year-old female patient with a past medical history of gastroenteritis, allergic rhinitis, allergies, anxiety disorder, benign neoplasm of the pineal gland, depression, PCOS, OCD, presenting today to reestablish care here at [facility]. Since I have seen her last, her symptoms have gotten markedly worse and now include double vision, [place]rona to fair bilateral head pain worse with a laying position. She also has an updated MRI with findings including reduction in size of her pituitary gland, abnormal nerve sheath to optic nerves bilaterally, and bilateral venous stenosis. There was high suspicion of IIH despite only mild evidence of papilledema on exam. Headaches however are likely multifactorial provided that her sleep is extremely poor and she does have a primary migraine history. -I highly recommend lumbar puncture as soon as possible. Patient is agreeable though does have some anxiety surrounding this due to previous lumbar puncture experiences as a child. I will arrange for the lumbar puncture [facility]. -I will provide her with some oral anxiety medication to take prior to her procedure -for now, we will continue the Vyepti infusions -will likely consider acetazolamide pending results of opening pressure -I have also recommended that she contact her eye provider for a stat evaluation. I will have my records sent over. -patient does still need a sleep study performed. She does have an order out at [facility]. We could consider having her completed here. I spent approximately 65 minutes with this patient including review of prior records, neurodiagnostics, history taking, physical exam, review of case with attending physician Dr. Murray, and discussion of plan with the patient as well as coordinating urgent testing. (2) Chronic migraine without aura without status migrainosus, not intractable: Code(s): G43.709 - Chronic migraine without aura, not intractable, without status migrainosus Category: Medical Plan: . Orders: Orders FL guided lumbar puncture LP Today G93.2 - Benign intracranial hypertension Coding Level of Care Code New Pt Level 5 (58916) Diagnoses IIH (idiopathic intracranial hypertension) G93.2 Chronic migraine without aura without status migrainosus, not intractable G43.709
--- OUTSIDE RECORDS SUMMARY | 2024-12-05 14:38 | XMS_ITS | Patient Health Record ---
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 Name Role Phone Jamar Tucker Primary Care Provider DEMI Gamboa Unavailable [phone] Allergies Allergen (clinical drug ingredient) Drug/Non Drug Allergy documented on EMR Reaction Allergy Type Onset Date Status fluconazole Diflucan Unknown Drug Allergy Activ e morphine Morphine Sulfate Unknown Drug Allergy Active Penicillin anaphylaxis Drug Allergy Acti ve Reason For Referral No Information Medications Medication SIG (Take, Route, Frequency, Duration) Notes Start Date End Date Status Acetaminophen 500 MG 1 tablet as needed Orally every 6 hrs; Duration: 30 days 10/27/2020 Not-Taking oxyCODONE HCl 5 MG 1 tablet as needed Orally every 4 hours; Duration: 5 days 03/12/2021 Not-Taking ZyrTEC Allergy 10 MG 1 tablet Orally Onc e a day Active Meloxicam 15 MG 1 tablet Orally Once a day Not-Taking Latuda 60 MG 1 tablet with food Orally Once a day Active Ibuprofen 600 MG 1 tablet with food or milk as needed Orally every 6 hrs; Duration: 30 days 10/27/2020 Not-Taking Acetaminophen 500 MG 1 tablet as needed Orally every 4 hrs; Duration: 30 days prn 03/12/2021 Active hydrOXYzine HCl 25 MG 1 tablet as needed Orally every 8 hrs PRN pain/nausea; Duration: 10 days 10/27/2020 Not-Taking Ibuprofen 600 MG 1 tablet with food or milk as needed Orally every 6 hrs; Duration: 30 days prn 03/12/2021 Active oxyCODONE HCl 5 MG 1 tablet as needed Orally every 4 hrs PRN severe pain; Duration: 5 days 10/27/2020 Not-Taking PriLOSEC OTC 20 MG 2 tablets Orally twice a day 40 MG Active hydrOXYzine HCl 25 MG 1 tablet as needed Orally every 8 hrs PRn itching/nausea; Duration: 10 days prn Active Gabapentin 300 MG 1 capsule Orally Once a day after surgery; Duration: 5 days 10/27/2020 Not-Taking Cyclobenzaprine HCl 5 MG 1 tablet Orally three times a day as needed for spasms/cramping; Duration: 30 days Not-Taking Mederma - apply to right foot scar as directed Externally three times a day; Duration: 60 days prn Active Cyclobenzaprine HCl 7.5 MG 1 tablet Orally three times a day; Duration: 30 days Not-Taking Gabapentin 300 MG 1 capsule Orally take one capsule one to two times a day; Duration: 30 days Not-Taking Wegovy 0.25 MG/0.5ML 0.5 mL Subcutaneous Not-Taking Zepbound Active Trileptal 300 MG 1 tablet Orally Once a day 450MG Active Propranolol HCl 20 MG 1 tablet Orally On ce a day Active Flovent Diskus PRN Activ e Motegrity 2 MG 1 tablet Orally Once a day Active Fluoxetine 80MG daily Active Spironolactone 100 MG 1 tablet Orally twice a day Not-Taking Mirena (52 MG) 20 MCG/24HR as directed Intrauterine Active Pantoprazole Sodium 40 MG 1 tablet Orally Twice a day Not-Taking Multivitamin - 1 tablet Orally Once a day Not-Taking Macrobid 100 MG 1 capsule with food Orally every 12 hrs Not-Taking Trulance 3 MG 1 tablet Orally Once a day prn Not-Taking Gabapentin 600 MG TAKE 1 TABLET BY MOUTH EVERY DAY FOR 30 DAYS; Duration: 30 Not-Taking Zithromax Z-John 250 MG 2 tablet on the first day, then 1 tablet daily for 4 days Orally Once a day Not-Taking MiraLax 17 GM/SCOOP as directed Orally Not-Taking Linzess Not-Taking Amoxicillin-Pot Clavulanate 875-125 MG 1 tablet Orally every 12 hrs; Duration: 7 day(s) 04/10/2021 Not-Taking Problems Problem Type SNOMED Code ICD Code Onset Dates Problem Status W/U Status Risk Notes Problem Porphyria (649045277) 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) Active confirmed Problem Tarsal tunnel syndrome (94014342) Tarsal tunnel syndrome, right lower limb (G57.51) Active confirmed Problem Mononeuropathy of lower limb (231132635) Neuritis of foot, unspecified laterality (G57.90) Active confirmed Problem Tarsal tunnel syndrome (74215357) Tarsal tunnel syndrome of both lower extremities (G57.53) Active confirmed Problem Calcaneonavicular bar (19258126) 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) Active confirmed 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 Vital Signs Height 5ft 1in in 05/02/2024 Weight 198.6 lbs 05/02/2024 BMI 37.52 kg/m2 05/02/2024 Encounters Encounter Location Date Provider Diagnosis [facility] [address] 05/02/2024 DEMI CHA Posterior tibial tendinitis, right leg M76.821 ; Posterior tibial tendinitis, left leg M76.822 ; Extensor tendinitis of foot M77.8 ; Leg swelling M79.89 ; Leg cramping R25.2 ; Neuritis of foot, unspecified laterality G57.90 ; Pain in left leg M79.605 and Pain in right leg M79.604 [facility] [address] 07/09/2024 DEMI CHA Assessments Encounter Date Diagnosis (ICD Code) Assessment Notes Treatment Notes Treatment Clinical Notes Section Notes 05/02/2024 Posterior tibial tendinitis, right leg (ICD-10 - M76.821) We discussed she has weakness of her posterior tibial tendons. Reviewed stretching and icing exercises with the patient, handout dispensed, and patient instructed to perform twice daily. Recommended starting a course of NSAIDs with the patient. Discussed proper shoe gear with the patient and recommended custom orthotics for her to wear while standing at work. RX for the orthotics dispensed to the patient with a list of DME suppliers. I told the patient to contact my office once she has the orthotics, and we will schedule her an appointment 4 weeks later. 05/02/2024 Posterior tibial tendinitis, left leg (ICD-10 - M76.822) 05/02/2024 Extensor tendinitis of foot (ICD-10 - M77.8) 05/02/2024 Leg swelling (ICD-10 - M79.89) Her EMG/NCV came back normal. No evidence of any large fiber neuropathy or radiculopathy. 05/02/2024 Leg cramping (ICD-10 - R25.2) Overall her feet and legs have improved. We discussed going to PT 3-4 times a year. 05/02/2024 Neuritis of foot, unspecified laterality (ICD-10 - G57.90) 05/02/2024 Pain in left leg (ICD-10 - M79.605) 05/02/2024 Pain in right leg (ICD-10 - M79.604) Plan Of Treatment Pending Test Test Name Order Date MRI [...] Insured Coverage Start Date Coverage End Date [place] [address] RACHANA CABALLERO [phone] [id number] Margareth Grace Self - patient is the insured Medications Administered Medication Instructions Date of Administration Dosage Notes Kenalog 11/05/2021 0.5 mL Kenalog 12/08/2021 0.5 mL Kenalog 01/15/2022 0.5 mL Medical (General) History Medical History History ICD Code depression bipolar disorder pineal brain tumor asthma PCOS hirsuitism GERD UTI 02/2022 left inner ear infection 02/2022 + COVID 02/2020, 2020 and 2021 COVID vaccinated X 2 (Moderna) and 1 miller ster (Moderna) Surgical History Surgery Date(Month/Year) Leg Compartment surgery 03/02 and 06/01 resection of calcaneonavicular joint coa lition left foot 10/30/2020 left foot tarsal tunnel release resection of calcaneonavicular joint coa lition right foot 03/17/2021 right foot tarsal tunnel release 2 Hospitalization History Reason Date(Month/Year) ER visit [facility]- rectal bleeding 10/2022
--- OUTSIDE RECORDS SUMMARY | 2024-12-05 14:38 | XMS_ITS | Clinical Summary ---
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 Not on howie e 01/26/2023 Are you concerned about learning? Not on file 01/26/2023 No 01/26/2023 No 01/26/2023 Digital Access Answer Date Recorded No 01/26/2023 No 01/26/2023 Reliable internet access at home? Not on file 01/26/2023 Device with a working camera? Not on file Comments Unknown Sex and Gender Information Value Date Recorded Sex Assigned at Female 04/01/2022 10:56 AM EST Legal Sex Female 10:54 AM EST Gender Identity Female 04/01/2022 10:56 AM EST Sexual Orientation Straight 04/01/2022 10 :56 AM EST Last Filed Vital Signs Vital Sign Reading Time Taken Comments Blood Pressure 129/84 03/15/2023 12:53 PM EST Pulse 92 03/15/2023 12:53 PM EST Temperature 36.6 C (97.9 F) 03/15/2023 12:53 PM EST Respiratory Rate 16 03/15/2023 12:5 3 PM EST Oxygen Saturation 98% 03/15/2023 12: 53 PM EST Inhaled Oxygen Concentration - - Weight 100.8 kg (222 lb 3.2 oz) 024 12:53 PM EST Height 155 cm (5' 1.02 ) 03/15/2023 12: 53 PM EST Body Mass Index 41.95 03/15/2023 12:53 PM EST Plan of Treatment Health Maintenance Due Date Last Done Comments Adult Td,Tdap Booster 1992 DEPRESSION SCREENING 2004 SMOKING Hx and SMOKELESS TOBACCO SCREENING 2005 HEPATITIS C SCREENING 2010 HIV ONE-TIME SCREENING (18-6 5 YEARS) 2010 PAP SMEAR 2013 INFLUENZA VACCINE (#1) 2024 , 12/11/2020 COVID-19 VACCINE (2024-2 6 season) 2024 04/10/2020 HEPATITIS A VACCINES Aged Out No long er eligible based on patient's age to complete this topic HIB VACCINES Aged Out No longer eligi ble based on patient's age to complete this topic MENINGOCOCCAL VACCINES (ACWY) Aged Out No longer eligible based on patient's age to complete this topic MENINGOCOCCAL VACCINES (B) Aged Out N o longer eligible based on patient's age to complete this topic PNEUMOCOCCAL VACCINES (0-49 years) Aged Out No longer eligible b ased on patient's age to complete this topic Medical Devices Not on file Insurance [facility] [employer] NTK HMO [facility] QU[employer] NTK HMO [facility] QU[facility] [facility] Care Teams Package Dyeing Machine Operator Relationship Specialty Start Date End Date Jordana Wong MD [address] [place] [address] PCP - General Internal Medicine 03/21/23 Additional Source Comments The information contained in this document represents components of the legal health record. It is not the complete legal health record.[facility]
--- OUTSIDE RECORDS SUMMARY | 2024-12-05 14:38 | XMS_ITS ---
Author Name [facility] Organization Unknown Results Test Name/Text Value Interpretation Date Range Source eGFRcr SerPlBld CKD-EPI 2020 107.0 mL/min/1.73m2 11/21/2024 - [facility] Potassium SerPl-sCnc 4.5 mmol/L 11/21/2024 3.5 - 5 .1 [facility] Chloride SerPl-sCnc 104.0 mmol/L 11/21/2024 98 - 1 07 [facility] BUN/Creat SerPl 15.8 11/21/2024 12 - 20 [facility] Creat SerPl-mCnc 0.76 mg/dL 11/21/2024 0.5 - 1 C [facility] Glucose SerPl-mCnc 100.0 mg/dL 11/21/2024 70 - 199 [facility] BUN SerPl-mCnc 12.0 mg/dL 11/21/2024 7 - 17 [facility] Anion Gap SerPl Calc-sCnc 5.0 11/21/2024 5 - 14 [facility] Sodium SerPl-sCnc 133.0 mmol/L Below low normal 11/21/2024 1 35 - 145 [facility] CO2 SerPl-sCnc 24.0 mmol/L 11/21/2024 24 - 32 [facility] Calcium SerPl-mCnc 9.2 mg/dL 11/21/2024 8.4 - 10.2 [facility] Basophils # Bld Auto 0.05 K/mcL 11/21/2024 0 - 0.2 [facility] Platelet # Bld Auto 11/21/2024 [facility] WBC # Bld Auto 7.6 K/mcL 11/21/2024 4 - 10.5 [facility] Lymphocytes NFr Bld Auto 29.5 % 11/21/2024 20 - 48 [facility] Neutrophils NFr Bld Auto 59.1 % 11/21/2024 44 - 74 [facility] RDW RBC Auto 12.1 % 11/21/2024 12.1 - 16.2 [facility] Hgb Bld-mCnc 13.1 g/dL 11/21/2024 12.5 - 16 [facility] Monocytes # Bld Auto 0.52 K/mcL 11/21/2024 0 - 0.8 [facility] RBC # Bld Auto 4.56 M/mcL 11/21/2024 4.2 - 5.4 [facility] Lymphocytes # Bld Auto 2.25 K/mcL 11/21/2024 1 - 3.2 [facility] Eosinophil # Bld Auto 0.27 K/mcL 11/21/2024 0 - 0. 5 [facility] RBC Auto 85.1 FL 11/21/2024 78 - 100 [facility] Eosinophil NFr Bld Auto 3.5 % 11/21/2024 0 - 6 [facility] PMV Bld Auto 9.5 FL 11/21/2024 7.4 - 11.4 [facility] MCHC RBC Auto-EntMCnc 33.8 g/dL 11/21/2024 32 - 36 [facility] Neutrophils # Bld Auto 4.5 K/mcL 11/21/2024 1.8 - 7.8 [facility] Monocytes NFr Bld Auto 6.8 % 11/21/2024 2 - 12 [facility] Hct VFr Bld Auto 38.8 % 11/21/2024 37 - 47 [facility] MCH RBC Qn Auto 28.7 pcg 11/21/2024 25 - 33 [facility] Basophils NFr Bld Auto 0.7 % 11/21/2024 0 - 2 [facility] History of Medication Use Medication Directions Dispensed Refills Start Date End Date Stat diphenhydrAMINE (BENADRYL) injection 25 mg 25 mg, intravenous, Once, On Tue11/20/24 at 2118, For 1 dose 11/21/2024 completed ketorolac (TORADOL) injection 15 mg 15 mg, intravenous, Once, On Tue11/20/24 at 8, For 1 dose 11/21/2024 5 completed lactated Ringer's bolus 1,000 mL 1,000 mL, intravenous, at 1,000 mL/hr, Administer over 1 Hours, Once, On Tue11/20/24 at 2118, For 1 dose 11/21/2024 5 completed metoclopramide (REGLAN) injection 10 mg 10 mg, intravenous, Once, On Tue11/20/24 at 2117, For 1 dose, Doses LESS than or equal to 10 mg can be given IV push undiluted over 1 minute 11/21/2024 5 completed Allergies Allergen Reaction Severity Comment Documented Date Source Status METRONIDAZOLE HCL OTHER metronidaz ole hydrochloride 11/20/2024 [facility] active MORPHINE SHORTNESS OF BREATH morphine, ,rigid mucles 11/20/2024 [facility] active OXCARBAZEPINE HIVES hives when dosage was increased 11/20/2024 [facility] active PENICILLINS ANAPHYLAXIS 11/20/2024 [facility] acti ve FLUCONAZOLE ITCHING 2019 [facility] active Problems Problem Status Onset Date Problem Type Date of Resolution Source 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, not intractable active EncounterDiagnosisAct [facility] Encounters Encounter Type Encounter Reason Primary Diagnosis Location Date Emergency Being sent to ER by neurologist for migraine cocktail. Have had migraine over a month. Head throbbing. Light sensitivity. [place]asea[place]. Face hurt/pressure. Can?t focus. Can?t sleep. Elevated resting heart rate Persistent migraine aura without cerebral infarction, not intractable, without status migrainosus [facility] 11/20/2024 Care Team Organization Name Specialty Phone Email Start Date End [facility] te [facility] Primary Care 11/21/2024 [facility] MARGOT CARMONA Primary Care 11/21/2024 [facility] Primary Care 11/21/2024 [facility] 08/14/2022 [facility] Primary Care
--- OUTSIDE RECORDS SUMMARY | 2024-12-05 14:38 | XMS_ITS | Clinical Summary ---
Author Organization [facility] Address [address] [place] [address] Care Team Providers Care Instructional Design Consultant Name Role Phone Qiana Crowe MD Unavailable Qiana Crowe MD Primary Care Provider Medications * This document contains information received from the source organization and may not represent a complete record from that organization. prucalopride (MOTEGRITY) 2 mg Tab Take 2 mg by mouth daily. 90 tablet 1 04/24/2024 Active Social History Tobacco Use Types Packs/Day Years Used Date Smoking Tobacco: Never Assessed Comments Unknown Sex and Gender Information Value Date Recorded Sex Assigned at Female 08/19/2023 12:48 PM EDT Legal Sex Female 2:21 PM EDT Gender Identity Female 08/19/2023 12:48 PM EDT Sexual Orientation Not on file Last Filed Vital Signs Vital Sign Reading Time Taken Comments Blood Pressure 111/78 10/31/2023 12:43 PM EDT Pulse 83 10/31/2023 12:43 PM EDT Temperature 36.4 C (97.5 F) 08/19/2023 12:55 PM EDT Respiratory Rate 18 08/19/2023 12:55 PM EDT Oxygen Saturation 95% 10/31/2023 12:43 PM EDT Inhaled Oxygen Concentration - - Weight 95.3 kg (210 lb) 08/19/2023 12:55 PM EDT Height 161 cm (5' 3.39 ) 08/19/2023 12:55 PM EDT Body Mass Index 36.75 08/19/2023 12:55 PM EDT Plan of Treatment Health Maintenance Due Date Last Done Comments Depression Screening 1996 Hepatitis C Screening 2010 DTaP,Tdap,and Td Vaccines (1 - Tdap) 10/20/2011 Pap Smear 2013 Cervical Cancer Screening 2022 HPV/Cotest 2022 Blood Pressure 10/30/2024 10/31/2023 COVID-19 Vaccine (2 - season) 2024 04/10/2020 Influenza Vaccine (#1) 2024 , 02/12/2022, 12/11/2020, Additional history exists Meningococcal B Vaccines Aged Out No longer eligible based on patient's age to complete this topic Meningococcal Vaccines Aged Out No lo nger eligible based on patient's age to complete this topic Pneumococcal Vaccine: Pediatrics (0 to 5 Years) and At-Risk Patients (6 to 64 Years) Aged Out No longer eligible based on patient's age to complete this topic Insurance [facility] [employer] [facility] [employer] Care Teams Instructional Design Consultant Relationship Specialty Start Date End Date Qiana Crowe MD [address] [place] [address] PCP - Insurance Assigned PCP 08/12/23 Qiana Crowe MD [address] [place] [address] PCP - General Internal Medicine 08/15/23
--- OUTSIDE RECORDS SUMMARY | 2024-12-05 14:38 | XMS_ITS | Clinical Summary ---
Author Organization [facility] 299 [facility] Address [address] [place] [address] Phone Care Team Providers Care Winding Operator Name Role Phone Marybel Jerry AREA FIELD PERSON Primary Care Provider [phone]- [phone] Allergies Active Allergy Reactions Criticality Noted Date Comments Fluconazole Hives,Itching 2019 Metronidazole Hcl Other 11/20/2024 metronidazole hydrochloride Morphine Respiratory Issues,Shortness of breath High 11/20/2024 rigid mucles morphine Oxcarbazepine Hives 11/20/2024 hives when dosage was increased Penicillins Anaphylaxis High 11/20/2024 Encounters Date Type Department Care Team Description 11/20/2024 9:15 PM EDT - 11/20/2024 11:36 PM EDT Emergency [facility] Emergency [address] [place] [phone] Johnathon Matthew MD 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, not intractable (Primary Dx) Discharge Disposition: Home or Self Care from Last 3 Months Surgical History Surgery Date Site/Laterality Comments HERNIA REPAIR ADENOIDECTOMY FOOT FRACTURE SURGERY NASAL SEPTUM SURGERY Medical History Medical History Date Comments Benign brain tumor (CMS/HCC V24, CMS/HCC V28) Anxiety Depression IBS (irritable bowel syndrome) GERD (gastroesophageal reflux disease) Migraine headache Family History Medical History Relation Name Comments No Known Problems Brother No Known Problems Daughter No Known Problems Father No Known Problems Mother No Known Problems Other No Known Problems Sister No Known Problems Son Autoimmune disease Neg Hx Breast cancer Neg Hx Colon cancer Neg Hx Coronary artery disease Neg Hx Diabetes Neg Hx Heart attack Neg Hx Heart failure Neg Hx Hyperlipidemia Neg Hx Hypertension Neg Hx Mental illness Neg Hx Prostate cancer Neg Hx Sleep apnea Neg Hx Thyroid disease Neg Hx Relation Name Status Comments Brother Daughter Father Mother Other Sister Son Social History Tobacco Use Types Packs/Day Years Used Date Smoking Tobacco: Never Passive Smoke Exposure: Never Smokeless Tobacco: Never Tobacco Cessation:Counseling Given: Not Answered Alcohol Use Standard Drinks/Week Comments Yes 0 (1 standard drink = 0.6 oz pur e alcohol) social Comments No Sex and Gender Information Value Date Recorded Sex Assigned at Not on file Legal Sex Female 5:01 AM EST Gender Identity Not on file Sexual Orientation Not on file Obstetrics History Last Filed Vital Signs Vital Sign Reading Time Taken Comments Blood Pressure 134/63 11/20/2024 11:25 PM EDT Pulse 90 11/20/2024 11:25 PM EDT Temperature 36.2 C (97.1 F) 11/20/2024 9:09 PM EDT Respiratory Rate 18 11/20/2024 11:25 PM EDT Oxygen Saturation 99% 11/20/2024 11:25 PM EDT Inhaled Oxygen Concentration - - Weight 95.7 kg (211 lb) 11/20/2024 9:09 PM EDT Height 154.9 cm (5' 1 ) 11/20/2024 9:09 PM EDT Body Mass Index 39.87 11/20/2024 9:09 PM EDT Plan of Treatment Health Maintenance Due Date Last Done Comments DTaP,Tdap,and Td Vaccines (1 - Tdap) 10/20/2011 Hepatitis B Vaccines (1 of 3 - 19+ 3-dose series) 10/20/2011 Pneumococcal Vaccine: Pediatrics (0 to 5 Years) and At-Risk Patients (6 to 49 Years) (1 of 2 - PCV) 10/20/2011 Cervical Cancer Screening: P ap Smear 2013 Cholesterol Screening (Lipid Panel) 02/14/2022 HIV Screening 02/14/2022 Hepatitis C Screening 02/14/2022 Social Influencers of Health Screening 02/14/2022 Depression Screening 03/14/2024 COVID-19 Vaccine (2 - 2024-2 6 season) 2024 04/10/2020 Influenza Vaccine (#1) 2024 , 02/12/2022, 12/11/2020 HIB Vaccines Aged Out No longer eligi ble based on patient's age to complete this topic HPV Vaccines Aged Out No longer eligi ble based on patient's age to complete this topic Hepatitis A Vaccines Aged Out No long er eligible based on patient's age to complete this topic IPV Vaccines Aged Out No longer eligi ble based on patient's age to complete this topic MMR Vaccines Aged Out No longer eligi ble based on patient's age to complete this topic Meningococcal ACWY Vaccine Aged Out N o longer eligible based on patient's age to complete this topic Meningococcal B Vaccine Aged Out No l onger eligible based on patient's age to complete this topic RSV Immunization Patients Under 20 months Aged Out No longer eligible b ased on patient's age to complete this topic Varicella Vaccines Aged Out No longer eligible based on patient's age to complete this topic Procedures Procedure Name Priority Date/Time Associated Diagnosis Comments CT HEAD WO CONTRAST STAT 11/20/2024 1 0:23 PM EDT POC , URINE DIAGNOSTIC STAT 11/20/2024 10:07 PM EDT CBC WITH AUTO DIFFERENTIAL STAT 11/20/2024 9:49 PM EDT CBC AND DIFFERENTIAL STAT 11/20/2024 9:49 PM EDT BASIC METABOLIC PANEL STAT 11/20/2024 9:49 PM EDT from Last 3 Months Results * CT Head wo Contrast (11/20/2024 10:23 PM EDT) Anatomical Region Laterality Modality Head and Neck Computed Tomogra phy 11/20/2024 10:5 0 PM EDT Impressions 11/20/2024 10:57 PM EDT No acute intracranial abnormality. Mild paranasal sinus disease. -------- FINAL REPORT -------- Dictated By: Trae Whitney Dictated Date: 11/20/2024 22:50 ET Assigned Physician: Trae Whitney Reviewed and Electronically Signed By: Trae Whitney Signed Date: 11/20/2024 22:57 ET Workstation ID: [id number] Transcribed By: Self Edit Transcribed Date: 11/20/2024 22:50 ET Narrative 11/20/2024 10:57 PM EDT PROCEDURE: CT HEAD WO CONTRAST HISTORY: 34 years Female Headache, classic migraine migraine 1 month TECHNIQUE: CT obtained through the head without intravenous contrast administration. COMPARISON: None available FINDINGS: No acute intracranial hemorrhage, extra-axial/subdural hemorrhage, space- occupying mass/fluid collection, mass effect, or midline shift noted. Osman-white differentiation is preserved and unremarkable. No CT evidence of acute large vascular territory transcortical cerebral infarction. The ventricles, sulci, and cisterns appear normal in size and configuration for chronological age. Bony calvarium and temporomandibular joints are intact. The bony orbits, globes, and retrobulbar structures are intact and unremarkable. Mild mucoperiosteal thickening in bilateral ethmoid, inferior maxillary, and left sphenoid sinuses. No air-fluid levels in the paranasal sinuses or mastoid air cells. Procedure Note Trae Whitney MD - 11/20/2024 PROCEDURE: CT HEAD WO CONTRAST HISTORY: 34 years Female Headache, classic migraine migraine 1 month TECHNIQUE: CT obtained through the head without intravenous contrastadministration. COMPARISON: None available FINDINGS: No acute intracranial hemorrhage, extra-axial/subdural hemorrhage,space- occupying mass/fluid collection, mass effect, or midline shiftnoted. Osman-white differentiation is preserved and unremarkable. No CT evidenceof acute large vascular territory transcortical cerebral infarction. The ventricles, sulci, and cisterns appear normal in size andconfiguration for chronological age. Bony calvarium and temporomandibular joints are intact. The bony orbits, globes, and retrobulbar structures are intact andunremarkable. Mild mucoperiosteal thickening in bilateral ethmoid, inferior maxillary,and left sphenoid sinuses. No air-fluid levels in the paranasal sinuses ormastoid air cells. IMPRESSION: No acute intracranial abnormality. Mild paranasal sinus disease. -------- FINAL REPORT -------- Dictated By: Trae Whitney Dictated Date: 11/20/2024 22:50 ET Assigned Physician: Trae Whitney Reviewed and Electronically Signed By: Trae Whitney Signed Date: 11/20/2024 22:57 ET Workstation ID: [id number] Transcribed By: Self Edit Transcribed Date: 11/20/2024 22:50 ET us Johnathon Matthew MD IMG CT PROCEDURES Final Res ult * POC , urine manually resulted (11/20/2024 10:07 PM EDT) HCG, Ur POC Negative Negative POC hCG Int QC Pass? Yes Yes EXPIRATION DATE POC 05/01/2026 LOT NUMBER POC [id number] Urine Urine specimen obtained by clean catch procedure / Unknown 11/20/2024 10:07 PM EDT us Johnathon Matthew MD POINT OF CARE TEST ENTER/ED IT ORDERABLES Final Result * CBC auto differential (11/20/2024 9:49 PM EDT) [facility] WBC 7.6 4.0 - 10.5 K/mcL LAB HEMETOLOGY METHOD 11/20/2024 9:57 PM EDT [facility] RBC 4.56 4.20 - 5.40 M/mcL LAB HEMETOLOGY METHOD 11/20/2024 9:57 PM EDT [facility] Hemoglobin 13.1 12.5 - 16.0 g/dL LAB HEMETOLOGY METHOD 11/20/2024 9:57 PM EDT [facility] Hematocrit 38.8 37.0 - 47.0 % LAB HEMETOLOGY METHOD 11/20/2024 9:57 PM EDT [facility] MCV 85.1 78.0 - 100.0 FL LAB HEMETOLOGY METHOD 11/20/2024 9:57 PM EDT [facility] MCH 28.7 25.0 - 33.0 pcg LAB HEMETOLOGY METHOD 11/20/2024 9:57 PM EDT [facility] MCHC 33.8 32.0 - 36.0 g/dL LAB HEMETOLOGY METHOD 11/20/2024 9:57 PM [facility] RDW 12.1 12.1 - 16.2 % LAB HEMETOLOGY METHOD 11/20/2024 9:[facility] Platelets LAB HEMETOLOGY METHOD 11/20/2024 9:57 PM [facility] Comment:Occasional platelet clumping seen on smear. Platelet estimate appears adequate on smear review. MPV 9.5 7.4 - 11.4 FL LAB HEMETOLOGY METHOD 11/20/2024 9:57 [facility] Neutrophils Relative 59.1 44.0 - 74.0 % LAB HEMETOLOGY METHOD 11/20/2024 9:57 PM [facility] Lymphocytes Relative 29.5 20.0 - 48.0 % LAB HEMETOLOGY METHOD 11/20/2024 9:57 PM [facility] Monocytes Relative 6.8 2.0 - 12.0 % LAB HEMETOLOGY METHOD 11/20/2024 9:57 PM [facility] Eosinophils Relative 3.5 0.0 - 6.0 % LAB HEMETOLOGY METHOD 11/20/2024 9:57 PM [facility] Basophils Relative 0.7 0.0 - 2.0 % LAB HEMETOLOGY METHOD 11/20/2024 9:57 PM [facility] Neutrophils Absolute 4.50 1.80 - 7.80 K/mcL LAB HEMETOLOGY METHOD 11/20/2024 9:57 PM [facility] Lymphocytes Absolute 2.25 1.00 - 3.20 K/mcL LAB HEMETOLOGY METHOD 11/20/2024 9:57 PM [facility] Monocytes Absolute 0.52 0.00 - 0.80 K/mcL LAB HEMETOLOGY METHOD 11/20/2024 9:57 PM EDT [facility] Eosinophils Absolute 0.27 0.00 - 0.50 K/mcL LAB HEMETOLOGY METHOD 11/20/2024 9:57 PM EDT [facility] Basophils Absolute 0.05 0.00 - 0.20 K/mcL LAB HEMETOLOGY METHOD 11/20/2024 9:57 PM EDT [facility] Blood Venous blood specimen / Unknown Venipuncture / Unknown 11/20/2024 9:49 PM EDT 11/20/2024 9:52 PM EDT Johnathon Matthew MD LAB BLOOD ORDERABLES Final Result [facility] [place] Reg. #:[id number] [address] [place] [address], * (ABNORMAL) Basic Metabolic Panel (BMP) (11/20/2024 9:49 PM EDT) Sodium 133(L) 135 - 145 mmol/L LAB CHEMISTRY METHOD 11/20/2024 10:14 PM [facility] Potassium 4.5 3.5 - 5.1 mmol/L LAB CHEMISTRY METHOD 11/20/2024 10:14 PM [facility] Comment:Moderate Hemolysis m ay affect test result(s). Chloride 104 98 - 107 mmol/L LAB CHEMISTRY METHOD 11/20/2024 10:14 PM [facility] CO2 24 24 - 32 mmol/L LAB CHEMISTRY METHOD 11/20/2024 10:14 [facility] Anion Gap 5 5 - 14 LAB CHEMISTRY METHOD 11/20/2024 10:14 PM [facility] Glucose 100 70 - 199 mg/dL LAB CHEMISTRY METHOD 11/20/2024 10:14 PM EDT [facility] BUN 12 7 - 17 mg/dL LAB CHEMISTRY METHOD 11/20/2024 10:14 PM EDT [facility] Creatinine 0.76 0.50 - 1.00 mg/dL LAB CHEMISTRY METHOD 11/20/2024 10:14 PM EDT [facility] eGFR 107 >=60 mL/min/1. 73m2 LAB CHEMISTRY METHOD 11/20/2024 10:14 PM EDT [facility] Comment:Calculation based on the Chronic Kidney Disease Epidemiology Collaboration (CKD-EPI) equation refit without adjustment for race. BUN/Creatinine Ratio 15.8 12.0 - 20.0 LAB CHEMISTRY METHOD 11/20/2024 10:14 PM EDT [facility] Calcium 9.2 8.4 - 10.2 mg/dL LAB CHEMISTRY METHOD 11/20/2024 10:14 PM EDT [facility] Blood Venous blood specimen / Unknown Venipuncture / Unknown 11/20/2024 9:49 PM EDT 11/20/2024 9:52 PM EDT Johnathon Matthew MD LAB BLOOD ORDERABLES Final Result [facility] [place] Reg. #:[id number] [address] [place] [address], from Last 3 Months Insurance [facility] Care Teams Winding Operator Relationship Specialty Start Date End Date Marybel Jerry NP [address] [place] [phone] PCP - General Nurse Practitioner 11/20/24
--- OUTSIDE RECORDS SUMMARY | 2024-12-05 14:38 | XMS_ITS | Patient Health Record ---
Author Organization [facility] Address [address] [address] Care Team Providers Care Chemical Recovery Operator Name Role Phone Laguerre, Nicole Primary Care Provider Unavailab Klever Adams Unavailable [phone] Priscila Del Valle Unavailable Unavailable Reason For Referral No Information Problems Problem Type SNOMED Code ICD Code Onset Dates Problem Status W/U Status Risk Notes Problem Skin sensation disturbance (85403478) Bilateral leg paresthesia (R20.2) Active confirmed Plan Of Treatment No Information Insurance Providers Payer Name Payer Address Payer Phone Subscriber Number Group Number Insured Name Patient Relationship to Insured Coverage Start Date Coverage End Date [facility] [address] RACHANA CABALLERO [phone] [id number] Margareth Grace Self - patient is the insured
== END 2024-12-05 13:26 | disposition home or self-care (01) ==
LOC: HO.HSM 11:31
PROVIDERS: PCP Nurse Practitioner Adult Health; Visit Provider Nurse Practitioner
DX: G93.2 Benign intracranial hypertension (principal); G43.709 Chronic migraine without aura, not intractable, without status migrainosus
CPT/HCPCS: 99205

== ENCOUNTER 2024-12-12 09:04 | Day surgery (SDC) | payer OTHER, SELFPAY ==
--- OUTSIDE RECORDS SUMMARY | 2024-12-06 17:17 | XMS_ITS | Clinical Summary ---
Author Organization [facility] Address [address] [place] [phone] Phone Care Team Providers Care Airplane Navigator Name Role Phone Jordana Wong MD Primary [...] topic Medical Devices Not on file Insurance [facility] [employer] [facility] [employer] [facility] Care Teams Airplane Navigator Relationship Specialty Start Date End Date Jordana Wong MD [address] [place] [address] PCP - General Internal Medicine 03/21/23 Additional Source Comments The information contained in this document represents components of the legal health record. It is not the complete legal health record.[facility]
--- OUTSIDE RECORDS SUMMARY | 2024-12-06 17:17 | XMS_ITS | Clinical Summary ---
Author Organization [facility] 299 [facility] Address [address] [place] [address] Phone Care Team Providers Care Combatant Diver Officer Name Role Phone Marybel Jerry GLASS PRODUCTION MACHINE OPERATOR Primary Care Provider +1- [phone] Allergies Active Allergy Reactions Criticality Noted Date Comments Fluconazole Hives,Itching 2019 Metronidazole Hcl Other 11/20/2024 metronidazole hydrochloride Morphine Respiratory Issues,Shortness of breath High 11/20/2024 rigid mucles morphine Oxcarbazepine Hives 11/20/2024 hives when dosage was increased Penicillins Anaphylaxis High 11/20/2024 Encounters Date Type Department Care Team Description 11/20/2024 9:15 PM EDT - 11/20/2024 11:36 PM EDT Emergency [facility] Emergency [address] [place] [phone] Johnathon Matthew MD Persistent migraine aura without [...] Signed Date: 11/20/2024 22:57 ET Workstation ID: [id number] Transcribed By: Self Edit Transcribed Date: 11/20/2024 [...] Signed Date: 11/20/2024 22:57 ET Workstation ID: [id number] Transcribed By: Self Edit Transcribed Date: 11/20/2024 22:50 ET us Johnathon Matthew MD IMG CT PROCEDURES Final Res ult * POC , urine manually resulted (11/20/2024 10:07 PM EDT) HCG, Ur POC Negative Negative POC hCG Int QC Pass? Yes Yes EXPIRATION DATE POC 05/01/2026 LOT NUMBER POC [id number] Urine Urine specimen obtained by clean catch procedure / Unknown 11/20/2024 10:07 PM EDT us Johnathon Matthew MD POINT OF CARE TEST ENTER/ED IT ORDERABLES Final Result * CBC auto differential (11/20/2024 9:49 PM EDT) [facility] WBC 7.6 4.0 - 10.5 K/mcL LAB HEMETOLOGY METHOD 11/20/2024 9:57 PM EDT [facility] RBC 4.56 4.20 - 5.40 M/mcL LAB HEMETOLOGY METHOD 11/20/2024 9:57 PM EDT [facility] Hemoglobin 13.1 12.5 - 16.0 g/dL LAB HEMETOLOGY METHOD 11/20/2024 9:57 PM EDT [facility] Hematocrit 38.8 37.0 - 47.0 % LAB HEMETOLOGY METHOD 11/20/2024 9:57 PM EDT [facility] MCV 85.1 78.0 - 100.0 FL LAB HEMETOLOGY METHOD 11/20/2024 9:57 PM EDT [facility] MCH 28.7 25.0 - 33.0 pcg LAB HEMETOLOGY METHOD 11/20/2024 9:57 PM EDT [facility] MCHC 33.8 32.0 - 36.0 g/dL LAB HEMETOLOGY METHOD 11/20/2024 9:57 PM [facility] RDW 12.1 12.1 - 16.2 % LAB HEMETOLOGY METHOD 11/20/2024 9:57 PM [facility] Platelets LAB HEMETOLOGY METHOD 11/20/2024 9:57 PM [facility] Comment:Occasional platelet clumping seen on smear. Platelet estimate appears adequate on smear review. MPV 9.5 7.4 - 11.4 FL LAB HEMETOLOGY METHOD 11/20/2024 9:57 PM [facility] Neutrophils Relative 59.1 44.0 - 74.0 % LAB HEMETOLOGY METHOD 11/20/2024 9:57 PM [facility] Lymphocytes Relative 29.5 20.0 - 48.0 % LAB HEMETOLOGY METHOD 11/20/2024 9:57 PM [facility] Monocytes Relative 6.8 2.0 - 12.0 % LAB HEMETOLOGY METHOD 11/20/2024 9:57 PM [facility] Eosinophils Relative 3.5 0.0 - 6.0 % LAB HEMETOLOGY METHOD 11/20/2024 9:57 PM [facility] Basophils Relative 0.7 0.0 - 2.0 % LAB HEMETOLOGY METHOD 11/20/2024 9:57 PM [facility] Neutrophils Absolute 4.50 1.80 - 7.80 K/mcL LAB HEMETOLOGY METHOD 11/20/2024 9:57 PM [facility] Lymphocytes Absolute 2.25 1.00 - 3.20 K/mcL LAB HEMETOLOGY METHOD 11/20/2024 9:57 PM [facility] Monocytes Absolute 0.52 0.00 - 0.80 K/mcL LAB HEMETOLOGY METHOD 11/20/2024 9:57 PM EDT [facility] Eosinophils Absolute 0.27 0.00 - 0.50 K/mcL LAB HEMETOLOGY METHOD 11/20/2024 9:57 PM EDT [facility] Basophils Absolute 0.05 0.00 - 0.20 K/mcL LAB HEMETOLOGY METHOD 11/20/2024 9:57 PM EDT [facility] Blood Venous blood specimen / Unknown Venipuncture / Unknown 11/20/2024 9:49 PM EDT 11/20/2024 9:52 PM EDT Johnathon Matthew MD LAB BLOOD ORDERABLES Final Result [facility] [place] Reg. #:[id number] [address] [place] [address], * (ABNORMAL) Basic Metabolic Panel (BMP) (11/20/2024 9:49 PM EDT) Sodium 133(L) 135 - 145 mmol/L LAB CHEMISTRY METHOD 11/20/2024 10:14 PM [facility] Potassium 4.5 3.5 - 5.1 mmol/L LAB CHEMISTRY METHOD 11/20/2024 10:14 PM [facility] Comment:Moderate Hemolysis m ay affect test result(s). Chloride 104 98 - 107 mmol/L LAB CHEMISTRY METHOD 11/20/2024 10:14 PM [facility] CO2 24 24 - 32 mmol/L LAB CHEMISTRY METHOD 11/20/2024 10:14 PM [facility] Anion Gap 5 5 - 14 LAB CHEMISTRY METHOD 11/20/2024 10:14 PM [facility] Glucose 100 70 - 199 mg/dL LAB CHEMISTRY METHOD 11/20/2024 10:14 PM EDT [facility] BUN 12 7 - 17 mg/dL LAB CHEMISTRY METHOD 11/20/2024 10:14 PM EDT [facility] Creatinine 0.76 0.50 - 1.00 mg/dL LAB CHEMISTRY METHOD 11/20/2024 10:14 PM EDT [facility] eGFR 107 >=60 mL/min/1. 73m2 LAB CHEMISTRY METHOD 11/20/2024 10:14 PM EDT [facility] Comment:Calculation based on the Chronic Kidney Disease Epidemiology Collaboration (CKD-EPI) equation refit without adjustment for race. BUN/Creatinine Ratio 15.8 12.0 - 20.0 LAB CHEMISTRY METHOD 11/20/2024 10:14 PM EDT [facility] Calcium 9.2 8.4 - 10.2 mg/dL LAB CHEMISTRY METHOD 11/20/2024 10:14 PM EDT [facility] Blood Venous blood specimen / Unknown Venipuncture / Unknown 11/20/2024 9:49 PM EDT 11/20/2024 9:52 PM EDT Johnathon Matthew MD LAB BLOOD ORDERABLES Final Result [facility] [place] Reg. #:[id number] [address] [place] [address], from Last 3 Months Insurance [facility] Care Teams Combatant Diver Officer Relationship Specialty Start Date End Date Marybel Jerry NP [address] [place] [phone] PCP - General Nurse Practitioner 11/20/24
--- NOTE | ~2024-12-12 | FL_ITS ---
EXAMINATION: XR LUMBAR PUNCTURE CLINICAL INFORMATION: G93.2 - Benign intracranial hypertension COMPARISON: None available. TECHNIQUE: Informed consent was obtained from the patient. Timeout was performed. Using fluoroscopic guidance, the L3-4 interlaminar space was identified, marked, and the skin prepped and draped in sterile fashion. Skin and subcutaneous tissues were anesthetized with 1% lidocaine. Subsequently, a 20-gauge Quincke spinal needle was advanced into the thecal sac, and clear CSF was noted at the needle hub. Opening pressure was measured at 26 cm H2O. Approximately 19 mL of clear CSF was obtained passively, and sent for laboratory analysis. The patient tolerated the procedure well. There were no immediate complications. 1 fluoroscopic spot image obtained. FLUOROSCOPY TIME: 8 seconds DOSE AREA PRODUCT: 139 uGy-m2 (microgray-meter squared) FL/FL guided lumbar puncture LP IMPRESSION: 1. Successful L3-4 interlaminar lumbar puncture, with removal of 19 mL of clear CSF. 2. Opening pressure was elevated at 26 cm H2O. Electronically signed by: Speedy Mcclendon MD 12/12/2024 12:03 PM EDT
[2024-12-12 09:41] VITALS: BMI 41.1
[2024-12-12 09:49] LABS: UPreg QC Valid YES
[2024-12-12 10:00] VITALS: BP 122/86; PULSE 93; RESP 16; TEMP 36.4; O2SAT 98
[2024-12-12 10:33] LABS: INTERNATIONAL NORM RATIO 1.1 (0.9-1.1); Prothrombin Time 12.3 SEC (10.9-12.4)
[2024-12-12 11:45] VITALS: BP 109/64; PULSE 80; RESP 16; TEMP 36.7; O2SAT 98
[2024-12-12 12:00] VITALS: BP 118/73; PULSE 100; RESP 16; O2SAT 100
[2024-12-12 12:22] LABS: Oligoclonal Serum Yes
[2024-12-12 12:30] VITALS: BP 111/70; PULSE 91; RESP 18; O2SAT 100
[2024-12-12 12:45] VITALS: BP 110/67; PULSE 91; RESP 18; TEMP 36.8; O2SAT 100
[2024-12-12 12:57] LABS: Red Blood Cell CSF 1 MM*3; White Blood Cell CSF 0 MM*3
[2024-12-16 15:33] LABS: Albumin 4.0 g/dL (3.6-5.1); Albumin, CSF 10.9 mg/dL (8.0-42.0); IgG, CSF 1.2 mg/dL (0.8-7.7)
== END 2024-12-12 12:55 | disposition home or self-care (01) ==
PROVIDERS: Radiology Diagnostic Radiology; PCP Nurse Practitioner Adult Health; Visit Provider Nurse Practitioner
PROC: 009U3ZZ Drainage of Spinal Canal, Percutaneous Approach (ICD-10-PCS; CPT 62270; principal; 2024-12-12 11:00)
DX: G43.709 Chronic migraine without aura, not intractable, without status migrainosus (principal); G44.52 New daily persistent headache (NDPH); H53.2 Diplopia; R41.89 Other symptoms and signs involving cognitive functions and awareness; J34.89 Other specified disorders of nose and nasal sinuses; D35.4 Benign neoplasm of pineal gland; H47.10 Unspecified papilledema; I87.1 Compression of vein; E23.6 Other disorders of pituitary gland; R11.2 Nausea with vomiting, unspecified; R42 Dizziness and giddiness; R90.89 Other abnormal findings on diagnostic imaging of central nervous system; F32.A Depression, unspecified; F42.9 Obsessive-compulsive disorder, unspecified; F41.9 Anxiety disorder, unspecified; J30.9 Allergic rhinitis, unspecified; Z79.899 Other long term (current) drug therapy; Z88.0 Allergy status to penicillin; Z88.5 Allergy status to narcotic agent; Z88.8 Allergy status to other drugs, medicaments and biological substances
CPT/HCPCS: 36415; 62328; 81025; 82042; 82945; 83873; 83916; 84157; 85610; 86335; 87015; 87070; 87205; 89051; J2003

== ENCOUNTER → 2024-12-12 11:00 | Outpatient (BNV) | payer OTHER, SELFPAY | PROVIDERS: PCP Nurse Practitioner Adult Health; Visit Provider Radiology Diagnostic Radiology | DX: G93.2 Benign intracranial hypertension (principal) | CPT/HCPCS: 62328 ==

== ENCOUNTER 2024-12-14 10:19 | Outpatient (AMB) | payer OTHER, SELFPAY ==
--- OUTSIDE RECORDS SUMMARY | 2023-10-07 09:00 | XMS_ITS ---
Author Organization [facility] Address [address] [address] Care Team Providers Care Industrial Furnace Fabricator Name Role Phone Jamar Tucker Primary Care Provider Unavailabl DEMI Sánchez [phone] REASON FOR VISIT 1 month f/u Encounters Encounter Location Date Provider Diagnosis [facility] [address] [address] 10/07/2023 DEMI DEL VALLE Plan Of Treatment No Information Progress Notes * Margareth GRACEDOB:1990 (34 yo F)Acc No.[id number]:10/07/2023 Progress Note Patient: Margareth GROSS Provider: Julia Del Valle DPM :1990 A ge:32 Y S ex:Female Date:10/07/2023 Address:[address] [place] [address] [address] [id number] Pcp:Jamar Tucker Subjective: * Chief Complaints: * 1 . 1 month f/u. * Medical History: Objective: * Vitals: Assessment: Plan: * Treatment: * Billing Information: * Visit Code: * Procedure Codes: * Electronic signature of RISSA DEL VALLE D.P.M on 12/14/2024 at 11:12 AM EDT Sign off status: Pending * Provider: Julia Del Valle DPM Date: 0 10/07/2023 Generated for Printi ng/Faxing/eTransmitting on: 1 11:12 AM EDT
--- NOTE | 2024-12-14 10:25 | A.OFFVIS_ITS ---
Vital Signs 12/14/24 10:33 BP 141/47 H Blood Pressure Location Rt radial Respiration 16 Pulse 80 Pulse Source Pulse Oximeter Intake Visit Reasons: AFTER LP Allergies morphine Allergy (Severe, Verified 02/01/24 13:42) Hives Penicillins Allergy (Severe, Verified 02/01/24 13:42) Hives fluconazole (From Diflucan) Allergy (Intermediate, Verified 02/01/24 13:42) Anaphylaxis oxcarbazepine (From Trileptal) Allergy (Unknown, Verified 02/01/24 13:42) Hives HPI Comments Details: Margareth is a 34-year-old female patient with a past medical history of gastroenteritis, allergic rhinitis, allergies, anxiety disorder, benign neoplasm of the pineal gland, depression, PCOS, OCD, presenting today to follow-up after her lumbar puncture. According to previously documented history: I saw her initially in May of 2024 at which time she reported migraines for many years but more recently getting worse. She was experiencing migraines on average 3 days per week though was still having a low-grade headache on a near daily basis. Migraine-type headaches were generally unilateral, throbbing, and associated with brain fog, nausea, light and sound sensitivity, dizziness, and occasional vomiting. Sleep was likely playing a role as she had reported a significant history of poor sleep . She has trialed numerous therapies for her migraines. 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 At the time of her last visit with me at [facility], I did recommend an EEG, sleep study, discontinuation of Ajovy due to poor efficacy, a trial of Vyepti infusions, and a trial of nasal zolmitriptan for abortive measures. A repeat MRI was ordered and performed 11/27/2024 with and without contrast. 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 She was seen in follow-up at [facility] by Augustus Laureano MD who did recommend a lumbar puncture, sleep study, ophthalmology consult, and continuation of current migraine management . During her last office visit here on 12/05/2024, she reported a constant headache which has been worsening. She went to the emergency room and received a migraine cocktail with a proximally 4 days of relief but headaches returned and again were 1 severe. She did try an oral steroid pack which was ineffective. Headache was bilateral and she was having some double vision and sensation that her head was going to explode. Laying flat and bending forward or causing much more significant pain. She felt difficulty finding her words, was having extreme brain fog and dizziness. She was not getting any relief with her Zomig nasal spray. She was recommended a lumbar puncture based on her MRI findings as well as urgent referral to Ophthalmology and asleep study. She had her lumbar puncture on 01/12/2025 which showed an opening pressure of 26. She did see Ophthalmology who reported that she did not have any signs of pa pilledema on her exam but noted that it could be early on in the intracranial hypertension before affect was visible on optic discs. Margareth tells me today that immediately after her lumbar puncture, she had a mild headache which responded to all the caffeine. Later that day and the day after her lumbar puncture her headaches had improved significantly. She was hydrating well and using caffeine and also resting. It was not until this morning when she got up and was much more active than she has been over the course of the last couple of days that she developed a severe headache. She also notes that the brightness outside also contributed. She tells me today that her headaches are back to the frontal area described as a pressure sensation and they are worse when she leans her head forward. Laying down however does not necessarily exacerbated at this time. It is not worse when she is sitting up or standing. She is currently not experiencing any vision changes though has had the intermittent double vision recently. [facility] Surgical History H/O bilateral inguinal hernia repair H/O fasciotomy History of appendectomy Social History Household Members: Family Alcohol intake: never Patient Tobacco Use Status: Never used Tobacco Review of Systems Const All systems reviewed & are unremarkable except as noted in HPI and below Physical Exam Vital Signs: Last Vital Signs Pulse 80 12/14/24 10:33 Resp 16 10/03/25 10:33 BP 141/47 H 10/03/25 10:33 Const General: cooperative, healthy appearing, comfortable and no acute distress Nutritional Appearance: well nourished Orientation/consciousness: patient oriented x3 Limitations: no limitations HEENT Head: Yes normal to inspection and Yes normocephalic Eyes General: appearance normal, both eyes and all related structures Visual Granados: normal visual granados by confrontation Alignment and Position: alignment normal Periorbital: periorbital findings normal Eyelids: Yes eyelids normal Conjunctivae: conjunctivae normal Sclerae: sclerae normal Direct Ophthalmoscopy: normal light reflex and other (Possible bilateral mild papilledema on exam but not definitive) Neck Neck: Yes normal visual inspection and Yes full ROM General: Yes no CVA tenderness Back/Spine/Pelvis Back: no CVA tenderness Cervical Spine: normal cervical lordosis Thoracic/Lumbar Spine: thoracic and lumbar spine normal to inspection Neuro General: patient oriented x3 and deep tendon reflexes 2+ bilaterally Cranial nerves: Yes CN's II-XII intact bilaterally and Yes Facial sensation intact/muscles of mastication intact Cognition (Neuro): normal cognition Gait exam (Neuro): Normal gait present Motor exam (neuro): 5/5 motor strength present throughout and no tremor noted Sensory Exam: double simultaneous stimulation for sensation normal Romberg Test: Negative Pupils: Normal pupillary reactivity/response: bilateral Psych Appearance: grossly normal Mental Status: mental status grossly normal Speech and movement: Normal speech and movement present and Clear speech present Affect: normal affect Attitude: cooperative Thought process: Normal thought process present Thought content: Normal thought content present Insight: Good insight present (Psych) Judgement: Good judgement present (Psych) Assessment & Plan Assessment & Plan (1) Worsening headaches: Code(s): R51.9 - Headache, unspecified Category: Medical Plan: . Plan Margareth is a 34-year-old female patient with a past medical history of gastroenteritis, allergic rhinitis, allergies, anxiety disorder, benign neoplasm of the pineal gland, depression, PCOS, OCD, presenting today to follow-up after her lumbar puncture. Her most recent MRI and clinical symptoms support likelihood of IIH and therefore she was sent for an urgent ophthalmology exam and lumbar puncture. Her ophthalmology exam was actually reassuring without any significant papilledema on exam though it was noted by the blankbook stitching machine operator that this might be early on in the intracranial hypertension. Her lumbar puncture was only mildly elevated with opening pressure of 26. I think it would still be reasonable to start her on low-dose acetazolamide and see how she tolerates it or if it makes any difference. Alternatively, elevations in lumbar puncture opening pressures can be seen in obesity as well as sleep apnea and hypertension. Still, I am concerned about her sleep playing a significant role. I will try to expedite her sleep study which are scheduled to have done here because she was having some difficulty with prior authorization at [facility]. I will also order her EEG to be performed here with and without sleep. This was ordered back at [facility] but she never did get an appointment for this. -start acetazolamide 250 mg twice daily and then increase if tolerated -expedite sleep study -EEG awake and asleep Orders: Orders EEG awake and asleep Today R51.9 - Headache, unspecified Medications: New acetazolamide 250 mg PO BID 180 tabs 3RF 90 days Coding Level of Care Code Est Pt Level 4 (51101) Diagnoses Worsening headaches R51.9
[2024-12-14 10:33] VITALS: BP 141/47; PULSE 80; RESP 16
--- OUTSIDE RECORDS SUMMARY | 2024-12-14 11:12 | XMS_ITS | Patient Health Record ---
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 Problem Tarsal tunnel syndrome (61487931) Tarsal tunnel syndrome, right lower limb (G57.51) Active confirmed Problem Mononeuropathy of lower limb (606274166) Neuritis of foot, unspecified laterality (G57.90) Active confirmed Problem Tarsal tunnel syndrome (20383718) Tarsal tunnel syndrome of both lower extremities (G57.53) Active confirmed Problem Calcaneonavicular bar (65790632) 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) Active confirmed 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 Vital Signs Height 5ft 1in in 05/02/2024 Weight 198.6 lbs 05/02/2024 BMI 37.52 kg/m2 05/02/2024 Encounters Encounter Location Date Provider Diagnosis [facility] [address] [address] 05/02/2024 DEMI CHA Posterior tibial tendinitis, right leg M76.821 ; Posterior tibial tendinitis, left leg M76.822 ; Extensor tendinitis of foot M77.8 ; Leg swelling M79.89 ; Leg cramping R25.2 ; Neuritis of foot, unspecified laterality G57.90 ; Pain in left leg M79.605 and Pain in right leg M79.604 [facility] [address] [address] 07/09/2024 DEMI CHA Assessments Encounter Date Diagnosis [...] Insured Coverage Start Date Coverage End Date [place] [address] RACHA[place] CABALLERO [phone] [id number] Margareth Grace Self - patient is the [...] 2 Hospitalization History Reason Date(Month/Year) ER visit [facility]- rectal bleeding 10/2022
--- OUTSIDE RECORDS SUMMARY | 2024-12-14 11:12 | XMS_ITS | Clinical Summary ---
Author Organization [facility] [address] [facility] Address [address] [place] [address] Phone Care Team Providers Care Slicing Machine Feeder Name Role Phone Marybel Jerry CORPORATE TRAVEL CONSULTANT Primary Care Provider [phone] Allergies Active Allergy Reactions Criticality Noted Date Comments Fluconazole Hives,Itching 2019 Metronidazole Hcl Other 11/20/2024 metronidazole hydrochloride Morphine Respiratory Issues,Shortness of breath High 11/20/2024 rigid mucles morphine Oxcarbazepine Hives 11/20/2024 hives when dosage was increased Penicillins Anaphylaxis High 11/20/2024 Encounters Date Type Department Care Team Description 11/20/2024 9:15 PM EDT - 11/20/2024 11:36 PM EDT Emergency [facility] Emergency [address] [place] [id number] Johnathon Matthew MD Persistent migraine aura without [...] Cervical Cancer Screening: P ap Smear 2013 HPV Vaccines (1 - 3-dose SCD M series) 10/20/2019 Cholesterol Screening (Lipid Panel) 02/14/2022 HIV Screening 02/14/2022 Hepatitis C Screening 02/14/2022 Social Influencers of Health Screening 02/14/2022 Depression Screening 03/14/2024 COVID-19 Vaccine (2 - 2024-2 6 season) 2024 04/10/2020 Influenza Vaccine (#1) 2024 4, 02/12/2022, 12/11/2020 RSV Immunization Adult Patients (1 - 1-dose 75+ series) 10/20/2067 HIB Vaccines Aged Out No longer eligi [...] Signed Date: 11/20/2024 22:57 ET Workstation ID: [id number] Transcribed By: Self Edit Transcribed Date: 11/20/2024 [...] Signed Date: 11/20/2024 22:57 ET Workstation ID: [id number] Transcribed By: Self Edit Transcribed Date: 11/20/2024 22:50 ET us Johnathon Matthew MD IMG CT PROCEDURES Final Res ult * POC , urine manually resulted (11/20/2024 10:07 PM EDT) HCG, Ur POC Negative Negative POC hCG Int QC Pass? Yes Yes EXPIRATION DATE POC 05/01/2026 LOT NUMBER POC [id number] Urine Urine specimen obtained by clean catch procedure / Unknown 11/20/2024 10:07 PM EDT Johnathon Matthew MD POINT OF CARE TEST ENTER/ED IT ORDERABLES Final Result * CBC auto differential (11/20/2024 9:49 PM EDT) WBC 7.6 4.0 - 10.5 K/mcL LAB HEMETOLOGY METHOD 11/20/2024 9:57 PM EDT [facility] RBC 4.56 4.20 - 5.40 M/mcL LAB HEMETOLOGY METHOD 11/20/2024 9:57 PM EDT [facility] Hemoglobin 13.1 12.5 - 16.0 g/dL LAB HEMETOLOGY METHOD 11/20/2024 9:57 PM EDT [facility] Hematocrit 38.8 37.0 - 47.0 % LAB HEMETOLOGY METHOD 11/20/2024 9:57 PM EDT [facility] MCV 85.1 78.0 - 100.0 FL LAB HEMETOLOGY METHOD 11/20/2024 9:57 PM EDT [facility] MCH 28.7 25.0 - 33.0 pcg LAB HEMETOLOGY METHOD 11/20/2024 9:57 PM EDT [facility] MCHC 33.8 32.0 - 36.0 g/dL LAB HEMETOLOGY METHOD [facility] RDW 12.1 12.1 - 16.2 % LAB HEMETOLOGY METHOD [facility]20[facility]2024 9[facility] Platelets LAB HEMETOLOGY METHOD 11/20/2024 9:57 PM [facility] Comment:Occasional platelet clumping seen on smear. Platelet estimate appears adequate on smear review. MPV 9.5 7.4 - 11.4 FL LAB HEMETOLOGY METHOD [facility]/20[facility]2024 9[facility] Neutrophils Relative 59.1 44.0 - 74.0 % LAB HEMETOLOGY METHOD 11/20/2024 9:57 PM [facility] Lymphocytes Relative 29.5 20.0 - 48.0 % LAB HEMETOLOGY METHOD 11/20/2024 9:57 PM [facility] Monocytes Relative 6.8 2.0 - 12.0 % LAB HEMETOLOGY METHOD 11/20/2024 9:57 PM [facility] Eosinophils Relative 3.5 0.0 - 6.0 % LAB HEMETOLOGY METHOD 11/20/2024 9:57 PM [facility] Basophils Relative 0.7 0.0 - 2.0 % LAB HEMETOLOGY METHOD 11/20/2024 9:57 PM [facility] Neutrophils Absolute 4.50 1.80 - 7.80 K/mcL LAB HEMETOLOGY METHOD 11/20/2024 9:57 PM [facility] Lymphocytes Absolute 2.25 1.00 - 3.20 K/mcL LAB HEMETOLOGY METHOD 11/20/2024 9:57 PM [facility] Monocytes Absolute 0.52 0.00 - 0.80 K/mcL LAB HEMETOLOGY METHOD 11/20/2024 9:57 PM EDT [facility] Eosinophils Absolute 0.27 0.00 - 0.50 K/mcL LAB HEMETOLOGY METHOD 11/20/2024 9:57 PM EDT [facility] Basophils Absolute 0.05 0.00 - 0.20 K/[facility] LAB HEMETOLOGY METHOD 11/20/2024 9:57 PM EDT [facility] Blood Venous blood specimen / Unknown Venipuncture / Unknown 11/20/2024 9:49 PM EDT 11/20/2024 9:52 PM EDT Johnathon Matthew MD LAB BLOOD ORDERABLES Final Result [facility] [place] Reg. #:[id number] [address] [place] [address], * (ABNORMAL) Basic Metabolic Panel (BMP) (11/20/2024 9:49 PM EDT) Sodium 133(L) 135 - 145 mmol/L LAB CHEMISTRY METHOD [facility]/20[facility]2024 10[facility] Potassium 4.5 3.5 - 5.1 mmol/L LAB CHEMISTRY METHOD 11/20/2024 10:14 PM EDT [facility] Comment:Moderate Hemolysis m ay affect test result(s). Chloride 104 98 - 107 mmol/L LAB CHEMISTRY METHOD 11/20[facility]2024 10:[facility] CO2 24 24 - 32 mmol/L LAB CHEMISTRY METHOD 11/20/2024 10:[facility] Anion Gap 5 5 - 14 LAB CHEMISTRY METHOD 11/20[facility]2024 10:[facility] Glucose 100 70 - 199 mg/dL LAB CHEMISTRY METHOD 11/20/2024 10:14 PM EDT [facility] BUN 12 7 - 17 mg/dL LAB CHEMISTRY METHOD 11/20/2024 10:14 PM EDT [facility] Creatinine 0.76 0.50 - 1.00 mg/dL LAB CHEMISTRY METHOD 11/20/2024 10:14 PM EDT [facility] eGFR 107 >=60 mL/min/1. 73m2 LAB CHEMISTRY METHOD 11/20/2024 10:14 PM EDT [facility] Comment:Calculation based on the Chronic Kidney Disease Epidemiology Collaboration (CKD-EPI) equation refit without adjustment for race. BUN/Creatinine Ratio 15.8 12.0 - 20.0 LAB CHEMISTRY METHOD 11/20/2024 10:14 PM EDT [facility] Calcium 9.2 8.4 - 10.2 mg/dL LAB CHEMISTRY METHOD 11/20/2024 10:14 PM EDT [facility] Blood Venous blood specimen / Unknown Venipuncture / Unknown 11/20/2024 9:49 PM EDT 11/20/2024 9:52 PM EDT Johnathon Matthew MD LAB BLOOD ORDERABLES Final Result [facility] [place] Reg. #:[id number] [address] [place] [address], [place] [phone] from Last 3 Months Insurance [facility] Care Teams Slicing Machine Feeder Relationship Specialty Start Date End Date Marybel Jerry NP [address] [facility] [address] PCP - General Nurse Practitioner 11/20/24
--- OUTSIDE RECORDS SUMMARY | 2024-12-14 11:12 | XMS_ITS | Clinical Summary ---
Author Organization [facility] Address [address] [place] [address] Care Team Providers Care Closing Coordinator Name Role Phone Qiana Crowe MD Unavailable [phone] Qiana Crowe MD Primary Care Provider Medications [...] patient's age to complete this topic Pneumococcal Vaccine Aged Out No long er eligible based on patient's age to complete this topic Insurance [facility] Satomi Maintenance Organization (HMO) Address: [facility] [id number] RACHANA CABALLERO [phone] [facility] Care Teams Closing Coordinator Relationship Specialty Start Date End Date Qiana Crowe MD [address] [place] [address] PCP - Insurance Assigned PCP 08/12/23 Qiana Crowe MD [address] [place] [address] PCP - General Internal Medicine 08/15/23
--- OUTSIDE RECORDS SUMMARY | 2024-12-14 11:12 | XMS_ITS | Patient Health Record ---
Author Organization [facility] Address [address] [address] Care Team Providers Care Cant Gang Sawyer Name Role Phone Laguerre, Nicole Primary Care Provider Unavailab Klever Adams Unavailable [phone] Priscila Del Valle Unavailable Unavailable Reason For Referral No Information Problems Problem Type SNOMED Code ICD Code Onset Dates Problem Status W/U Status Risk Notes Problem Skin sensation disturbance (82091368) Bilateral leg paresthesia (R20.2) Active confirmed Plan Of Treatment No Information Insurance Providers Payer Name Payer Address Payer Phone Subscriber Number Group Number Insured Name Patient Relationship to Insured Coverage Start Date Coverage End Date [facility] [address] [place] CABALLERO [phone] [id number] Margareth Grace Self - patient is the insured
--- OUTSIDE RECORDS SUMMARY | 2024-12-14 11:12 | XMS_ITS | Clinical Summary ---
Author Organization [facility] Address [address] [place] [address] Phone Care Team Providers Care Director Of Marketing Communications Name Role Phone Jordana Wong MD Primary [...] topic Medical Devices Not on file Insurance [facility] [employer] NT[employer] HMO [facility] [employer] [employer] [facility] [employer] Care Teams Director Of Marketing Communications Relationship Specialty Start Date End Date Jordana Wong MD [address] [place] [address] PCP - General Internal Medicine 03/21/23 Additional Source Comments The information contained in this document represents components of the legal health record. It is not the complete legal health record.[facility]
== END 2024-12-14 10:59 | disposition home or self-care (01) ==
LOC: HO.HSM 10:19
PROVIDERS: Visit Provider Nurse Practitioner
DX: R51.9 Headache, unspecified (principal)
CPT/HCPCS: 99214

== ENCOUNTER 2024-12-21 10:04 | Outpatient (REF) | payer OTHER, SELFPAY ==
--- NOTE | 2024-12-21 10:08 | EEG_ITS ---
Reason for Exam: R51.9 Headache Roomed Performed:?1st floor History: gastroenteritis, allergic rhinitis, allergies, anxiety disorder, benign neoplasm of pineal gland, depression, PCOS, OCD - Patients states she has had a migraine for the last 90 days without relieve. the migraines are described as unilateral, throbbing, with brain fog, nausea, light and sound sensitivity, dizziness, and occasional vomiting. Medication: acetazolamide Technical description Photic stimulation: completed Hyperventilation:?performed - good effort Behavioral state: cooperative, pleasant State of Consciousness: awake and drowsy Skull defect: none Sedation: none Handedness: right Duration of study:?32 min 00 sec Description: This is a 16 channel EEG with an EKG lead. Patient is reported awake and drowsy during the tracing. Background EEG rhythm is about 10 hertz 5- 20 microvolt posteriorly and lower amplitude fast anteriorly. Photic stimulation does not produce any significant driving. Hyperventilation is unremarkable. Cardiac lead does not reveal any significant abnormality. No sharp wave spikes or paroxysmal tendency noted. Impression: Unremarkable EEG. MTDD
== END 2024-12-21 10:05 | disposition home or self-care (01) ==
LOC: HO.NEURO 10:04
PROVIDERS: PCP Nurse Practitioner Adult Health; Visit Provider Nurse Practitioner
DX: R51.9 Headache, unspecified (principal)
CPT/HCPCS: 36415; 85652; 86141; 95819

== ENCOUNTER → 2024-12-21 10:08 | Outpatient (BNV) | payer OTHER, SELFPAY | PROVIDERS: PCP Nurse Practitioner Adult Health; Visit Provider Psychiatry & Neurology Neurology | DX: R51.9 Headache, unspecified (principal) | CPT/HCPCS: 95816 ==

== ENCOUNTER 2024-12-22 08:42 | Emergency (ER) | payer OTHER, SELFPAY ==
--- OUTSIDE RECORDS SUMMARY | 2023-10-07 09:00 | XMS_ITS ---
Author Organization [facility] Address [address] [address] Care Team Providers Care Hydraulic Press Servicer Name Role Phone Jamar Tucker Primary Care Provider Unavailabl DEMI Sánchez [phone] REASON FOR VISIT 1 month f/u Encounters Encounter Location Date Provider Diagnosis [facility] [address] [address] 10/07/2023 DEMI DEL VALLE Plan Of Treatment No Information Progress Notes * Margareth GRACEDOB:1990 (34 yo F)Acc No.[id number]:10/07/2023 Progress Note Patient: Margareth GROSS Provider: Julia Del Valle DPM :1990 A ge:32 Y S ex:Female Date:10/07/2023 Address:[address] [place] [address] [address] [id number] Pcp:Jamar Tucker Subjective: * Chief Complaints: * 1 . 1 month f/u. * Medical History: Objective: * Vitals: Assessment: Plan: * Treatment: * Billing Information: * Visit Code: * Procedure Codes: * Electronic signature of RISSA DEL VALLE D.P.M on 12/22/2024 at 09:13 AM EDT Sign off status: Pending * Provider: Julia Del Valle DPM Date: 0 10/07/2023 Generated for Printi ng/Faxing/eTransmitting on: 1 09:13 AM EDT
[2024-12-22 08:44] VITALS: BP 140/74; PULSE 110; RESP 18; TEMP 36.6; O2SAT 97; BMI 37.2
--- NOTE | 2024-12-22 09:04 | ED_ITS ---
HPI - General Adult General Chief complaint: Headache Stated complaint: migraine drip sent from provider Time Seen by Provider: 12/22/24 09:03 Source: patient Mode of arrival: ambulatory Limitations: no limitations History of Present Illness ED Provider: Allison Mays PA-C HPI narrative: Patient is a 34 year old assigned female at with a history of IIH, IBS, OCD, depression, anxiety, asthma, PTSD, and migraines for which she follows with [facility] Neu[facility] presenting to the emergency department today for a migraine cocktail. Patient states that she has had an extensive work up for her migraines and continues to be worked up but her neurology provider recommended she come to the ER for a migraine cocktail given she has had pain for 90 days straight. Patient denies any any other complaints at this time. Related Data Home Medications ?Medication ?Instructions ?Recorded ?Confirmed hydroxyzine pamoate 25 mg capsule 25 mg PO BID 3 12/05/24 lorazepam 0.5 mg tablet 0.5 mg PO BID PRN 12/03/22 0 12/05/24 cetirizine 10 mg capsule (Zyrtec) 10 mg PO DAILY PRN 1 04/02/23 12/05/24 lurasidone 60 mg tablet (Latuda) 60 mg PO DAILY 12/05/24 magnesium 250 mg tablet 250 mg PO DAILY 02/01/24 omeprazole 40 mg capsule,delayed 40 mg PO DAILY 12/05/24 release desogestrel 0.15 mg-ethinyl 1 tab PO QAM 12/05/2411/13 estradiol 0.03 mg tablet (Apri) liraglutide (weight loss) 3 mg/0.5 mg subcut 12/05/24 12/05/24 mL (18 mg/3 mL) subcut pen injector (Saxenda) propranolol 20 mg tablet 20 mg PO DAILY 12/05/2411/13 zolmitriptan 5 mg nasal spray intranasal 12/05/2411/13 Previous Rx's ?Medication ?Instructions ?Recorded lorazepam 2 mg tablet 2 mg PO ONCE anxiety #1 tab 12/05/24 acetazolamide 250 mg tablet 250 mg PO BID 90 days #180 tabs 12/14/24 divalproex 250 mg tablet,delayed 250 mg PO BID #30 tab s 12/17/24 release (Depakote) dexamethasone 4 mg tablet 4 mg PO BID 4 days #8 tabs 1 dihydroergotamine 0.5 mg/pump act. 1 spray intranasal ONCE 2 doses #1 12/21/24 (4 mg/mL) nasal spray mL Allergies Allergy/AdvReac Type Severity Reaction Status Date / Time morphine Allergy Severe Hives Verified 12/22/24 08:48 Penicillins Allergy Severe Hives Verified 12/22/24 08:48 fluconazole (From Diflucan) Allergy Intermediate Anaphylaxis Verified 12/22/24 08:48 oxcarbazepine (From Allergy Unknown Hives Verified 12/22/24 08:48 Trileptal) Review of Systems Constitutional: Constitutional: Reports as per HPI Eyes: Eyes: Reports as per HPI ENT: Reports as per HPI Cardiovascular: Cardiovascular: Reports as per HPI Respiratory: Respiratory: Reports as per HPI Gastrointestinal: Gastrointestinal: Reports as per HPI Genitourinary: Genitourinary: Reports as per HPI Musculoskeletal: Musculoskeletal: Reports as per HPI Integumentary/Breasts: Skin/Breast: Reports as per HPI Neurologic: Reports as per HPI Psychiatric: Psychiatric: Reports as per HPI Endocrine: Endocrine: Reports as per HPI Hematologic/Lymphatic: Hematologic/Lymphatic: Reports as per HPI Allergic/Immunologic: Allergic/Immunologic: Reports as per HPI [facility] Past Medical History Attestation statement: The following information was validated with the patient. Source: old records reviewed and nursing notes reviewed Surgical History H/O bilateral inguinal hernia repair H/O fasciotomy History of appendectomy Social History Social History Household Members: Family Alcohol intake: never Patient Tobacco Use Status: Never used Tobacco Smoked in Last 30 Days: No Use of substances other than those prescribed or required for medical reasons: No Advance Directives: No Advance Directives Information Provided: No Do you have a plan to hurt others: No Plan Physical Exam ED Vital Signs: Vital Signs - 24 hr 12/22/24 08:44 12/22/24 11:42 Temperature 97.8 F 97.8 F Pulse Rate 110 H 110 H Respiratory Rate 18 18 Blood Pressure 140/74 H 140/74 H Pulse Oximetry 97 97 Oxygen Delivery Method Room Air Room Air BMI result Body Mass Index 37.2 Const General: cooperative, no acute distress, alert and awake Nutritional Appearance: well nourished Orientation/consciousness: patient oriented x3 HENMT Head: Yes normal to inspection and Yes atraumatic Ears: hearing grossly normal bilaterally and external ears normal General nose exam: Normal external nose present, no nasal discharge noted and no epistaxis Face and sinus: Yes normal facial exam, No abrasion and No laceration Mouth: Normal oral and palatal mucosa present, no drooling and no muffled voice Eyes General: appearance normal, both eyes and all related structures Periorbital: periorbital findings normal Eyelids: Yes eyelids normal Conjunctivae: conjunctivae normal Pupils: Equal, round and reactive pupils present EOM: EOMs intact bilaterally Neck Neck: Yes normal visual inspection and Yes full ROM Resp Effort & Inspection: normal respiratory effort and able to speak in complete sentences Neuro General: patient oriented x3, moves all extremities and CN's II-XI intact bilaterally Cranial nerves: Yes Equal, round and reactive pupils present Cognition (Neuro): normal cognition Extrem General: Yes normal to inspection, Yes full ROM and Yes capillary refill normal Psych Appearance: grossly normal Mental Status: mental status grossly normal Affect: normal affect Attitude: cooperative Thought process: Normal thought process present Thought content: Normal thought content present Insight: Good insight present (Psych) Medications Administered Discontinued Medications Generic Name Dose Route Start Last Admin Trade Name Lesterq PRN Reason Stop Dose Admin Dexamethasone Sodium Phosphate 10 mg 12/22/24 10:24 12/22/24 10:39 Dexamethasone Sod Phosphate 10 Mg/Ml Vial IVPUSH 12/22/24 10:25 10 mg ONCE ONE Administration Diphenhydramine HCl 25 mg 12/22/24 09:16 12/22/24 10:11 Diphenhydramine Hcl 50 Mg/Ml Vial IVPUSH 12/22/24 09:17 25 mg ONCE ONE Administration Magnesium Sulfate 2 gm in 50 mls @ 150 mls/hr 12/22/24 09:16 12/22/24 11:41 Magnesium Sulfate/H2o IV 12/22/24 09:35 Infused ONCE ONE Infusion Sodium Chloride 1,000 mls @ 999 mls/hr 12/22/24 09:30 12/22/24 11:41 Ns IV 12/22/24 10:30 Infused .Q1H1M CAT Infusion Ketorolac Tromethamine 15 mg 12/22/24 09:16 12/22/24 10:11 Ketorolac Tromethamine 15 Mg/Ml Vial IVPUSH 12/22/24 09:17 15 mg ONCE ONE Administration Metoclopramide HCl 10 mg 12/22/24 09:16 12/22/24 10:14 Metoclopramide Hcl 10 Mg/2 Ml Vial IVPUSH 12/22/24 09:17 10 mg ONCE ONE Administration Medical Decision Making Medical Decision Making MDM Narrative: Patient is a 34 year old assigned female at with a history of IIH, IBS, OCD, depression, anxiety, asthma, PTSD, and migraines for which she follows with [facility] presenting to the emergency department today for a migraine cocktail. Patient's physical exam was as noted in the physical exam portion of this note. I explained my physical exam findings to the patient. I answered all questions asked by the patient. Patient received IV decadron, reglan, benadryl, magnesium, and Toradol which, upon re-evaluation, she stated it helped her headache some. I stressed the importance of the patient taking her medication as directed (either prescribed or as the over the counter packaging recommends). I stressed the importance of the patient following up with her primary care provider and the neurology team. I stressed the importance of the patient returning to the emergency department immediately if her symptoms were to worsen or if she were to develop any dizziness, shortness of breath, difficulty breathing, chest pain, blurry vision, loss of vision, nausea, vomiting, abdominal pain, fever, chills, back pain, or any other complaints. Patient verbalized agreement and understanding with this treatment plan and discharge. Differential Diagnosis Differential Diagnoses: The differential diagnosis associated with the presentation includes Migraine Admission/Observation Consideration of admission/observation: Escalation of care including admission/observation considered Patient would have been admitted to the hospital had her clinical presentation warranted hospital admission. Discharge Plan Discharge Clinical Impression: Migraine Patient Disposition: Home, Self-Care Instructions: Migraine Headache (ED) Additional Instructions: Continue following with your neurologist. IF you are prescribed home medications and/or you are taking over the counter medications at home - it is very important you continue to do so as prescribed / directed unless told otherwise. Follow up with your primary care provider. Return to the emergency department immediately if your symptoms worsen or if you develop any numbness, tingling, dizziness, shortness of breath, difficulty breathing, chest pain, blurry vision, loss of vision, nausea, vomiting, abdominal pain, fever, chills, back pain, or any other complaints. Please see the information below about our Patient Portal. If you are not yet enrolled in the [facility] Patient Portal, you will receive an enrollment email invitation following your visit to any [facility], located within [facility] setting. You may also self-enroll in the Patient Portal by visiting our website: [email or web address] The following information is required to access the Patient Portal: - Your [facility] Medical Record Number - Your personal home email address (must match what is in your electronic medical record, Registration staff can assist with this) - Name - Date of Capabilities of the Patient Portal: - Message some providers - View upcoming appointments - Access your health summary, medical history, and visit history - View current conditions and allergies - View procedure and lab results - View your medications, including guidelines, side effects, and precautions - Complete pre-appointment questionnaires requested by your provider - Ready summary reports of your office visits and procedures To access the Patient Portal Mobile Ace, follow these directions: - Search [employer] in the Ace Store or [employer] ([employer] Store - Download the Ace - Search for - Enter your login/password Prescriptions: No Action divalproex [Depakote] 250 mg tablet,delayed release (DR/EC) 250 mg PO BID Qty: 30 5RF dihydroergotamine 0.5 mg/pump act. (4 mg/mL) spray,non-aerosol 1 spray intranasal ONCE Qty: 1 0RF Rx Instructions: administer into each nostril dexamethasone 4 mg tablet 4 mg PO BID 4 Days Qty: 8 0RF Rx Instructions: Start Dexamethasone taper after headache resolution to prevent headache recurrence. hydroxyzine pamoate 25 mg capsule 25 mg PO BID lorazepam 0.5 mg tablet 0.5 mg PO BID PRN lurasidone [Latuda] 60 mg tablet 60 mg PO DAILY Rx Instructions: must administer with food (at least 350 calories) omeprazole 40 mg capsule,delayed release(DR/EC) 40 mg PO DAILY magnesium 250 mg tablet 250 mg PO DAILY Zyrtec 10 mg capsule 10 mg PO DAILY PRN desogestrel-ethinyl estradiol [Apri] 0.15-0.03 mg tablet 1 tab PO QAM propranolol 20 mg tablet 20 mg PO DAILY zolmitriptan 5 mg spray,non-aerosol intranasal liraglutide (weight loss) [Saxenda] 3 mg/0.5 mL (18 mg/3 mL) pen injector subcut lorazepam 2 mg tablet 2 mg PO ONCE Qty: 1 0RF Rx Instructions: Take one tablet by mouth about 1/2hr prior to scheduled procedure. acetazolamide 250 mg tablet 250 mg PO BID 90 Days Qty: 180 3RF Referrals: Marybel Jerry, INTERNATIONAL SALES MANAGER [Primary Care Provider, Medical] Interventions: ED Discharge Assessment Last Done: 12/22/24 11:42 Discharge Date/Time: 12/22/24 11:44 Print Language: [place]
--- OUTSIDE RECORDS SUMMARY | 2024-12-22 09:13 | XMS_ITS | Clinical Summary ---
Author Organization [facility] Address [address] [place] [id number] Care Team Providers Care Labeling Machine Operator Name Role Phone Qiana Crowe MD Unavailable [phone] Qiana Crowe MD Primary Care Provider Medications [...] patient's age to complete this topic Insurance [facility] Euphoria App Maintenance Organization (HMO) Address: [facility] [id number]ERO [id number] [facility] [employer] Care Teams Labeling Machine Operator Relationship Specialty Start Date End Date Qiana Crowe MD [address] [place] [address] PCP - Insurance Assigned PCP 08/12/23 Qiana Crowe MD [address] [place] [address] PCP - General Internal Medicine 08/15/23
--- OUTSIDE RECORDS SUMMARY | 2024-12-22 09:13 | XMS_ITS | Clinical Summary ---
Author Organization [facility] Address [address] [place] [id number] Phone Care Team Providers Care Wire Spring Relay Adjuster Name Role Phone Jordana Wong MD Primary [...] topic Medical Devices Not on file Insurance [facility] [employer] NTK HMO [facility] [employer] HMO [facility] [employer] [facility] Care Teams Wire Spring Relay Adjuster Relationship Specialty Start Date End Date Jordana Wong MD [address] [place] [address] PCP - General Internal Medicine 03/21/23 Additional Source Comments The information contained in this document represents components of the legal health record. It is not the complete legal health record.[facility]
--- OUTSIDE RECORDS SUMMARY | 2024-12-22 09:13 | XMS_ITS | Data Portability ---
Author Organization [place] - [facility], Allergy Address [address] [address] Care Team Providers Care Pocket Builder Name Role Phone MARGOT CARMONA Primary Care Provider Assessment Encounter Date Assessment Date Assessment LastModified by Organization Details LastModified Time 04/20/2024 04/20/2024 33 year old female presents for evaluation of dizziness and sinuses. On exam, bilateral TMs are intact with well aerated middle ear spaces. 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 No acute pathology or abnormal enhancement in the brain was noted. Incidentally also noted mild mucosal thickening with mucous retention cyst in the right inferior maxillary sinus. Audiometric testing demonstrated normal auditory thresholds bilaterally. Mark-Hallpike was negative. We discussed that she may have experienced an episode of BPPV given positional triggers. We also discussed that the dizziness may be related to underlying migraines. As Limestone-Hallpike was negative, will hold off on referral to vestibular therapy. She is in the process of establishing care with a new neurologist for management of pineal cyst and migraines. She will continue to avoid migraine dietary triggers. She will follow-up if vertigo persists or recurs. Patient with history of bilateral FESS presents with increased facial pressure and nasal drainage. MRI was personally reviewed and we discussed no further intervention for mucous retention cyst. Nasal endoscopy demonstrated patent sinus cavities, adhesion of the left middle turbinate, and thick yellow mucoid rhinorrhea bilaterally. Given recent course of doxycycline, will hold off on further antibiotics. Culture of the left nasal cavity was obtained today and medical therapy will be initiated pending results. She will follow-up in 1 month for reevaluation. If no improvement, may consider CT sinus at that time. [email or web address] Not available 04/20/2024 12:04:22 05/17/2024 05/17/2024 33 year old female with history of bilateral FESS presents with increased facial pressure and nasal drainage. Preliminary nasal culture with skin tereza isolated. Would not recommend any further antibiotics at this time. Recommended CT sinus given persistent symptoms. She will follow-up to review the results. [email or web address] Not available 05/17/2024 16:44:33 Plan of Treatment Reminders Order Date Submit Date Provider Last Modified By Organization Details Last Modified Time Details Appointments Establish ed 15 2024 03:30P M ADOLFO AGUILA PA-C Not available Not available Not available Lab culture, aerobic + anaerobic 2024 025 [facility] (Centralized Electronic Ordering - All Locations), Patient Can Go To The Location Of Their Choice, [id number] 05/21/2024 11:17:11 fungus, culture, unspecifi ed specimen 2024 025 [facility] (Centralized Electronic Ordering - All Locations), Patient Can Go To The Location Of Their Choice, [id number] 05/21/2024 11:17:12 Referral None recorded. Procedures None recorded. Surgeries None recorded. Imaging CT, sinuses, w/o contrast [address] [facility], [address] [facility], [place], [address], 06/05/2024 13:29:52 Medication Orders None recorded. Patient TargetsNo targets recorded. Patient InstructionsNo instructions recorded. Reason for Referral None Reported. Results Created Date Observation Date Name Description Value Unit Range Abnormal Flag Note LastModifiedBy Organization Detail LastModifiedTime 04/20/1904/23/2024 ANAER OBIC AND AEROB IC CULTU RE aerobic culture Final report Not Available [facility] ([facility]) [address] [facility], [place], [address], 05/21/2024 11:17:11 04/20/1904/23/2024 ANAER OBIC AND AEROB IC CULTU RE result 1 Skin tereza isolat ed Light growt h Not Available [facility] ([facility]) [address] [facility], [place], [address], 05/21/2024 11:17:11 04/20/19 25 04/24/2024 ANAER OBIC AND AEROB IC CULTU RE anaerobic culture Final report Not Available [facility] ([facility]) [address] [facility], [place], [address], 05/21/2024 11:17:11 04/20/19 25 04/24/2024 ANAER OBIC AND AEROB IC CULTU RE result 1 COMMEN T No anaer obic growt h in 72 hours . Not Available [facility] ([facility]) [address] [facility], [place], [address], 05/21/2024 11:17:11 04/20/19 25 05/21/2024 FUNGU S (MYCO LOGY) CULTU RE fungus (mycology) culture Final report Not Available [facility] ([facility]) [address] [facility], [place], [address], 05/21/2024 11:17:12 04/20/19 25 05/21/2024 FUNGU S (MYCO LOGY) CULTU RE result 1 COMMEN T No yeast or mold isola maile after 4 weeks . Not Available [facility] ([facility]) [address] [facility], [place], [address], 05/21/2024 11:17:12 04/20/19 25 audio gram No observ ation record ed. BARCODE Not Available 2024 15:28:37 04/20/19 25 11/07/2023 MRI, brain + brain stem, w/wo contr ast No observ ation record ed. [email or web address] Not Available 09/2024 15:34:53 06/06/19 25 06/05/2024 CT, sinus es, w/o contr ast No observ ation record ed. [email or web address] [facility] [address], [address], 06/06/2024 09:31:23 Result Notes None recorded. Problems Name Problem SNOMED Code Status Onset Date Resolution Date Notes Provider Name and Address Organization Details Recorded Time Deviated nasal septum 216596517 Active 2017 Deviated nasal septum; Location: right Not e: Date Diagnosed : 11/25/2017 10:25 AM (J34.2) Not Available [facility] 4 03:04:22 Chronic frontal sinusitis 76487939 Active 2017 Chronic frontal sinusitis ; Location: left Note : Date Diagnosed : 11/25/2017 10:24 AM (J32.1) Not Available [facility] 4 03:04:22 Migraine without aura, not refractor y 722942636 Active 2017 Migraine without aura, not intractab le, without status migrainos us; Note: Date Diagnosed : 11/25/2017 10:24 AM (G43.009) Not Available [facility] 4 03:04:22 Chronic rhinitis 43614846 Active 2017 Chronic rhinitis; Note: Date Diagnosed : 8 12:39 PM (J31.0) Not Available [facility] 4 03:04:23 Headache 69292113 Active 2017 Headache; Note: Date Diagnosed : 8 12:39 PM (R51) Not Available [facility] 4 03:04:23 Hypertrop hy of nasal turbinate s 52420008 Active 2017 Hypertrop hy of nasal turbinate s; Note: Date Diagnosed : 8 6:02 PM (J34.3) Not Available [facility] 4 03:04:24 Chronic sinusitis 51220032 Active 2017 Other chronic sinusitis ; Note: Date Diagnosed : 8 6:02 PM (J32.8) Not Available [facility] 4 03:04:23 Follow-up visit Active 2017 Encounter for follow-up examinati on after completed treatment for condition s other than malignant neoplasm; Note: Date Diagnosed : 8 5:38 PM (Z09) Not Available [facility] 4 03:04:23 Bilateral tinnitus [id number] 02 Active 2024 EREN HAWK MA, ANG-A [address] [facility],[address] [address], [place], [address] , [facility] 5 10:25:36 Dizziness and giddiness 941205743 Active 2024 ADOLFO AGUILA PA-C [address] [place] [address],[address] [address], [place], [address] , [facility] 5 11:58:43 Seasonal allergic rhinitis 587772059 Active 2024 ADOLFO AGUILA PA-C [address] [place] [address],[address] [address], [place], [address] , [facility] 13:03:20 Problem Notes None recorded. Procedures Surgical History Date Name Laterality Status Provider Name and Address Organization Details Recorded Time Telehealth completed ADOLFO AGUILA PA-C [address] [place] [address],[address], [address], [facility] 05/17/2024 16:43:21 JMSNasal/Sinus Endoscopy-PRIOR surgical cavities completed ADOLFO AGUILA PA-C [address] [place] [address],[address], [address], [facility] 04/20/2024 11:47:03 Air & Speech Audio with Tymps - 50301, 56447 & [address]42 completed EREN HAKW MA, ANG-A [address] [facility],[address], [address], [facility] 04/20/2024 10:25:43 Imaging Results None recorded. Procedure Notes None recorded. Medical Equipment None Reported. Allergies Allergen ID Allergen Name Allergen Category Reaction Reaction Severity Criticality Documentation Date Start Date Code Code System Note Provider Name and Address Organization Details Recorded Time 443226 metronida zole hydrochlo ride medicatio n other Not available Not available 07/26/2023 35315 RxNorm React ion: unkno wn, unspe cifie d;; Not Available [facility] 4 01:21:47 092177 morphine medicatio n other Not available Not available 07/26/2023 7052 RxNorm React ion: unkno wn, unspe cifie d;; Not Available [facility] 4 01:21:47 128133 Product containin g penicilli n (product) medicatio n Not available Not available Not available 04/20/2024 41435 8001 SNOMED ADOLFO AGUILA PA-C [address] [facility],[address] [address], [place], [address], [facility] - [facility] 5 12:03:57 [id number] Diflucan medicatio n Not available Not available Not available 04/23/2024 3 RxNorm KEANU POLO MD [address] [address], [place], [address], [facility] 5 10:25:15 960384 Trileptal medicatio n Not available Not available Not available 04/23/2024 76719 0 RxNorm KEANU POLO MD [address] [address], [place], [address], [facility] 5 10:25:15 Medications Name Sig Start Date Stop Date Status Note LastModified by Organization Details LastModified Time fluoxetin e 40 mg capsule 07/30 completed Medicati on ID: [id number] D uration Value: 30 Brand Name: fluoxeti ne Send Method: E-Prescr ibed Sub s Allowed: subs OK Medic ationGen ericName : fluoxeti ne Not Available Not Available Not Available Mirena 21 mcg/24 hr (up to 8 years) 52 mg intrauter ine device 03/21 completed Medicati on ID: [id number] B rand Name: Mirena S end Method: E-Prescr ibed Sub s Allowed: subs OK Medic ationGen ericName : Mirena Not Available Not Available Not Available oxcarbaze pine 150 mg tablet TAKE 1 TABLET BY MOUTH EVERY DAY 04/17 completed Not Available Not Available Not Available doxycycli ne hyclate 100 mg capsule TAKE 1 CAPSULE BY MOUTH TWICE A DAY FOR 14 DAYS active Not Available Not Available No t Available ketoconaz ole 2 % shampoo USE SHAMPOO IN SCALP EVERY OTHER DAY, LEAVE IN FOR 5 MINUTES BEFORE RINSING. active Not Available Not Available No t Available Apri 0.15 mg-0.03 mg tablet TAKE 1 TABLET BY MOUTH EVERY DAY IN THE MORNING active Not Available Not Available No t Available oxybutyni n chloride ER 10 mg tablet,ex tended release 24 hr TAKE 1 TABLET AT THE SAME TIME DAILY 04/17 completed Not Available Not Available Not Available azithromy yusra 250 mg tablet TAKE 2 TABLETS BY MOUTH TODAY, THEN TAKE 1 TABLET DAILY FOR 4 DAYS DIRECTED active Not Available Not Available No t Available ibuprofen 800 mg tablet 04/17 completed Medicati on ID: [id number] B rand Name: ibuprofe n Send Method: E-Prescr ibed Sub s Allowed: subs OK Speci al Instruct ion: TAKE 1 TABLET BY MOUTH 3 TIMES A DAY WITH FOOD OR MILK (OR IMMEDIAT MATY AFTER). Medicati onGeneri cName: ibuprofe n Not Available Not Available Not Available clarithro mycin 500 mg tablet 1 tablet by mouth 04/17 completed Medicati on ID: [id number] D uration Value: 10 Prescri bed By Name: Russ Del Angel nd Name: clarithr omycin S end Method: E-Prescr ibed Sub s Allowed: subs OK Medic ationGen ericName : clarithr omycin Not Available Not Available Not Available prednison e 20 mg tablet 07/27 completed Medicati on ID: [id number] P rescribe d By Name: Russ Del Angel nd Name: predniso ne Send Method: E-Prescr ibed Sub s Allowed: subs OK Speci al Instruct ion: Take 3 tabs daily for 3 days then 2 tabs daily for 3 days then 1 tabs daily for 3 days then stop Med icationG enericNa me: predniso ne Not Available Not Available Not Available spironola ctone 100 mg tablet 04/17 completed Medicati on ID: [id number] B rand Name: spironol actone S end Method: E-Prescr ibed Sub s Allowed: subs OK Speci al Instruct ion: TAKE 1 TABLET BY MOUTH TWICE A DAY WITH MEALS, ELECTROL YTES TO BE COMPLETE D BEFORE STARTING NEW DOSE Med icationG enericNa me: spironol actone Not Available Not Available Not Available sumatript an 50 mg tablet TAKE 1 TABLET BY MOUTH DAILY, NEEDED FOR MIGRAINE , MAY REPEAT AFTER 2 HOURS UP TO A MAXIMUM OF 2 active Not Available Not Available No t Available Zyrtec 10 mg tablet 1 tablet by mouth 2019 active Medicati on ID: [id number] D uration Value: 30 Brand Name: Zyrtec S end Method: E-Prescr ibed Sub s Allowed: subs OK Speci al Instruct ion: TAKE 1 TABLET BY MOUTH AT BEDTIME Medicati onGeneri cName: Zyrtec Not Available Not Available Not Available oxcarbaze pine 300 mg tablet TAKE 1 TABLET BY MOUTH EVERY DAY 04/17 completed Not Available Not Available Not Available omeprazol e 40 mg capsule,d elayed release TAKE 1 CAPSULE BY MOUTH 2 TIMES A DAY NEEDED FOR DYSPEPSI A active Not Available Not Available No t Available propranol ol 10 mg tablet TAKE 1 TABLET BY MOUTH EVERY DAY 04/17 completed Not Available Not Available Not Available magnesium oxide 400 mg (241.3 mg magnesium ) tablet TAKE 1 TABLET BY MOUTH EVERY DAY active Not Available Not Available No t Available lorazepam 0.5 mg tablet TAKE 1 TABLET PRIOR TO PROCEDUR E active Not Available Not Available No t Available aspirin 325 mg tablet,de layed release 04/17 completed Medicati on ID: [id number] B rand Name: aspirin Send Method: E-Prescr ibed Sub s Allowed: subs OK Medic ationGen ericName : aspirin Not Available Not Available Not Available Mapap (acetamin ophen) 500 mg capsule 04/17 completed Medicati on ID: [id number] B rand Name: Mapap (acetami nophen) Send Method: E-Prescr ibed Sub s Allowed: subs OK Medic ationGen ericName : Mapap (acetami nophen) Not Available Not Available Not Available meclizine 25 mg tablet TAKE 1 TABLET BY MOUTH 3 TIMES A DAY NEEDED DIZZINES S active Not Available Not Available No t Available doxycycli ne monohydra te 100 mg capsule 1 capsule by mouth 04/17 completed Medicati on ID: [id number] D uration Value: 21 Prescri bed By Name: Russ Del Angel nd Name: doxycycl ine monohydr ate Send Method: E-Prescr ibed Sub s Allowed: subs OK Medic ationGen ericName : doxycycl ine monohydr ate Not Available Not Available Not Available fluoxetin e 20 mg tablet TAKE 4 TABLETS BY MOUTH EVERY DAY active Not Available Not Available No t Available clotrimaz ole-betam ethasone 1 %-0.05 % topical cream APPLY TO AFFECTED AREA & SURROUND ING AREAS TWICE A DAY IN MORNING & EVENING FOR 2 WEEKS 04/17 completed Not Available Not Available Not Available metronida zole 0.75 % topical cream APPLY ONCE TO TWICE DAILY TO AFFECTED AREA ON THE FACE. active Not Available Not Available No t Available gabapenti n 300 mg capsule 04/17 completed Medicati on ID: [id number] B rand Name: gabapent in Send Method: E-Prescr ibed Sub s Allowed: subs OK Speci al Instruct ion: TAKE 1 CAPSULE BY MOUTH EVERYDAY AT BEDTIME Medicati onGeneri cName: gabapent in Not Available Not Available Not Available nystatin 100,000 unit/gram topical powder APPLY TO AFFECTED AREA TWICE A DAY active Not Available Not Available No t Available propranol ol ER 120 mg capsule,2 4 hr,extend ed release 05/09 completed Medicati on ID: [id number] D uration Value: 30 Reason: () Brand Name: proprano lol Send Method: E-Prescr ibed Sub s Allowed: subs OK Medic ationGen ericName : proprano lol Not Available Not Available Not Available azelastin e 137 mcg (0.1 %) nasal spray USE 2 SPRAYS IN EACH NOSTRIL TWICE A DAY FOR 30 DAYS active Not Available Not Available No t Available methylpre dnisolone 4 mg tablets in a dose pack TAKE 6 TABLETS ON DAY 1 DIRECTED ON PACKAGE AND DECREASE BY 1 TAB EACH DAY FOR A TOTAL OF 6 DAYS active Not Available Not Available No t Available albuterol sulfate HFA 90 mcg/actua tion aerosol inhaler TAKE 2 PUFF(S) (INHALAT ION) EVERY 4-6 HOURS FOR 10 DAYS 04/17 completed Not Available Not Available Not Available propranol ol 20 mg tablet TAKE 1 TABLET BY MOUTH EVERY DAY active Not Available Not Available No t Available ondansetr on 4 mg disintegr ating tablet TAKE 1 TABLET BY MOUTH EVERY 6 HOURS NEEDED FOR NAUSEA/V OMITING 04/17 completed Not Available Not Available Not Available fluoxetin e 20 mg capsule 04/17 completed Medicati on ID: [id number] B rand Name: fluoxeti ne Send Method: E-Prescr ibed Sub s Allowed: subs OK Medic ationGen ericName : fluoxeti ne Not Available Not Available Not Available naratript an 2.5 mg tablet active Not Available Not Available Not Available doxycycli ne hyclate 100 mg tablet TAKE 1 TABLET BY MOUTH TWICE A DAY active Not Available Not Available No t Available spironola ctone 50 mg tablet TAKE 1 TABLET BY MOUTH TWICE A DAY 04/17 completed Not Available Not Available Not Available hydroxyzi ne pamoate 25 mg capsule TAKE 1 CAPSULE (25 MG) BY MOUTH TWICE A DAY NEEDED active Not Available Not Available No t Available Pain Relief Extra Strength (acetamin ophen) 500 mg tablet 04/17 completed Medicati on ID: [id number] B rand Name: Pain Relief Extra Strength Send Method: E-Prescr ibed Sub s Allowed: subs OK Speci al Instruct ion: TAKE 2 TABLETS BY MOUTH EVERY 8 HOURS NEEDED FOR PAIN DIRECTED Medicat ionGener icName: Pain Relief Extra Strength Not Available Not Available Not Available lurasidon e 40 mg tablet TAKE 1 TABLET (40 MG) BY MOUTH DAILY IN THE EVENING WITH FOOD 04/17 completed Not Available Not Available Not Available lurasidon e 60 mg tablet TAKE 1 TABLET BY MOUTH EVERY DAY IN THE EVENING WITH FOOD active Not Available Not Available No t Available Flonase Allergy Relief 50 mcg/actua tion nasal spray,dash pension 04/17 completed Medicati on ID: [id number] D uration Value: 30 Brand Name: Flonase Allergy Relief S end Method: E-Prescr ibed Sub s Allowed: subs OK Speci al Instruct ion: USE 2 SPRAYS IN EACH NOSTRIL ONCE A DAY Medi cationGe nersofiaNam e: Flonase Allergy Relief Not Available Not Available Not Available Saxenda 3 mg/0.5 mL (18 mg/3 mL) subcutane ous pen injector PLEASE SEE ATTACHED FOR DETAILED DIRECTIO NS active Not Available Not Available No t Available prucalopr michael 2 mg tablet TAKE 1 TABLET BY MOUTH EVERY DAY active Not Available Not Available No t Available Ajovy 225 mg/1.5 mL subcutane ous auto-inje ctor INJECT 225 MG SUBCUTAN EOUSLY EVERY 28 DAYS active Not Available Not Available No t Available Wegovy 1.7 mg/0.75 mL subcutane ous pen injector INJECT 1.7 MG SUBCUTAN EOUSLY EVERY WEEK IN THE ABDOMEN, THIGH, OR UPPER ARM 04/17 completed Not Available Not Available Not Available Wegovy 1 mg/0.5 mL subcutane ous pen injector 1 MG SUBCUTAN EOUS INJECTIO N EVERY WEEK,FOR 4 WEEK(S), INSTR:IN THE ABDOMEN, THIGH, OR UPPER ARM 04/17 completed Not Available Not Available Not Available Wegovy 0.25 mg/0.5 mL subcutane ous pen injector INJECT THE CONTENTS OF 1 PEN IN THE ABDOMEN, THIGH, OR UPPER ARM WEEKLY FOR 4 WEEKS 04/17 completed Not Available Not Available Not Available Wegovy 0.5 mg/0.5 mL subcutane ous pen injector INJECT 0.5 MG SUBCUTAN EOUSLY EVERY WEEK IN THE ABDOMEN, THIGH, OR UPPER ARM 04/17 completed Not Available Not Available Not Available Zepbound 10 mg/0.5 mL subcutane ous pen injector INJECT 10MG SUBCUTAN EOUSLY EVERY WEEK - ROTATE INJECTIO N SITES active Not Available Not Available No t Available Zepbound 5 mg/0.5 mL subcutane ous pen injector INJECT CONTENTS OF 1 PEN SUBCUTAN EOUSLY EVERY WEEK, ROTATE INJECTIO N SITES active Not Available Not Available No t Available Zepbound 2.5 mg/0.5 mL subcutane ous pen injector INJECT THE CONTENTS OF 1 PEN SUBCUTAN EOUSLY WEEKLY, ROTATE INJECTIO N SITES active Not Available Not Available No t Available Zepbound 7.5 mg/0.5 mL subcutane ous pen injector INJECT 7.5 MGS SUBCUTAN EOUSLY INJECTIO N EVERY WEEK, ROTATE INJECTIO N SITES active Not Available Not Available No t Available Ultra-Fin e Pen Needle 31 gauge x 3/16 USE DAILY W/ SAXENDA active Not Available Not Available No t Available Vitals Date Recorded Body weight Body mass index (BMI) Body height Provider Name and Address Organization Details Last Updated DateTime 04/20/2024 64409.1 g 37 kg/m2 154.94 cm Gosia Leung [place] - [facility] 04/20/2024 10:31:06 Social History None recorded. Functional Status None recorded. Mental Status None recorded. Family History Nothing Reported. Medical History Condition Response Allergies/Hayfever Y Heart Problems N Anxiety Y Tonsil Infections N Emphysema N Migraines Y Thyroid Problems N COPD N Depression Y Developmental Delay N Glaucoma N Nasal or Sinus Problems Y Anemia N Immune System Disorder N Anesthesia Complications N Heart Attack (CT) N Other Skin Condition Y Diabetes N Rhinitis N Bleeding Disorder N Food Allergy N Hearing Loss N Arthritis N Hyperlipidemia N Cancer N Stroke N Dementia N Nasal polyps N Asthma Y Sleep Disorder N High Cholesterol N GERD/Reflux Y Liver Disease Y Headaches Y Fibromyalgia N Hypertension N Speech Delay N Kidney Disease N Gynecological HistoryNo gynecological history recorded. Obstetrics History GPAL:G 0 P 0 0 0 0 Past Encounters Encounter ID Performer Location Encounter Start Date Encounter Closed Date Diagnosis/Indication Diagnosis SNOMED-CT Code Diagnosis ICD10 Code Diagnosis IMO Codes Diagnosis Note [id number] ADOLFO AGUILA PA-C [facility] [address] [address] 04/20/2024 09:58:39 04/20/2024 11:22:47 Chronic sinusitis 56840139 J32.8 Dizziness and giddiness 388675922 R42 Audiologic al evaluation results: Right ear: Normal hearing with excellent word recognitio n. Left ear: Normal hearing with excellent word recognitio n. Tympanomet ry: Right Ear:Type A Left Ear:Type A Migraine w ithout aura, not refractory [id number] G43.009 [id number] ADOLFO AGUILA PA-C [facility] [address] [place] [address] 05/17/2024 16:46:18 05/17/2024 17:04:48 Chronic sinusitis 32017239 J32.8 Migraine w ithout aura, not refractory 388592467 G43.009 Health Concerns Section Related Observation LastModified by Organization Detai ls LastModified Time None Recorded Concern Status LastModified by Organization Details LastModified Time None Recorded Advance Directives Directive None Recorded Payers Insurance Date Sequence Insurance Name Policy Number Policy Craft Covered Member ID Craft Member ID Guarantor Name 10/09/2024 1 [facility] Margareth Iversonet [id number] Margareth Godinez Rollangelo Notes Date Note Type Note Provider Name and Address Organization Details Recorded Time 04/20/2024 text/html ROS as noted in the HPI 33 year old female presents for evaluation of dizziness. History of allergic rhinitis, chronic sinusitis, and migraine. She is status post septoplasty and bilateral F[place] [address] Jarquin. She reports having COVID back in July 2023 and had a few episodes of room spinning dizziness that would last minutes but recur throughout the day. These episodes were triggered by sudden movements of her head. Last episode was in September 2023. She has history of pineal cyst which was previously monitored by her neurologist and is now monitored by her PCP until she is able to get a new patient appointment with another neurologist. She has history of migraine that was previously medically managed by her neurologist. She reports caffeine and chocolate are migraine triggers and she tries to avoid these. She was recently started on sumatriptan as needed for her migraines. Reports increased facial pressure over the cheeks bilaterally. Was on a 2-week course of doxycycline and finished this about 10 days ago. Reports skin testing at [facility] 2 years ago was negative. Takes Zyrtec BID and Flonase PRN. MRI was done at [facility] last October and there were incidental sinus findings and she was referred for further evaluation. KEANU POLO MD [address] [facility],[place] [address], [place], [address], [facility] 04/23/2024 10:26:29 05/17/2024 text/html ROS as noted in the HPI 33 year old female presents for follow up of chronic nasal congestion and rhinitis. History of allergic rhinitis, chronic sinusitis, and migraine. She is status post septoplasty and bilateral FESS [place] [address] Jarquin. She has history of pineal cyst which is now being monitored by her new neurologist. She also had a PSG ordered by her neurologist. She is starting an injectable medication and triptan medication for migraines. She reports caffeine and chocolate are migraine triggers and she tries to avoid these. She was treated with Z pack for sinus infection. Continues to have headaches, facial pressure, nasal congestion, and rhinitis. Reports skin testing at [facility] 2 years ago was negative. Takes Zyrtec BID and Flonase PRN. ADOLFO AGUILA PA-C [address] [place] [address], [phone], [facility] 05/17/2024 16:50:16 OBGyn Episode No OBEpisode recorded.
--- OUTSIDE RECORDS SUMMARY | 2024-12-22 09:13 | XMS_ITS | Clinical Summary ---
Author Organization [facility] [address] [facility] Address [address] [place] [address] Phone Care Team Providers Care Street Light Wirer Name Role Phone Marybel Jerry LEGAL INSTRUCTOR Primary Care Provider +1- [phone] Allergies Active Allergy Reactions Criticality Noted Date Comments Fluconazole Hives,Itching 2019 Metronidazole Hcl Other 11/20/2024 metronidazole hydrochloride Morphine Respiratory Issues,Shortness of breath High 11/20/2024 rigid mucles morphine Oxcarbazepine Hives 11/20/2024 hives when dosage was increased Penicillins Anaphylaxis High 11/20/2024 Encounters Date Type Department Care Team Description 11/20/2024 9:15 PM EDT - 11/20/2024 11:36 PM EDT Emergency [facility] Emergency [address] [place] [phone] Johnathon Matthew MD Persistent migraine aura without [...] Signed Date: 11/20/2024 22:57 ET Workstation ID: [id number] Transcribed By: Self Edit Transcribed Date: 11/20/2024 [...] Whitney Reviewed and Electronically Signed By: Trae Whtiney Signed Date: 11/20/2024 22:57 ET Workstation ID: [id number] Transcribed By: Self Edit Transcribed Date: 11/20/2024 22:50 ET us Johnathon Matthew MD IMG CT PROCEDURES Final Res ult * POC , urine manually resulted (11/20/2024 10:07 PM EDT) HCG, Ur POC Negative Negative POC hCG Int QC Pass? Yes Yes EXPIRATION DATE POC 05/01/2026 LOT NUMBER POC [id number] Urine Urine specimen obtained by clean catch procedure / Unknown 11/20/2024 10:07 PM EDT Johnathon Matthew MD POINT OF CARE TEST ENTER/ED IT ORDERABLES Final Result * CBC auto differential (11/20/2024 9:49 PM EDT) WBC 7.6 4.0 - 10.5 K/mcL LAB HEMETOLOGY METHOD 11/20/2024 9:57 PM EDT [facility] RBC 4.56 4.20 - 5.40 M/mcL LAB HEMETOLOGY METHOD 11/20/2024 9:57 PM EDT [facility] Hemoglobin 13.1 12.5 - 16.0 g/dL LAB HEMETOLOGY METHOD 11/20/2024 9:57 PM EDT [facility] Hematocrit 38.8 37.0 - 47.0 % LAB HEMETOLOGY METHOD 11/20/2024 9:57 PM EDT [facility] MCV 85.1 78.0 - 100.0 FL LAB HEMETOLOGY METHOD 11/20/2024 9:57 PM EDT [facility] MCH 28.7 25.0 - 33.0 pcg LAB HEMETOLOGY METHOD 11/20/2024 9:57 PM EDT [facility] MCHC 33.8 32.0 - 36.0 g/dL LAB HEMETOLOGY METHOD 11/20[facility]2024 9[facility] RDW 12.1 12.1 - 16.2 % LAB HEMETOLOGY METHOD 11/20/2024 9:57 [facility] Platelets LAB HEMETOLOGY METHOD 11/20/2024 9:57 PM [facility] Comment:Occasional platelet clumping seen on smear. Platelet estimate appears adequate on smear review. MPV 9.5 7.4 - 11.4 FL LAB HEMETOLOGY METHOD 11/20/2024 9:57 [facility] Neutrophils Relative 59.1 44.0 - 74.0 % LAB HEMETOLOGY METHOD 11/20/2024 9:57 PM [facility] Lymphocytes Relative 29.5 20.0 - 48.0 % LAB HEMETOLOGY METHOD 11/20/2024 9:57 PM [facility] Monocytes Relative 6.8 2.0 - 12.0 % LAB HEMETOLOGY METHOD 11/20/2024 9:57 PM [facility] Eosinophils Relative 3.5 0.0 - 6.0 % LAB HEMETOLOGY METHOD 11/20/2024 9:57 PM [facility] Basophils Relative 0.7 0.0 - 2.0 % LAB HEMETOLOGY METHOD 11/20/2024 9:57 PM [facility] Neutrophils Absolute 4.50 1.80 - 7.80 K/mcL LAB HEMETOLOGY METHOD 11/20/2024 9:57 PM [facility] Lymphocytes Absolute 2.25 1.00 - 3.20 K/mcL LAB HEMETOLOGY METHOD 11/20/2024 9:57 PM [facility] Monocytes Absolute 0.52 0.00 - 0.80 K/mcL LAB HEMETOLOGY METHOD 11/20/2024 9:57 PM EDT [facility] Eosinophils Absolute 0.27 0.00 - 0.50 K/mcL LAB HEMETOLOGY METHOD 11/20/2024 9:57 PM EDT [facility] Basophils Absolute 0.05 0.00 - 0.20 K/[facility] LAB HEMETOLOGY METHOD 11/20/2024 9:57 PM EDT [facility] Blood Venous blood specimen / Unknown Venipuncture / Unknown 11/20/2024 9:49 PM EDT 11/20/2024 9:52 PM EDT Johnathon Matthew MD LAB BLOOD ORDERABLES Final Result [facility] [place] Reg. #:[id number] [address] [place] [address], * (ABNORMAL) Basic Metabolic Panel (BMP) (11/20/2024 9:49 PM EDT) Sodium 133(L) 135 - 145 mmol/L LAB CHEMISTRY METHOD 11/20/2024 10:[facility] Potassium 4.5 3.5 - 5.1 mmol/L LAB CHEMISTRY METHOD 11/20/2024 10:14 PM EDT [facility] Comment:Moderate Hemolysis m ay affect test result(s). Chloride 104 98 - 107 mmol/L LAB CHEMISTRY METHOD 11/20/2024 10:14 [facility] CO2 24 24 - 32 mmol/L LAB CHEMISTRY METHOD 11/20/2024 10:14 [facility] Anion Gap 5 5 - 14 LAB CHEMISTRY METHOD 11/20/2024 10:14 [facility] Glucose 100 70 - 199 mg/dL LAB CHEMISTRY METHOD 11/20/2024 10:14 PM EDT [facility] BUN 12 7 - 17 mg/dL LAB CHEMISTRY METHOD 11/20/2024 10:14 PM EDT [facility] Creatinine 0.76 0.50 - 1.00 mg/dL LAB CHEMISTRY METHOD 11/20/2024 10:14 PM EDT [facility] eGFR 107 >=60 mL/min/1. 73m2 LAB CHEMISTRY METHOD 11/20/2024 10:14 PM EDT [facility] Comment:Calculation based on the Chronic Kidney Disease Epidemiology Collaboration (CKD-EPI) equation refit without adjustment for race. BUN/Creatinine Ratio 15.8 12.0 - 20.0 LAB CHEMISTRY METHOD 11/20/2024 10:14 PM EDT [facility] Calcium 9.2 8.4 - 10.2 mg/dL LAB CHEMISTRY METHOD 11/20/2024 10:14 PM EDT [facility] Blood Venous blood specimen / Unknown Venipuncture / Unknown 11/20/2024 9:49 PM EDT 11/20/2024 9:52 PM EDT Johnathon Matthew MD LAB BLOOD ORDERABLES Final Result [facility] [place] Reg. #:[id number] [address] [place] [address], [place] [phone] from Last 3 Months Insurance [facility] Care Teams Street Light Wirer Relationship Specialty Start Date End Date Marybel Jerry NP [address] [facility] [place] [address] PCP - General Nurse Practitioner 11/20/24
--- OUTSIDE RECORDS SUMMARY | 2024-12-22 09:13 | XMS_ITS | Patient Health Record ---
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) Neuritis of foot, unspecified laterality (G57.90) Active confirmed Problem Tarsal tunnel syndrome (77420630) Tarsal tunnel syndrome of both lower extremities (G57.53) Active confirmed Problem Calcaneonavicular bar (18177468) 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) Active confirmed 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 Vital Signs Height 5ft 1in in 05/02/2024 Weight 198.6 lbs 05/02/2024 BMI 37.52 kg/m2 05/02/2024 Encounters Encounter Location Date Provider Diagnosis [facility] [address] [address] 05/02/2024 DEMI CHA Posterior tibial tendinitis, right leg M76.821 ; Posterior tibial tendinitis, left leg M76.822 ; Extensor tendinitis of foot M77.8 ; Leg swelling M79.89 ; Leg cramping R25.2 ; Neuritis of foot, unspecified laterality G57.90 ; Pain in left leg M79.605 and Pain in right leg M79.604 [facility] [address] [address] 07/09/2024 DEMI CHA Assessments Encounter Date Diagnosis [...] Insured Coverage Start Date Coverage End Date [place] [address] RACHA[place] CABALLERO [phone] [id number] Margareth Grace Self - patient is the [...] 2 Hospitalization History Reason Date(Month/Year) ER visit [facility]- rectal bleeding 10/2022
--- OUTSIDE RECORDS SUMMARY | 2024-12-22 09:13 | XMS_ITS | Patient Health Record ---
Author Organization [facility] Address [address] [address] Care Team Providers Care Social Economist Name Role Phone Laguerre, Nicole Primary Care Provider Unavailab Klever Adams Unavailable [phone] Priscila Del Valle Unavailable Unavailable Reason For Referral No Information Problems Problem Type SNOMED Code ICD Code Onset Dates Problem Status W/U Status Risk Notes Problem Information temporarily unavailable Bilateral leg paresthesia (R20.2) Active confirmed Plan Of Treatment No Information Insurance Providers Payer Name Payer Address Payer Phone Subscriber Number Group Number Insured Name Patient Relationship to Insured Coverage Start Date Coverage End Date [facility] [address] RACHA[place] CABALLERO [phone] [id number] Margareth Grace Self - patient is the insured
[2024-12-22] MEDS: Magnesium Sulfate/H2O 2 GM/50 ML PIGGYBACK IV (10:40)
[2024-12-22 11:42] VITALS: BP 140/74; PULSE 110; RESP 18; TEMP 36.6; O2SAT 97
== END 2024-12-22 11:44 | disposition home or self-care (01) ==
PROVIDERS: Emergency Provider Emergency Medicine; PCP Nurse Practitioner Adult Health
DX: G43.909 Migraine, unspecified, not intractable, without status migrainosus (principal); R11.0 Nausea; Z79.899 Other long term (current) drug therapy
CPT/HCPCS: 96361; 96374; 96375; 99284; J1100; J1200; J1885; J2765; J3475

== ENCOUNTER → 2024-12-23 19:30 | Outpatient (REF) | payer OTHER, SELFPAY ==
--- OUTSIDE RECORDS SUMMARY | 2023-10-07 09:00 | XMS_ITS ---
Author Organization [facility] Address [address] [address] Care Team Providers Care Director Plans Name Role Phone Jamar Tucker Primary Care Provider Unavailabl DEMI Sánchez [phone] REASON FOR VISIT 1 month f/u Encounters Encounter Location Date Provider Diagnosis [facility] [address] [address] 10/07/2023 DEMI DEL VALLE Plan Of Treatment No Information Progress Notes * Margareth GRACEDOB:1990 (34 yo F)Acc No.[id number]:10/07/2023 Progress Note Patient: Margareth GROSS Provider: Julia Del Valle DPM :1990 A ge:32 Y S ex:Female Date:10/07/2023 Address:[address] [place] [address] [address] [id number] Pcp:Jamar Tucker Subjective: * Chief Complaints: * 1 . 1 month f/u. * Medical History: Objective: * Vitals: Assessment: Plan: * Treatment: * Billing Information: * Visit Code: * Procedure Codes: * Electronic signature of RISSA DEL VALLE D.P.M on 12/23/2024 at 10:38 PM EDT Sign off status: Pending * Provider: Julia Del Valle DPM Date: 0 10/07/2023 Generated for Printi ng/Faxing/eTransmitting on: 1 10:38 PM EDT
--- OUTSIDE RECORDS SUMMARY | 2024-12-23 22:38 | XMS_ITS | Clinical Summary ---
Author Organization [facility] Address [address] [place] [address] Phone Care Team Providers Care Pizza Hut Assistant Name Role Phone Jordana Wong MD Primary [...] topic Medical Devices Not on file Insurance [facility] NT[employer] HMO [facility] [employer] HMO [facility] H[facility] Care Teams Pizza [employer] Assistant Relationship Specialty Start Date End Date Jordana Wong MD [address] [place] [address] PCP - General Internal Medicine 03/21/23 Additional Source Comments The information contained in this document represents components of the legal health record. It is not the complete legal health record.[facility]
--- OUTSIDE RECORDS SUMMARY | 2024-12-23 22:38 | XMS_ITS | Clinical Summary ---
Author Organization [facility] [address] [facility] Address [address] [place] [address] Phone Care Team Providers Care Electron Beam Operator Name Role Phone Marybel Jerry MAGAZINE PUBLISHER Primary Care Provider +1- [phone] Allergies Active Allergy Reactions Criticality Noted Date Comments Fluconazole Hives,Itching 2019 Metronidazole Hcl Other 11/20/2024 metronidazole hydrochloride Morphine Respiratory Issues,Shortness of breath High 11/20/2024 rigid mucles morphine Oxcarbazepine Hives 11/20/2024 hives when dosage was increased Penicillins Anaphylaxis High 11/20/2024 Encounters Date Type Department Care Team Description 11/20/2024 9:15 PM EDT - 11/20/2024 11:36 PM EDT Emergency [facility] Emergency [address] [place] [phone] Johnathon Matthew MD Persistent migraine aura without [...] Signed Date: 11/20/2024 22:57 ET Workstation ID: [id number] Transcribed By: Self Edit Transcribed Date: 11/20/2024 [...] Signed Date: 11/20/2024 22:57 ET Workstation ID: [id number] Transcribed By: Self Edit Transcribed Date: 11/20/2024 22:50 ET us Johnathon Matthew MD IMG CT PROCEDURES Final Res ult * POC , urine manually resulted (11/20/2024 10:07 PM EDT) HCG, Ur POC Negative Negative POC hCG Int QC Pass? Yes Yes EXPIRATION DATE POC 05/01/2026 LOT NUMBER POC [id number] Urine Urine specimen obtained by clean catch procedure / Unknown 11/20/2024 10:07 PM EDT Johnathon Matthew MD POINT OF CARE TEST ENTER/ED IT ORDERABLES Final Result * CBC auto differential (11/20/2024 9:49 PM EDT) WBC 7.6 4.0 - 10.5 K/mcL LAB HEMETOLOGY METHOD 11/20/2024 9:57 PM EDT [facility] RBC 4.56 4.20 - 5.40 M/mcL LAB HEMETOLOGY METHOD 11/20/2024 9:57 PM EDT [facility] Hemoglobin 13.1 12.5 - 16.0 g/dL LAB HEMETOLOGY METHOD 11/20/2024 9:57 PM EDT [facility] Hematocrit 38.8 37.0 - 47.0 % LAB HEMETOLOGY METHOD 11/20/2024 9:57 PM EDT [facility] MCV 85.1 78.0 - 100.0 FL LAB HEMETOLOGY METHOD 11/20/2024 9:57 PM EDT [facility] MCH 28.7 25.0 - 33.0 pcg LAB HEMETOLOGY METHOD 11/20/2024 9:57 PM EDT [facility] MCHC 33.8 32.0 - 36.0 g/dL LAB HEMETOLOGY METHOD 11/20/2024 9:57 [facility] RDW 12.1 12.1 - 16.2 % LAB HEMETOLOGY METHOD 11/20/2024 9:57 [facility] Platelets LAB HEMETOLOGY METHOD 11/20/2024 9:57 PM [facility] Comment:Occasional platelet clumping seen on smear. Platelet estimate appears adequate on smear review. MPV 9.5 7.4 - 11.4 FL LAB HEMETOLOGY METHOD 11/20/2024 9:57 PM [facility] Neutrophils Relative 59.1 44.0 - 74.0 % LAB HEMETOLOGY METHOD 11/20/2024 9:57 PM [facility] Lymphocytes Relative 29.5 20.0 - 48.0 % LAB HEMETOLOGY METHOD 11/20/2024 9:57 PM [facility] Monocytes Relative 6.8 2.0 - 12.0 % LAB HEMETOLOGY METHOD 11/20/2024 9:57 PM [facility] Eosinophils Relative 3.5 0.0 - 6.0 % LAB HEMETOLOGY METHOD 11/20/2024 9:57 PM [facility] Basophils Relative 0.7 0.0 - 2.0 % LAB HEMETOLOGY METHOD 11/20/2024 9:57 PM [facility] Neutrophils Absolute 4.50 1.80 - 7.80 K/mcL LAB HEMETOLOGY METHOD 11/20/2024 9:57 PM [facility] Lymphocytes Absolute 2.25 1.00 - 3.20 K/mcL LAB HEMETOLOGY METHOD 11/20/2024 9:57 PM [facility] Monocytes Absolute 0.52 0.00 - 0.80 K/mcL LAB HEMETOLOGY METHOD 11/20/2024 9:57 PM EDT [facility] Eosinophils Absolute 0.27 0.00 - 0.50 K/mcL LAB HEMETOLOGY METHOD 11/20/2024 9:57 PM EDT [facility] Basophils Absolute 0.05 0.00 - 0.20 K/[facility] LAB HEMETOLOGY METHOD 11/20/2024 9:57 PM EDT [facility] Blood Venous blood specimen / Unknown Venipuncture / Unknown 11/20/2024 9:49 PM EDT 11/20/2024 9:52 PM EDT Johnathon Matthew MD LAB BLOOD ORDERABLES Final Result [facility] [place] Reg. #:[id number] [address] [place] [address], * (ABNORMAL) Basic Metabolic Panel (BMP) (11/20/2024 9:49 PM EDT) Sodium 133(L) 135 - 145 mmol/L LAB CHEMISTRY METHOD 11/20/2024 10:14 PM [facility] Potassium 4.5 3.5 - 5.1 mmol/L LAB CHEMISTRY METHOD 11/20/2024 10:14 PM EDT [facility] Comment:Moderate Hemolysis m ay affect test result(s). Chloride 104 98 - 107 mmol/L LAB CHEMISTRY METHOD 11/20/2024 10:14 PM [facility] CO2 24 24 - 32 mmol/L LAB CHEMISTRY METHOD 11/20/2024 10:14 PM [facility] Anion Gap 5 5 - 14 LAB CHEMISTRY METHOD 11/20/2024 10:14 PM [facility] Glucose 100 70 - 199 mg/dL LAB CHEMISTRY METHOD 11/20/2024 10:14 PM EDT [facility] BUN 12 7 - 17 mg/dL LAB CHEMISTRY METHOD 11/20/2024 10:14 PM EDT [facility] Creatinine 0.76 0.50 - 1.00 mg/dL LAB CHEMISTRY METHOD 11/20/2024 10:14 PM EDT [facility] eGFR 107 >=60 mL/min/1. 73m2 LAB CHEMISTRY METHOD 11/20/2024 10:14 PM EDT [facility] Comment:Calculation based on the Chronic Kidney Disease Epidemiology Collaboration (CKD-EPI) equation refit without adjustment for race. BUN/Creatinine Ratio 15.8 12.0 - 20.0 LAB CHEMISTRY METHOD 11/20/2024 10:14 PM EDT [facility] Calcium 9.2 8.4 - 10.2 mg/dL LAB CHEMISTRY METHOD 11/20/2024 10:14 PM EDT [facility] Blood Venous blood specimen / Unknown Venipuncture / Unknown 11/20/2024 9:49 PM EDT 11/20/2024 9:52 PM EDT Johnathon Matthew MD LAB BLOOD ORDERABLES Final Result [facility] [place] Reg. #:[id number] [address] [place] [address], [place] [phone] from Last 3 Months Insurance [facility] Care Teams Electron Beam Operator Relationship Specialty Start Date End Date Marybel Jerry NP [address] [place] [address] PCP - General Nurse Practitioner 11/20/24
--- OUTSIDE RECORDS SUMMARY | 2024-12-23 22:38 | XMS_ITS | Patient Health Record ---
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 confirmed Problem Tarsal tunnel syndrome (92617918) Tarsal tunnel syndrome, right lower limb (G57.51) Active confirmed Problem Mononeuropathy of lower limb (049253459) Neuritis of foot, unspecified laterality (G57.90) Active confirmed Problem Tarsal tunnel syndrome (86874921) Tarsal tunnel syndrome of both lower extremities (G57.53) Active confirmed Problem Calcaneonavicular bar (12175055) 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) Active confirmed 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 Vital Signs Height 5ft 1in in 05/02/2024 Weight 198.6 lbs 05/02/2024 BMI 37.52 kg/m2 05/02/2024 Encounters Encounter Location Date Provider Diagnosis [facility] [address] [address] 05/02/2024 DEMI CHA Posterior tibial tendinitis, right leg M76.821 ; Posterior tibial tendinitis, left leg M76.822 ; Extensor tendinitis of foot M77.8 ; Leg swelling M79.89 ; Leg cramping R25.2 ; Neuritis of foot, unspecified laterality G57.90 ; Pain in left leg M79.605 and Pain in right leg M79.604 [facility] [address] [address] 07/09/2024 DEMI CHA Assessments Encounter Date Diagnosis [...] Insured Coverage Start Date Coverage End Date [place] [address] [place]HA[place] CABALLERO [phone] [id number] Margareth Grace Self - patient is the [...] 2 Hospitalization History Reason Date(Month/Year) ER visit [facility]- rectal bleeding 10/2022
--- OUTSIDE RECORDS SUMMARY | 2024-12-23 22:38 | XMS_ITS | Patient Health Record ---
Author Organization [employer] Address [address] [address] Care Team Providers Care Metallurgical Specialist Name Role Phone Laguerre, Nicole Primary Care Provider Unavailab Klever Adams Unavailable [phone] Priscila Del Valle Unavailable Unavailable Reason For Referral No Information Problems Problem Type SNOMED Code ICD Code Onset Dates Problem Status W/U Status Risk Notes Problem Skin sensation disturbance (57394589) Bilateral leg paresthesia (R20.2) Active confirmed Plan Of Treatment No Information Insurance Providers Payer Name Payer Address Payer Phone Subscriber Number Group Number Insured Name Patient Relationship to Insured Coverage Start Date Coverage End Date [facility] [address] R[place] CABALLERO [phone] [id number] Margareth Grace Self - patient is the insured
== END ==
LOC: HO.SL 19:30
PROVIDERS: PCP Nurse Practitioner Adult Health; Visit Provider Nurse Practitioner
DX: G47.8 Other sleep disorders (principal); R06.83 Snoring; R51.9 Headache, unspecified; G47.61 Periodic limb movement disorder
CPT/HCPCS: 95810

== ENCOUNTER → 2024-12-23 21:13 | Outpatient (BNV) | payer OTHER, SELFPAY | PROVIDERS: PCP Nurse Practitioner Adult Health; Visit Provider Internal Medicine | DX: R06.83 Snoring (principal); G47.61 Periodic limb movement disorder | CPT/HCPCS: 95810 ==

== ENCOUNTER 2025-01-15 08:50 | Outpatient (AMB) | payer OTHER, SELFPAY ==
--- OUTSIDE RECORDS SUMMARY | 2023-10-07 08:00 | XMS_ITS ---
Author Organization [facility] Address [address] [address] Care Team Providers Care Account Officer Name Role Phone Jamar Tucker Primary Care Provider Unavailabl DEMI Sánchez [phone] REASON FOR VISIT 1 month f/u Encounters Encounter Location Date Provider Diagnosis [facility] [address] [address] 10/07/2023 DEMI DEL VALLE Plan Of Treatment No Information Progress Notes * Margareth GRACEDOB:1990 (34 yo F)Acc No.[id number]:10/07/2023 Progress Note Patient: Margareth GROSS Provider: Julia Del Valle DPM :1990 A ge:32 Y S ex:Female Date:10/07/2023 Address:[address] [place] [address] [id number] Pcp:Jamar Tucker Subjective: * Chief Complaints: * 1 . 1 month f/u. * Medical History: Objective: * Vitals: Assessment: Plan: * Treatment: * Billing Information: * Visit Code: * Procedure Codes: * Electronic signature of RISSA DEL VALLE D.P.M on 01/15/2025 at 09:20 AM EST Sign off status: Pending * Provider: Julia Del Valle DPM Date: 0 10/07/2023 Generated for Printi ng/Faxing/eTransmitting on: 1 03/17/2024 09:20 AM EST
--- NOTE | 2025-01-15 08:36 | MHC.OFFVIS ---
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 To review, I initially saw her back in May of 2024 at which time she reported episodic migraines but over the course of a few months has been getting worse. She was averaging 3 migraine days per week at that time but having low-grade headaches on a near daily basis. She described a unilateral, throbbing head pain associated with brain fog, nausea, light and sound sensitivity, and dizziness with occasional vomiting when headaches became more severe. Sleep was likely playing a role with some significant insomnia. She was started on Vyepti infusions for preventive therapy at that time. 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 Unfortunately in November, her headaches got much worse. They were reported to be daily, severe, holocephalic, worse with a laying position, and associated with new onset diplopia, blurry vision, spots in vision, tinnitus, and sensation of severe pressure. Repeat MRI of the brain in November of 2024 showed findings that could be consistent with IIH including a partially empty sella and stenosis involving distal transverse sinuses bilaterally and optic nerve sheath distension. Her ophthalmology evaluation however was reassuring and did not show evidence of papilledema A lumbar puncture was performed with an opening pressure of 26. Her CRP was slightly elevated at 4.2 though her ESR was normal. We performed a sleep study and EEG as well both of which were nondiagnostic She was started on acetazolamide initially dosed at 250 mg twice daily and then increase to 500 mg twice daily. She was also started on Depakote 250 mg twice daily for adequate pain control. She has since been waiting a CT a of the head and neck and CTV to rule out etiologies such as vasogenic edema, dissection, or venous thrombosis. I would also like to take a closer look at previously noted venous stenosis. In the meantime, she has seen improvement with the acetazolamide and Depakote. She is currently taking the acetazolamide dosed at 500 mg twice daily which she does report upsets her stomach though if she skips a dose she can feel worsening of her headaches. In terms of the Depakote, she did take a break from this at 1 point and had worsening of headaches as well. For now, in his helping with pain control. Given the likelihood of overlapping chronic migraine, we will also likely start Botox therapy. She also has been working with [facility] to come off of her estrogen containing control which may be contributing. She took her last estrogen containing pill a few days ago and moving forward we will not be going back on the estrogen therapy. Past medication trials: Amitriptyline-no benefit Propranolol-no benefit Topiramate-mood changes Ajovy-no benefit Sumatriptan-no benefit Naratriptan partially beneficial Vyepti infusion-no benefit and possibly worsening of headaches PFSH Medical History (Updated 12/27/24 @ 12:06 by Priscila Friend CNP) Diplopia Surgical History H/O bilateral inguinal hernia repair H/O fasciotomy History of appendectomy Social History Household Members: Family Alcohol intake: never Patient Tobacco Use Status: Never used Tobacco Review of Systems Const All systems reviewed & are unremarkable except as noted in HPI and below Physical Exam Const General: cooperative, healthy appearing, comfortable and no acute distress Nutritional Appearance: well nourished Orientation/consciousness: patient oriented x3 Limitations: no limitations HEENT Head: Yes normal to inspection and Yes normocephalic Eyes General: appearance normal, both eyes and all related structures Visual Granados: normal visual granados by confrontation Alignment and Position: alignment normal Periorbital: periorbital findings normal Eyelids: Yes eyelids normal Conjunctivae: conjunctivae normal Sclerae: sclerae normal Direct Ophthalmoscopy: normal light reflex and no papilledema Neck Neck: Yes normal visual inspection and Yes full ROM General: Yes no CVA tenderness Back/Spine/Pelvis Back: no CVA tenderness Cervical Spine: normal cervical lordosis Thoracic/Lumbar Spine: thoracic and lumbar spine normal to inspection Neuro General: patient oriented x3 and deep tendon reflexes 2+ bilaterally Cranial nerves: Yes CN's II-XII intact bilaterally and Yes Facial sensation intact/muscles of mastication intact Cognition (Neuro): normal cognition Gait exam (Neuro): Normal gait present Motor exam (neuro): 5/5 motor strength present throughout and no tremor noted Sensory Exam: double simultaneous stimulation for sensation normal Romberg Test: Negative Pupils: Normal pupillary reactivity/response: bilateral Psych Appearance: grossly normal Mental Status: mental status grossly normal Speech and movement: Normal speech and movement present and Clear speech present Affect: normal affect Attitude: cooperative Thought process: Normal thought process present Thought content: Normal thought content present Insight: Good insight present (Psych) Judgement: Good judgement present (Psych) Assessment & Plan Assessment & Plan (1) Chronic migraine without aura without status migrainosus, not intractable: Code(s): G43.709 - Chronic migraine without aura, not intractable, without status migrainosus Category: Medical Plan: . (2) Worsening headaches: Code(s): R51.9 - Headache, unspecified Category: Medical Plan: . (3) Worsening headaches: Code(s): R51.9 - Headache, unspecified Category: Medical Plan: . (4) IIH (idiopathic intracranial hypertension): Code(s): G93.2 - Benign intracranial hypertension Category: Medical Plan: . Michell Margareth is a 34-year-old female patient with a past medical history of gastroenteritis, allergic rhinitis, allergies, anxiety disorder, benign neoplasm of the pineal gland, depression, PCOS, OCD, presenting today for a headache follow-up. With pre-existing migraine history had notable changes in worsening of headache in November accompanied by vision changes and positional component as well as tinnitus. Ophthalmology exam was reassuring however lumbar puncture did show slightly elevated opening pressure of 26. She is being treated with the acetazolamide 500 mg twice daily which seems to be helpful. She is also using Depakote for added pain control which is also helpful. Still however, she is continuing to have frequent near daily headaches with the pressure sensation and some continued changes to her vision including spots in her vision. She did have an elevated CRP level of 4.2. I will repeat the CRP level and include DSD, MUKUL, CBC, and CMP. We are still awaiting vascular imaging. -CTA head and neck and CTV- awaiting scheduling on this -Labs: Repeat CRP, DSD, MUKUL, CBC, and CMP -Continue acetazolamide 500 mg twice daily and Depakote 250 mg twice daily -Awaiting Botox delivery to start Botox therapy for migraine component -Continue follow up with OBGYN for appropriate BC options -Return to work paperwork signed with plan to return to work on 01/18/2025 if she is feeling well enough. She will keep me updated on this A total of 45 minutes spent with the patient in obtaining history, examination, coordination of care including review of current orders and plan moving forward. Time spent discussing prior authorization for procedures and testing with our prior learning operations specialist and the patient. Time also spent in filling out work-related paperwork for her. Orders: Orders CRP High Sensitivity Today G43.709 - Chronic migraine without aura, not intractable, without status migrainosus, R51.9 - Headache, unspecified DNA Double Stranded-Crithidia Today G43.709 - Chronic migraine without aura, not intractable, without status migrainosus, R51.9 - Headache, unspecified MUKUL Reflex Titer and Pattern Today G43.709 - Chronic migraine without aura, not intractable, without status migrainosus, R51.9 - Headache, unspecified Erythrocyte Sedimentation Rate Today G43.709 - Chronic migraine without aura, not intractable, without status migrainosus, R51.9 - Headache, unspecified CT head/brain w IV con Today G93.2 - Benign intracranial hypertension, R51.9 - Headache, unspecified Coding Level of Care Code Est Pt Level 5 (03773) Diagnoses Chronic migraine without aura without status migrainosus, not intractable G43.709 Worsening headaches R51.9 IIH (idiopathic intracranial hypertension) G93.2
[2025-01-15 08:47] VITALS: BP 132/78; PULSE 85; RESP 16; O2SAT 97; BMI 38.1
--- OUTSIDE RECORDS SUMMARY | 2025-01-15 09:19 | XMS_ITS | Patient Health Record ---
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) Active confirmed Problem Tarsal tunnel syndrome (76750696) Tarsal tunnel syndrome, right lower limb (G57.51) Active confirmed Problem Mononeuropathy of lower limb (671118168) Neuritis of foot, unspecified laterality (G57.90) Active confirmed Problem Tarsal tunnel syndrome (89862109) Tarsal tunnel syndrome of both lower extremities (G57.53) Active confirmed Problem Calcaneonavicular bar (05992880) 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) Active confirmed 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 Vital Signs Height 5ft 1in in 05/02/2024 Weight 198.6 lbs 05/02/2024 BMI 37.52 kg/m2 05/02/2024 Encounters Encounter Location Date Provider Diagnosis [facility] [address] 05/02/2024 DEMI CHA Posterior tibial tendinitis, right leg M76.821 ; Posterior tibial tendinitis, left leg M76.822 ; Extensor tendinitis of foot M77.8 ; Leg swelling M79.89 ; Leg cramping R25.2 ; Neuritis of foot, unspecified laterality G57.90 ; Pain in left leg M79.605 and Pain in right leg M79.604 [facility] [address] 07/09/2024 DEMI CHA Assessments Encounter Date [...] Insured Coverage Start Date Coverage End Date [employer] [address] RACHANA CABALLERO [phone] [id number] Margareth Grace Self - patient is the [...] 2 Hospitalization History Reason Date(Month/Year) ER visit [facility]- rectal bleeding 10/2022
--- OUTSIDE RECORDS SUMMARY | 2025-01-15 09:20 | XMS_ITS | Clinical Summary ---
Author Organization [facility] [address] [facility] Address [address] [place] [address] Phone Care Team Providers Care Drawing Tracer Name Role Phone Marybel Jerry COUNTER ROLLER Primary Care Provider [phone] Allergies Active Allergy Reactions Criticality Noted Date Comments Fluconazole Hives,Itching 2019 Metronidazole Hcl Other 11/20/2024 metronidazole hydrochloride Morphine Respiratory Issues,Shortness of breath High 11/20/2024 rigid mucles morphine Oxcarbazepine Hives 11/20/2024 hives when dosage was increased Penicillins Anaphylaxis High 11/20/2024 Encounters Date Type Department Care Team Description 11/20/2024 9:15 PM EDT - 11/20/2024 11:36 PM EDT Emergency [facility] Emergency [address] [place] [id number] Johnathon Matthew MD Persistent migraine aura without [...] Signed Date: 11/20/2024 22:57 ET Workstation ID: [id number] Transcribed By: Self Edit Transcribed Date: 11/20/2024 [...] Signed Date: 11/20/2024 22:57 ET Workstation ID: [id number] Transcribed By: Self Edit Transcribed Date: 11/20/2024 22:50 ET us Johnathon Matthew MD IMG CT PROCEDURES Final Res ult * POC , urine manually resulted (11/20/2024 10:07 PM EDT) HCG, Ur POC Negative Negative POC hCG Int QC Pass? Yes Yes EXPIRATION DATE POC 05/01/2026 LOT NUMBER POC [id number] Urine Urine specimen obtained by clean catch procedure / Unknown 11/20/2024 10:07 PM EDT Johnathon Matthew MD POINT OF CARE TEST ENTER/ED IT ORDERABLES Final Result * CBC auto differential (11/20/2024 9:49 PM EDT) WBC 7.6 4.0 - 10.5 K/mcL LAB HEMETOLOGY METHOD 11/20/2024 9:57 PM EDT [facility] RBC 4.56 4.20 - 5.40 M/mcL LAB HEMETOLOGY METHOD 11/20/2024 9:57 PM EDT [facility] Hemoglobin 13.1 12.5 - 16.0 g/dL LAB HEMETOLOGY METHOD 11/20/2024 9:57 PM EDT [facility] Hematocrit 38.8 37.0 - 47.0 % LAB HEMETOLOGY METHOD 11/20/2024 9:57 PM EDT [facility] MCV 85.1 78.0 - 100.0 FL LAB HEMETOLOGY METHOD 11/20/2024 9:57 PM EDT [facility] MCH 28.7 25.0 - 33.0 pcg LAB HEMETOLOGY METHOD 11/20/2024 9:57 PM EDT [facility] MCHC 33.8 32.0 - 36.0 g/dL LAB HEMETOLOGY METHOD [facility]/20[facility]24 [facility] RDW 12.1 12.1 - 16.2 % LAB HEMETOLOGY METHOD 11/20/2024 9:57 [facility] Platelets LAB HEMETOLOGY METHOD 11/20/2024 9:57 PM [facility] Comment:Occasional platelet clumping seen on smear. Platelet estimate appears adequate on smear review. MPV 9.5 7.4 - 11.4 FL LAB HEMETOLOGY METHOD 11/20/2024 9:57 PM [facility] Neutrophils Relative 59.1 44.0 - 74.0 % LAB HEMETOLOGY METHOD 11/20/2024 9:57 PM [facility] Lymphocytes Relative 29.5 20.0 - 48.0 % LAB HEMETOLOGY METHOD 11/20/2024 9:57 PM [facility] Monocytes Relative 6.8 2.0 - 12.0 % LAB HEMETOLOGY METHOD 11/20/2024 9:57 PM [facility] Eosinophils Relative 3.5 0.0 - 6.0 % LAB HEMETOLOGY METHOD 11/20/2024 9:57 PM [facility] Basophils Relative 0.7 0.0 - 2.0 % LAB HEMETOLOGY METHOD 11/20/2024 9:57 PM [facility] Neutrophils Absolute 4.50 1.80 - 7.80 K/mcL LAB HEMETOLOGY METHOD 11/20/2024 9:57 PM [facility] Lymphocytes Absolute 2.25 1.00 - 3.20 K/mcL LAB HEMETOLOGY METHOD 11/20/2024 9:57 PM [facility] Monocytes Absolute 0.52 0.00 - 0.80 K/mcL LAB HEMETOLOGY METHOD 11/20/2024 9:57 PM EDT [facility] Eosinophils Absolute 0.27 0.00 - 0.50 K/mcL LAB HEMETOLOGY METHOD 11/20/2024 9:57 PM EDT [facility] Basophils Absolute 0.05 0.00 - 0.20 K/[facility] LAB HEMETOLOGY METHOD 11/20/2024 9:57 PM EDT [facility] Blood Venous blood specimen / Unknown Venipuncture / Unknown 11/20/2024 9:49 PM EDT 11/20/2024 9:52 PM EDT Johnathon Matthew MD LAB BLOOD ORDERABLES Final Result [facility] [place]. #:[id number] [address] [place] [address], * (ABNORMAL) Basic Metabolic Panel (BMP) (11/20/2024 9:49 PM EDT) Sodium 133(L) 135 - 145 mmol/L LAB CHEMISTRY METHOD 11/20/2024 10:14 PM [facility] Potassium 4.5 3.5 - 5.1 mmol/L LAB CHEMISTRY METHOD 11/20/2024 10:14 PM EDT [facility] Comment:Moderate Hemolysis m ay affect test result(s). Chloride 104 98 - 107 mmol/L LAB CHEMISTRY METHOD 11/20/2024 10:14 PM [facility] CO2 24 24 - 32 mmol/L LAB CHEMISTRY METHOD 11/20/2024 10:14 PM [facility] Anion Gap 5 5 - 14 LAB CHEMISTRY METHOD 11/20/2024 10:14 PM [facility] Glucose 100 70 - 199 mg/dL LAB CHEMISTRY METHOD 11/20/2024 10:14 PM EDT [facility] BUN 12 7 - 17 mg/dL LAB CHEMISTRY METHOD 11/20/2024 10:14 PM EDT [facility] Creatinine 0.76 0.50 - 1.00 mg/dL LAB CHEMISTRY METHOD 11/20/2024 10:14 PM EDT [facility] eGFR 107 >=60 mL/min/1. 73m2 LAB CHEMISTRY METHOD 11/20/2024 10:14 PM EDT [facility] Comment:Calculation based on the Chronic Kidney Disease Epidemiology Collaboration (CKD-EPI) equation refit without adjustment for race. BUN/Creatinine Ratio 15.8 12.0 - 20.0 LAB CHEMISTRY METHOD 11/20/2024 10:14 PM EDT [facility] Calcium 9.2 8.4 - 10.2 mg/dL LAB CHEMISTRY METHOD 11/20/2024 10:14 PM EDT [facility] Blood Venous blood specimen / Unknown Venipuncture / Unknown 11/20/2024 9:49 PM EDT 11/20/2024 9:52 PM EDT Johnathon Matthew MD LAB BLOOD ORDERABLES Final Result [facility] [place] Reg. #:[id number] [address] [place] [address], [place] [phone] from Last 3 Months Insurance [facility] Care Teams Drawing Tracer Relationship Specialty Start Date End Date Marybel Jerry NP [address] [place] [phone] PCP - General Nurse Practitioner 11/20/24
--- OUTSIDE RECORDS SUMMARY | 2025-01-15 09:20 | XMS_ITS | Clinical Summary ---
Author Organization [facility] Address [address] [place] [id number] Phone Care Team Providers Care Scales Inspector Name Role Phone Jordana Wong MD Primary [...] topic Medical Devices Not on file Insurance [facility] [employer] [facility] [employer] [facility] Care Teams Scales Inspector Relationship Specialty Start Date End Date Jordana Wong MD [address] [place] [address] PCP - General Internal Medicine 03/21/23 Additional Source Comments The information contained in this document represents components of the legal health record. It is not the complete legal health record.[facility]
--- OUTSIDE RECORDS SUMMARY | 2025-01-15 09:21 | XMS_ITS | Patient Health Record ---
Author Organization [facility] Address [address] [address] Care Team Providers Care Customer Success Advocate Name Role Phone Laguerre, Nicole Primary Care Provider Unavailab Klever Adams Unavailable [phone] Priscila Del Valle Unavailable Unavailable Reason For Referral No Information Problems Problem Type SNOMED Code ICD Code Onset Dates Problem Status W/U Status Risk Notes Problem Skin sensation disturbance (29504016) Bilateral leg paresthesia (R20.2) Active confirmed Plan Of Treatment No Information Insurance Providers Payer Name Payer Address Payer Phone Subscriber Number Group Number Insured Name Patient Relationship to Insured Coverage Start Date Coverage End Date [facility] [address] RACHANA CABALLERO [id number] Margareth Grace Self - patient is the insured
== END 2025-01-15 09:41 | disposition home or self-care (01) ==
LOC: HO.HSM 08:50
PROVIDERS: PCP Nurse Practitioner Adult Health; Visit Provider Nurse Practitioner
DX: G43.709 Chronic migraine without aura, not intractable, without status migrainosus (principal); R51.9 Headache, unspecified; G93.2 Benign intracranial hypertension
CPT/HCPCS: 99215

== ENCOUNTER 2025-01-15 08:50 | Outpatient (REF) | payer OTHER, SELFPAY ==
--- OUTSIDE RECORDS SUMMARY | 2025-01-15 10:24 | XMS_ITS | Data Portability ---
Author Organization [place] - [facility], Allergy Address [address] [address] Care Team Providers Care Swimming Pool Service Technician Name Role Phone MARGOT CARMONA Primary Care [...] may be related to underlying migraines. As [place] was negative, will hold off on referral [...] may consider CT sinus at that time. [email or web address] Not available 04/20/2024 12:04:22 05/17/2024 05/17/2024 33 year old female with history of bilateral FESS presents with increased facial pressure and nasal drainage. Preliminary nasal culture with skin tereza isolated. Would not recommend any further antibiotics at this time. Recommended CT sinus given persistent symptoms. She will follow-up to review the results. [email or web address] Not available 05/17/2024 16:44:33 01/02/2025 01/02/2025 34-year-old female with history of bilateral endoscopic sinus surgery presents for reevaluation. MRI obtained recently was reviewed showing minimal maxillary sinus mucosal thickening with patent maxillary antrostomy. Sinuses are likely not contributing to her pressure headaches. More likely caused by intracranial hypertension. She will continue to work with her neurologist in regard to this diagnosis. For increased seasonal allergy I have recommended allergy testing for further evaluation. Recommended she switch from Zyrtec to Claritin and continue Flonase use as long as this has been cleared by her neurologist. Follow-up after testing for review and further planning. [email or web address] Not available 01/02/2025 14:36:10 Plan of Treatment Reminders Order Date Submit Date Provider Last Modified By Organization Details Last Modified Time Details Appointments Allergy Test 2024 01:00P M [facility] Not available Not available Not available Establish ed 15 2025 11:15A M RADHA MARINO PA-C Not available Not available Not available Lab culture, aerobic + anaerobic 2024 025 PARRISH [facility] (Centralized Electronic Ordering - All Locations), Patient Can Go To The Location Of Their Choice, [id number] 05/21/2024 11:17:11 fungus, culture, unspecifi ed specimen 2024 025 PARRISH [facility] (Centralized Electronic Ordering - All Locations), Patient Can Go To The Location Of Their Choice, [id number] 05/21/2024 11:17:12 Referral None recorded. Procedures allergy testing, skin prick (PROC) 2024 025 [email or web address] Not available 01/03/2025 11:35:01 intraderm al allergy skin testing (PROC) 10/22/ 2025 10/22/2 025 [email or web address] Not available 01/03/2025 11:35:02 pulmonary function test procedure (PROC) 2024 025 [email or web address] Not available 01/03/2025 11:35:02 pulse oximetry (PROC) 2024 025 [email or web address] Not available 01/03/2025 11:35:02 Surgeries None recorded. Imaging CT, sinuses, w/o contrast 2024 [facility], [address], [place], [address], 06/05/2024 13:29:52 Medication Orders None recorded. Patient TargetsNo targets recorded. Patient InstructionsNo instructions recorded. Reason for Referral None Reported. Results Created Date Observation Date Name Description Value Unit Range Abnormal Flag Note LastModifiedBy Organization Detail LastModifiedTime 04/20/1904/23/2024 ANAER OBIC AND AEROB IC CULTU RE aerobic culture Final report Not Available [facility] ([facility]) [address] [place], [address], 05/21/2024 11:17:11 04/20/19 25 04/23/2024 ANAER OBIC AND AEROB IC CULTU RE result 1 Skin tereza isolat ed Light growt h Not Available [facility] ([facility]) [address] [place], [address], 05/21/2024 11:17:11 04/20/19 25 04/24/2024 ANAER OBIC AND AEROB IC CULTU RE anaerobic culture Final report Not Available [facility] ([facility]) [address] [place], [address], 05/21/2024 11:17:11 04/20/19 25 04/24/2024 ANAER OBIC AND AEROB IC CULTU RE result 1 COMMEN T No anaer obic growt h in 72 hours . Not Available [facility] ([facility]) [address] [place], [address], 05/21/2024 11:17:11 04/20/19 25 05/21/2024 FUNGU S (MYCO LOGY) CULTU RE fungus (mycology) culture Final report Not Available [facility] ([facility]) [address] [facility], [place], [address], 05/21/2024 11:17:12 04/20/1905/21/2024 FUNGU S (MYCO LOGY) CULTU RE result 1 COMMEN T No yeast or mold isola maile after 4 weeks . Not Available [facility] ([facility]) [address] [facility], [place], [address], 05/21/2024 11:17:12 04/20/19 audio gram No observ ation record ed. BARCODE Not Available 2024 15:28:37 04/20/1911/07/2023 MRI, brain + brain stem, w/wo contr ast No observ ation record ed. [email or web address] Not Available 09/2024 15:34:53 06/06/19 25 06/05/2024 CT, sinus es, w/o contr ast No observ ation record ed. [email or web address] [facility] [address], [address], 06/06/2024 09:31:23 12/29/19 MRI proce dure (PROC ) No observ ation record ed. [email or web address] Not Available 16:03:36 01/09/20 25 11/27/2024 MRI, brain + brain stem, w/wo contr ast No observ ation record ed. Not Available 12/13 09:02:19 Result Notes None recorded. Problems Name Problem SNOMED Code Status Onset Date Resolution Date Notes Provider Name and Address Organization Details Recorded Time Deviated nasal septum 186732182 Active 2017 Deviated nasal septum; Location: right Not e: Date Diagnosed : 11/25/2017 10:25 AM (J34.2) Not Available [facility] 03:04:22 Chronic frontal sinusitis 78546228 Active 2017 Chronic frontal sinusitis ; Location: left Note : Date Diagnosed : 11/25/2017 10:24 AM (J32.1) Not Available [facility] 4 03:04:22 Migraine without aura, not refractor y 983982918 Active 2017 Migraine without aura, not intractab le, without status migrainos us; Note: Date Diagnosed : 11/25/2017 10:24 AM (G43.009) Not Available [facility] 4 03:04:22 Chronic rhinitis 27462178 Active 2017 Chronic rhinitis; Note: Date Diagnosed : 8 12:39 PM (J31.0) Not Available [facility] 4 03:04:23 Headache 54804576 Active 2017 Headache; Note: Date Diagnosed : 8 12:39 PM (R51) Not Available [facility] 4 03:04:23 Hypertrop hy of nasal turbinate s 03438107 Active 2017 Hypertrop hy of nasal turbinate s; Note: Date Diagnosed : 8 6:02 PM (J34.3) Not Available [facility] 4 03:04:24 Chronic sinusitis 05100461 Active 2017 Other chronic sinusitis ; Note: Date Diagnosed : 8 6:02 PM (J32.8) Not Available [facility] 4 03:04:23 Follow-up visit Active 2017 Encounter for follow-up examinati on after completed treatment for condition s other than malignant neoplasm; Note: Date Diagnosed : 8 5:38 PM (Z09) Not Available [facility] 4 03:04:23 Bilateral tinnitus 96836775288 02 Active 2024 EREN HAWK MA, ANG-A [address] [facility],[place] [address], [place], [address] , [place] - [facility] 5 10:25:36 Dizziness and giddiness 551012985 Active 2024 ADOLFO AGUILA PA-C [address] [facility],[place] [address], [place], [address] , [facility] - [facility] 5 11:58:43 Seasonal allergic rhinitis 598409721 Active 2024 ADOLFO AGUILA PA-C [facility] [place] [facility][note 2], [facility] [place], [address] , [facility] - [facility] 5 13:03:20 Problem Notes None recorded. Procedures Surgical History Date Name Laterality Status Provider Name and Address Organization Details Recorded Time 5 Telehealth completed ADOLFO AGUILA PA-C [address] [place] [address],[place] [address], [place], [address], [facility] - [facility] 05/17/2024 16:43:21 5 JMSNasal/Sinus Endoscopy-PRIOR surgical cavities completed ADOLFO AGUILA PA-C [address] [place] [address],[place] [address], [place], [address], [facility] - [facility] 04/20/2024 11:47:03 5 Air & Speech Audio with Tymps - 81873, 40349 & 70115 completed EREN HAWK MA, CCC-A [address] [facility],[place] [address], [place], [address], [facility] 04/20/2024 10:25:43 Imaging Results None recorded. Procedure Notes None recorded. Medical Equipment None Reported. Allergies Allergen ID Allergen Name Allergen Category Reaction Reaction Severity Criticality Documentation Date Start Date Code Code System Note Provider Name and Address Organization Details Recorded Time 730901 metronida zole hydrochlo ride medicatio n other Not available Not available 07/26/2023 66059 RxNorm React ion: unkno wn, unspe cifie d;; Not Available [facility] 4 01:21:47 375362 morphine medicatio n other Not available Not available 07/26/2023 7052 RxNorm React ion: unkno wn, unspe cifie d;; Not Available [facility] 4 01:21:47 574105 Product containin g penicilli n (product) medicatio n Not available Not available Not available 04/20/2024 46167 8001 SNOMED ADOLFO AGUILA PA-C [address] [place] [address], [place], [address], [facility] 5 12:03:57 217418 Diflucan medicatio n Not available Not available Not available 04/23/202440003 3 RxNorm KEANU POLO MD [address] [place] [address], [place], [address], [facility] 5 10:25:15 413663 Trileptal medicatio n Not available Not available Not available 04/23/2024 41114 0 RxNorm KEANU POLO MD [address] [place] [address], [place], [address], [facility] 5 10:25:15 Medications Name Sig Start Date Stop Date Status Note LastModified by Organization Details LastModified Time fluoxetin e 40 mg capsule 07/30 completed Medicati on ID: [id number] D uration Value: 30 Brand Name: fluoxeti ne Send Method: E-Prescr ibed Sub s Allowed: subs OK Medic ationGen ericName : fluoxeti ne Not Available Not Available Not Available Mirena 21 mcg/24 hr (up to 8 years) 52 mg intrauter ine device 03/21 completed Medicati on ID: [id number] B rand Name: Mirena S end Method: E-Prescr ibed Sub s Allowed: subs OK Medic ationGen ericName : Mirena Not Available Not Available Not Available oxcarbaze pine 150 mg tablet TAKE 1 TABLET BY MOUTH EVERY DAY 04/17 completed Not Available Not Available Not Available doxycycli ne hyclate 100 mg capsule TAKE 1 CAPSULE BY MOUTH TWICE A DAY FOR 14 DAYS 01/02 completed Not Available Not Available Not Available ketoconaz ole 2 % shampoo USE SHAMPOO IN SCALP EVERY OTHER DAY, LEAVE IN FOR 5 MINUTES BEFORE RINSING. active Not Available Not Available No t Available Apri 0.15 mg-0.03 mg tablet TAKE 1 TABLET BY MOUTH EVERY DAY IN THE MORNING active Not Available Not Available No t Available divalproe x 250 mg tablet,de layed release TAKE 1 TABLET BY MOUTH TWICE A DAY 01/02 completed Not Available Not Available Not Available oxybutyni n chloride ER 10 mg tablet,ex tended release 24 hr TAKE 1 TABLET AT THE SAME TIME DAILY 04/17 completed Not Available Not Available Not Available azithromy yusra 250 mg tablet TAKE 2 TABLETS BY MOUTH TODAY, THEN TAKE 1 TABLET DAILY FOR 4 DAYS DIRECTED 01/02 completed Not Available Not Available Not Available ibuprofen 800 mg tablet 04/17 completed Medicati on ID: [id number] B rand Name: ibuprofe n Send Method: E-Prescr ibed Sub s Allowed: subs OK Speci al Instruct ion: TAKE 1 TABLET BY MOUTH 3 TIMES A DAY WITH FOOD OR MILK (OR IMMEDIAT MATY AFTER). Medicati onGeneri cName: ibuprofe n Not Available Not Available Not Available clarithro mycin 500 mg tablet 1 tablet by mouth 04/17 completed Medicati on ID: [id number] D uration Value: 10 Prescri bed By Name: Russ Del Angel nd Name: clarithr omycin S end Method: E-Prescr ibed Sub s Allowed: subs OK Medic ationGen ericName : clarithr omycin Not Available Not Available Not Available prednison e 20 mg tablet 07/27 completed Medicati on ID: [id number] P rescribe d By Name: Russ Del [...] mg tablet 04/17 completed Medicati on ID: [id number] B rand Name: spironol actone S end Method: E-Prescr ibed Sub s Allowed: subs OK Speci al Instruct ion: TAKE 1 TABLET BY MOUTH TWICE A DAY WITH MEALS, ELECTROL YTES TO BE COMPLETE D BEFORE STARTING NEW DOSE Med icationG enericNa me: spironol actone Not Available Not Available Not Available acetazola mide 250 mg tablet TAKE 1 TABLET BY MOUTH TWICE A DAY active Not Available Not Available No t Available sumatript an 50 mg tablet TAKE 1 TABLET BY MOUTH DAILY, NEEDED FOR MIGRAINE , MAY REPEAT AFTER 2 HOURS UP TO A MAXIMUM OF 2 01/02 completed Not Available Not Available Not Available Zyrtec 10 mg tablet 1 tablet by mouth 2019 active Medicati on ID: [id number] D uration Value: 30 Brand Name: Zyrtec [...] layed release 04/17 completed Medicati on ID: [id number] B rand Name: aspirin Send Method: E-Prescr ibed Sub s Allowed: subs OK Medic ationGen ericName : aspirin Not Available Not Available Not Available Mapap (acetamin ophen) 500 mg capsule 04/17 completed Medicati on ID: [id number] B rand Name: Mapap (acetami nophen) Send Method: E-Prescr ibed Sub s Allowed: subs OK Medic ationGen ericName : Mapap (acetami nophen) Not Available Not Available Not Available lorazepam 2 mg tablet TAKE ONE TABLET BY MOUTH ABOUT 1/2 HOUR PRIOR TO SCHEDULE D PROCEDUR E FOR ANXIETY active Not Available Not Available No t Available meclizine 25 mg tablet TAKE 1 TABLET BY MOUTH 3 TIMES A DAY NEEDED DIZZINES S active Not Available Not Available No t Available doxycycli ne monohydra te 100 mg capsule 1 capsule by mouth 04/17 completed Medicati on ID: [id number] D uration Value: 21 Prescri bed By Name: Russ Del Angel nd Name: doxycycl ine monohydr ate Send Method: E-Prescr ibed Sub s Allowed: subs OK Medic ationGen ericName : doxycycl ine monohydr ate Not Available Not Available Not Available fluoxetin e 20 mg tablet TAKE 4 TABLETS BY MOUTH EVERY DAY active Not Available Not Available No t Available dexametha sone 4 mg tablet PLEASE SEE ATTACHED FOR DETAILED DIRECTIO NS [...] DAILY TO AFFECTED AREA ON THE FACE. 01/02 completed Not Available Not Available Not Available gabapenti n 300 mg capsule 04/17 completed Medicati on ID: [id number] B rand Name: gabapent in Send Method: E-Prescr ibed Sub s Allowed: subs OK Speci al Instruct ion: TAKE 1 CAPSULE BY MOUTH EVERYDAY AT BEDTIME Medicati onGeneri cName: gabapent in Not Available Not Available Not Available nystatin 100,000 unit/gram topical powder APPLY TO AFFECTED AREA TWICE A DAY 01/02 completed Not Available Not Available Not Available propranol ol ER 120 mg capsule,2 4 hr,extend ed release 05/09 completed Medicati on ID: [id number] D uration Value: 30 Reason: () Brand Name: proprano lol Send Method: E-Prescr ibed Sub s Allowed: subs OK Medic ationGen ericName : proprano lol Not Available Not Available Not Available azelastin e 137 mcg (0.1 %) nasal spray USE 2 SPRAYS IN EACH NOSTRIL TWICE A DAY FOR 30 DAYS 2024 active Not Available Not Available Not Avai lable methylpre dnisolone 4 mg tablets in a dose pack TAKE 6 TABLETS ON DAY 1 DIRECTED ON PACKAGE AND DECREASE BY 1 TAB EACH DAY FOR A TOTAL OF 6 DAYS 01/02 completed Not Available Not Available Not Available albuterol sulfate HFA 90 mcg/actua tion [...] mg capsule 04/17 completed Medicati on ID: [id number] B rand Name: fluoxeti ne Send Method: E-Prescr ibed Sub s Allowed: subs OK Medic ationGen ericName : fluoxeti ne Not Available Not Available Not Available naratript an 2.5 mg tablet 01/02 completed Not Available Not Available Not Available doxycycli ne hyclate 100 mg tablet TAKE 1 TABLET BY MOUTH TWICE A DAY 01/02 completed Not Available Not Available Not Available spironola ctone 50 mg tablet TAKE 1 TABLET BY MOUTH TWICE A DAY 04/17 completed Not Available Not Available Not Available hydroxyzi ne pamoate 25 mg capsule TAKE 1 CAPSULE (25 MG) BY MOUTH TWICE A DAY NEEDED active Not Available Not Available No t Available zolmitrip turner 5 mg nasal spray USE 1 SPRAY IN EACH NOSTRIL EVERY DAY NEEDED FOR MIGRAINE HEADACHE 01/02 completed Not Available Not Available Not Available Pain Relief Extra Strength (acetamin ophen) 500 mg tablet 04/17 completed Medicati on ID: [id number] B rand Name: Pain Relief Extra Strength [...] spray,dash pension 04/17 completed Medicati on ID: [id number] D uration Value: 30 Brand Name: Flonase Allergy Relief S end Method: E-Prescr ibed Sub s Allowed: subs OK Speci al Instruct ion: USE 2 SPRAYS IN EACH NOSTRIL ONCE A DAY Medi cationGe nericNam e: Flonase Allergy Relief Not Available Not Available Not Available Saxenda 3 mg/0.5 mL (18 mg/3 mL) subcutane ous pen injector PLEASE SEE ATTACHED FOR DETAILED DIRECTIO NS active Not Available Not Available No t Available prucalopr michael 2 mg tablet TAKE 1 TABLET BY MOUTH EVERY DAY 01/02 completed Not Available Not Available Not Available Ajovy 225 mg/1.5 mL subcutane ous auto-inje ctor INJECT 225 MG SUBCUTAN EOUSLY EVERY 28 DAYS 01/02 completed Not Available Not Available Not Available Wegovy 1.7 mg/0.75 mL subcutane ous [...] EVERY WEEK - ROTATE INJECTIO N SITES 01/02 completed Not Available Not Available Not Available Zepbound 5 mg/0.5 mL subcutane ous pen injector INJECT CONTENTS OF 1 PEN SUBCUTAN EOUSLY EVERY WEEK, ROTATE INJECTIO N [facility] 01/02 completed Not Available Not Available Not Available Zepbound 2.5 mg/0.5 mL subcutane ous pen injector INJECT THE CONTENTS OF 1 PEN SUBCUTAN EOUSLY WEEKLY, ROTATE INJECTIO N SITES 01/02 completed Not Available Not Available Not Available Zepbound 7.5 mg/0.5 mL subcutane ous pen injector INJECT 7.5 MGS SUBCUTAN EOUSLY INJECTIO N EVERY WEEK, ROTATE INJECTIO N [facility] 01/02 completed Not Available Not Available Not Available Ultra-Fin e Pen Needle 31 gauge x 3/16 USE DAILY W/ SAXENDA active Not Available Not Available No t Available Vitals Date Recorded Body weight Body mass index (BMI) Body height Provider Name and Address Organization Details Last Updated DateTime 04/20/2024 22370.1 g 37 kg/m2 154.94 cm Gosia Leung [place] - [facility] 04/20/2024 10:31:06 Date Recorded Body height Body mass index (BMI) Body weight Provider Name and Address Organization Details Last Updated DateTime 01/02/2025 154.94 cm 41 kg/m2 80801.54 g Mishel Gardiner [place] - [facility] 01/02/2025 14:09:40 Social History None recorded. Functional Status None recorded. Mental Status None recorded. Family History Nothing Reported. Medical History Condition Response Allergies/Hayfever Y Heart Problems N Anxiety Y Tonsil Infections N Emphysema N Migraines Y Thyroid Problems N Glaucoma N Depression Y COPD N Developmental Delay N Nasal or Sinus Problems Y Anemia N Immune System Disorder N Anesthesia Complications N Heart Attack (DC) N Other Skin Condition Y Diabetes N Rhinitis N Bleeding Disorder N Food Allergy N Arthritis N Hearing Loss N Hyperlipidemia N Cancer N Stroke N Dementia N Nasal polyps N Asthma Y Sleep Disorder N GERD/Reflux Y High Cholesterol N Liver Disease Y Headaches Y Fibromyalgia N Hypertension N Speech Delay N Kidney Disease N Gynecological HistoryNo gynecological history recorded. Obstetrics History GPAL:G 0 P 0 0 0 0 Past Encounters Encounter ID Performer Location Encounter Start Date Encounter Closed Date Diagnosis/Indication Diagnosis SNOMED-CT Code Diagnosis ICD10 Code Diagnosis IMO Codes Diagnosis Note [id number] ADOLFO AGUILA PA-C [facility] [address] [address] 04/20/2024 09:58:39 04/20/2024 11:22:47 Chronic sinusitis 18925333 J32.8 Dizziness and giddiness 190384664 R42 Audiologic al evaluation results: Right ear: Normal hearing with excellent word recognitio n. Left ear: Normal hearing with excellent word recognitio n. Tympanomet ry: Right Ear:Type A Left Ear:Type A Migraine w ithout aura, not refractory 654576170 G43.009 [id number] ADOLFO AGUILA PA-C [facility] [address] [address] 05/17/2024 16:46:18 05/17/2024 17:04:48 Chronic sinusitis 05602313 J32.8 Migraine w ithout aura, not refractory 908278017 G43.009 [id number] RADHA MARINO PA-C [facility] [address] [address] 01/02/2025 13:51:57 01/02/2025 14:24:43 Hypertrophy of nasal turbinates 08196647 J34.3 Seasonal a llergic rhinitis 394804072 J30.89 22591542 Health Concerns Section Related Observation LastModified by Organization Detai ls LastModified Time None Recorded Concern Status LastModified by Organization Details LastModified Time None Recorded Advance Directives Directive None Recorded Payers Insurance Date Sequence Insurance Name Policy Number Policy Craft Covered Member ID Craft Member ID Guarantor Name 01/01/2025 1 [facility] [place] [place] [facility] [place] Margareth Grace [id number] Margareth Grace Notes Date Note Type Note Provider Name and Address Organization Details Recorded Time 04/20/2024 text/html ROS as noted in the HPI 33 year old female presents for evaluation of dizziness. History of allergic rhinitis, chronic sinusitis, and migraine. She is status post septoplasty and bilateral F[place] [address] Murray. She reports having COVID back in July [...] 10 days ago. Reports skin testing at [facility] 2 years ago was negative. Takes Zyrtec BID and Flonase PRN. MRI was done at [facility] last October and there were incidental sinus findings and she was referred for further evaluation. KEANU POLO MD [address] [facility],[address], [address], [place] - [facility] 04/23/2024 10:26:29 05/17/2024 text/html ROS as noted in the HPI 33 year old female presents for follow up of chronic nasal congestion and rhinitis. History of allergic rhinitis, chronic sinusitis, and migraine. She is status post septoplasty and bilateral FESS [place] [address] Murray. She has history of pineal cyst which [...] congestion, and rhinitis. Reports skin testing at [facility] 2 years ago was negative. Takes Zyrtec BID and Flonase PRN. ADOLFO AGUILA PA-C 100 [facility], [place], [address], [place] - [facility] 05/17/2024 16:50:16 01/02/2025 text/html ROS as noted in the HPI 34-year-old female with history of bilateral endoscopic sinus surgery and septoplasty presents for reevaluation. Over the last year she has had increasing pressure headaches and was seen by her neurologist who ordered an MRI. She was noted to have intracranial hypertension and is in the process of having this treated. There was also noted to be some mucosal thickening in the maxillary sinuses and it was recommended she follow-up with ENT. She has been having increased seasonal allergies as well. She takes Flonase and twice daily Zyrtec. MIKI MURRAY MD [address] [place] [address], [phone], [facility] - [facility] 01/02/2025 15:21:56 OBGyn Episode No OBEpisode recorded.
--- OUTSIDE RECORDS SUMMARY | 2025-01-15 10:24 | XMS_ITS | Clinical Summary ---
Author Organization [facility] Address [address] [place] [address] Care Team Providers Care Green Building Architect Name Role Phone Qiana Crowe MD Unavailable [phone] Qiana Crowe MD Primary Care Provider Medications [...] patient's age to complete this topic Insurance [facility] [employer] Maintenance Organization (HMO) Address: [facility] [id number] R[place]HANA CABALLERO [id number] [facility] [employer] Care Teams Green Building Architect Relationship Specialty Start Date End Date Qiana Crowe MD [address] [place] [address] PCP - Insurance Assigned PCP 08/12/23 Qiana Crowe MD [address] [place] [address] PCP - General Internal Medicine 08/15/23
[2025-01-19 01:34] LABS: DNAds, Crithidia Antibody Negative (Negative)
[2025-01-21 16:58] LABS: Anti Nuclear Antibody Screen NEGATIVE (NEGATIVE)
== END 2025-01-15 08:51 | disposition home or self-care (01) ==
LOC: HO.LAB 08:50
PROVIDERS: PCP Nurse Practitioner Adult Health; Visit Provider Nurse Practitioner
DX: G43.709 Chronic migraine without aura, not intractable, without status migrainosus (principal); G93.2 Benign intracranial hypertension
CPT/HCPCS: 36415; 85652; 86038; 86141; 86255

== ENCOUNTER 2025-01-28 07:55 | Outpatient (AMB) | payer OTHER, SELFPAY ==
--- OUTSIDE RECORDS SUMMARY | 2023-10-07 08:00 | XMS_ITS ---
Author Organization [facility] Address [address] [address] Care Team Providers Care Manager Utility Name Role Phone Jamar Tucker Primary Care Provider Unavailabl DEMI Sánchez [phone] REASON FOR VISIT 1 month f/u Encounters Encounter Location Date Provider Diagnosis [facility] [address] [address] 10/07/2023 DEMI DEL VALLE Plan Of Treatment No Information Progress Notes * Margareth GRACEDOB:1990 (34 yo F)Acc No.[id number]:10/07/2023 Progress Note Patient: Margareth GROSS Provider: Julia Del Valle DPM :1990 A ge:32 Y S ex:Female Date:10/07/2023 Address:[address] [place] [address] [address] [id number] Pcp:Jamar Tucker Subjective: * Chief Complaints: * 1 . 1 month f/u. * Medical History: Objective: * Vitals: Assessment: Plan: * Treatment: * Billing Information: * Visit Code: * Procedure Codes: * Electronic signature of RISSA DEL VALLE D.P.M on 01/28/2025 at 09:25 AM EST Sign off status: Pending * Provider: Julia Del Valle DPM Date: 0 10/07/2023 Generated for Printi ng/Faxing/eTransmitting on: 1 03/30/2024 09:25 AM EST
--- NOTE | 2025-01-28 07:56 | MHC.OFFVIS ---
Vital Signs 01/28/25 08:01 Height 5 ft 4 in Weight 222 lb BMI 38.1 BP 120/86 Blood Pressure Location Rt brachial Position Sitting Respiration 16 Pulse 89 Pulse Oximetry (%) 98 Oxygen Delivery Method Room Air Intake Visit Reasons: Botox Customizer Required: No Allergies morphine Allergy (Severe, Verified 01/28/25 08:03) Hives Penicillins Allergy (Severe, Verified 01/28/25 08:03) Hives fluconazole (From Diflucan) Allergy (Intermediate, Verified 01/28/25 08:03) Anaphylaxis oxcarbazepine (From Trileptal) Allergy (Unknown, Verified 01/28/25 08:03) Hives HPI Comments Details: Margareth is a 34-year-old female patient with a past medical history of gastroenteritis, allergic rhinitis, allergies, anxiety disorder, benign neoplasm of the pineal gland, depression, PCOS, OCD, presenting today for a headache follow-up. To review, I initially saw her back in May of 2024 at which time she reported episodic migraines but over the course of a few months has been getting worse. She was averaging 3 migraine days per week at that time but having low-grade headaches on a near daily basis. She described a unilateral, throbbing head pain associated with brain fog, nausea, light and sound sensitivity, and dizziness with occasional vomiting when headaches became more severe. Sleep was likely playing a role with some significant insomnia. She was started on Vyepti infusions for preventive therapy at that time. 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 Unfortunately in November, her headaches got much worse. They were reported to be daily, severe, holocephalic, worse with a laying position, and associated with new onset diplopia, blurry vision, spots in vision, tinnitus, and sensation of severe pressure. Repeat MRI of the brain in November of 2024 showed findings that could be consistent with IIH including a partially empty sella and stenosis involving distal transverse sinuses bilaterally and optic nerve sheath distension. Her ophthalmology evaluation however was reassuring and did not show evidence of papilledema A lumbar puncture was performed with an opening pressure of 26. Her CRP was slightly elevated at 4.2 though her ESR was normal. Repeat CRP was normal. We performed a sleep study and EEG as well both of which were nondiagnostic She was started on acetazolamide initially dosed at 250 mg twice daily and then increase to 500 mg twice daily and increased again to 500mg TID. She was also started on Depakote 250 mg twice daily for adequate pain control which she continues. She has since been waiting a CT a of the head and neck and CTV to rule out etiologies such as vasogenic edema, dissection, or venous thrombosis. I would also like to take a closer look at previously noted venous stenosis. She has an appointment 01/30/25 In the meantime, she has seen only marginal improvement with the acetazolamide and Depakote. She is currently taking the acetazolamide dosed at 500 mg three time daily which she does report upsets her stomach though if she skips a dose she can feel worsening of her headaches. In terms of the Depakote, she did take a break from this at 1 point and had worsening of headaches as well. For now, in his helping with pain control. Given the likelihood of overlapping chronic migraine, we will also likely start Botox therapy. She is here today however reporting that her pain continues at a severe level and we opted to do nerve blocks for more acute treatment and will hold off on Botox until we can reduce her pain at least slightly. She also has been working with [facility] to come off of her estrogen containing control. She has been off for a couple of weeks now and is on progesterone only. Past medication trials: Amitriptyline-no benefit Propranolol-no benefit Topiramate-mood changes Ajovy-no benefit Sumatriptan-no benefit Naratriptan partially beneficial Vyepti infusion-no benefit and possibly worsening of headaches PFSH Medical History (Updated 12/27/24 @ 12:06 by Priscila Friend CNP) Diplopia Surgical History H/O bilateral inguinal hernia repair H/O fasciotomy History of appendectomy Social History Household Members: Family Alcohol intake: never Patient Tobacco Use Status: Never used Tobacco Review of Systems Const All systems reviewed & are unremarkable except as noted in HPI and below Physical Exam Vital Signs: Last Vital Signs Pulse 89 01/28/25 08:01 Resp 16 01/28/25 08:01 BP 120/86 01/28/25 08:01 Pulse Ox 98 01/28/25 08:01 Oxygen Delivery Method Room Air 01/28/25 08:01 BMI result Body Mass Index 38.1 Const General: cooperative, healthy appearing, comfortable and no acute distress Nutritional Appearance: well nourished Orientation/consciousness: patient oriented x3 Limitations: no limitations HEENT Head: Yes normal to inspection and Yes normocephalic Eyes General: appearance normal, both eyes and all related structures Visual Granados: normal visual granados by confrontation Alignment and Position: alignment normal Periorbital: periorbital findings normal Eyelids: Yes eyelids normal Conjunctivae: conjunctivae normal Sclerae: sclerae normal Direct Ophthalmoscopy: normal light reflex and no papilledema Neck Neck: Yes normal visual inspection and Yes full ROM General: Yes no CVA tenderness Back/Spine/Pelvis Back: no CVA tenderness Cervical Spine: normal cervical lordosis Thoracic/Lumbar Spine: thoracic and lumbar spine normal to inspection Neuro General: patient oriented x3 and deep tendon reflexes 2+ bilaterally Cranial nerves: Yes CN's II-XII intact bilaterally and Yes Facial sensation intact/muscles of mastication intact Cognition (Neuro): normal cognition Gait exam (Neuro): Normal gait present Motor exam (neuro): 5/5 motor strength present throughout and no tremor noted Sensory Exam: double simultaneous stimulation for sensation normal Romberg Test: Negative Pupils: Normal pupillary reactivity/response: bilateral Psych Appearance: grossly normal Mental Status: mental status grossly normal Speech and movement: Normal speech and movement present and Clear speech present Affect: normal affect Attitude: cooperative Thought process: Normal thought process present Thought content: Normal thought content present Insight: Good insight present (Psych) Judgement: Good judgement present (Psych) Office Procedures Nerve Block Details: Bilateral Greater Occipital Nerve block procedure: Laterally: Bilateral Indications: Occipital neuralgia Current allergies and current list of medications were reviewed prior to procedure, verbal consent was obtained, procedure was explained in detail to the patient prior to starting. Time-out was performed prior to procedure. Following universal hygiene protocols, patient's left occipital area was located by drawing a line between the external occipital protuberance and the mastoid process. The greater occipital nerve was located approximately 2/3 along this restaurant line server to the occiput, and corresponded with the point of maximum tenderness. Alcohol was applied topically to the skin. A 27 gauge needle (aspirating during insertion) was inserted at a 45 degree angle until just above the periosteum. The providers selected agent (s)/medications (as documented in this note) were injected on the left side (directing needle to center, left and right of painful focus any fanning technique). Pressure with gauze pad was held briefly upon the site of puncture to minimize bleeding and to further spread anesthetic subcutaneously. The procedure was repeated on the right side. The patient was monitored for 15 minutes after the procedure and no complications were observed. Post procedure care was reviewed with the patient including application of ice intermittently to the injection sites over the course of the day to reduce inflammation. CPT: 95261-Rytrlvk Occipital Procedure code (CPT) selection complete Office Meds bupivacaine (PF) 0.5 % (5 mg/mL) injection solution Performing Provider: Priscila Friend CNP Performing Location: [facility] [place] Neurology and Sleep-Hol Administered by: Priscila Friend CNP on 01/28/25 08:36 Dose Route Admin Location Dispensed Lot Number Expiration Date [facility] [employer] 6 mL Infiltration 10 mL [id number] XELLIA PHARMACE Total Dispensed Waste 10 mL 40 % Assessment & Plan Assessment & Plan (1) Chronic migraine without aura without status migrainosus, not intractable: Code(s): G43.709 - Chronic migraine without aura, not intractable, without status migrainosus Category: Medical Plan: . (2) Worsening headaches: Code(s): R51.9 - Headache, unspecified Category: Medical Plan: . (3) IIH (idiopathic intracranial hypertension): Code(s): G93.2 - Benign intracranial hypertension Category: Medical Plan: . Michell Margareth is a 34-year-old female patient with a past medical history of gastroenteritis, allergic rhinitis, allergies, anxiety disorder, benign neoplasm of the pineal gland, depression, PCOS, OCD, presenting today for a headache follow-up. With pre-existing migraine history had notable changes in worsening of headache in November accompanied by vision changes and positional component as well as tinnitus. Ophthalmology exam was reassuring however lumbar puncture did show slightly elevated opening pressure of 26. She is being treated with the acetazolamide 500 mg three times daily which seems to be at least slightly helpfl. She is also using Depakote for added pain control which is also helpful. Still however, she is continuing to have frequent near daily headaches with the pressure sensation and some continued changes to her vision including spots in her vision. She did have an elevated CRP level of 4.2 but repeat was negative. No concerns on DSD, MUKUL, CBC, and CMP. We are still awaiting vascular imaging. Eye exam today reassuring with no obvious papiledema. -CTA head and neck and CTV- awaitingscheudled for 01/30 -Continue acetazolamide 500 mg three times daily and Depakote 250 mg twice daily -Awaiting Botox once we can reduce headaches slightly with nerve blocks -Continue follow up with OBGYN for appropriate BC options -Occiptal nerve blocks in office today Orders: Orders AMB Nerve Block Today G43.709 - Chronic migraine without aura, not intractable, without status migrainosus, R51.9 - Headache, unspecified Coding Level of Care Code Est Pt Level 4 (70963) Diagnoses Chronic migraine without aura without status migrainosus, not intractable G43.709 Worsening headaches R51.9 IIH (idiopathic intracranial hypertension) G93.2 CPT Codes Nerve Block - CPT: 05978-Abeqgup Occipital ([id number])
[2025-01-28 08:01] VITALS: BP 120/86; PULSE 89; RESP 16; O2SAT 98; BMI 38.1
--- OUTSIDE RECORDS SUMMARY | 2025-01-28 09:22 | XMS_ITS | Clinical Summary ---
Author Organization [facility] [address] [facility] Address [address] [place] [address] Phone Care Team Providers Care Esthetician/Spa Coordinator Name Role Phone Marybel Jerry BACK ROLLER Primary Care Provider [phone] Allergies Active Allergy Reactions Criticality Noted Date Comments Fluconazole Hives,Itching 2019 Metronidazole Hcl Other 11/20/2024 metronidazole hydrochloride Morphine Respiratory Issues,Shortness of breath High 11/20/2024 rigid mucles morphine Oxcarbazepine Hives 11/20/2024 hives when dosage was increased Penicillins Anaphylaxis High 11/20/2024 Encounters Date Type Department Care Team Description 11/20/2024 9:15 PM EDT - 11/20/2024 11:36 PM EDT Emergency [facility] Emergency [address] [place] [id number] Johnathon Matthew MD Persistent migraine aura without [...] Signed Date: 11/20/2024 22:57 ET Workstation ID: [id number] Transcribed By: Self Edit Transcribed Date: 11/20/2024 [...] Signed Date: 11/20/2024 22:57 ET Workstation ID: [id number] Transcribed By: Self Edit Transcribed Date: 11/20/2024 22:50 ET us Johnathon Matthew MD IMG CT PROCEDURES Final Res ult * POC , urine manually resulted (11/20/2024 10:07 PM EDT) HCG, Ur POC Negative Negative POC hCG Int QC Pass? Yes Yes EXPIRATION DATE POC 05/01/2026 LOT NUMBER POC [id number] Urine Urine specimen obtained by clean catch procedure / Unknown 11/20/2024 10:07 PM EDT Johnathon Matthew MD POINT OF CARE TEST ENTER/ED IT ORDERABLES Final Result * CBC auto differential (11/20/2024 9:49 PM EDT) WBC 7.6 4.0 - 10.5 K/mcL LAB HEMETOLOGY METHOD 11/20/2024 9:57 PM EDT [facility] RBC 4.56 4.20 - 5.40 M/mcL LAB HEMETOLOGY METHOD 11/20/2024 9:57 PM EDT [facility] Hemoglobin 13.1 12.5 - 16.0 g/dL LAB HEMETOLOGY METHOD 11/20/2024 9:57 PM EDT [facility] Hematocrit 38.8 37.0 - 47.0 % LAB HEMETOLOGY METHOD 11/20/2024 9:57 PM EDT [facility] MCV 85.1 78.0 - 100.0 FL LAB HEMETOLOGY METHOD 11/20/2024 9:57 PM EDT [facility] MCH 28.7 25.0 - 33.0 pcg LAB HEMETOLOGY METHOD 11/20/2024 9:57 PM EDT [facility] MCHC 33.8 32.0 - 36.0 g/dL LAB HEMETOLOGY METHOD 11/20[facility]24 [facility] RDW 12.1 12.1 - 16.2 % LAB HEMETOLOGY METHOD 11/20/2024 9:57 [facility] Platelets LAB HEMETOLOGY METHOD 11/20/2024 9:57 PM [facility] Comment:Occasional platelet clumping seen on smear. Platelet estimate appears adequate on smear review. MPV 9.5 7.4 - 11.4 FL LAB HEMETOLOGY METHOD 11/20/2024 9:57 [facility] Neutrophils Relative 59.1 44.0 - 74.0 % LAB HEMETOLOGY METHOD 11/20/2024 9:57 PM [facility] Lymphocytes Relative 29.5 20.0 - 48.0 % LAB HEMETOLOGY METHOD 11/20/2024 9:57 PM [facility] Monocytes Relative 6.8 2.0 - 12.0 % LAB HEMETOLOGY METHOD 11/20/2024 9:57 PM [facility] Eosinophils Relative 3.5 0.0 - 6.0 % LAB HEMETOLOGY METHOD 11/20/2024 9:57 PM [facility] Basophils Relative 0.7 0.0 - 2.0 % LAB HEMETOLOGY METHOD 11/20/2024 9:57 PM [facility] Neutrophils Absolute 4.50 1.80 - 7.80 K/mcL LAB HEMETOLOGY METHOD 11/20/2024 9:57 PM [facility] Lymphocytes Absolute 2.25 1.00 - 3.20 K/mcL LAB HEMETOLOGY METHOD 11/20/2024 9:57 PM [facility] Monocytes Absolute 0.52 0.00 - 0.80 K/mcL LAB HEMETOLOGY METHOD 11/20/2024 9:57 PM EDT [facility] Eosinophils Absolute 0.27 0.00 - 0.50 K/mcL LAB HEMETOLOGY METHOD 11/20/2024 9:57 PM EDT [facility] Basophils Absolute 0.05 0.00 - 0.20 K/[facility] LAB HEMETOLOGY METHOD 11/20/2024 9:57 PM EDT [facility] Blood Venous blood specimen / Unknown Venipuncture / Unknown 11/20/2024 9:49 PM EDT 11/20/2024 9:52 PM EDT Johnathon Matthew MD LAB BLOOD ORDERABLES Final Result [facility] [place] Reg. #:[id number] [address] [place] [address], * (ABNORMAL) Basic Metabolic Panel (BMP) (11/20/2024 9:49 PM EDT) Sodium 133(L) 135 - 145 mmol/L LAB CHEMISTRY METHOD 11/20/2024 10:14 [facility] Potassium 4.5 3.5 - 5.1 mmol/L LAB CHEMISTRY METHOD 11/20/2024 10:14 PM EDT [facility] Comment:Moderate Hemolysis m ay affect test result(s). Chloride 104 98 - 107 mmol/L LAB CHEMISTRY METHOD 11/20/2024 10:14 [facility] CO2 24 24 - 32 mmol/L LAB CHEMISTRY METHOD 11/20/2024 10:14 [facility] Anion Gap 5 5 - 14 LAB CHEMISTRY METHOD 11/20/2024 10:14 [facility] Glucose 100 70 - 199 mg/dL LAB CHEMISTRY METHOD 11/20/2024 10:14 PM EDT [facility] BUN 12 7 - 17 mg/dL LAB CHEMISTRY METHOD 11/20/2024 10:14 PM EDT [facility] Creatinine 0.76 0.50 - 1.00 mg/dL LAB CHEMISTRY METHOD 11/20/2024 10:14 PM EDT [facility] eGFR 107 >=60 mL/min/1. 73m2 LAB CHEMISTRY METHOD 11/20/2024 10:14 PM EDT [facility] Comment:Calculation based on the Chronic Kidney Disease Epidemiology Collaboration (CKD-EPI) equation refit without adjustment for race. BUN/Creatinine Ratio 15.8 12.0 - 20.0 LAB CHEMISTRY METHOD 11/20/2024 10:14 PM EDT [facility] Calcium 9.2 8.4 - 10.2 mg/dL LAB CHEMISTRY METHOD 11/20/2024 10:14 PM EDT [facility] Blood Venous blood specimen / Unknown Venipuncture / Unknown 11/20/2024 9:49 PM EDT 11/20/2024 9:52 PM EDT Johnathon Matthew MD LAB BLOOD ORDERABLES Final Result [facility] [place] Reg. #:[id number] [address] [place] [address], [place] [phone] from Last 3 Months Insurance [facility] Care Teams Esthetician/Spa Coordinator Relationship Specialty Start Date End Date Marybel Jerry NP [address] [place] [address] PCP - General Nurse Practitioner 11/20/24
--- OUTSIDE RECORDS SUMMARY | 2025-01-28 09:22 | XMS_ITS | Patient Health Record ---
Author Organization [facility] Address [address] [address] Care Team Providers Care Stock Pitcher Name Role Phone Laguerre, Nicole Primary Care Provider Unavailab Klever Adams Unavailable [phone] Priscila Del Valle Unavailable Unavailable Reason For Referral No Information Problems Problem Type SNOMED Code ICD Code Onset Dates Problem Status W/U Status Risk Notes Problem Skin sensation disturbance (32639685) Bilateral leg paresthesia (R20.2) Active confirmed Plan Of Treatment No Information Insurance Providers Payer Name Payer Address Payer Phone Subscriber Number Group Number Insured Name Patient Relationship to Insured Coverage Start Date Coverage End Date [facility] [address] RACHANA CABALLERO [phone] [id number] Margareth Grace Self - patient is the insured
--- OUTSIDE RECORDS SUMMARY | 2025-01-28 09:23 | XMS_ITS | Clinical Summary ---
Author Organization [facility] Address [address] [place] [address] Phone Care Team Providers Care Setter Automatic Spinning Lathe Name Role Phone Jordana Wong MD Primary [...] PAP SMEAR 2013 INFLUENZA VACCINE (#1) 2024 2, 12/11/2020 COVID-19 VACCINE (2024-2 6 season) 2024 04/10/2020 HEPATITIS A VACCINES Aged Out No long er eligible based on patient's age to complete this topic HIB VACCINES Aged Out No longer eligi ble based on patient's age to complete this topic IPV VACCINES Aged Out No longer eligi ble [...] topic Medical Devices Not on file Insurance [facility] QUALITY LIMITED [place] [address] [place] [address] [facility]ALITY [facility] QUALITY LIMITED NTK HMO [facility] QUALITY LIMITED [facility] Care Teams Setter Automatic Spinning Lathe Relationship Specialty Start Date End Date Jordana Wong MD [address] [place] [address] PCP - General Internal Medicine 03/21/23 Additional Source Comments The information contained in this document represents components of the legal health record. It is not the complete legal health record.[facility]
--- OUTSIDE RECORDS SUMMARY | 2025-01-28 09:24 | XMS_ITS | Patient Health Record ---
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 Problem Tarsal tunnel syndrome (22698379) Tarsal tunnel syndrome, right lower limb (G57.51) Active confirmed Problem Mononeuropathy of lower limb (893467358) Neuritis of foot, unspecified laterality (G57.90) Active confirmed Problem Tarsal tunnel syndrome (87335028) Tarsal tunnel syndrome of both lower extremities (G57.53) Active confirmed Problem Calcaneonavicular bar (68183278) 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) Active confirmed 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 Vital Signs Height 5ft 1in in 05/02/2024 Weight 198.6 lbs 05/02/2024 BMI 37.52 kg/m2 05/02/2024 Encounters Encounter Location Date Provider Diagnosis [facility] [address] 05/02/2024 DEMI CHA Posterior tibial tendinitis, right leg M76.821 ; Posterior tibial tendinitis, left leg M76.822 ; Extensor tendinitis of foot M77.8 ; Leg swelling M79.89 ; Leg cramping R25.2 ; Neuritis of foot, unspecified laterality G57.90 ; Pain in left leg M79.605 and Pain in right leg M79.604 [facility] [address] 07/09/2024 DEMI CHA Assessments Encounter Date [...] Insured Coverage Start Date Coverage End Date [facility] [address] RACHANA CABALLERO [id number] Margareth Grace Self - patient is the [...] Hospitalization History Reason Date(Month/Year) ER visit [facility]- rectal bleeding 10/2022
--- OUTSIDE RECORDS SUMMARY | 2025-01-28 09:25 | XMS_ITS | Clinical Summary ---
Author Organization [facility] Address [address] [place] [address] Care Team Providers Care Respiratory Therapist Name Role Phone Qiana Crowe MD Unavailable [phone] Qiana Crowe MD Primary Care Provider Medications [...] Due Date Last Done Comments Depression Screening 2004 Hepatitis C Screening 2010 DTaP,Tdap,and Td Vaccines [...] patient's age to complete this topic Insurance [facility] Care Teams Respiratory Therapist Relationship Specialty Start Date End Date Qiana Crowe MD [address] [place] [address] PCP - Insurance Assigned PCP 08/12/23 Qiana Crowe MD [address] [place] [address] PCP - General Internal Medicine 08/15/23
== END 2025-01-28 08:41 | disposition home or self-care (01) ==
LOC: HO.HSM 07:55
PROVIDERS: PCP Nurse Practitioner Adult Health; Visit Provider Nurse Practitioner
DX: G43.709 Chronic migraine without aura, not intractable, without status migrainosus (principal); R51.9 Headache, unspecified; G93.2 Benign intracranial hypertension
CPT/HCPCS: 64405; 99214

== ENCOUNTER → 2025-01-28 07:55 | Outpatient (BNVA) | payer OTHER, SELFPAY | PROVIDERS: PCP Nurse Practitioner Adult Health; Visit Provider Nurse Practitioner | DX: G43.709 Chronic migraine without aura, not intractable, without status migrainosus (principal) | CPT/HCPCS: 64405; J0665 ==

== ENCOUNTER 2025-01-30 08:13 | Outpatient (REF) | payer OTHER, SELFPAY ==
--- OUTSIDE RECORDS SUMMARY | 2023-10-07 08:00 | XMS_ITS ---
Author Organization [facility] Address [address] [address] Care Team Providers Care Waxing Machine Operator Name Role Phone Jamar Tucker Primary Care Provider Unavailabl DEMI Sánchez [phone] REASON FOR VISIT 1 month f/u Encounters Encounter Location Date Provider Diagnosis [facility] [address] [address] 10/07/2023 DEMI DEL VALLE Plan Of Treatment No Information Progress Notes * Margareth GRACEDOB:1990 (34 yo F)Acc No.[id number]:10/07/2023 Progress Note Patient: Margareth GROSS Provider: Julia Del Valle DPM :1990 A ge:32 Y S ex:Female Date:10/07/2023 Address:[address] [place] [address] [address] [id number] Pcp:Jamar Tucker Subjective: * Chief Complaints: * 1 . 1 month f/u. * Medical History: Objective: * Vitals: Assessment: Plan: * Treatment: * Billing Information: * Visit Code: * Procedure Codes: * Electronic signature of RISSA DEL VALLE D.P.M on 01/30/2025 at 03:50 PM EST Sign off status: Pending * Provider: Julia Del Valle DPM Date: 0 10/07/2023 Generated for Printi ng/Faxing/eTransmitting on: 1 04/01/2024 03:50 PM EST
--- NOTE | ~2025-01-30 | CT_ITS ---
EXAMINATION: CT HEAD NECK ANGIOGRAPHY WITH IV CONTRAST HISTORY: R51.9 - Headache, unspecified COMPARISON: There are no prior studies available for comparison. TECHNIQUE: Helical axial images were obtained from the skull base to the vertex without contrast per standard departmental protocol. Subsequently, helical axial images were obtained from the aortic arch to the vertex after intravenous injection of contrast per standard Department protocol. MIP/3D reconstructions were obtained and reviewed. One or more of the following techniques was used for dose reduction: Automated exposure control, adjustment of the mA and/or kV according to patient size, use of iterative reconstruction technique. DLP: 1523 mGy-cm FINDINGS: CT BRAIN: BRAIN: The brain parenchyma is unremarkable, demonstrating normal ramirez/white differentiation. The ventricular system is normal in size and configuration. There is no mass effect or midline shift. No intra or extra-axial fluid collections are identified. SINUSES/MASTOID AIR CELLS: There is moderate to marked mucosal thickening in the bilateral maxillary sinuses with probable fluid in the bilateral maxillary sinuses. There is mucosal thickening in the ethmoid sinuses. The mastoid air cells and middle ear cavities are normally pneumatized. ORBITS: The visualized orbits are unremarkable. BONES/SOFT TISSUES: The extracranial soft tissues are unremarkable. No suspicious lytic or sclerotic lesions. CTA NECK: AORTIC ARCH: The visualized portions of the arch as well as innominate, right subclavian, and left subclavian arteries show no hemodynamically significant stenosis. Right common carotid artery: There is no large vessel occlusion or hemodynamically significant stenosis. Right internal carotid artery: There is no large vessel occlusion or hemodynamically significant stenosis. Left common carotid artery: There is no large vessel occlusion or hemodynamically significant stenosis. Left internal carotid artery: There is no large vessel occlusion or hemodynamically significant stenosis. (Extracranial internal carotid artery stenosis estimates are based on use of distal ICA as the denominator.) Right vertebral artery: There is no large vessel occlusion or hemodynamically significant stenosis. Left vertebral artery: There is no large vessel occlusion or hemodynamically significant stenosis. CTA HEAD: Right intracranial ICA: There is no large vessel occlusion, hemodynamically significant stenosis, or aneurysm. Right SERVANDO: There is no large vessel occlusion, hemodynamically significant stenosis, or aneurysm. Right MCA: There is no large vessel occlusion, hemodynamically significant stenosis, or aneurysm. Left intracranial ICA: There is no large vessel occlusion, hemodynamically significant stenosis, or aneurysm. Left SERVANDO: There is no large vessel occlusion, hemodynamically significant stenosis, or aneurysm. Left MCA: There is no large vessel occlusion, hemodynamically significant stenosis, or aneurysm. Basilar artery: There is no large vessel occlusion, hemodynamically significant stenosis, or aneurysm. Superior cerebellar arteries: There is no large vessel occlusion, hemodynamically significant stenosis, or aneurysm. Right LITERACY TUTOR: There is no large vessel occlusion, hemodynamically significant stenosis, or aneurysm. Left LITERACY TUTOR: There is no large vessel occlusion, hemodynamically significant stenosis, or aneurysm. VEINS: Venous enhancement is within normal limits for this technique. SOFT TISSUES: The bilateral parotid, submandibular, and thyroid glands are unremarkable. No laryngeal abnormality is identified. There is no cervical lymphadenopathy. CT/CT angio head neck IMPRESSION: 1. No large vessel occlusion, hemodynamically significant stenosis, or aneurysm in the head and neck. 2. No acute intracranial findings. 3. Moderate to marked mucosal thickening in the bilateral maxillary sinuses with probable fluid in the bilateral maxillary sinuses. Electronically signed by: Alexx Arreola MD 01/30/2025 09:50 AM [facility]
[2025-01-30] MEDS: iohexoL 350 MG/ML 100 ML INFUS..BTL 70 ML IV (09:36)
--- OUTSIDE RECORDS SUMMARY | 2025-01-30 15:49 | XMS_ITS | Patient Health Record ---
Author Organization [facility] Address [address] [address] Care Team Providers Care Kindergartners Helper Name Role Phone Laguerre, Nicole Primary Care Provider Unavailab Klever Adams Unavailable [phone] Priscila Del Valle Unavailable Unavailable Reason For Referral No Information Problems Problem Type SNOMED Code ICD Code Onset Dates Problem Status W/U Status Risk Notes Problem Skin sensation disturbance (30236879) Bilateral leg paresthesia (R20.2) Active confirmed Plan Of Treatment No Information Insurance Providers Payer Name Payer Address Payer Phone Subscriber Number Group Number Insured Name Patient Relationship to Insured Coverage Start Date Coverage End Date [facility] [address] RACHA[place] CABALLERO [id number] Margareth Grace Self - patient is the insured
--- OUTSIDE RECORDS SUMMARY | 2025-01-30 15:49 | XMS_ITS | Clinical Summary ---
Author Organization [facility] Address [address] [place] [address] Phone Care Team Providers Care Brood Station Manager Name Role Phone Jordana Wong MD Primary [...] topic Medical Devices Not on file Insurance [facility] QUALITY LIMITED [place] [address] QUALITY LIMITED [facility] QUALITY LIMITED NTK HMO [facility] QUALITY LIMITED [facility] Care Teams Brood Station Manager Relationship Specialty Start Date End Date Jordana Wong MD [address] [place] [address] PCP - General Internal Medicine 03/21/23 Additional Source Comments The information contained in this document represents components of the legal health record. It is not the complete legal health record.[facility]
--- OUTSIDE RECORDS SUMMARY | 2025-01-30 15:49 | XMS_ITS | Clinical Summary ---
Author Organization [facility] [address] [facility] Address [address] [place] [address] Phone Care Team Providers Care Blood Donor Unit Assistant Name Role Phone Marybel Jerry SENIOR CARE ASSISTANT Primary Care Provider [phone] Allergies Active Allergy Reactions Criticality Noted Date Comments Fluconazole Hives,Itching 2019 Metronidazole Hcl Other 11/20/2024 metronidazole hydrochloride Morphine Respiratory Issues,Shortness of breath High 11/20/2024 rigid mucles morphine Oxcarbazepine Hives 11/20/2024 hives when dosage was increased Penicillins Anaphylaxis High 11/20/2024 Encounters Date Type Department Care Team Description 11/20/2024 9:15 PM EDT - 11/20/2024 11:36 PM EDT Emergency [facility] Emergency [address] [place] [id number] Johnathon Matthew MD Persistent migraine aura without [...] Signed Date: 11/20/2024 22:57 ET Workstation ID: [id number] Transcribed By: Self Edit Transcribed Date: 11/20/2024 [...] Signed Date: 11/20/2024 22:57 ET Workstation ID: [id number] Transcribed By: Self Edit Transcribed Date: 11/20/2024 22:50 ET us Johnathon Matthew MD IMG CT PROCEDURES Final Res ult * POC , urine manually resulted (11/20/2024 10:07 PM EDT) HCG, Ur POC Negative Negative POC hCG Int QC Pass? Yes Yes EXPIRATION DATE POC 05/01/2026 LOT NUMBER POC [id number] Urine Urine specimen obtained by clean catch procedure / Unknown 11/20/2024 10:07 PM EDT Johnathon Matthew MD POINT OF CARE TEST ENTER/ED IT ORDERABLES Final Result * CBC auto differential (11/20/2024 9:49 PM EDT) WBC 7.6 4.0 - 10.5 K/mcL LAB HEMETOLOGY METHOD 11/20/2024 9:57 PM EDT [facility] RBC 4.56 4.20 - 5.40 M/mcL LAB HEMETOLOGY METHOD 11/20/2024 9:57 PM EDT [facility] Hemoglobin 13.1 12.5 - 16.0 g/dL LAB HEMETOLOGY METHOD 11/20/2024 9:57 PM EDT [facility] Hematocrit 38.8 37.0 - 47.0 % LAB HEMETOLOGY METHOD 11/20/2024 9:57 PM EDT [facility] MCV 85.1 78.0 - 100.0 FL LAB HEMETOLOGY METHOD 11/20/2024 9:57 PM EDT [facility] MCH 28.7 25.0 - 33.0 pcg LAB HEMETOLOGY METHOD 11/20/2024 9:57 PM EDT [facility] MCHC 33.8 32.0 - 36.0 g/dL LAB HEMETOLOGY METHOD [facility] RDW 12.1 12.1 - 16.2 % LAB HEMETOLOGY METHOD 11/20/2024 9[facility] Platelets LAB HEMETOLOGY METHOD 11/20/2024 9:57 PM [facility] Comment:Occasional platelet clumping seen on smear. Platelet estimate appears adequate on smear review. MPV 9.5 7.4 - 11.4 FL LAB HEMETOLOGY METHOD 11/20/2024 9[facility] Neutrophils Relative 59.1 44.0 - [...] LAB HEMETOLOGY METHOD 11/20/2024 9:57 PM EDT [facility] Eosinophils Absolute 0.27 0.00 - 0.50 K/mcL LAB HEMETOLOGY METHOD 11/20/2024 9:57 PM EDT [facility] Basophils Absolute 0.05 0.00 - 0.20 K/[facility] LAB HEMETOLOGY METHOD 11/20/2024 9:57 PM EDT [facility] Blood Venous blood specimen / Unknown Venipuncture / Unknown 11/20/2024 9:49 PM EDT 11/20/2024 9:52 PM EDT Johnathon Matthew MD LAB BLOOD ORDERABLES Final Result [facility] [place] Reg. #:[id number] [address] [place] [address], * (ABNORMAL) Basic Metabolic Panel (BMP) (11/20/2024 9:49 PM EDT) Sodium 133(L) 135 - 145 mmol/L LAB CHEMISTRY METHOD 11/20[facility]2024 10:[facility] Potassium 4.5 3.5 - 5.1 mmol/L LAB CHEMISTRY METHOD 11/20/2024 10:14 PM EDT [facility] Comment:Moderate Hemolysis m ay affect test result(s). Chloride 104 98 - 107 mmol/L LAB CHEMISTRY METHOD 11/20[facility]2024 10:[facility] CO2 24 24 - 32 mmol/L LAB CHEMISTRY METHOD 11/20/2024 10:[facility] Anion Gap 5 5 - 14 LAB CHEMISTRY METHOD 11/20/2024 10:[facility] Glucose 100 70 - 199 mg/dL LAB CHEMISTRY METHOD 11/20/2024 10:14 PM EDT [facility] BUN 12 7 - 17 mg/dL LAB CHEMISTRY METHOD 11/20/2024 10:14 PM EDT [facility] Creatinine 0.76 0.50 - 1.00 mg/dL LAB CHEMISTRY METHOD 11/20/2024 10:14 PM EDT [facility] eGFR 107 >=60 mL/min/1. 73m2 LAB CHEMISTRY METHOD 11/20/2024 10:14 PM EDT [facility] Comment:Calculation based on the Chronic Kidney Disease Epidemiology Collaboration (CKD-EPI) equation refit without adjustment for race. BUN/Creatinine Ratio 15.8 12.0 - 20.0 LAB CHEMISTRY METHOD 11/20/2024 10:14 PM EDT [facility] Calcium 9.2 8.4 - 10.2 mg/dL LAB CHEMISTRY METHOD 11/20/2024 10:14 PM EDT [facility] Blood Venous blood specimen / Unknown Venipuncture / Unknown 11/20/2024 9:49 PM EDT 11/20/2024 9:52 PM EDT Johnathon Matthew MD LAB BLOOD ORDERABLES Final Result [facility] [place] Reg. #:[id number] [address] [place] [address], [place] [phone] from Last 3 Months Insurance [facility] Care Teams Blood Donor Unit Assistant Relationship Specialty Start Date End Date Marybel Jerry NP [address] [facility] [place] [address] PCP - General Nurse Practitioner 11/20/24
--- OUTSIDE RECORDS SUMMARY | 2025-01-30 15:49 | XMS_ITS | Continuity of Care Document ---
Author Organization [place] - [facility], Allergy Address [address] [address] Care Team Providers Care Metal Furniture Polisher Name Role Phone MARGOT CARMONA Primary Care Provider [phone] Assessment No assessment recorded. Plan of Treatment Reminders Order Date Submit Date Provider Last Modified By Organization Details Last Modified Time Details Appointments Establish ed 15 2025 11:15A M RADHA MARINO PA-C Not available Not available Not available Lab None recorded. Referral None recorded. Procedures None recorded. Surgeries None recorded. Imaging None recorded. Medication Orders None recorded. Patient TargetsNo targets recorded. Patient InstructionsNo instructions recorded. Reason for Referral None Reported. Results Created Date Observation Date Name Description Value Unit Range Abnormal Flag Note LastModifiedBy Organization Detail LastModifiedTime 12/29/19 25 MRI proce dure (PROC ) No observ ation record ed. [email or web address] Not Available 16:03:36 01/09/20 25 11/27/2024 MRI, brain + brain stem, w/wo contr ast No observ ation record ed. [email or web address] Not Available 12/13 09:02:19 01/23/20 25 latonya metry testi ng* No observ ation record ed. [email or web address] Not Available 2024 13:18:00 Result Notes None recorded. Problems Name Problem SNOMED Code Status Onset Date Resolution Date Notes Provider Name and Address Organization Details Recorded Time Deviated nasal septum 554777927 Active 2017 Deviated nasal septum; Location: right Not e: Date Diagnosed : 11/25/2017 10:25 AM (J34.2) Not Available [facility] 4 03:04:22 Chronic frontal sinusitis 27905988 Active 2017 Chronic frontal sinusitis ; Location: left Note : Date Diagnosed : 11/25/2017 10:24 AM (J32.1) Not Available [facility] 4 03:04:22 Migraine without aura, not refractor y 355771635 Active 2017 Migraine without aura, not intractab le, without status migrainos us; Note: Date Diagnosed : 11/25/2017 10:24 AM (G43.009) Not Available [facility] 4 03:04:22 Chronic rhinitis 81033672 Active 2017 Chronic rhinitis; Note: Date Diagnosed : 8 12:39 PM (J31.0) Not Available [facility] 4 03:04:23 Headache 00208773 Active 2017 Headache; Note: Date Diagnosed : 8 12:39 PM (R51) Not Available [facility] 4 03:04:23 Hypertrop hy of nasal turbinate s 71952394 Active 2017 Hypertrop hy of nasal turbinate s; Note: Date Diagnosed : 8 6:02 PM (J34.3) Not Available [facility] 4 03:04:24 Chronic sinusitis 21247264 Active 2017 Other chronic sinusitis ; Note: Date Diagnosed : 8 6:02 PM (J32.8) Not Available [facility] 4 03:04:23 Follow-up visit Active 2017 Encounter for follow-up examinati on after completed treatment for condition s other than malignant neoplasm; Note: Date Diagnosed : 8 5:38 PM (Z09) Not Available [facility] 4 03:04:23 Bilateral tinnitus 37045677204 02 Active 2024 EREN HAWK [place], [facility] [address] [place] [address], [place], [address] , [place] - [facility] 5 10:25:36 Dizziness and giddiness 691414817 Active 2024 ADOLFO AGUILA PA-C [address] [facility], [place], [address] , [facility] - [facility] 5 11:58:43 Seasonal allergic rhinitis 541139787 Active 2024 [address]FO [address]UILA PA-C [address], [address] , [facility] - [facility] 5 13:03:20 Perennial allergic rhinitis 864438949 Active [address] [facility],[place] [address], [place], [address] , [facility] - [facility] 5 13:10:21 Problem Notes None recorded. Procedures Surgical History Date Name Laterality Status Provider Name and Address Organization Details Recorded Time Allergy Testing-Full completed ESTEPHANIE ROONEY [address] [facility],[address], [address], [facility] 01/22/2025 14:12:17 5 Telehealth completed ADOLFO AGUILA PA-C 100 [facility],[address], [address], [facility] - [facility] 05/17/2024 16:43:21 5 JMSNasal/Sinus Endoscopy-PRIOR surgical cavities completed ADOLFO AGUILA PA-C 100 [facility],[address], [address], [facility] - [facility] 04/20/2024 11:47:03 5 Air & Speech Audio with Tymps - 59081, 70378 & 92704 completed EREN HAWK MA, CCC-A [address] [facility],[address], [address], [facility] 04/20/2024 10:25:43 Imaging Results None recorded. Procedure Notes None recorded. Medical Equipment None Reported. Allergies Allergen ID Allergen Name Allergen Category Reaction Reaction Severity Criticality Documentation Date Start Date Code Code System Note Provider Name and Address Organization Details Recorded Time 839629 metronida zole hydrochlo ride medicatio n other Not available Not available 07/26/2023 86150 RxNorm React ion: unkno wn, unspe cifie d;; ESTEPHANIE ROONEY [address] [facility], [address] [facility], [place], [address], [facility] - [facility] 5 13:05:03 326150 morphine medicatio n other Not available Not available 07/26/2023 7052 RxNorm React ion: unkno wn, unspe cifie d;; Not Available [facility] 4 01:21:47 666681 Product containin g penicilli n (product) medicatio n Not available Not available Not available 04/20/2024 70225 8001 SNOMED ADOLFO AGUILA PA-C [address] [place] [address], [place], [address], [facility] - [facility] 5 12:03:57 985108 Diflucan medicatio n Not available Not available Not available 04/23/202494032 3 RxNorm KEANU POLO MD [address] [place] [address], [place], [address], [facility] 5 10:25:15 195692 Trileptal medicatio n Not available Not available Not available 04/23/2024 58615 0 RxNorm KEANU POLO MD [address], [address], [facility] 5 10:25:15 Medications Name Sig Start Date Stop Date Status Note LastModified by Organization Details LastModified Time fluoxetin e 40 mg capsule 07/30 completed Medicati on ID: [id number] D uration Value: 30 Brand Name: fluoxeti ne Send Method: E-Prescr ibed Sub s Allowed: subs OK Medic ationGen ericName : fluoxeti ne Not Available Not Available Not Available Mirena 21 mcg/24 hr (up to 8 years) 52 mg intrauter ine device 03/21 completed Medicati on ID: [id number] B rand Name: Mirirving S end Method: E-Prescr ibed Sub s [...] LEAVE IN FOR 5 MINUTES BEFORE RINSING. 01/22 completed Not Available Not Available Not Available Apri 0.15 mg-0.03 mg tablet TAKE 1 TABLET BY MOUTH EVERY DAY IN THE MORNING 01/22 completed Not Available Not Available Not Available divalproe x 250 mg tablet,de layed [...] mg tablet 04/17 completed Medicati on ID: [id number] B rand Name: ibuprofe n Send Method: E-Prescr ibed Sub s Allowed: subs OK Speci al Instruct ion: TAKE 1 TABLET BY MOUTH 3 TIMES A DAY WITH FOOD OR MILK (OR IMMEDIAT MATY AFTER). Medicati onGeneri cName: ibuprofe n Not Available Not Available Not Available clarithro mycin 500 mg tablet 1 tablet by mouth 04/17 completed Medicati on ID: [id number] D uration Value: 10 Prescri bed By Name: Russ Del Angel nd Name: clarithr omycin S end Method: E-Prescr ibed Sub s Allowed: subs OK Medic ationGen ericName : clarithr omycin Not Available Not Available Not Available Claritin 10 mg tablet Take 1 tablet every day by oral route. active Not Available Not Available No t Available prednison e 20 mg tablet 07/27 completed Medicati on ID: [id number] P dylan d By Name: Lenny jain M.D. Bra nd Name: predniso ne Send Method: E-Prescr ibed Sub s Allowed: subs OK Speci al Instruct ion: Take 3 tabs daily for 3 days then 2 tabs daily for 3 days then 1 tabs daily for 3 days then stop Med icationG enericNa me: predniso ne Not Available Not Available Not Available spironola ctone 100 mg tablet 04/17 completed Medicati on ID: [id number] B rand Name: spironol actone S end Method: E-Prescr ibed Sub s Allowed: subs OK Speci al Instruct ion: TAKE 1 TABLET BY MOUTH TWICE A DAY WITH MEALS, ELECTROL YTES TO BE COMPLETE D BEFORE STARTING NEW DOSE Med icationG enericNa me: spironol actone Not Available Not Available Not Available acetazola mide 250 mg tablet Take 1 tablet twice a day by oral route. active Not Available Not Available No t Available sumatript an 50 mg tablet TAKE 1 TABLET BY MOUTH DAILY, NEEDED FOR MIGRAINE , MAY REPEAT AFTER 2 HOURS UP TO A MAXIMUM OF 2 01/02 completed Not Available Not Available Not Available Zyrtec 10 mg tablet 1 tablet by mouth 01/22 completed Medicati on ID: [id number] D uration Value: 30 Brand Name: Zyrtec [...] Available Not Available Not Available propranol ol 40 mg tablet Take 1 tablet twice a day by oral route. active Not Available Not Available No t Available magnesium oxide 400 mg (241.3 mg magnesium ) tablet TAKE 1 TABLET BY MOUTH EVERY DAY active Not Available Not Available No t Available lorazepam 0.5 mg tablet TAKE 1 TABLET PRIOR TO PROCEDUR E active Not Available Not Available No t Available aspirin 325 mg tablet,de layed release 04/17 completed Medicati on ID: [id number] B rand Name: aspirin Send Method: E-Prescr ibed Sub s Allowed: subs OK Medic ationGen ericName : aspirin Not Available Not Available Not Available Mapap (acetamin ophen) 500 mg capsule 04/17 completed Medicati on ID: [id number] B rand Name: Mapap (acetami nophen) Send [...] by mouth 04/17 completed Medicati on ID: [id number] D uration Value: 21 Prescri bed By [...] mg capsule 04/17 completed Medicati on ID: [id number] B rand Name: gabapent in Send Method: [...] ed release 05/09 completed Medicati on ID: [id number] D uration Value: 30 Reason: () Brand [...] TAKE 1 TABLET BY MOUTH EVERY DAY 01/22 completed Not Available Not Available Not Available ondansetr on 4 mg disintegr ating tablet TAKE 1 TABLET BY MOUTH EVERY 6 HOURS NEEDED FOR NAUSEA/V OMITING 04/17 completed Not Available Not Available Not Available fluoxetin e 20 mg capsule 04/17 completed Medicati on ID: [id number] B rand Name: fluoxeti ne Send Method: [...] mg tablet 04/17 completed Medicati on ID: [id number] B rand Name: Pain Relief Extra Strength Send Method: E-Prescr ibed Sub s Allowed: subs DENIS medrano Instruct ion: TAKE 2 TABLETS BY MOUTH [...] spray,dash pension 04/17 completed Medicati on ID: [id number] D uration Value: 30 Brand Name: Flonase Allergy Relief S end Method: E-Prescr ibed Sub s Allowed: subs DENIS medrano Instruct ion: USE 2 SPRAYS IN EACH NOSTRIL ONCE A DAY Medi cationGe nericNam e: Flonase Allergy Relief Not Available Not Available Not Available Saxenda 3 mg/0.5 mL (18 mg/3 mL) subcutane ous pen injector PLEASE SEE ATTACHED FOR DETAILED DIRECTIO NS 01/22 completed Not Available Not Available Not Available Incassia 0.35 mg tablet Take 1 tablet every day by oral route. active Not Available Not Available No t [...] SUBCUTAN EOUSLY EVERY WEEK, ROTATE INJECTIO N [facility] 01/02 completed Not Available Not Available Not Available Zepbound 2.5 mg/0.5 mL subcutane ous pen injector INJECT THE CONTENTS OF 1 PEN SUBCUTAN EOUSLY WEEKLY, ROTATE INJECTIO N SITES 01/02 completed Not Available Not Available Not Available Zepbound 7.5 mg/0.5 mL subcutane ous pen injector INJECT 7.5 MGS SUBCUTAN EOUSLY INJECTIO N EVERY WEEK, ROTATE INJECTIO N SITES 01/02 completed Not Available Not Available Not Available Ultra-Fin e Pen Needle 31 gauge x 3/16 USE DAILY W/ SAXENDA 01/22 completed Not Available Not Available Not Available Vitals Date Recorded Body height Oxygen saturation Oxygen saturation in Arterial blood by Pulse oximetry Heart rate Body mass index (BMI) Body weight Systolic And Diastolic Provider Name and Address Organization Details Last Updated DateTime 5 154.94 cm 98 % 98 % 88 /min 41.9 kg/m2 732244. 51 g 120/83 mm[Hg] ESTEPHANIE ROONEY [address], [address], [facility] 13:09:55 Social History None recorded. Functional Status None recorded. Mental Status None recorded. Family History Nothing Reported. Medical History Condition Response Allergies/Hayfever Y Heart Problems N Anxiety Y Tonsil Infections N Emphysema N Migraines Y Thyroid Problems N Glaucoma N Depression Y COPD N Developmental Delay N Nasal or Sinus Problems Y Anemia N Immune System Disorder N Anesthesia Complications N Heart Attack (ID) N Other Skin Condition Y Diabetes N Rhinitis N Bleeding Disorder N Food Allergy N Arthritis N Hearing Loss N Hyperlipidemia N Cancer N Stroke N Dementia N Nasal polyps N Asthma Y High Cholesterol N Sleep Disorder N GERD/Reflux Y Liver Disease Y Headaches Y Fibromyalgia N Hypertension N Speech Delay N Kidney Disease N Gynecological HistoryNo gynecological history recorded. Obstetrics History GPAL:G 0 P 0 0 0 0 Past Encounters Encounter ID Performer Location Encounter Start Date Encounter Closed Date Diagnosis/Indication Diagnosis SNOMED-CT Code Diagnosis ICD10 Code Diagnosis IMO Codes Diagnosis Note [id number] RADHA MARINO PA-C [facility] [address] [address] 01/02/2025 13:51:57 01/02/2025 14:24:43 Hypertrophy of nasal turbinates 30412317 J34.3 Seasonal a llergic rhinitis 675128608 J30.89 [id number] ESTEPHANIE ROONEY [facility] [address] [place] [address] [address] 01/22/2025 12:40:37 01/22/2025 15:13:33 Perennial allergic rhinitis 408498202 J30.89 250911 Health Concerns Section Related Observation LastModified by Organization Detai ls LastModified Time None Recorded Concern Status LastModified by Organization Details LastModified Time None Recorded Payers Encounter Date Sequence Insurance Name Policy Number Policy Craft Covered Member ID Craft Member ID Guarantor Name 01/22/2025 1 [facility] Margareth Grace [id number] Margareth Grace OBGyveronica Episode No OBEpisode recorded.
--- OUTSIDE RECORDS SUMMARY | 2025-01-30 15:50 | XMS_ITS | Clinical Summary ---
Author Organization [facility] Address [address] [place] [address] Care Team Providers Care Psychological Operations Officer Name Role Phone Qiana Crowe MD Unavailable [phone] Qiana Crowe MD Primary Care Provider Medications [...] patient's age to complete this topic Insurance [facility] [employer] Care Teams Psychological Operations Officer Relationship Specialty Start Date End Date Qiana Crowe MD [address] [place] [address] PCP - Insurance Assigned PCP 08/12/23 Qiana Crowe MD [address] [place] [address] PCP - General Internal Medicine 08/15/23
--- OUTSIDE RECORDS SUMMARY | 2025-01-30 15:50 | XMS_ITS | Data Portability ---
Author Organization [place] - [facility], Allergy Address [address] [address] Care Team Providers Care Tearer Name Role Phone MARGOT CARMONA Primary Care [...] may be related to underlying migraines. As Boyden-Hallpike was negative, will hold off on referral [...] may consider CT sinus at that time. [email or web address] Not available 04/20/2024 12:04:22 05/17/2024 05/17/2024 33 year old female with history of bilateral FESS presents with increased facial pressure and nasal drainage. Preliminary nasal culture with skin tereza isolated. Would not recommend any further antibiotics at this time. Recommended CT sinus given persistent symptoms. She will follow-up to review the results. [email or web address] Not available 05/17/2024 16:44:33 01/02/2025 01/02/2025 34-year-old [...] after testing for review and further planning. [email or web address] Not available 01/02/2025 14:36:10 Plan of Treatment Reminders Order Date Submit Date Provider Last Modified By Organization Details Last Modified Time Details Appointments Establish ed 15 2025 11:15A Fani MARINO PA-C Not available Not available Not available Lab culture, aerobic + anaerobic 2024 025 PARRISH [facility] (Centralized Electronic Ordering - All Locations), Patient Can Go To The Location Of Their Choice, [id number] 05/21/2024 11:17:11 fungus, culture, unspecifi ed specimen 2024 025 PARRISH [facility] (Centralized Electronic Ordering - All Locations), Patient Can Go To The Location Of Their Choice, [id number] 05/21/2024 11:17:12 Referral None recorded. Procedures allergy testing, skin prick (PROC) 2024 025 PARRISH Not available 01/24/2025 04:09:08 intraderm al allergy skin testing (PROC) 2024 025 PARRISH Not available 01/24/2025 04:09:08 pulmonary function test procedure (PROC) 2024 025 PARRISH Not available 01/24/2025 04:09:08 pulse oximetry (PROC) 2024 025 PARRISH Not available 01/24/2025 04:09:08 Surgeries None recorded. Imaging CT, sinuses, w/o contrast 2024 025 PARRISH [facility], [address], [place], [address], 06/05/2024 13:29:52 Medication Orders None recorded. Patient TargetsNo targets recorded. Patient InstructionsNo instructions recorded. Reason for Referral None Reported. Results Created Date Observation Date Name Description Value Unit Range Abnormal Flag Note LastModifiedBy Organization Detail LastModifiedTime 04/20/1904/23/2024 ANAER OBIC AND AEROB IC CULTU RE aerobic culture Final report Not Available [facility] ([facility]) [address] [place], [address], 05/21/2024 11:17:11 04/20/19 25 04/23/2024 ANAER OBIC AND AEROB IC CULTU RE result 1 Skin tereza isolat ed Light growt h Not Available [facility] ([facility]) [address] [place], [address], 05/21/2024 11:17:11 04/20/19 25 04/24/2024 ANAER OBIC AND AEROB IC CULTU RE anaerobic culture Final report Not Available [facility] ([facility]) [address] [place], [address], 05/21/2024 11:17:11 04/20/19 25 04/24/2024 ANAER OBIC AND AEROB IC CULTU RE result 1 COMMEN T No anaer obic growt h in 72 hours . Not Available [facility] ([facility]) [address] [place], [address], 05/21/2024 11:17:11 04/20/19 25 05/21/2024 FUNGU S (MYCO LOGY) CULTU RE fungus (mycology) culture Final report Not Available [facility] ([facility]) [address] [facility], [place], [address], 05/21/2024 11:17:12 04/20/19 25 05/21/2024 FUNGU S (MYCO LOGY) CULTU RE result 1 COMMEN T No yeast or mold isola maile after 4 weeks . Not Available [facility] ([facility]) [address] [facility], [place], [address], 05/21/2024 11:17:12 04/20/19 25 audio gram No observ ation record ed. BARCODE Not Available 2024 15:28:37 04/20/19 25 11/07/2023 MRI, brain + brain stem, w/wo contr ast No observ ation record ed. [email or web address] Not Available 09/2024 15:34:53 06/06/19 25 06/05/2024 CT, sinus es, w/o contr ast No observ ation record ed. [email or web address] [facility] [address] [facility], [place], [address], 06/06/2024 09:31:23 12/29/19 25 MRI proce dure (PROC ) No observ ation record ed. [email or web address] Not Available 16:03:36 01/09/2011/27/2024 MRI, brain + brain stem, w/wo contr ast No observ ation record ed. [email or web address] Not Available 12/13 09:02:19 01/23/20 25 latonya metry testi ng* No observ ation record ed. [email or web address] Not Available 2024 13:18:00 Result Notes None recorded. Problems Name Problem SNOMED Code Status Onset Date Resolution Date Notes Provider Name and Address Organization Details Recorded Time Deviated nasal septum 859672563 Active 2017 Deviated nasal septum; Location: right Not e: Date Diagnosed : 11/25/2017 10:25 AM (J34.2) Not Available [facility] 08/02/202 4 03:04:22 Chronic frontal sinusitis 37304325 Active 2017 Chronic frontal sinusitis ; Location: left Note : Date Diagnosed : 11/25/2017 10:24 AM (J32.1) Not Available [facility] 4 03:04:22 Migraine without aura, not refractor y 916790584 Active 2017 Migraine without aura, not intractab le, without status migrainos us; Note: Date Diagnosed : 11/25/2017 10:24 AM (G43.009) Not Available [facility] 4 03:04:22 Chronic rhinitis 55528371 Active 2017 Chronic rhinitis; Note: Date Diagnosed : 8 12:39 PM (J31.0) Not Available [facility] 4 03:04:23 Headache 29318055 Active 2017 Headache; Note: Date Diagnosed : 8 12:39 PM (R51) Not Available [facility] 4 03:04:23 Hypertrop hy of nasal turbinate s 88436898 Active 2017 Hypertrop hy of nasal turbinate s; Note: Date Diagnosed : 8 6:02 PM (J34.3) Not Available [facility] 4 03:04:24 Chronic sinusitis 35690118 Active 2017 Other chronic sinusitis ; Note: Date Diagnosed : 8 6:02 PM (J32.8) Not Available [facility] 4 03:04:23 Follow-up visit Active 2017 Encounter for follow-up examinati on after completed treatment for condition s other than malignant neoplasm; Note: Date Diagnosed : 8 5:38 PM (Z09) Not Available Critical [facility] hospital 4 03:04:23 Bilateral tinnitus 18593629024 02 Active 2024 EREN HAWK [place], [facility] [address] [place] [address], [place], [address] , [place] - [facility] 5 10:25:36 Dizziness and giddiness 630815461 Active 2024 ADOLFO AGUILA PA-C [address], [place], [address] , [place] - [facility] 5 11:58:43 Seasonal allergic rhinitis 027218777 Active 2024 ADOLFO AGUILA PA-C [address] [facility], [place], [address] , [place] - [facility] 5 13:03:20 Perennial allergic rhinitis 989205283 Active 2024 ESTEPHANIE ROONEY [address],[place] [address], [place], [address] , [facility] - [facility] 13:10:21 Problem Notes None recorded. Procedures Surgical History Date Name Laterality Status Provider Name and Address Organization Details Recorded Time Allergy Testing-Full completed [facility]PHANIE [facility] [address] [facility] [place], [address], [facility] - [facility] 01/22/2025 14:12:17 5 Telehealth completed ADOLFO AGUILA PA-C [address] [facility],[place] [address], [place], [address], [facility] - [facility] 05/17/2024 16:43:21 5 JMSNasal/Sinus Endoscopy-PRIOR surgical cavities completed ADOLFO AGUILA PA-C 100 [facility],[address], [address], [facility] - [facility] 04/20/2024 11:47:03 5 Air & Speech Audio with Tymps - 05843, 35208 & 80598 completed EREN HAWK [place], CCC-A [address],[place] [address], [place], [address], [facility] - [facility] 04/20/2024 10:25:43 Imaging Results None recorded. Procedure Notes None recorded. Medical Equipment None Reported. Allergies Allergen ID Allergen Name Allergen Category Reaction Reaction Severity Criticality Documentation Date Start Date Code Code System Note Provider Name and Address Organization Details Recorded Time 283757 metronida zole hydrochlo ride medicatio n other Not available Not available 07/26/2023 68174 RxNorm React ion: unkno wn, unspe cifie d;; ESTEPHANIE ROONEY [address] [address], [place], [address], [facility] 5 13:05:03 611458 morphine medicatio n other Not available Not available 07/26/2023 7052 RxNorm React ion: unkno wn, unspe cifie d;; Not Available [facility] 4 01:21:47 847512 Product containin g penicilli n (product) medicatio n Not available Not available Not available 04/20/2024 29991 8001 SNOMED ADOLFO AGUILA PA-C [address] [address], [place], [address], [facility] 5 12:03:57 299895 Diflucan medicatio n Not available Not available Not available 04/23/202479882 3 RxNorm KEANU POLO MD [address] [address], [place], [address], [facility] 5 10:25:15 458979 Trileptal medicatio n Not available Not available Not available 04/23/2024 93253 0 RxNorm KEANU POLO MD [address] [address], [place], [address], [facility] 5 10:25:15 Medications Name Sig Start Date Stop Date Status Note LastModified by Organization Details LastModified Time fluoxetin e 40 mg capsule 07/30 completed Medicati on ID: [id number] D uration Value: 30 Brand Name: fluoxeti ne Send Method: E-Prescr ibed Sub s Allowed: subs OK Medic ationGen ericName : fluoxeti ne Not Available Not Available Not Available Mirena 21 mcg/24 hr (up to 8 years) 52 mg intrauter ine device 03/21 completed Medicati on ID: [id number] B rand Name: Mirena S end Method: [...] mg tablet 04/17 completed Medicati on ID: [id number] B rand Name: ibuprofe n Send Method: E-Prescr ibed Sub s Allowed: subs OK Speci al Instruct ion: TAKE 1 TABLET BY MOUTH 3 TIMES A DAY WITH FOOD OR MILK (OR IMMEDIAT MATY AFTER). Medicati onGeneri cName: ibuprofe n Not Available Not Available Not Available clarithro mycin 500 mg tablet 1 tablet by mouth 04/17 completed Medicati on ID: [id number] D uration Value: 10 Prescri bed By [...] mg tablet 07/27 completed Medicati on ID: [id number] P dylan d By Name: Russ Del Angel nd [...] mg tablet 04/17 completed Medicati on ID: 244885 B rand Name: spironol actone S end [...] by mouth 01/22 completed Medicati on ID: 237121 D uration Value: 30 Brand Name: Zyrtec [...] layed release 04/17 completed Medicati on ID: 900527 B rand Name: aspirin Send Method: E-Prescr ibed Sub s Allowed: subs OK Medic ationGen ericName : aspirin Not Available Not Available Not Available Mapap (acetamin ophen) 500 mg capsule 04/17 completed Medicati on ID: 274702 B rand Name: Mapap (acetami nophen) Send [...] by mouth 04/17 completed Medicati on ID: [id number] D uration Value: 21 Prescri bed By [...] mg capsule 04/17 completed Medicati on ID: 499928 B rand Name: gabapent in Send Method: [...] ed release 05/09 completed Medicati on ID: [id number] D uration Value: 30 Reason: () Brand [...] mg capsule 04/17 completed Medicati on ID: 838527 B rand Name: fluoxeti ne Send Method: [...] mg tablet 04/17 completed Medicati on ID: 745702 B rand Name: Pain Relief Extra Strength [...] spray,dash pension 04/17 completed Medicati on ID: [id number] D uration Value: 30 Brand Name: Flonase Allergy Relief S end Method: E-Prescr ibed Sub s Allowed: subs DENIS medrano Instruct ion: USE 2 SPRAYS IN EACH NOSTRIL ONCE A DAY [facility] cationGe nericNam e: Flonase Allergy Relief Not [...] EOUSLY EVERY WEEK, ROTATE INJECTIO N SITES 01/02 [...] Available Not Available Vitals Date Recorded Body weight Body mass index (BMI) Body height Provider Name and Address Organization Details Last Updated DateTime 04/20/2024 10297.1 g 37 kg/m2 154.94 cm Gosia Leung [facility] 04/20/2024 10:31:06 Date Recorded Body height Body mass index (BMI) Body weight Provider Name and Address Organization Details Last Updated DateTime 01/02/2025 154.94 cm 41 kg/m2 62185.54 g Mishel Gardiner [facility] 01/02/2025 14:09:40 Date Recorded Body height Oxygen saturation Oxygen saturation in Arterial blood by Pulse oximetry Heart rate Body mass index (BMI) Body weight Systolic And Diastolic Provider Name and Address Organization Details Last Updated DateTime 154.94 cm 98 % 98 % 88 /min 41.9 kg/m2 216983. 51 g 120/83 mm[Hg] FELIX PARR, [address], [address] [place], [place] - [facility] 13:09:55 Social History None recorded. Functional Status None recorded. Mental Status None recorded. Family History Nothing Reported. Medical History Condition Response Allergies/Hayfever Y Heart Problems N Anxiety Y Tonsil Infections N Emphysema N Migraines Y Thyroid Problems N Glaucoma N Depression Y COPD N Developmental Delay N Nasal or Sinus Problems Y Anemia N Immune System Disorder N Anesthesia Complications N Heart Attack ([place]) N Other Skin Condition Y Diabetes N [...] ICD10 Code Diagnosis IMO Codes Diagnosis Note [id number] ADOLFO AGUILA PA-C [facility] [address] [address] 04/20/2024 09:58:39 04/20/2024 11:22:47 Chronic sinusitis 13255910 J32.8 Dizziness and giddiness 615672561 R42 Audiologic al evaluation results: Right ear: Normal hearing with excellent word recognitio n. Left ear: Normal hearing with excellent word recognitio n. Tympanomet ry: Right Ear:Type A Left Ear:Type A Migraine w ithout aura, not refractory 839353315 G43.009 06508 ADOLFO AGUILA PA-C [facility] [address] [address] 05/17/2024 16:46:18 05/17/2024 17:04:48 Chronic sinusitis 19127329 J32.8 Migraine w ithout aura, not refractory 836249798 G43.009 54650 RADHA MARINO PA-C [facility] [address] [address] 01/02/2025 13:51:57 01/02/2025 14:24:43 Hypertrophy of nasal turbinates 24806286 J34.3 Seasonal a llergic rhinitis 431241273 J30.89 73714232 74025 ESTEPHANIE ROONEY [facility] [address] [place] [address] [place] [address] 01/22/2025 12:40:37 01/22/2025 15:13:33 Perennial allergic rhinitis 484236968 J30.89 252055 Health Concerns Section Related Observation LastModified by Organization Detai ls LastModified Time None Recorded Concern Status LastModified by Organization Details LastModified Time None Recorded Advance Directives Directive None Recorded Payers Insurance Date Sequence Insurance Name Policy Number Policy Craft Covered Member ID Craft Member ID Guarantor Name 01/19/2025 1 [facility] Margareth Grace [id number] Margareth Grace Notes Date Note Type [...] 10 days ago. Reports skin testing at [facility] 2 years ago was negative. Takes Zyrtec BID and Flonase PRN. MRI was done at [facility] last October and there were incidental sinus findings and she was referred for further evaluation. KEANU POLO MD 100 [facility],[address], [address], [place] - [facility] 04/23/2024 10:26:29 05/17/2024 text/html ROS as noted [...] congestion, and rhinitis. Reports skin testing at [facility] 2 years ago was negative. Takes Zyrtec BID and Flonase PRN. ADOLFO AGUILA PA-C 100 [facility],[address], [address], [facility] - [facility] 05/17/2024 16:50:16 01/02/2025 text/html ROS as noted [...] and twice daily Zyrtec. MIKI MURRAY MD [address] [place] [address], [place], [address], [facility] - [facility] 01/02/2025 15:21:56 OBGyn Episode No OBEpisode recorded.
--- OUTSIDE RECORDS SUMMARY | 2025-01-30 15:50 | XMS_ITS | Patient Health Record ---
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 Problem Tarsal tunnel syndrome (70272081) Tarsal tunnel syndrome, right lower limb (G57.51) Active confirmed Problem Mononeuropathy of lower limb (257601795) Neuritis of foot, unspecified laterality (G57.90) Active confirmed Problem Tarsal tunnel syndrome (83811531) Tarsal tunnel syndrome of both lower extremities (G57.53) Active confirmed Problem Calcaneonavicular bar (11324172) 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) Active confirmed 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.] Insured Coverage Start Date Coverage End Date [employer] [place] [address] RACHANA CABALLERO [phone] [id number] Margareth Grace Self - patient is the [...] 2 Hospitalization History Reason Date(Month/Year) ER visit [facility]- rectal bleeding 10/2022
--- OUTSIDE RECORDS SUMMARY | 2025-01-30 15:50 | XMS_ITS | Continuity of Care Document ---
Author Organization [place] - [facility], [facility] Address [address] [place] [address] Care Team Providers Care Loom Setter Name Role Phone MARGOT CARMONA Primary Care Provider Assessment Encounter Date Assessment Date Assessment LastModified by Organization Details LastModified Time 01/02/2025 01/02/2025 34-year-old female with history of [...] after testing for review and further planning. [email or web address] Not available 01/02/2025 14:36:10 Plan of Treatment Reminders Order Date Submit Date Provider Last Modified By Organization Details Last Modified Time Details Appointments Establish ed 15 2025 11:15A M RADHA MARINO PA-C Not available Not available Not available Lab None recorded. Referral None recorded. Procedures allergy testing, skin prick (PROC) 2024 025 PARRISH Not available 01/24/2025 04:09:08 intraderm al allergy skin testing (PROC) 2024 025 PARRISH Not available 01/24/2025 04:09:08 pulmonary function test procedure (PROC) 2024 025 PARRISH Not available 01/24/2025 04:09:08 pulse oximetry (PROC) 2024 025 PARRISH Not available 01/24/2025 04:09:08 Surgeries None recorded. Imaging None recorded. Medication Orders None recorded. Patient TargetsNo targets recorded. Patient InstructionsNo instructions recorded. Reason for Referral None Reported. Results Created Date Observation Date Name Description Value Unit Range Abnormal Flag Note LastModifiedBy Organization Detail LastModifiedTime 12/29/19 MRI proce dure (PROC ) No observ ation record ed. Not Available 16:03:36 01/09/2011/27/2024 MRI, brain + brain stem, w/wo contr ast No observ ation record ed. [email or web address] Not Available 12/13 09:02:19 01/23/20 latonya metry testi ng* No observ ation record ed. Not Available 2024 13:18:00 Result Notes None recorded. Problems Name Problem SNOMED Code Status Onset Date Resolution Date Notes Provider Name and Address Organization Details Recorded Time Deviated nasal septum 092509741 Active 2017 Deviated nasal septum; Location: right Not e: Date Diagnosed : 11/25/2017 10:25 AM (J34.2) Not Available [facility] 4 03:04:22 Chronic frontal sinusitis 18397706 Active 2017 Chronic frontal sinusitis ; Location: left Note : Date Diagnosed : 11/25/2017 10:24 AM (J32.1) Not Available [facility] 4 03:04:22 Migraine without aura, not refractor y 734119393 Active 2017 Migraine without aura, not intractab le, without status migrainos us; Note: Date Diagnosed : 11/25/2017 10:24 AM (G43.009) Not Available [facility] 4 03:04:22 Chronic rhinitis 64939963 Active 2017 Chronic rhinitis; Note: Date Diagnosed : 8 12:39 PM (J31.0) Not Available [facility] 4 03:04:23 Headache 86123993 Active 2017 Headache; Note: Date Diagnosed : 8 12:39 PM (R51) Not Available [facility] 4 03:04:23 Hypertrop hy of nasal turbinate s 06953291 Active 2017 Hypertrop hy of nasal turbinate s; Note: Date Diagnosed : 8 6:02 PM (J34.3) Not Available [facility] 4 03:04:24 Chronic sinusitis 40043796 Active 2017 Other chronic sinusitis ; Note: Date Diagnosed : 8 6:02 PM (J32.8) Not Available [facility] 4 03:04:23 Follow-up visit Active 2017 Encounter for follow-up examinati on after completed treatment for condition s other than malignant neoplasm; Note: Date Diagnosed : 8 5:38 PM (Z09) Not Available [facility] 4 03:04:23 Bilateral tinnitus 43818932542 02 Active 2024 EREN HAWK MA, CCC-A [address],[facility] [address], [place], [address] , [place] - [facility] 5 10:25:36 Dizziness and giddiness 929428739 Active 2024 ADOLFO AGUILA PA-C [address],[place] [address], [place], [address] , [place] - [facility] 5 11:58:43 Seasonal allergic rhinitis 753818382 Active 2024 ADOLFO AGUILA PA-C [address], [place], [address] , [place] - [facility] 5 13:03:20 Perennial allergic rhinitis 700023246 Active 2024 [address] ROONEY [address], [place], [address] , [place] - [facility] 5 13:10:21 Problem Notes None recorded. Procedures Surgical History Date Name Laterality Status Provider Name and Address Organization Details Recorded Time 5 Allergy Testing-Full completed ESTEPHANIE ROONEY [address] [facility],[place] [address], [place], [address], [facility] 01/22/2025 14:12:17 5 Telehealth completed ADOLFO AGUILA PA-C [address] [facility],[address], [address], [facility] 05/17/2024 16:43:21 5 JMSNasal/Sinus Endoscopy-PRIOR surgical cavities completed ADOLFO AGUILA PA-C [address] [facility],[place] [address], [place], [address], [facility] 04/20/2024 11:47:03 5 Air & Speech Audio with Tymps - 78310, 46595 & 09988 completed EREN HAWK MA, CCC-A [address] [facility],[address], [address], [facility] 04/20/2024 10:25:43 Imaging Results None recorded. Procedure Notes None recorded. Medical Equipment None Reported. Allergies Allergen ID Allergen Name Allergen Category Reaction Reaction Severity Criticality Documentation Date Start Date Code Code System Note Provider Name and Address Organization Details Recorded Time 798669 metronida zole hydrochlo ride medicatio n other Not available Not available 07/26/2023 22906 RxNorm React ion: unkno wn, unspe cifie d;; ESTEPHANIE ROONEY [address] [facility] [address], [place], [address], [facility] 5 13:05:03 149856 morphine medicatio n other Not available Not available 07/26/2023 7052 RxNorm React ion: unkno wn, unspe cifie d;; Not Available [facility] 4 01:21:47 885932 Product containin g penicilli n (product) medicatio n Not available Not available Not available 04/20/2024 35766 8001 SNOMED ADOLFO AGUILA PA-C [address] [address], [facility] [place], [address], [facility] - [facility] 5 12:03:57 483930 Diflucan medicatio n Not available Not available Not available 04/23/202496249 3 RxNorm KEANU POLO MD [address] [address], [facility] [place], [address], [facility] - [facility] 5 10:25:15 026863 Trileptal medicatio n Not available Not available Not available 04/23/2024 56370 0 RxNorm KEANU POLO MD [address] [address], [facility] [place], [address], [facility] - [facility] 5 10:25:15 Medications Name Sig Start Date Stop Date Status Note LastModified by Organization Details LastModified Time fluoxetin e 40 mg capsule 07/30 completed Medicati on ID: [id number] D uration Value: 30 Brand Name: fluoxeti ne Send Method: E-Prescr ibed Sub s Allowed: subs OK Medic ationGen ericName : fluoxeti ne Not Available Not Available Not Available Mirena 21 mcg/24 hr (up to 8 years) 52 mg intrauter ine device 03/21 completed Medicati on ID: [id number] B rand Name: Mirena S end Method: [...] mg tablet 04/17 completed Medicati on ID: [id number] B rand Name: ibuprofe n Send Method: E-Prescr ibed Sub s Allowed: subs OK Speci al Instruct ion: TAKE 1 TABLET BY MOUTH 3 TIMES A DAY WITH FOOD OR MILK (OR IMMEDIAT MATY AFTER). Medicati onGeneri cName: ibuprofe n Not Available Not Available Not Available clarithro mycin 500 mg tablet 1 tablet by mouth 04/17 completed Medicati on ID: [id number] D uration Value: 10 Prescri bed By [...] mg tablet 07/27 completed Medicati on ID: [id number] P rescribe d By Name: Russ Del [...] mg tablet 04/17 completed Medicati on ID: [id number] B rand Name: spironol actone S end [...] by mouth 01/22 completed Medicati on ID: [id number] D uration Value: 30 Brand Name: Zyrtec [...] layed release 04/17 completed Medicati on ID: [id number] B rand Name: aspirin Send Method: E-Prescr ibed Sub s Allowed: subs OK Medic ationGen ericName : aspirin Not Available Not Available Not Available Mapap (acetamin ophen) 500 mg capsule 04/17 completed Medicati on ID: 284411 B rand Name: Mapap (acetami nophen) Send [...] by mouth 04/17 completed Medicati on ID: [id number] D uration Value: 21 Prescri bed By Name: Lenny jain M.D. Bra nd Name: doxycycl ine monohydr ate Send [...] mg capsule 04/17 completed Medicati on ID: [id number] B rand Name: gabapent in Send Method: [...] ed release 05/09 completed Medicati on ID: [id number] D uration Value: 30 Reason: () Brand Name: proprano lol Send Method: E-Prescr ibed Sub s Allowed: subs OK Medic ationGen ericName : proprano lol Not Available Not Available Not Available tanvirstin e 137 mcg (0.1 %) nasal spray [...] mg capsule 04/17 completed Medicati on ID: [id number] B rand Name: fluoxeti ne Send Method: [...] mg tablet 04/17 completed Medicati on ID: 467385 B rand Name: Pain Relief Extra Strength [...] spray,dash pension 04/17 completed Medicati on ID: [id number] D uration Value: 30 Brand Name: Flonase [...] OR UPPER ARM WEEKLY FOR 4 WEEKS 02/04 /2025 completed Not Available Not Available Not Available [...] Not Available Vitals Date Recorded Body height Body mass index (BMI) Body weight Provider Name and Address Organization Details Last Updated DateTime 01/02/2025 154.94 cm 41 kg/m2 52141.54 g Mishel Dumont [facility] 01/02/2025 14:09:40 Social History None recorded. Functional Status None recorded. Mental Status None recorded. Family History Nothing Reported. Medical History Condition Response Allergies/Hayfever Y Heart Problems N Anxiety Y Tonsil Infections N Emphysema N Migraines Y Thyroid Problems N Glaucoma N Developmental Delay N Depression Y COPD N Nasal or Sinus Problems Y Anemia N Immune System Disorder N Anesthesia Complications N Heart Attack (GA) N Other Skin Condition Y Diabetes N [...] ICD10 Code Diagnosis IMO Codes Diagnosis Note [id number] RADHA MARINO PA-C [facility] [address] [place] [address] 01/02/2025 13:51:57 01/02/2025 14:24:43 Hypertrophy of nasal turbinates 72998351 J34.3 Seasonal a llergic rhinitis 217443873 J30.89 [id number] Health Concerns Section Related Observation LastModified by Organization Detai ls LastModified Time None Recorded Concern Status LastModified by Organization Details LastModified Time None Recorded Payers Encounter Date Sequence Insurance Name Policy Number Policy Craft Covered Member ID Craft Member ID Guarantor Name 01/02/2025 1 [facility] [place] [place] Margareth Grace [id number] Margareth Grace Notes Date Note Type Note Provider Name and Address Organization Details Recorded Time 01/02/2025 text/html ROS as noted in the [...] She takes Flonase and twice daily Zyrtec. LENNY MURRAY MD [address] [place] [address], [address], [facility] - [facility] 01/02/2025 15:21:56 OBGyn Episode No OBEpisode recorded.
== END 2025-01-30 08:14 | disposition home or self-care (01) ==
LOC: HO.CT 08:13
PROVIDERS: PCP Nurse Practitioner Adult Health; Visit Provider Nurse Practitioner
DX: R51.9 Headache, unspecified (principal); R79.82 Elevated C-reactive protein (CRP); H53.8 Other visual disturbances; G93.2 Benign intracranial hypertension
CPT/HCPCS: 70496; 70498; Q9967

== ENCOUNTER → 2025-01-30 08:14 | Outpatient (BNV) | payer OTHER, SELFPAY | PROVIDERS: PCP Nurse Practitioner Adult Health; Visit Provider Radiology Diagnostic Radiology | DX: J32.0 Chronic maxillary sinusitis (principal); R51.9 Headache, unspecified | CPT/HCPCS: 70496; 70498 ==

== ENCOUNTER 2025-02-04 09:36 | Observation (INO) | payer OTHER, SELFPAY ==
--- NOTE | 2025-02-04 | ECG_ITS ---
Test Reason : after 1st dose DHE Blood Pressure : */* mmHG Vent. Rate : 66 BPM Atrial Rate : 66 BPM P-R Int : 134 ms QRS Dur : 78 ms QT Int : 404 ms P-R-T Axes : 51 71 43 degrees QTcB Int : 423 ms Normal sinus rhythm Normal ECG When compared with ECG of 04-Feb-2025 16:36, No significant change was found Referred By: Jyoti Link Electronically Signed By: Loc Mansfield
--- NOTE | 2025-02-04 | ECG_ITS ---
Test Reason : baseline Blood Pressure : */* mmHG Vent. Rate : 75 BPM Atrial Rate : 75 BPM P-R Int : 130 ms QRS Dur : 74 ms QT Int : 390 ms P-R-T Axes : 20 29 23 degrees QTcB Int : 435 ms Normal sinus rhythm Normal ECG No previous ECGs available Referred By: Jyoti Link Electronically Signed By: Loc Mansfield
[2025-02-04 09:40] VITALS: BP 123/67; PULSE 82; RESP 18; TEMP 36.2; O2SAT 97; BMI 40.9
[2025-02-04 10:00] VITALS: BP 107/46; PULSE 81; TEMP 36.7; O2SAT 95
--- NOTE | 2025-02-04 11:51 | ED.GENADULT ---
HPI - General Adult General Chief complaint: Headache Stated complaint: Headache Time Seen by Provider: 02/04/25 10:58 Source: patient, RN notes reviewed and old records reviewed Mode of arrival: ambulatory Limitations: no limitations History of Present Illness ED Provider: JENNY Barboza HPI narrative: 34-year-old female with medical history of migraines, IH, IBS, benign neoplasm of pineal gland, OCD, PTSD, depression, anxiety, compartment syndrome of B/L lower extremities, presents to ED due to chronic migraine. Patient reports she woke up this morning with sharp stabbing in the frontal region of her head with lights, spots, and lines with pain and pressure extending into her face. Patient explains she had MRI done at [facility] that showed stenosis of sinuses, shrinking pineal gland, and idopathic intracranial hypertension. Patient followed up with Ophthalmology who recommended repeat MRI as they believe the issue is ?deeper? within the brain. Patient is currently working with [facility] neurology to schedule this appointment. Patient recieved occipital nerve block on 01/28 which she states provided approximately 3 hours of relief before making her symptoms worse. Patient has been complaining of worsening pain, and was told by her neurologist to come to the ED for pain management. Denies abdominal pain, nausea, vomiting, diarrhea, urinary symptoms MD complaint: migraine headache Related Data Home Medications ?Medication ?Instructions ?Recorded ?Confirmed hydroxyzine pamoate 25 mg capsule 25 mg PO BID 12/03/22 12/05/24 lorazepam 0.5 mg tablet 0.5 mg PO BID PRN 12/03/22 12/05/24 cetirizine 10 mg capsule (Zyrtec) 10 mg PO DAILY PRN 02/01/24 12/05/24 lurasidone 60 mg tablet (Latuda) 60 mg PO DAILY 02/01/24 12/05/24 magnesium 250 mg tablet 250 mg PO DAILY 02/01/24 12/05/24 omeprazole 40 mg capsule,delayed 40 mg PO DAILY 02/01/24 12/05/24 release desogestrel 0.15 mg-ethinyl 1 tab PO QAM 12/05/24 12/05/24 estradiol 0.03 mg tablet (Apri) liraglutide (weight loss) 3 mg/0.5 mg subcut 12/05/24 12/05/24 mL (18 mg/3 mL) subcut pen injector (Saxenda) propranolol 20 mg tablet 20 mg PO DAILY 12/05/24 12/05/24 zolmitriptan 5 mg nasal spray intranasal 12/05/24 12/05/24 Previous Rx's ?Medication ?Instructions ?Recorded lorazepam 2 mg tablet 2 mg PO ONCE anxiety #1 tab 12/05/24 acetazolamide 250 mg tablet 250 mg PO BID 90 days #180 tabs 12/14/24 dexamethasone 4 mg tablet 4 mg PO BID 4 days #8 tabs 12/21/24 dihydroergotamine 0.5 mg/pump act. 1 spray intranasal DAILY #8 mL 12/26/24 (4 mg/mL) nasal spray divalproex 250 mg tablet,delayed 250 mg PO BID 30 days #60 tabs 01/04/25 release (Depakote) onabotulinumtoxinA 200 unit 155 unit IM ONCE 12 weeks #1 ea 01/15/25 solution for injection (Botox) Allergies Allergy/AdvReac Type Severity Reaction Status Date / Time morphine Allergy Severe Hives Verified 02/04/25 09:41 Penicillins Allergy Severe Hives Verified 02/04/25 09:41 fluconazole (From Diflucan) Allergy Intermediate Anaphylaxis Verified 02/04/25 09:41 oxcarbazepine (From Allergy Unknown Hives Verified 02/04/25 09:41 Trileptal) Review of Systems Review of Systems: Yes all other systems are reviewed and are negative [facility] Past Medical History Source: old records reviewed and nursing notes reviewed Medical History Diplopia Surgical History H/O bilateral inguinal hernia repair H/O fasciotomy History of appendectomy Social History Social History Household Members: Family Alcohol intake: never Patient Tobacco Use Status: Never used Tobacco Smoked in Last 30 Days: No Use of substances other than those prescribed or required for medical reasons: No Advance Directives: No Advance Directives Information Provided: No Patient : No Physical Exam ED Vital Signs: Vital Signs - 24 hr 02/04/25 09:40 02/04/25 10:00 02/04/25 12:59 Temperature 97.1 F 98.1 F Pulse Rate 82 81 74 Respiratory Rate 18 22 H Blood Pressure 123/67 107/46 L 126/78 Pulse Oximetry 97 95 100 Oxygen Delivery Method Room Air Room Air Room Air BMI result Body Mass Index 40.9 GENERAL APPEARANCE: ?AxOx4, generally well-appearing, no acute distress. HEENT: ?NC, AT. MMM. EOMI, pupils reactive to consensual accommodation, light reflex, clear conjunctiva, no nystagmus, oropharynx clear. NECK: ?Supple without lymphadenopathy.? No stiffness or restricted ROM. HEART:? Normal rate and regular rhythm, normal S1/S2, no m/r/g LUNGS:? CTAB, moving air well. No crackles or wheezes are heard. ABDOMEN: ?Soft, nontender, nondistended with good bowel sounds heard. BACK: No CVAT, no obvious deformity. EXTREMITIES: ?Without cyanosis, clubbing or edema. NEUROLOGICAL: ?Grossly nonfocal. Alert and oriented, moving all 4 extremities. Observed to ambulate with normal gait. Skin: ?Warm and dry without any rash. Medications Administered Discontinued Medications Generic Name Dose Route Start Last Admin Trade Name Freq PRN Reason Stop Dose Admin Ketamine HCl 10 mg 02/04/25 12:27 02/04/25 12:41 Ketamine Hcl/Ns 50 Mg/5 Ml Syringe IVPUSH 02/04/25 12:28 10 mg ONCE ONE Administration Ketorolac Tromethamine 15 mg 02/04/25 13:42 02/04/25 13:47 Ketorolac Tromethamine 15 Mg/Ml Vial IVPUSH 02/04/25 13:43 15 mg ONCE ONE Administration Medical Decision Making Medical Decision Making [facility] Narrative: 34-year-old female with medical history of migraines, IH, IBS, benign neoplasm of pineal gland, OCD, PTSD, depression, anxiety, compartment syndrome of B/L lower extremities, presents to ED due to chronic migraine. Patient reports acute on chronic migraine that has been worsening since she recieved occipital nerve block on 01/28. Patient woke up this morning with sharp, stabbing migraine located in the frontal region of her head, associated with seeing lights, spots, lines. Patient follows [facility] Neurology, and was told on Tuesday to present to ED for help with pain management. VS on initial observation-BP 123/67, pulse rate of 82, respiratory rate of 18, afebrile with oral temp of 97.1?, O2 saturation 97% on room air. On physical exam the head is normocephalic, atraumatic, without any rashes or overlying skin changes, HEENT reveals EOMI, pupils reactive to consensual accommodation, light reflex, clear conjunctiva, no nystagmus, oropharynx clear, does have pain with occular movements consistent with her migraines. Lungs clear to auscultation no rhonchi, rales or wheezing, without increased work of breathing, accessory muscle use, cardiac exam reveals normal rate and rhythm without murmurs/rubs/gallops, abdomen is soft, nondistended, without rigidity, nontender, neurological exam exam grossly nonfocal Plan: I spoke with Neurology SITE IDENTIFICATION SPECIALIST Priscila Friend who stated patient most likely status migranosis. Recommended pain management and suggested treatment with Ketamine as patient has failed traditional migraine cocktail, occipital nerve block and needed relief beyond what was available in the outpatient office. Patient is able to follow up with scheduled MRI outpatient with Neurology team. Course 15:00- patient was medicated with 10 mg IV ketamine as per recommendation from Neurology. Patient initially had relief of migraine headache for approximately 20 minutes however pain began to increase. Patient was then treated with 15 mg IV Toradol without effect. Patient now reporting 8/10 migraine headache with pressure returned. Patient to be admitted to Medicine for intractable migraine. Neurology SITE IDENTIFICATION SPECIALIST Priscila Friend will consult on the patient tomorrow. I reached out to hospitalist ISABELLE Link who will admit to medicine for managment of status migrainosus Differential Diagnosis Differential Diagnoses: The differential diagnosis associated with the presentation includes Status migrainosus Pain management Consult Healthcare Provider Management of the patient was discussed with: Hospitalist (Hospitalist ISABELLE Link who will admit to medicine ) and Associate Director (Neurology ISABELLE Delvalle who will consult on the patient tomorrow) External Record Review External record reviewed: Inpatient record, Office record, Outpatient record, Prior outpatient labs and Prior outpatient radiology Chronic Conditions Patient?s care impacted by: Other (migraines, IH, IBS, benign neoplasm of pineal gland, OCD, PTSD, depression, anxiety, compartment syndrome of B/L lower extremities) Discharge Plan Discharge Print Language: Malawian
[2025-02-04] MEDS: Ketamine HCl/NS 50 MG/5 ML SYRINGE 10 MG IVPUSH (12:41)
[2025-02-04 12:59] VITALS: BP 126/78; PULSE 74; RESP 22; O2SAT 100
--- OUTSIDE RECORDS SUMMARY | 2025-02-04 14:09 | XMS_ITS | Clinical Summary ---
Author Organization [facility] [address] [facility] Address [address] [place] [address] Phone Care Team Providers Care Internet Marketing Analyst Name Role Phone Marybel Jerry [employer]IC Primary Care Provider [phone]- [phone] Allergies Active Allergy Reactions Criticality Noted Date Comments Fluconazole Hives,Itching 2019 Metronidazole Hcl Other 11/20/2024 metronidazole hydrochloride Morphine Respiratory Issues,Shortness of breath High 11/20/2024 rigid mucles morphine Oxcarbazepine Hives 11/20/2024 hives when dosage was increased Penicillins Anaphylaxis High 11/20/2024 Encounters Date Type Department Care Team Description 11/20/2024 9:15 PM EDT - 11/20/2024 11:36 PM EDT Emergency [facility] Emergency [address] [place] [id number] Johnathon Matthew MD Persistent migraine aura without [...] Signed Date: 11/20/2024 22:57 ET Workstation ID: [id number] Transcribed By: Self Edit Transcribed Date: 11/20/2024 [...] Signed Date: 11/20/2024 22:57 ET Workstation ID: [id number] Transcribed By: Self Edit Transcribed Date: 11/20/2024 22:50 ET us Johnathon Matthew MD IMG CT PROCEDURES Final Res ult * POC , urine manually resulted (11/20/2024 10:07 PM EDT) HCG, Ur POC Negative Negative POC hCG Int QC Pass? Yes Yes EXPIRATION DATE POC 05/01/2026 LOT NUMBER POC [id number] Urine Urine specimen obtained by clean catch [...] g/dL LAB HEMETOLOGY METHOD 11/20/2024 9:57 PM [facility] RDW 12.1 12.1 - 16.2 % LAB HEMETOLOGY METHOD 11/20/2024 9:57 PM [facility] Platelets LAB HEMETOLOGY METHOD 11/20/2024 9:57 PM [facility] Comment:Occasional platelet clumping seen on smear. Platelet estimate appears adequate on smear review. MPV 9.5 7.4 - 11.4 FL LAB HEMETOLOGY METHOD 11/20/2024 9:57 PM [facility] Neutrophils Relative 59.1 44.0 - 74.0 % LAB HEMETOLOGY METHOD 11/20/2024 9:57 PM [facility] Lymphocytes Relative 29.5 20.0 - 48.0 % LAB HEMETOLOGY METHOD 11/20/2024 9:57 PM [facility] Monocytes Relative 6.8 2.0 - 12.0 % LAB HEMETOLOGY METHOD 11/20/2024 9:57 PM [facility] Eosinophils Relative 3.5 0.0 - 6.0 % LAB HEMETOLOGY METHOD 11/20/2024 9:57 PM [facility] Basophils Relative 0.7 0.0 - 2.0 % LAB HEMETOLOGY METHOD 11/20/2024 9:57 PM [facility] Neutrophils Absolute 4.50 1.80 - 7.80 K/mcL LAB HEMETOLOGY METHOD 11/20/2024 9:57 PM [facility] Lymphocytes Absolute 2.25 1.00 - 3.20 K/mcL LAB HEMETOLOGY METHOD 11/20/2024 9:57 PM [facility] Monocytes Absolute 0.52 0.00 - 0.80 K/mcL LAB HEMETOLOGY METHOD 11/20/2024 9:57 PM EDT [facility] Eosinophils Absolute 0.27 0.00 - 0.50 K/mcL LAB HEMETOLOGY METHOD 11/20/2024 9:57 PM EDT [facility] Basophils Absolute 0.05 0.00 - 0.20 K/[facility] LAB HEMETOLOGY METHOD 11/20/2024 9:57 PM EDT [facility] Blood Venous blood specimen / Unknown Venipuncture / Unknown 11/20/2024 9:49 PM EDT 11/20/2024 9:52 PM EDT Johnathon Matthew MD LAB BLOOD ORDERABLES Final Result [facility] [place] Reg. #:[id number] [address] [place] [address], * (ABNORMAL) Basic Metabolic Panel (BMP) (11/20/2024 9:49 PM EDT) Sodium 133(L) 135 - 145 mmol/L LAB CHEMISTRY METHOD 11/20/2024 10:14 PM [facility] Potassium 4.5 3.5 - 5.1 mmol/L LAB CHEMISTRY METHOD 11/20/2024 10:14 PM EDT [facility] Comment:Moderate Hemolysis m ay affect test result(s). Chloride 104 98 - 107 mmol/L LAB CHEMISTRY METHOD 11/20/2024 10:14 PM [facility] CO2 24 24 - 32 mmol/L LAB CHEMISTRY METHOD 11/20/2024 10:14 PM [facility] Anion Gap 5 5 - 14 LAB CHEMISTRY METHOD 11/20/2024 10:14 PM [facility] Glucose 100 70 - 199 [...] Final Result [facility] [place] Reg. #:[id number] [address] [place] [address], [place] [phone] from Last 3 Months Insurance [facility] Care Teams Internet Marketing Analyst Relationship Specialty Start Date End Date Marybel Jerry NP [address] [place] [address] PCP - General Nurse Practitioner 11/20/24
--- OUTSIDE RECORDS SUMMARY | 2025-02-04 14:09 | XMS_ITS | Clinical Summary ---
Author Organization [facility] Address [address] [place] [phone] Phone Care Team Providers Care Manager It Security Name Role Phone Jordana Wong MD Primary [...] topic Medical Devices Not on file Insurance [facility] [employer] [facility] [employer] [facility] [employer] [facility] [employer] [facility] [employer] [facility] Care Teams Manager It Security Relationship Specialty Start Date End Date Jordana Wong MD [address] [place] [address] PCP - General Internal Medicine 03/21/23 Additional Source Comments The information contained in this document represents components of the legal health record. It is not the complete legal health record.[facility]
--- NOTE | 2025-02-04 16:26 | PM.IMHP ---
History of Present Illness Date of Service: 02/04/25 Chief Complaint: Migraine headache 34-year-old woman presented with intractable migraine. Patient follows closely with [facility] now [facility] Neu[facility]. Patient has had these migraines since May but worsened since September. She has tried multiple treatments including Ajovy, Vyepti, nasal zolmitriptan. She has a history of a pilonidal cyst in 2023 MRI showed stability of cyst. 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 Patient has followed with ENT and ophthalmology. She also had a lumbar puncture which showed a mildly increased opening pressure of 26 and was started on acetazolamide for treatment of idiopathic intracranial hypertension. She had a unremarkable EEG and sleep study. She reports continued worsening headache with diffuse pain. She has tried multiple rounds of steroids, has had a 31 lb weight loss and weight gain. Plan with her neurology team was for Botox. Patient was sent in by her neurology team today. She had a dose of ketamine in the ER which he reports 20 minutes of relief and pain returning. Discussed case with [facility] neurology nurse practitioner who recommend starting DHE. Review of Systems Review of Systems: Denies any recent fever chills or decrease in appetite respiratory denies any shortness of breath or cough cardiovascular denied chest pain gastrointestinal denies any dysphagia abdominal pain nausea vomiting or diarrhea genitourinary denies any dysuria frequency or hematuria musculoskeletal denies any joint pain or swelling neuropsych intractable migraine, diffuse pain to right temporal, left temporal, occipital area. Also reports that her face feels ?broken? when she puts her head back she feels increased pressure. She also reported not being able to see peripherally at times all other systems reviewed are negative [facility] Medical History (Updated 02/04/25 @ 17:24 by Jyoti Link NP) Pineal gland cyst Asthma PCOS (polycystic ovarian syndrome) GERD (gastroesophageal reflux disease) Anxiety Headache, migraine, intractable Diplopia Surgical History H/O bilateral inguinal hernia repair H/O fasciotomy History of appendectomy Social History Household Members: Significant Other and Family Alcohol intake: never Patient Tobacco Use Status: Never used Tobacco Smoked in Last 30 Days: No Use of substances other than those prescribed or required for medical reasons: No Currently Displaying Signs/Symptoms of Drug Intoxication Withdrawal: No Have you been hit, kicked, punched, or otherwise hurt by someone within the past year? If so, by whom?: No Do you feel safe in your current relationship?: Yes Advance Directives: No Advance Directives Information Provided: No Recently lost weight without trying: No Nutrition Risks: No Nutritional Risk Patient : No : No Poor oral hygiene: No Meds Allergies Allergy/AdvReac Type Severity Reaction Status Date / Time morphine Allergy Severe Hives Verified 02/04/25 09:41 Penicillins Allergy Severe Hives Verified 02/04/25 09:41 fluconazole (From Diflucan) Allergy Intermediate Anaphylaxis Verified 02/04/25 09:41 oxcarbazepine (From Allergy Unknown Hives Verified 02/04/25 09:41 Trileptal) Active Medications: Current Medications Dihydroergotamine Mesylate (Dihydroergotamine Mesylate 1 Mg/Ml Ampul) 1 mg IV Q8H CAT Stop: 02/05/25 08:31 Metoclopramide HCl (Metoclopramide Hcl 10 Mg/2 Ml Vial) 10 mg IVPUSH ONCE ONE Stop: 02/04/25 16:23 Home Medications ?Medication ?Instructions ?Recorded ?Confirmed ?Last Taken ?Type hydroxyzine pamoate 25 mg capsule 25 mg PO BEDTIME 12/03/22 02/04/25 02/03/25 History lorazepam 0.5 mg tablet 0.5 mg PO BID PRN Anxiety 12/03/22 02/04/25 02/03/25 History lurasidone 60 mg tablet (Latuda) 60 mg PO BEDTIME 02/01/24 02/04/25 02/03/25 History omeprazole 40 mg capsule,delayed 80 mg PO BEDTIME 02/01/24 02/04/25 02/03/25 History release propranolol 20 mg tablet 20 mg PO BEDTIME 12/05/24 02/04/25 02/03/25 History acetazolamide 250 mg tablet 500 mg PO TID 02/04/25 02/04/25 02/03/25 History fluoxetine 20 mg tablet 80 mg PO BEDTIME 02/04/25 02/04/25 02/03/25 History loratadine 10 mg tablet (Claritin) 10 mg PO BEDTIME 02/04/25 02/04/25 02/03/25 History magnesium oxide 400 mg PO BEDTIME 02/04/25 02/04/25 02/03/25 History norethindrone (contraceptive) 0.35 0.35 mg PO DAILY 02/04/25 02/04/25 02/03/25 History mg tablet (Incassia) Physical Exam Vital Signs and Narrative: Vital Signs: Last Vital Signs Temp 98.1 F 02/04/25 10:00 Pulse 74 02/04/25 12:59 Resp 22 H 02/04/25 12:59 BP 126/78 02/04/25 12:59 Pulse Ox 100 02/04/25 12:59 O2 Del Method Room Air 02/04/25 12:59 BMI result Body Mass Index 40.9 Appearing in no acute distress head is normocephalic atraumatic eyes pupils are PERRLA sclera is anicteric mouth throat mucous membranes are intact and moist neck is supple no lymphadenopathy, no JVD noted lung sounds are clear to auscultation heart regular rate rhythm, clear S1, S2 positive bowel sounds, abdomen is soft, nontender neuro patient is alert x3, no focal deficits Results Labs 02/05/25 06:40 02/04/25 19:33 Assessment and Plan (1) Intractable migraine with status migrainosus: Status: Acute Plan 34-year-old woman with a history of intractable migraines, following very closely with [facility] now [facility] Neurology. Placed on observation for DHE initiation Intractable migraine DHE initiation 1mg every 8 hours x3, premedicate with Reglan EKG showing normal sinus rhythm, normal QTC Check EKG post 1st dose Neurology consultation Monitor on telemetry IV fluids Supportive care History of idiopathic intracranial hypertension Continue acetazolamide Depression/anxiety/PTSD Hold medications for now in light of risk of serotonin syndrome Follows closely outpatient with Psychiatry Obesity class 3. BMI 40.9 Discussed importance of weight management as this may be contributing to worsening of other comorbidities DVT prophylaxis with pneumatic compression boots Full code Quality Stroke Does the patient have a stroke diagnosis?: No VTE Prior VTE?: No VTE Risk Level:: Medical - moderate - high VTE Device Contraindication: N/A - Device Ordered VTE Drug Contraindication: Treatment Not Indicated
--- NOTE | 2025-02-04 16:49 | PHA.MEDREC ---
Addendum entered by Georgie Lezama [facility] 02/04/25 17:27: Jyoti Link notified med rec complete Original Note: Pharmacy Consult ? Medication Reconciliation Pharmacy has completed the medication reconciliation.Spoke with patient in the ED who knew all medications. Acetazolamide recently increased to 500 mg tid. Patient takes all medications at bedtime.
--- NOTE | 2025-02-04 16:57 | HO.NURTONUR ---
Pt sent in from neurology clinic for pain management of chronic migraine. Pt states migraine has been going on for the better part of this year. Pt had occipital block on 01/28 and states it only provided her relief from pain for about 3 hours. Pt was tx'd w/ ketamine in the ED which only provided her approx 1 hour of relief. Pt being admitted for pain management of migraine
--- NOTE | 2025-02-04 17:38 | PC.NURSE ---
Pt medicated w/ DHE ivp as ordered, pt immediately c/o head and throat tightness, head tightness, denies diff breathing, ekg obtained as ordered, vitals obtained and stable. Sx's resolved within 10 mins, provider made aware via tiger text
[2025-02-04 17:44] VITALS: BP 124/83; PULSE 75; RESP 18; TEMP 36.6; O2SAT 98
[2025-02-04 18:00] VITALS: BP 93/56; PULSE 67; RESP 18; TEMP 36.1; O2SAT 98
--- NOTE | 2025-02-04 18:01 | PC.NURSE ---
Hospitalist at bedside to re-assess pt.
[2025-02-04 18:35] VITALS: BMI 41.5
[2025-02-04 19:52] LABS: Hematocrit 42.7 % (37.0-47.0); Hemoglobin 14.2 g/dl (12.0-16.0); Mean Corpuscular HGB Conc 33.3 g/dl (31.0-35.0); Mean Corpuscular Hemoglobin 28.9 pg (27.0-33.0); Mean Corpuscular Volume 86.8 fL (80.0-98.0); NRBC Abs Auto 0.000 X10*3/uL (0.0-0.012); NRBC Pct Auto 0.0 /100WBC (0.0-0.2); Platelet Count 286 X10*3/uL (160-400); Red Blood Count 4.92 X10*6/uL (4.20-5.50); White Blood Count 9.3 X10*3/uL (4.8-10.8)
[2025-02-04 20:04] LABS: Anion Gap 13 (12-20); Blood Urea Nitrogen 15 mg/dL (9-16); Calcium 9.3 mg/dL (8.4-10.2); Carbon Dioxide 17 mmol/L (22-29); Chloride 116 mmol/L (96-108); Creatinine Clr Calc Pharmacy 106.5; Estimated Glomerular Filt Rate > 60; Magnesium 2.1 mg/dL (1.6-2.6); Potassium 3.6 mmol/L (3.3-5.1); Sodium 142 mmol/L (135-145)
[2025-02-04 20:18] LABS: Thyroid Stimulating Hormone 1.81 uIU/mL (0.32-4.0)
[2025-02-04] MEDS: Lactated Ringers 1,000 ML 80 ML IVCONT (21:45)
[2025-02-04 23:51] VITALS: BP 112/56; PULSE 75; RESP 17; TEMP 36.4; O2SAT 96
[2025-02-05] VITALS (7 sets, daily range): BP systolic 103–125; BP diastolic 57–73; PULSE 65–82; RESP 17–18; TEMP 36.1–37; O2SAT 94–98
--- NOTE | 2025-02-05 00:41 | PC.NURSE ---
medicated with zofran prior to DHE med. at this time patient endorses mild VICTORIA at this time, no vision changes, mild sensitivity to bright light. at this time pt denies N/V, new weakness, neck pain, muscle pain, hand numbness
--- NOTE | 2025-02-05 01:39 | PC.NURSE ---
mild increase in frontal head tightness/VICTORIA that then subsided as well as nausea after DHE admin. no vomiting, denies other symptoms. ambulated to bathroom steadily immediately afterward with no increase/new onset of symptoms. VS charted
[2025-02-05 07:03] LABS: MANUAL DIFF FLAG NO
[2025-02-05 07:05] LABS: Hematocrit 42.7 % (37.0-47.0); Hemoglobin 14.2 g/dl (12.0-16.0); Imm Gran Abs Auto 0.12 X10*3/uL (0.00-0.03); Imm Gran Pct Auto 1.3 % (0.0-0.4); Lymphocytes Absolute Auto 1.6 X10*3/uL (1.2-4.9); Mean Corpuscular HGB Conc 33.3 g/dl (31.0-35.0); Mean Corpuscular Hemoglobin 29.0 pg (27.0-33.0); Mean Corpuscular Volume 87.3 fL (80.0-98.0); NRBC Abs Auto 0.000 X10*3/uL (0.0-0.012); NRBC Pct Auto 0.0 /100WBC (0.0-0.2); Platelet Count 267 X10*3/uL (160-400); Red Blood Count 4.89 X10*6/uL (4.20-5.50); White Blood Count 9.4 X10*3/uL (4.8-10.8)
[2025-02-05 07:30] LABS: Alanine Aminotransferase 20 U/L (0-31); Albumin Level 4.5 g/dL (3.5-5.0); Alkaline Phosphatase 58 U/L (39-117); Aspartate Amino Transferase 27 U/L (5-31); Blood Urea Nitrogen 15 mg/dL (9-16); Calcium 9.4 mg/dL (8.4-10.2); Creatinine Clr Calc Pharmacy 110.6; Estimated Glomerular Filt Rate > 60; Magnesium 2.1 mg/dL (1.6-2.6); Total Protein 7.0 g/dL (6.5-8.0)
[2025-02-05 08:28] LABS: Anion Gap 15 (12-20); Carbon Dioxide 20 mmol/L (22-29); Chloride 113 mmol/L (96-108); Potassium 4.6 mmol/L (3.3-5.1); Sodium 143 mmol/L (135-145)
[2025-02-05] MEDS: 0.9 % Sodium Chloride Flush 3 ML SYRINGE IVFLUSH (09:16)
--- NOTE | 2025-02-05 09:41 | MHC.CM.PN ---
Yasmine 02/05/25, Pt. lives with family, she does not use home health services or DME. PCP confirmed: Marybel Jerry CNP. She will drive herself home at DC, car is in lot. DCP: home, self care, CM to follow for DC needs.
[2025-02-05] MEDS: Lactated Ringers 1,000 ML 80 ML IVCONT ×2 (10:33→22:14)
--- NOTE | 2025-02-05 14:40 | P.PNIM_ITS ---
Subjective Subjective Date of Service: 02/05/25 Interval History: Patient seen examined at bedside this morning, patient states that her migraine improved, however persists with migraines, continues with DHE therapy. Review of Systems Review of Systems: Yes all other systems are reviewed and are negative Physical Exam 2 Exam: Exam: General: AxOx3, No acute distress Head: AT/NC ENT: Moist mucous membranes Neck: supple CVS; RRR, S1 S2 normal Lungs: Clear bilateral breath sounds, no wheezes or crackles Abd: Soft non tender, non distended Ext: No edema and no calf tenderness MSK: moving all 4 limbs Skin: No cyanosis or edema Psych: Cooperative with exam Neurology: no focal deficit Vital Signs: Vital Signs: Last Vital Signs Temp 96.9 F 02/05/25 11:18 Pulse 78 02/05/25 11:18 Resp 18 02/05/25 11:18 BP 115/69 02/05/25 11:18 Pulse Ox 98 02/05/25 11:18 O2 Del Method Room Air 02/05/25 11:18 BMI result Body Mass Index 41.5 Objective Data Active Medications Acetaminophen (Acetaminophen 325 Mg Tablet) 650 mg PO Q6H PRN PRN Reason: Pain, Mild 1-3,fever,headache Calcium Carbonate (Calcium Carbonate 750 Mg Tab.Chew) 750 mg PO Q4H PRN PRN Reason: Heartburn Dihydroergotamine Mesylate (Dihydroergotamine Mesylate 1 Mg/Ml Ampul) 1 mg IV ONCE ONE Stop: 02/05/25 17:01 Lactated Ringer's (Lr) 1,000 mls @ 80 mls/hr IVCONT .[id number] [facility] Last Admin: 02/05/25 10:33 Dose: 80 mls/hr Documented By: MICAELA Lorazepam (Lorazepam 0.5 Mg Tablet) 0.5 mg PO BID PRN PRN Reason: Anxiety Magnesium Hydroxide (Milk Of Magnesia 30 Ml Oral.Susp) 30 ml PO DAILY PRN PRN Reason: Constipation Melatonin (Melatonin 3 Mg Tablet) 6 mg PO BEDTIME PRN PRN Reason: Insomnia Metoclopramide HCl (Metoclopramide Hcl 10 Mg/2 Ml Vial) 5 mg IVPUSH ONCE ONE Stop: 02/05/25 14:40 Ondansetron HCl (Ondansetron Hcl 4 Mg/2 Ml Vial) 4 mg IVPUSH Q8H PRN PRN Reason: Nausea and Vomiting Last Admin: 02/05/25 00:37 Dose: 4 mg Documented By: BRIANNA Propranolol HCl (Propranolol Hcl 20 Mg Tablet) 20 mg PO BEDTIME [facility]; Protocol Last Admin: 02/04/25 21:39 Dose: 20 mg Documented By: BRIANNA Sodium Chloride (0.9 % Sodium Chloride Flush 3 Ml Syringe) 3 ml IVFLUSH QSHIFT CAT Last Admin: 02/05/25 09:16 Dose: 3 ml Documented By: MICAELA Labs 02/05/25 06:40 02/05/25 06:40 Labs: Laboratory Results - last 24 hr 02/04/25 02/05/25 19:33 06:40 MCV 86.8 87.3 MCH 28.9 29.0 MCHC 33.3 33.3 RDW 13.1 13.2 Plt Count 286 267 MPV 8.9 L 9.1 L Immature Gran % (Auto) 1.3 H Neut % (Auto) 72.1 Lymph % (Auto) 16.8 L Lincoln % (Auto) 8.0 Eos % (Auto) 1.4 Baso % (Auto) 0.4 Lymph # (Auto) 1.6 Lincoln # (Auto) 0.8 Eos # (Auto) 0.1 Baso # (Auto) 0.0 Abs Immat Gran (auto) 0.12 H Absolute Neuts (auto) 6.8 Absolute Nucleated RBC 0.000 0.000 Nucleated RBC % (auto) 0.0 0.0 Anion Gap 13 15 Estim Creat Clear Calc 106.5 110.6 Estimated GFR > 60 > 60 Random Glucose 139 H 97 Calcium 9.3 9.4 Magnesium 2.1 2.1 Total Bilirubin 0.3 AST 27 ALT 20 Alkaline Phosphatase 58 Total Protein 7.0 Albumin 4.5 TSH 1.81 Assessment and Plan (1) Depression with anxiety: Status: Acute (2) Intractable migraine with status migrainosus: Status: Acute Plan 34-year-old woman with a history of intractable migraines, following very closely with [facility] now [facility]. Placed on observation for DHE initiation Intractable migraine, improving s/p DHE 1mg every 8 hours x3 doses, will give one extra dose at 17:00 premedicate with Reglan, monitor EKG showing normal sinus rhythm, normal QTC Neurology consulted and following Monitor on telemetry IV fluids Supportive care History of idiopathic intracranial hypertension Continue acetazolamide Depression/anxiety/PTSD Hold medications for now in light of risk of serotonin syndrome Follows closely outpatient with Psychiatry Obesity class 3. BMI 40.9 Discussed importance of weight management as this may be contributing to worsening of other comorbidities DVT prophylaxis with pneumatic compression boots Full code Disposition: Likely discharge tomorrow, due to additional dose of DHE to be given later today. Total time managing care of this patient today: 55 minutes. Quality Stroke Does the patient have a stroke diagnosis?: No VTE Prior VTE?: No VTE Risk Level:: Medical - moderate - high VTE Device Contraindication: N/A - Device Ordered VTE Drug Contraindication: Treatment Not Indicated
--- NOTE | 2025-02-05 14:52 | PM.NEUROCN ---
History of Present Illness Data of Consult Service Date: 02/05/25 Primary Care Provider: Marybel Jerry NP IZA Zuluaga is a 34-year-old female patient with a past medical history of gastroenteritis, allergic rhinitis, allergies, anxiety disorder, benign neoplasm of the pineal gland, depression, PCOS, OCD, presenting today for a headache follow-up. To reiew: I initially saw her back in May of 2024 at which time she reported episodic migraines but over the course of a few months has been getting worse. She was averaging 3 migraine days per week at that time but having low-grade headaches on a near daily basis. She described a unilateral, throbbing head pain associated with brain fog, nausea, light and sound sensitivity, and dizziness with occasional vomiting when headaches became more severe. Sleep was likely playing a role with some significant insomnia. She was started on Vyepti infusions for preventive therapy at that time. 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 Unfortunately in November, her headaches got much worse. They were reported to be daily, severe, holocephalic, worse with a laying position, and associated with new onset diplopia, blurry vision, spots in vision, tinnitus, and sensation of severe pressure. Repeat MRI of the brain in November of 2024 showed findings that could be consistent with IIH including a partially empty sella and stenosis involving distal transverse sinuses bilaterally and optic nerve sheath distension. Her ophthalmology evaluation however was reassuring and did not show evidence of papilledema A lumbar puncture was performed with an opening pressure of 26. Her CRP was slightly elevated at 4.2 though her ESR was normal. Repeat CRP was normal. We performed a sleep study and EEG as well both of which were nondiagnostic She was started on acetazolamide initially dosed at 250 mg twice daily and then increase to 500 mg twice daily and increased again to 500mg TID. She was also started on Depakote 250 mg twice daily for adequate pain control which she continues. She has seen only marginal improvement with the acetazolamide and Depakote. She is currently taking the acetazolamide dosed at 500 mg three time daily and Depakote at 250mg twice daily. Given the likelihood of overlapping chronic migraine, we also have gotten approval for Botox therapy. A CT/CTA of the head and neck performed 01/30/2025 was within normal limits. Over the course of the last several days, headaches have been worsening along with difficulty in vision and some noted increase in pupil size which is likely related to cranial autonomic symptoms which can occur in migraine. She has not had any lapses in the the acetazolamide and Depakote at same dosing and had no improvement with recent nerve block injections. I recommended going to the emergency room for intractable migraine. She was given ketamine in the emergency room which only relieved her pain for approximately 20 minutes. She was admitted to the hospital and I gave recommendation at that time to start her on IV dihydroergotamine. Margareth tells me today that after receiving a proximally 3 doses of dihydroergotamine, she has been nearly headache-free for the 1st time in a month. She feels very well today though she does still have a mild headache when in a lying position and also has a very slight pressure sensation above the right eye. Past medication trials: Amitriptyline-no benefit Propranolol-no benefit Topiramate-mood changes Ajovy-no benefit Sumatriptan-no benefit Naratriptan partially beneficial Vyepti infusion-no benefit and possibly worsening of headaches Occipital nerve blocks-No benefit Review of Systems Review of Systems: Yes all other systems are reviewed and are negative [facility] Past Medical History Medical History (Updated 02/04/25 @ 17:24 by Jyoti Link NP) Pineal gland cyst Asthma PCOS (polycystic ovarian syndrome) GERD (gastroesophageal reflux disease) Anxiety Headache, migraine, intractable Diplopia Surgical History Surgical History H/O bilateral inguinal hernia repair H/O fasciotomy History of appendectomy Social History Social History Household Members: Significant Other and Family Alcohol intake: never 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 Tobacco Use Status: Never used Tobacco service: No Meds Allergies Allergy/AdvReac Type Severity Reaction Status Date / Time morphine Allergy Severe Hives Verified 02/04/25 09:41 Penicillins Allergy Severe Hives Verified 02/04/25 09:41 fluconazole (From Diflucan) Allergy Intermediate Anaphylaxis Verified 02/04/25 09:41 oxcarbazepine (From Allergy Unknown Hives Verified 02/04/25 09:41 Trileptal) Active Medications: Current Medications Acetaminophen (Acetaminophen 325 Mg Tablet) 650 mg PO Q6H PRN PRN Reason: Pain, Mild 1-3,fever,headache Calcium Carbonate (Calcium Carbonate 750 Mg Tab.Chew) 750 mg PO Q4H PRN PRN Reason: Heartburn Dihydroergotamine Mesylate (Dihydroergotamine Mesylate 1 Mg/Ml Ampul) 1 mg IV ONCE ONE Stop: 02/05/25 17:01 Lactated Ringer's (Lr) 1,000 mls @ 80 mls/hr IVCONT .[id number] [facility] Last Admin: 02/05/25 10:33 Dose: 80 mls/hr Lorazepam (Lorazepam 0.5 Mg Tablet) 0.5 mg PO BID PRN PRN Reason: Anxiety Magnesium Hydroxide (Milk Of Magnesia 30 Ml Oral.Susp) 30 ml PO DAILY PRN PRN Reason: Constipation Melatonin (Melatonin 3 Mg Tablet) 6 mg PO BEDTIME PRN PRN Reason: Insomnia Ondansetron HCl (Ondansetron Hcl 4 Mg/2 Ml Vial) 4 mg IVPUSH Q8H PRN PRN Reason: Nausea and Vomiting Last Admin: 02/05/25 00:37 Dose: 4 mg Propranolol HCl (Propranolol Hcl 20 Mg Tablet) 20 mg PO BEDTIME [facility]; Protocol Last Admin: 02/04/25 21:39 Dose: 20 mg Sodium Chloride (0.9 % Sodium Chloride Flush 3 Ml Syringe) 3 ml IVFLUSH QSHIFT CAT Last Admin: 02/05/25 09:16 Dose: 3 ml Home Medications ?Medication ?Instructions ?Recorded ?Confirmed ?Last Taken ?Type hydroxyzine pamoate 25 mg capsule 25 mg PO BEDTIME 12/03/22 02/04/25 02/03/25 History lorazepam 0.5 mg tablet 0.5 mg PO BID PRN Anxiety 12/03/22 02/04/25 02/03/25 History lurasidone 60 mg tablet (Latuda) 60 mg PO BEDTIME 02/01/24 02/04/25 02/03/25 History omeprazole 40 mg capsule,delayed 80 mg PO BEDTIME 02/01/24 02/04/25 02/03/25 History release propranolol 20 mg tablet 20 mg PO BEDTIME 12/05/24 02/04/25 02/03/25 History acetazolamide 250 mg tablet 500 mg PO TID 02/04/25 02/04/25 02/03/25 History fluoxetine 20 mg tablet 80 mg PO BEDTIME 02/04/25 02/04/25 02/03/25 History loratadine 10 mg tablet (Claritin) 10 mg PO BEDTIME 02/04/25 02/04/25 02/03/25 History magnesium oxide 400 mg PO BEDTIME 02/04/25 02/04/25 02/03/25 History norethindrone (contraceptive) 0.35 0.35 mg PO DAILY 02/04/25 02/04/25 02/03/25 History mg tablet (Incassia) Physical Exam Vital Signs: Vital Signs: Last Vital Signs Temp 96.9 F 02/05/25 11:18 Pulse 78 02/05/25 11:18 Resp 18 02/05/25 11:18 BP 115/69 02/05/25 11:18 Pulse Ox 98 02/05/25 11:18 O2 Del Method Room Air 02/05/25 11:18 BMI result Body Mass Index 41.5 Const: General: cooperative, healthy appearing, comfortable and no acute distress Nutritional Appearance: well nourished Orientation/consciousness: patient oriented x3 Limitations: no limitations HEENT: Head: Yes normal to inspection and Yes normocephalic Eyes: General: appearance normal, both eyes and all related structures Visual Guevara: normal visual guevara by confrontation Alignment and Position: alignment normal Periorbital: periorbital findings normal Eyelids: Yes eyelids normal Conjunctivae: conjunctivae normal Sclerae: sclerae normal Direct Ophthalmoscopy: normal light reflex and no papilledema Neck: Neck: Yes normal visual inspection and Yes full ROM : General: Yes no CVA tenderness Back/Spine/Pelvis: Back: no CVA tenderness Cervical Spine: normal cervical lordosis Thoracic/Lumbar Spine: thoracic and lumbar spine normal to inspection Neuro: General: patient oriented x3 and deep tendon reflexes 2+ bilaterally Cranial nerves: Yes CN's II-XII intact bilaterally and Yes Facial sensation intact/muscles of mastication intact Cognition (Neuro): normal cognition Gait exam (Neuro): Normal gait present Motor exam (neuro): 5/5 motor strength present throughout and no tremor noted Sensory Exam: Normal double simultaneous stimulation for sensation Romberg Test: Negative Pupils: Normal pupillary reactivity/response: bilateral Psych: Appearance: grossly normal Mental Status: mental status grossly normal Speech and movement: Normal speech and movement present and Clear speech present Affect: normal affect Attitude: cooperative Thought process: Normal thought process present Thought content: Normal thought content present Insight: Good insight present (Psych) Judgement: Good judgement present (Psych) Results Labs 02/05/25 06:40 02/05/25 06:40 Labs: Short CBC 02/04/25 02/05/25 Range/Units 19:33 06:40 WBC 9.3 9.4 (4.8-10.8) X10*3/uL Hgb 14.2 14.2 (12.0-16.0) g/dl Hct 42.7 42.7 (37.0-47.0) % Plt Count 286 267 (160-400) X10*3/uL BMP 02/04/25 02/05/25 19:33 06:40 Sodium 142 143 Potassium 3.6 4.6 D Chloride 116 H 113 H Carbon Dioxide 17 L 20 L BUN 15 15 Creatinine 0.82 0.79 Calcium 9.3 9.4 Liver Function 02/05/25 Range/Units 06:40 Total Bilirubin 0.3 (0.0-1.0) mg/dL AST 27 (5-31) U/L ALT 20 (0-31) U/L Alkaline Phosphatase 58 (39-117) U/L Albumin 4.5 (3.5-5.0) g/dL Assessment and Plan (1) Intractable migraine with status migrainosus: Status: Acute Plan Margareth is a 34-year-old female patient with a past medical history of gastroenteritis, allergic rhinitis, allergies, anxiety disorder, benign neoplasm of the pineal gland, depression, PCOS, OCD, presenting today for a headache follow-up. Her workup has been extensive and in the past there was question of IIH due to some findings on an MRI scan as well as patient's symptoms however her funduscopic exams have remained normal including formal ophthalmology exams. Given the extensive her head pain, I would find it very strange to have a completely normal funduscopic exam if her pain was presumably related to IIH. Her lumbar puncture in the past with only mildly elevated. While IIH may play a role, I do not think that it is the predominating headache type here. For now, I am considering stopping her acetazolamide as she has been off of it for a couple of days now in the hospital. We can also discontinue her Depakote as this was only intended originally to be used as a bridge therapy. I am recommending that we continue the dihydroergotamine IV infusion for presumed intractable migraine which has been working well for her. My concern that is upon discharge she will have a rebound headache. I recommend discharging her on naratriptan 1 mg twice daily (starting at least 12hrs after last DHE dose) for 5 days and I will follow up with her in the clinic on February 11 at which time we will start her Botox therapy for migraine prevention. Procedures Date of Service Date of Service: 02/05/25
[2025-02-06 03:53] VITALS: BP 107/72; PULSE 72; RESP 18; TEMP 35.7; O2SAT 96
[2025-02-06 07:09] VITALS: BP 124/80; PULSE 68; RESP 18; TEMP 36.7; O2SAT 97
--- NOTE | 2025-02-06 09:45 | P.PNNE_ITS ---
Subjective Subjective Date of Service: 02/06/25 Critical Care Time (minutes): 0 Comment: Last dose of DHE 02/05/2025 at about 5pm. She continues to do well this morning though does have some slight pressure when she lays flat. Physical Exam 2 Vital Signs: Vital Signs: Last Vital Signs Temp 98.0 F 02/06/25 07:09 Pulse 68 02/06/25 07:09 Resp 18 02/06/25 07:09 BP 124/80 02/06/25 07:09 Pulse Ox 97 02/06/25 07:09 O2 Del Method Room Air 02/06/25 07:09 BMI result Body Mass Index 41.5 Objective Data Labs 02/05/25 06:40 02/05/25 06:40 Progress Note: A&P Assessment and plan (1) Intractable migraine with status migrainosus: Status: Acute (2) IIH (idiopathic intracranial hypertension): Status: Acute Plan She is currently doing very well. She has nearly pain-free but does still have some pressure when she lays flat. Although diagnosis of IIH remains somewhat questionable, I will have her continue the acetazolamide but reduce the dose from 500 t.i.d. to 500 b.i.d. upon discharge. We can discontinue her Depakote. For continued maintenance/bridge therapy, discharge on naratriptan 1 mg b.i.d. x5 days. She has a follow up appointment with me in the clinic 02/11/2025. Time Spent With Patient Time: Total time managing care of this patient today ____ minutes. Procedures Date of Service Date of Service: 02/06/25 Quality Stroke Does the patient have a stroke diagnosis?: No VTE Prior VTE?: No VTE Risk Level:: Medical - moderate - high VTE Device Contraindication: N/A - Device Ordered VTE Drug Contraindication: Treatment Not Indicated
[2025-02-06 11:04] VITALS: BP 128/82; PULSE 87; RESP 18; TEMP 36.2; O2SAT 97
--- NOTE | 2025-02-06 12:08 | PM.DS ---
DS: Providers Provider Date of Service: 02/06/25 Date of admission: 02/04/25 16:23 Date of discharge: 02/06/25 Primary care physician: Marybel Jerry NP Consults: 02/04/25 16:25 Consult to Neurology Routine Consulting Provider: [facility] Reason for consultation: Intractable migraine Attending physician on discharge: Guzman Osorio Discharging clinician: Guzman Osorio DS: Diagnosis Discharge Diagnosis (1) Intractable migraine with status migrainosus: Status: Acute (2) IIH (idiopathic intracranial hypertension): Status: Acute DS: Summary Hospital Course Hospital Course: HPI:34-year-old woman presented with intractable migraine. Patient follows closely with [facility]rology now [facility]. Patient has had these migraines since May but worsened since September. She has tried multiple treatments including Ajovy, Vyepti, nasal zolmitriptan. She has a history of a pilonidal cyst in 2023 MRI showed stability of cyst. 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 Patient has followed with ENT and ophthalmology. She also had a lumbar puncture which showed a mildly increased opening pressure of 26 and was started on acetazolamide for treatment of idiopathic intracranial hypertension. She had a unremarkable EEG and sleep study. She reports continued worsening headache with diffuse pain. She has tried multiple rounds of steroids, has had a 31 lb weight loss and weight gain. Plan with her neurology team was for Botox. Patient was sent in by her neurology team today. She had a dose of ketamine in the ER which he reports 20 minutes of relief and pain returning. Discussed case with [facility] neurology nurse practitioner who recommend starting DHE. Hospital course: 34-year-old woman with a history of intractable migraines, following very closely with [facility] now [facility] Neurology: Patient was admitted for intractable migraine: Started on DHE, IV fluids, supportive care: With the above management patient seems to be improved significantly, no headaches presently. Seen by Neurology: Recommended to stop Depakote, added naratriptan 1mg po bid x5 days. Patient follow-up with Neurology outpatient for further management. History of idiopathic intracranial hypertension: Continue acetazolamide. Obesity class 3. BMI 40.9: Discussed importance of weight management as this may be contributing to worsening of other comorbidities. Plan: Migraine headaches: Stopped Depakote, acetazolamide adjusted to 500 mg p.o. b.i.d. In addition given naratriptan 1 mg p.o. b.i.d. 5 days(neurology sent for prescription.) Follow up with Neurology outpatient-patient says that she has already appointment with Neurology in coming week. Above management discussed with the patient detail length she understand and in agreement with the above plan, time spent 50 minute. Time Attestation Total time managing care of this patient today: 50 mintues. Discharge Coordination Time (in mins): 50 min Quality: Safe Use of Opioids Does Pt have an Active Cancer Diagnosis on the Problem List?: No Quality: Stroke Does the patient have a stroke diagnosis?: No Physical Exam Exam: Exam: Appearance: Alert.? Oriented X3.? cvs: rrr, [id number] , no murmur res: clear to auscultation ,no rhonchii or wheezing abd: no rebound or guarding ,nt, bs present. ext pulses present , no cyanosis. neuro: axo3 , nonfocal. Vital Signs: Vital Signs: Last Vital Signs Temp 97.1 F 02/06/25 11:04 Pulse 87 02/06/25 11:04 Resp 18 02/06/25 11:04 BP 128/82 02/06/25 11:04 Pulse Ox 97 02/06/25 11:04 O2 Del Method Room Air 02/06/25 11:04 BMI result Body Mass Index 41.5 DS: Data Imaging Chest x-ray: Radiologist's impression: cta head and neck: 1. No large vessel occlusion, hemodynamically significant stenosis, or aneurysm in the head and neck. 2. No acute intracranial findings. 3. 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, Medical] - 1 Week Discharge Medications: Continued fluoxetine 20 mg tablet 80 mg PO BEDTIME norethindrone (contraceptive) [Incassia] 0.35 mg tablet 0.35 mg PO DAILY loratadine [Claritin] 10 mg Tablet 10 mg PO BEDTIME magnesium oxide 400 mg magnesium Tablet 400 mg PO BEDTIME hydroxyzine pamoate 25 mg capsule 25 mg PO BEDTIME lorazepam 0.5 mg tablet 0.5 mg PO BID PRN (Reason: Anxiety) lurasidone [Latuda] 60 mg tablet 60 mg PO BEDTIME Rx Instructions: must administer with food (at least 350 calories) omeprazole 40 mg capsule,delayed release(DR/EC) 80 mg PO BEDTIME propranolol 20 mg tablet 20 mg PO BEDTIME Botox 200 unit recon soln 155 unit IM ONCE 84 Days Qty: 1 4RF Rx Instructions: HAS NOT STARTED INJECTION AT MD OFFICE YET Changed acetazolamide 250 mg tablet 500 mg PO BID Qty: 1 0RF Discontinued divalproex [Depakote] 250 mg tablet,delayed release (DR/EC) 250 mg PO BID 30 Days Qty: 60 5RF No Action naratriptan 1 mg tablet 1 mg PO BID 5 Days Qty: 10 0RF Rx Instructions: Migraine bridge therapy Discharge Orders: Discharge Order (Routine); Ordered 02/06/25 Ordered By: Guzman Osorio Diet: Advance to usual diet Activity on Discharge: As tolerated Stand Alone Forms: Patient Portal Discharge page Print Language: French Care Plan Goals: Migraine headaches: Stopped Depakote, acetazolamide adjusted to 500 mg p.o. b.i.d. In addition given naratriptan 1 mg p.o. b.i.d. 5 days Follow up with Neurology outpatient-patient says that she has already appointment with Neurology in coming week. Health Concerns: As above. Plan of Treatment: As above. Assessment: As above. Discharge Date/Time: 02/06/25 14:30
--- NOTE | 2025-02-06 12:14 | MHC.CM.PN ---
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
== END 2025-02-06 14:30 | disposition home or self-care (01) ==
LOC: HO.ED 15:05 → HO.EDOVER 16:32 → HO.IMC 17:21
PROVIDERS: Admitting Provider Nurse Practitioner Acute Care; Emergency Provider Emergency Medicine; PCP Nurse Practitioner Adult Health; Visit Provider Internal Medicine
DX: G43.911 Migraine, unspecified, intractable, with status migrainosus (principal); G93.2 Benign intracranial hypertension; F41.8 Other specified anxiety disorders; H53.2 Diplopia; J45.909 Unspecified asthma, uncomplicated; E28.2 Polycystic ovarian syndrome; Z79.899 Other long term (current) drug therapy
CPT/HCPCS: 36415; 80048; 80053; 83735; 84443; 85025; 85027; 93005; 96361; 96374; 96375; 96376; 99222; 99285; J1110; J1885; J2405; J2765; J7120

== ENCOUNTER 2025-02-04 16:23 | Outpatient (BNV) | payer OTHER, SELFPAY | END 2025-02-04 16:36 | PROVIDERS: Admitting Provider Nurse Practitioner Acute Care; Emergency Provider Emergency Medicine; PCP Nurse Practitioner Adult Health; Visit Provider Internal Medicine Cardiovascular Disease | DX: Z13.6 Encounter for screening for cardiovascular disorders (principal) | CPT/HCPCS: 93010 ==

== ENCOUNTER → 2025-02-04 16:23 | Outpatient (BNV) | payer OTHER, SELFPAY | PROVIDERS: Admitting Provider Nurse Practitioner Acute Care; Emergency Provider Emergency Medicine; PCP Nurse Practitioner Adult Health; Visit Provider Nurse Practitioner Acute Care | DX: F41.8 Other specified anxiety disorders (principal); G43.911 Migraine, unspecified, intractable, with status migrainosus | CPT/HCPCS: 99223; 99233 ==

== ENCOUNTER → 2025-02-04 16:23 | Outpatient (BNV) | payer OTHER, SELFPAY | PROVIDERS: Admitting Provider Nurse Practitioner Acute Care; Emergency Provider Emergency Medicine; PCP Nurse Practitioner Adult Health; Visit Provider Nurse Practitioner | DX: G43.911 Migraine, unspecified, intractable, with status migrainosus (principal); G93.2 Benign intracranial hypertension | CPT/HCPCS: 99232 ==

== ENCOUNTER 2025-02-11 08:46 | Outpatient (AMB) | payer OTHER, SELFPAY ==
--- NOTE | 2025-02-11 08:48 | A.OFFVIS_ITS ---
Vital Signs 02/11/25 08:53 BP 124/86 Blood Pressure Location Rt brachial Position Sitting Respiration 16 Pulse 96 Pulse Source Pulse Oximeter Pulse Oximetry (%) 98 Oxygen Delivery Method Room Air Intake Visit Reasons: Hospital Follow Up Allergies morphine Allergy (Severe, Verified 02/04/25 09:41) Hives Penicillins Allergy (Severe, Verified 02/04/25 09:41) Hives fluconazole (From Diflucan) Allergy (Intermediate, Verified 02/04/25 09:41) Anaphylaxis oxcarbazepine (From Trileptal) Allergy (Unknown, Verified 02/04/25 09:41) Hives HPI Comments Details: Margareth is a 34-year-old female patient with a past medical history of gastroenteritis, allergic rhinitis, allergies, anxiety disorder, benign neoplasm of the pineal gland, depression, PCOS, OCD, presenting today for a headache follow-up. To reiew: I initially saw her back in May of 2024 at which time she reported episodic migraines but over the course of a few months has been getting worse. She was averaging 3 migraine days per week at that time but having low-grade headaches on a near daily basis. She described a unilateral, throbbing head pain associated with brain fog, nausea, light and sound sensitivity, and dizziness with occasional vomiting when headaches became more severe. Sleep was likely playing a role with some significant insomnia. She was started on Vyepti infusions for preventive therapy at that time. 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 Unfortunately in November, her headaches got much worse. They were reported to be daily, severe, holocephalic, worse with a laying position, and associated with new onset diplopia, blurry vision, spots in vision, tinnitus, and sensation of severe pressure. Repeat MRI of the brain in November of 2024 showed findings that could be consistent with IIH including a partially empty sella and stenosis involving distal transverse sinuses bilaterally and optic nerve sheath distension. Her ophthalmology evaluation however was reassuring and did not show evidence of papilledema A lumbar puncture was performed with an opening pressure of 26. Her CRP was slightly elevated at 4.2 though her ESR was normal. Repeat CRP was normal. We performed a sleep study and EEG as well both of which were nondiagnostic She was started on acetazolamide initially dosed at 250 mg twice daily and then increase to 500 mg twice daily and increased again to 500mg TID. She was also started on Depakote 250 mg twice daily for adequate pain control which she continues. She had seen only marginal improvement with the acetazolamide and Depakote. She was taking the acetazolamide dosed at 500 mg three time daily and Depakote at 250mg twice daily. A CT/CTA of the head and neck performed 01/30/2025 was within normal limits. Over the course of several days she has been experiencing worsening of headaches along with some increasing difficulty in her vision and increase in pupil size likely related to cranial autonomic symptoms. She had been consistent with the acetazolamide and Depakote and did not respond well to an in office nerve block. She was recommended at that point to go to the emergency room where she received ketamine. This relieved her headache only for 20 minutes. She was subsequently placed on a dihydroergotamine drip and admitted to the hospital. During her time in the hospital, she has been headache-free for the 1st time in a long time. She received a proximally 4 doses of dihydroergotamine and remained headache free throughout her hospital stay. Upon discharge, plan was to start naratriptan 1 mg twice daily for bridge therapy, discontinue Depakote, and reduce acetazolamide to 500 mg twice daily given that her most recent ophthalmology evaluation was very reassuring. She also takes propranolol 20 mg nightly which she was continued on. She is here today for a post hospitalization follow-up and for her 1st time administration of Botox therapy indicated for treatment of chronic migraine. She tells me today that after going home from the hospital, she developed a headache again but it has been more mild and intermittent compared to prior. She also has had a significant improvement in her vision symptoms and has been able to tolerate light much better than prior. She has however had a high-pi tched tinnitus since hospitalization but this is nonpulsatile and not favoring 1 side. She does have most for pain to the frontal area in the center. This is described as a pressure sensation but can become pulsating and more diffuse throughout the frontal areas. She will sometimes have some sharp shooting pains above her eyebrows on both sides. When she took the naratriptan at home however her headaches did improve significantly with its use. She was at the 1 mg twice daily dose. Past medication trials: Amitriptyline-no benefit Propranolol-currently taking with no obvious benefit at 20 mg daily dose Topiramate-mood changes Ajovy-no benefit Sumatriptan-no benefit Naratriptan partially beneficial Vyepti infusion-no benefit and possibly worsening of headaches Occipital nerve blocks-No benefit [facility] Medical History (Updated 02/07/25 @ 00:01 by Margarita Arguello) Pineal gland cyst Asthma PCOS (polycystic ovarian syndrome) GERD (gastroesophageal reflux disease) Anxiety Headache, migraine, intractable Diplopia Surgical History H/O bilateral inguinal hernia repair H/O fasciotomy History of appendectomy Social History Household Members: Significant Other and Family Alcohol intake: never 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 Tobacco Use Status: Never used Tobacco service: No Review of Systems Const All systems reviewed & are unremarkable except as noted in HPI and below Physical Exam Vital Signs: Last Vital Signs Pulse 96 02/11/25 08:53 Resp 16 02/11/25 08:53 BP 124/86 02/11/25 08:53 Pulse Ox 98 02/11/25 08:53 Oxygen Delivery Method Room Air 02/11/25 08:53 Last Vital Signs Temp 96.9 F 02/05/25 11:18 Pulse 78 02/05/25 11:18 Resp 18 02/05/25 11:18 BP 115/69 02/05/25 11:18 Pulse Ox 98 02/05/25 11:18 O2 Del Method Room Air 02/05/25 11:18 BMI result Body Mass Index 41.5 Const General: cooperative, healthy appearing, comfortable and no acute distress Nutritional Appearance: well nourished Orientation/consciousness: patient oriented x3 Limitations: no limitations HEENT Head: Yes normal to inspection and Yes normocephalic Eyes General: appearance normal, both eyes and all related structures Visual Guevara: normal visual guevara by confrontation Alignment and Position: alignment normal Periorbital: periorbital findings normal Eyelids: Yes eyelids normal Conjunctivae: conjunctivae normal Sclerae: sclerae normal Direct Ophthalmoscopy: normal light reflex and no papilledema Neck Neck: Yes normal visual inspection and Yes full ROM General: Yes no CVA tenderness Back/Spine/Pelvis Back: no CVA tenderness Cervical Spine: normal cervical lordosis Thoracic/Lumbar Spine: thoracic and lumbar spine normal to inspection Neuro General: patient oriented x3 and deep tendon reflexes 2+ bilaterally Cranial nerves: Yes CN's II-XII intact bilaterally and Yes Facial sensation intact/muscles of mastication intact Cognition (Neuro): normal cognition Gait exam (Neuro): Normal gait present Motor exam (neuro): 5/5 motor strength present throughout and no tremor noted Sensory Exam: double simultaneous stimulation for sensation normal Romberg Test: Negative Pupils: Normal pupillary reactivity/response: bilateral Psych Appearance: grossly normal Mental Status: mental status grossly normal Speech and movement: Normal speech and movement present and Clear speech present Affect: normal affect Attitude: cooperative Thought process: Normal thought process present Thought content: Normal thought content present Insight: Good insight present (Psych) Judgement: Good judgement present (Psych) Office Procedures Botulinum toxin Injection Details: Procedure: Botox therapy for Chronic Migraine Laterally: Bilateral Indications: Chronic Migraine Medications: Botox 155units How the med was supplied: Patient supplied Timeout performed before procedure, patient identified with full name and date of . Risks and benefits of procedure reviewed, as well as site verified, sonsent signed, allergies reviewed, and medication reconsilliatino reviewed/completed. Following universal hygiene protocol and PREEMPT protocol, Botox 200unit vial was reconstituted with 4cc normal saline for a final concentration of 5units/0.1cc. The areas of injection were cleansed with alcohol. A 30g 0.5 needle was used to administer the injections as below. Procerus: 5units midline Disc Inspector: 5units left and 5units right Frontalis: 10units left and 10units right Temporalis: 20units left and 20units right Occipitalis:15units left and 15units right Cervical paraspinal 10units left and 10units right Trapezius 15units left and 15units right No noted paresthesias during injection 155units of Botox used and 45units wasted per PREEMPT protocol Complications: None Patient was observed for 15 minutes after the procedure and discharged home with instructions to apply ice to their head as needed. 67874 - Migraine Procedure code (CPT) selection complete Office Procedure Misc Details: Non billable procedure: Procedure: Nerivio neuromodulation device Benefits and risks reviewed with the patient prior to initiation of this therapy (risks including risk for allergic reaction to adhesive,and slight site discomfort). Patient agreed to proceed with neuromodulation. Nerivio device applied to patient's left arm a proximally 10 minutes prior to starting her Botox treatment. The treatment was increased to a level of 30% prior to her treatment and remained in place during her procedure and for 10 minutes after her procedure. The Nerivio device was in place at 30% for approximately 35 minutes. There were no complications during this procedure and her pain was a 1/10 after her treatment. Office Meds onabotulinumtoxinA 200 unit solution for injection Performing Provider: Priscila rFiend CNP Performing Location: [facility] Administered by: Priscila Friend CNP on 02/11/25 10:33 Dose Route Admin Location Dispensed Lot Number Expiration Date [facility] Tooth Cutter Pinion 155 unit IM 200 units [id number] 09/10/26 6209-1510-40 [employer] MCKAY/BOTOX Total Dispensed Waste 200 units 22.5 % Assessment & Plan Assessment & Plan (1) Chronic migraine without aura without status migrainosus, not intractable: Code(s): G43.709 - Chronic migraine without aura, not intractable, without status migrainosus Category: Medical Plan Margareth is a 34-year-old female patient with a past medical history of gastroenteritis, allergic rhinitis, allergies, anxiety disorder, benign neoplasm of the pineal gland, depression, PCOS, OCD, presenting today for a headache follow-up. Since hospitalization with DHE administration, headaches have improved and are much more intermittent than prior. She is here today for her 1st Botox therapy and we did apply the review device 10 minutes prior to her therapy. She was nearly pain-free at the end of her Botox treatment and tolerated it well without any complications. Because she was off of some of her maintenance therapy during her hospitalization, we have taken this opportunity to revise her medications. We will continue acetazolamide at 500 mg twice daily instead of the 3 times daily as her most recent eye exams have been normal. I will increase her propranolol from 20 mg nightly to 60 mg extended release nightly. She is receiving Botox today for additional maintenance therapy. As for her as-needed therapy, naratriptan at the 1 mg dose did work and therefore I will increase to 2.5 mg to be used as needed no more than 2-3 times per week. I will meet up again with her in 1 month at which time we will do a check in and modify her medications if needed. We will perform her next round of Botox therapy in approximately 3 months. -Continue acetazolemide 500mg BID -Increase propranolol from 20g nightly to 60mg ER nightly -Naratriptan 2.5 as needed -Botox therapy started today -Regular follow up in 1 month and Botox therapy again in 12 weeks Orders: Orders AMB Botulinum toxin Injection - Patient Supplied N/C Today G43.709 - Chronic migraine without aura, not intractable, without status migrainosus Medications: New naratriptan take 1 tab at onset of headache; if no relief may repeat 1 tab after at least 4 hrs; max = 2 tabs/24 hrs PO 14 tabs 3RF 30 days propranolol ER 60 mg PO BEDTIME 90 caps 3RF 90 days Discontinued naratriptan Migraine bridge therapy Discontinued Reason: Doctor's Order 1 mg PO BID 5 days 10 tabs 0RF Coding Level of Care Code Est Pt Level 4 (17568) Diagnoses Chronic migraine without aura without status migrainosus, not intractable G43.709 CPT Codes Botox Injection - Botox 3: 10813 - Migraine ([id number])
[2025-02-11 08:53] VITALS: BP 124/86; PULSE 96; RESP 16; O2SAT 98
--- OUTSIDE RECORDS SUMMARY | 2025-02-11 09:40 | XMS_ITS | Continuity of Care Document ---
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 Plan of Treatment [...] (PROC ) No observ ation record ed. [email or web address] Not Available 16:03:36 01/09/20 25 11/27/2024 MRI, brain + brain stem, w/wo contr ast No observ ation record ed. [email or web address] Not Available 12/13 09:02:19 01/23/20 25 latonya metry testi ng* No observ ation record ed. Not Available 2024 13:18:00 Result Notes None recorded. Problems Name Problem SNOMED Code Status Onset Date Resolution Date Notes Provider Name and Address Organization Details Recorded Time Deviated nasal septum 072062581 Active 2017 Deviated nasal septum; Location: right Not e: Date Diagnosed : 11/25/2017 10:25 AM (J34.2) Not Available [facility] 4 03:04:22 Chronic frontal sinusitis 93300880 Active 2017 Chronic frontal sinusitis ; Location: left Note : Date Diagnosed : 11/25/2017 10:24 AM (J32.1) Not Available [facility] 4 03:04:22 Migraine without aura, not refractor y 128809382 Active 2017 Migraine without aura, not intractab le, without status migrainos us; Note: Date Diagnosed : 11/25/2017 10:24 AM (G43.009) Not Available [facility] 4 03:04:22 Chronic rhinitis 62681379 Active 2017 Chronic rhinitis; Note: Date Diagnosed : 8 12:39 PM (J31.0) Not Available [facility] 4 03:04:23 Headache 18386727 Active 2017 Headache; Note: Date Diagnosed : 8 12:39 PM (R51) Not Available [facility] 4 03:04:23 Hypertrop hy of nasal turbinate s 08406793 Active 2017 Hypertrop hy of nasal turbinate s; Note: Date Diagnosed : 8 6:02 PM (J34.3) Not Available [facility] 4 03:04:24 Chronic sinusitis 77011574 Active 2017 Other chronic sinusitis ; Note: Date Diagnosed : 8 6:02 PM (J32.8) Not Available [facility] 4 03:04:23 Follow-up visit Active 2017 Encounter for follow-up examinati on after completed treatment for condition s other than malignant neoplasm; Note: Date Diagnosed : 8 5:38 PM (Z09) Not Available [facility] 4 03:04:23 Bilateral tinnitus 90189338437 02 Active 2024 EREN HAWK MA, [facility]A [address] [place] [address], [place], [address] , [place] - [facility] 5 10:25:36 Dizziness and giddiness 849258639 Active 2024 ADOLFO AGUILA PA-C [address] [facility], [place], [address] , [facility] - [facility] 5 11:58:43 Seasonal allergic rhinitis 518296748 Active 2024 ADOLFO AGUILA PA-C [address], [address] , [facility] - [facility] 5 13:03:20 Perennial allergic rhinitis 606461117 Active 2024 ESTEPHANIE ROONEY [address] [facility] [address] [address], [place], [address] , [facility] - [facility] 5 13:10:21 Problem Notes None recorded. Procedures Surgical History Date Name Laterality Status Provider Name and Address Organization Details Recorded Time Allergy Testing-Full completed ESTEPHANIE ROONEY 100 [facility],[address], [address], [facility] 01/22/2025 14:12:17 5 Telehealth completed ADOLFO AGUILA PA-C 100 [facility],[address], [address], [facility] - [facility] 05/17/2024 16:43:21 5 JMSNasal/Sinus Endoscopy-PRIOR surgical cavities completed ADOLFO AGUILA PA-C 100 [facility],[address], [address], [facility] - [facility] 04/20/2024 11:47:03 5 Air & Speech Audio with Tymps - 53515, 71614 & 15245 completed EREN HAWK MA, CCC-A 100 [facility],[address], [address], [facility] 04/20/2024 10:25:43 Imaging Results None recorded. Procedure Notes None recorded. Medical Equipment None Reported. Allergies Allergen ID Allergen Name Allergen Category Reaction Reaction Severity Criticality Documentation Date Start Date Code Code System Note Provider Name and Address Organization Details Recorded Time 884521 metronida zole hydrochlo ride medicatio n other Not available Not available 07/26/2023 86785 RxNorm React ion: unkno wn, unspe cifie d;; ESTEPHANIE ROONEY 100 [facility], [address] [facility], [place], [address], [facility] - [facility] 5 13:05:03 482944 morphine medicatio n other Not available Not available 07/26/2023 7052 RxNorm React ion: unkno wn, unspe cifie d;; Not Available [facility] 4 01:21:47 725540 Product containin g penicilli n (product) medicatio n Not available Not available Not available 04/20/2024 91793 8001 SNOMED ADOLFO AGUILA PA-C [address] [address], [place], [address], [facility] - [facility] 5 12:03:57 732833 Diflucan medicatio n Not available Not available Not available 04/23/202450623 3 RxNorm KEANU POLO MD [address] [address], [place], [address], [facility] 5 10:25:15 190082 Trileptal medicatio n Not available Not available Not available 04/23/2024 12428 0 RxNorm KEANU POLO MD [address], [address], [facility] 5 10:25:15 Medications Name Sig Start Date Stop Date Status Note LastModified by Organization Details LastModified Time fluoxetin e 40 mg capsule 07/30 completed Medicati on ID: [id number] D uration Value: 30 Brand Name: fluoxeti ne Send Method: E-Prescr ibed Sub s Allowed: subs [place] Medic ationGen ericName : fluoxeti ne Not Available Not Available Not Available Mirena 21 mcg/24 hr (up to 8 years) 52 mg intrauter ine device 03/21 completed Medicati on ID: [id number] B rand Name: Mirirving S end Method: [...] mg tablet 04/17 completed Medicati on ID: [id number] B rand Name: ibuprofe n Send Method: E-Prescr ibed Sub s Allowed: subs [place] Speci al Instruct ion: TAKE 1 TABLET BY MOUTH 3 TIMES A DAY WITH FOOD OR MILK (OR IMMEDIAT MATY AFTER). Medicati onGeneri cName: ibuprofe n Not Available Not Available Not Available clarithro mycin 500 mg tablet 1 tablet by mouth 04/17 completed Medicati on ID: [id number] D uration Value: 10 Prescri bed By [...] mg tablet 07/27 completed Medicati on ID: [id number] P dylan d By Name: Lenny jain [...] mg tablet 04/17 completed Medicati on ID: [id number] B rand Name: spironol actone S end [...] by mouth 01/22 completed Medicati on ID: [id number] D uration Value: 30 Brand Name: Zyrtec [...] layed release 04/17 completed Medicati on ID: [id number] B rand Name: aspirin Send Method: E-Prescr ibed Sub s Allowed: subs [place] Medic ationGen ericName : aspirin Not Available Not Available Not Available Mapap (acetamin ophen) 500 mg capsule 04/17 completed Medicati on ID: [id number] B rand Name: Mapap (acetami nophen) Send [...] by mouth 04/17 completed Medicati on ID: [id number] D uration Value: 21 Prescri bed By [...] mg capsule 04/17 completed Medicati on ID: [id number] B rand Name: gabapent in Send Method: [...] ed release 05/09 completed Medicati on ID: [id number] D uration Value: 30 Reason: () Brand [...] mg capsule 04/17 completed Medicati on ID: [id number] B rand Name: fluoxeti ne Send Method: [...] mg tablet 04/17 completed Medicati on ID: [id number] B rand Name: Pain Relief Extra Strength [...] spray,dash pension 04/17 completed Medicati on ID: [id number] D uration Value: 30 Brand Name: Flonase [...] SUBCUTAN EOUSLY EVERY WEEK, ROTATE INJECTIO N [facility] 01/02 completed Not Available Not Available Not [...] Vitals Date Recorded Body height Oxygen saturation Heart rate Body mass index (BMI) Body weight Systolic And Diastolic Provider Name and Address Organization Details Last Updated DateTime 5 154.94 cm 98 % 88 /min 41.9 kg/m2 523840. 51 g 120/83 mm[Hg] ESTEPHANIE ROONEY [address], [address] , [facility] 5 13:09:55 Social History None recorded. Functional Status None recorded. Mental Status None recorded. Family History Nothing Reported. Medical History Condition Response Tonsil Infections N Emphysema N Glaucoma N Depression Y COPD N Nasal or Sinus Problems Y Anesthesia Complications N Arthritis N Hearing Loss N Cancer N Stroke N High Cholesterol N Liver Disease Y Headaches Y Fibromyalgia N Speech Delay N Kidney Disease N Allergies/Hayfever Y Heart Problems N Anxiety Y Migraines Y Thyroid Problems N Developmental Delay N Anemia N Immune System Disorder N Heart Attack ([place]) N Other Skin Condition Y Diabetes N Rhinitis N Bleeding Disorder N Food Allergy N Hyperlipidemia N Dementia N Nasal polyps N Asthma Y Sleep Disorder N GERD/Reflux Y Hypertension N Gynecological HistoryNo gynecological history recorded. Obstetrics History GPAL:G 0 P 0 0 0 0 Past Encounters Encounter ID Performer Location Encounter Start Date Encounter Closed Date Diagnosis/Indication Diagnosis SNOMED-CT Code Diagnosis ICD10 Code Diagnosis IMO Codes Diagnosis Note [id number] RADHA MARINO PA-C [facility] [address] [address] 01/02/2025 13:51:57 01/02/2025 14:24:43 Hypertrophy of nasal turbinates 02472081 J34.3 Seasonal a llergic rhinitis 834402631 J30.89 [id number] ESTEPHANIE ROONEY Allergy 100 [facility] [address] [address] 01/22/2025 12:40:37 01/22/2025 15:13:33 Perennial allergic rhinitis 505010521 J30.89 488306 Health Concerns Section Related Observation LastModified by Organization Detai ls LastModified Time None Recorded Concern Status LastModified by Organization Details LastModified Time None Recorded Payers Encounter Date Sequence Insurance Name Policy Number Policy Craft Covered Member ID Craft Member ID Guarantor Name 01/22/2025 1 [facility] [place] [place] Margareth Grace [id number] Margareth Grace OBGyveronica Episode No OBEpisode recorded.
--- OUTSIDE RECORDS SUMMARY | 2025-02-11 09:40 | XMS_ITS | Clinical Summary ---
Author Organization [facility] [address] [facility] Address [address] [place] [address] Phone Care Team Providers Care Trial Attorney Name Role Phone Marybel Jerry MAJOR DONOR COORDINATOR Primary Care Provider [phone] Allergies Active Allergy Reactions Criticality Noted Date Comments Fluconazole Hives,Itching 2019 Metronidazole Hcl Other 11/20/2024 metronidazole hydrochloride Morphine Respiratory Issues,Shortness of breath High 11/20/2024 rigid mucles morphine Oxcarbazepine Hives 11/20/2024 hives when dosage was increased Penicillins Anaphylaxis High 11/20/2024 Encounters Date Type Department Care Team Description 11/20/2024 9:15 PM EDT - 11/20/2024 11:36 PM EDT Emergency [facility] Emergency [address] [place] [phone] Johnathon Matthew MD Persistent migraine aura without [...] Signed Date: 11/20/2024 22:57 ET Workstation ID: [id number] Transcribed By: Self Edit Transcribed Date: 11/20/2024 [...] Signed Date: 11/20/2024 22:57 ET Workstation ID: [id number] Transcribed By: Self Edit Transcribed Date: 11/20/2024 22:50 ET us Johnathon Matthew MD IMG CT PROCEDURES Final Res ult * POC , urine manually resulted (11/20/2024 10:07 PM EDT) HCG, Ur POC Negative Negative POC hCG Int QC Pass? Yes Yes EXPIRATION DATE POC 05/01/2026 LOT NUMBER POC [id number] Urine Urine specimen obtained by clean catch procedure / Unknown 11/20/2024 10:07 PM EDT Johnathon Matthew MD POINT OF CARE TEST ENTER/ED IT ORDERABLES Final Result * CBC auto differential (11/20/2024 9:49 PM EDT) WBC 7.6 4.0 - 10.5 K/mcL LAB HEMETOLOGY METHOD 11/20/2024 9:57 PM EDT [facility] RBC 4.56 4.20 - 5.40 M/mcL LAB HEMETOLOGY METHOD 11/20/2024 9:57 PM EDT [facility] Hemoglobin 13.1 12.5 - 16.0 g/dL LAB HEMETOLOGY METHOD 11/20/2024 9:57 PM EDT [facility] Hematocrit 38.8 37.0 - 47.0 % LAB HEMETOLOGY METHOD 11/20/2024 9:57 PM EDT [facility] MCV 85.1 78.0 - 100.0 FL LAB HEMETOLOGY METHOD 11/20/2024 9:57 PM EDT [facility] MCH 28.7 25.0 - 33.0 pcg LAB HEMETOLOGY METHOD 11/20/2024 9:57 PM EDT [facility] MCHC 33.8 32.0 - 36.0 g/dL LAB HEMETOLOGY METHOD [facility] RDW 12.1 12.1 - 16.2 % LAB HEMETOLOGY METHOD 11/20/2024 9:[facility] Platelets LAB HEMETOLOGY METHOD 11/20/2024 9:57 PM [facility] Comment:Occasional platelet clumping seen on smear. Platelet estimate appears adequate on smear review. MPV 9.5 7.4 - 11.4 FL LAB HEMETOLOGY METHOD 11/20/2024 9:[facility] Neutrophils Relative 59.1 44.0 - [...] LAB HEMETOLOGY METHOD 11/20/2024 9:57 PM EDT [facility] Eosinophils Absolute 0.27 0.00 - 0.50 K/mcL LAB HEMETOLOGY METHOD 11/20/2024 9:57 PM EDT [facility] Basophils Absolute 0.05 0.00 - 0.20 K/[facility] LAB HEMETOLOGY METHOD 11/20/2024 9:57 PM EDT [facility] Blood Venous blood specimen / Unknown Venipuncture / Unknown 11/20/2024 9:49 PM EDT 11/20/2024 9:52 PM EDT Johnathon Matthew MD LAB BLOOD ORDERABLES Final Result [facility] [place] Reg. #:[id number] [address] [place] [address], * (ABNORMAL) Basic Metabolic Panel (BMP) (11/20/2024 9:49 PM EDT) Sodium 133(L) 135 - 145 mmol/L LAB CHEMISTRY METHOD 11/20/2024 10:[facility] Potassium 4.5 3.5 - 5.1 mmol/L LAB CHEMISTRY METHOD 11/20/2024 10:14 PM EDT [facility] Comment:Moderate Hemolysis m ay affect test result(s). Chloride 104 98 - 107 mmol/L LAB CHEMISTRY METHOD 11/20/2024 10:[facility] CO2 24 24 - 32 mmol/L LAB CHEMISTRY METHOD 11/20/2024 10:[facility] Anion Gap 5 5 - 14 LAB CHEMISTRY METHOD 11/20/2024 10:[facility] Glucose 100 70 - 199 mg/dL LAB CHEMISTRY METHOD 11/20/2024 10:14 PM EDT [facility] BUN 12 7 - 17 mg/dL LAB CHEMISTRY METHOD 11/20/2024 10:14 PM EDT [facility] Creatinine 0.76 0.50 - 1.00 mg/dL LAB CHEMISTRY METHOD 11/20/2024 10:14 PM EDT [facility] eGFR 107 >=60 mL/min/1. 73m2 LAB CHEMISTRY METHOD 11/20/2024 10:14 PM EDT [facility] Comment:Calculation based on the Chronic Kidney Disease Epidemiology Collaboration (CKD-EPI) equation refit without adjustment for race. BUN/Creatinine Ratio 15.8 12.0 - 20.0 LAB CHEMISTRY METHOD 11/20/2024 10:14 PM EDT [facility] Calcium 9.2 8.4 - 10.2 mg/dL LAB CHEMISTRY METHOD 11/20/2024 10:14 PM EDT [facility] Blood Venous blood specimen / Unknown Venipuncture / Unknown 11/20/2024 9:49 PM EDT 11/20/2024 9:52 PM EDT Johnathon Matthew MD LAB BLOOD ORDERABLES Final Result [facility] [place] Reg. #:[id number] [address] [place] [address], [place] [phone] from Last 3 Months Insurance [facility] Care Teams Trial Attorney Relationship Specialty Start Date End Date Marybel Jerry NP [address] [facility] [place] [address] PCP - General Nurse Practitioner 11/20/24
--- OUTSIDE RECORDS SUMMARY | 2025-02-11 09:40 | XMS_ITS | Clinical Summary ---
Author Organization [facility] Address [address] [place] [address] Phone Care Team Providers Care Venipuncturist Name Role Phone Jordana Wong MD Primary [...] topic Medical Devices Not on file Insurance [facility] [employer] [facility] [employer] [facility] [employer] Care Teams Venipuncturist Relationship Specialty Start Date End Date Jordana Wong MD [address] [place] [address] PCP - General Internal Medicine 03/21/23 Additional Source Comments The information contained in this document represents components of the legal health record. It is not the complete legal health record.[facility]
--- OUTSIDE RECORDS SUMMARY | 2025-02-11 09:40 | XMS_ITS | Continuity of Care Document ---
Author Organization [place] - [facility], [facility] Address [address] [place] [address] Care Team Providers Care Sales Associate Fishing Name Role Phone MARGOT CARMONA Primary Care [...] (PROC ) No observ ation record ed. [email or web address] Not Available 16:03:36 01/09/2011/27/2024 MRI, brain + brain stem, w/wo contr ast No observ ation record ed. [email or web address] Not Available 12/13 09:02:19 01/23/20 latonya metry testi ng* No observ ation record ed. [email or web address] Not Available 2024 13:18:00 Result Notes None recorded. Problems Name Problem SNOMED Code Status Onset Date Resolution Date Notes Provider Name and Address Organization Details Recorded Time Deviated nasal septum 020853748 Active 2017 Deviated nasal septum; Location: right Not e: Date Diagnosed : 11/25/2017 10:25 AM (J34.2) Not Available [facility] 4 03:04:22 Chronic frontal sinusitis 62466334 Active 2017 Chronic frontal sinusitis ; Location: left Note : Date Diagnosed : 11/25/2017 10:24 AM (J32.1) Not Available [facility] 4 03:04:22 Migraine without aura, not refractor y 444223275 Active 2017 Migraine without aura, not intractab le, without status migrainos us; Note: Date Diagnosed : 11/25/2017 10:24 AM (G43.009) Not Available [facility] 4 03:04:22 Chronic rhinitis 35632221 Active 2017 Chronic rhinitis; Note: Date Diagnosed : 8 12:39 PM (J31.0) Not Available [facility] 4 03:04:23 Headache 13878521 Active 2017 Headache; Note: Date Diagnosed : 8 12:39 PM (R51) Not Available [facility] 4 03:04:23 Hypertrop hy of nasal turbinate s 20204136 Active 2017 Hypertrop hy of nasal turbinate s; Note: Date Diagnosed : 8 6:02 PM (J34.3) Not Available [facility] 4 03:04:24 Chronic sinusitis 79359041 Active 2017 Other chronic sinusitis ; Note: Date Diagnosed : 8 6:02 PM (J32.8) Not Available [facility] 4 03:04:23 Follow-up visit Active 2017 Encounter for follow-up examinati on after completed treatment for condition s other than malignant neoplasm; Note: Date Diagnosed : 8 5:38 PM (Z09) Not Available [facility] 4 03:04:23 Bilateral tinnitus 32535439460 02 Active 2024 EREN HAWK MA, CCC-A [address] [place],[facility] [address], [place], [address] , [place] - [facility] 5 10:25:36 Dizziness and giddiness 119102074 Active 2024 ADOLFO AGUILA PA-C [address],[place] [address], [place], [address] , [place] - [facility] 5 11:58:43 Seasonal allergic rhinitis 935285789 Active 2024 ADOLFO AGUILA PA-C [address], [place], [address] , [place] [facility] 5 13:03:20 Perennial allergic rhinitis 709458126 Active 2024 [address]EPHANIE ROONEY [address], [place], [address] , [place] [facility] 5 13:10:21 Problem Notes None recorded. Procedures Surgical History Date Name Laterality Status Provider Name and Address Organization Details Recorded Time 5 Allergy Testing-Full completed ESTEPHANIE ROONEY [address] [facility],[place] [address], [place], [address], [facility] 01/22/2025 14:12:17 5 Telehealth completed ADOLFO AGUILA PA-C [address] [facility],[address], [address], [facility] 05/17/2024 16:43:21 5 JMSNasal/Sinus Endoscopy-PRIOR surgical cavities completed ADOLFO AGUILA PA-C [address] [facility],[place] [address], [place], [address], [facility] 04/20/2024 11:47:03 5 Air & Speech Audio with Tymps - 07920, 78436 & 64864 completed EREN HAWK MA, CCC-A [address] [facility],[address], [address], [facility] 04/20/2024 10:25:43 Imaging Results None recorded. Procedure Notes None recorded. Medical Equipment None Reported. Allergies Allergen ID Allergen Name Allergen Category Reaction Reaction Severity Criticality Documentation Date Start Date Code Code System Note Provider Name and Address Organization Details Recorded Time 720099 metronida zole hydrochlo ride medicatio n other Not available Not available 07/26/2023 33618 RxNorm React ion: unkno wn, unspe cifie d;; ESTEPHANIE ROONEY [address] [facility] [address], [place], [address], [facility] 5 13:05:03 898103 morphine medicatio n other Not available Not available 07/26/2023 7052 RxNorm React ion: unkno wn, unspe cifie d;; Not Available [facility] 4 01:21:47 812678 Product containin g penicilli n (product) medicatio n Not available Not available Not available 04/20/2024 56997 8001 SNOMED ADOLFO AGUILA PA-C [address] [place] [address], [place], [address], [facility] - [facility] 5 12:03:57 474578 Diflucan medicatio n Not available Not available Not available 04/23/202443912 3 RxNorm KEANU POLO MD [address] [place] [address], [place], [address], [facility] - [facility] 5 10:25:15 327871 Trileptal medicatio n Not available Not available Not available 04/23/2024 28745 0 RxNorm KEANU POLO MD [address] [place] [address], [place], [address], [facility] - [facility] 5 10:25:15 Medications Name Sig Start Date Stop Date Status Note LastModified by Organization Details LastModified Time fluoxetin e 40 mg capsule 07/30 completed Medicati on ID: [id number] D uration Value: 30 Brand Name: fluoxeti ne Send Method: E-Prescr ibed Sub s Allowed: subs OK Medic ationGen ericName : fluoxeti ne Not Available Not Available Not Available Mirena 21 mcg/24 hr (up to 8 years) 52 mg intrauter ine device 03/21 completed Medicati on ID: [id number] B rand Name: Mirena S end Method: [...] mg tablet 04/17 completed Medicati on ID: [id number] B rand Name: ibuprofe n Send Method: E-Prescr ibed Sub s Allowed: subs OK Speci al Instruct ion: TAKE 1 TABLET BY MOUTH 3 TIMES A DAY WITH FOOD OR MILK (OR IMMEDIAT MATY AFTER). Medicati onGeneri cName: ibuprofe n Not Available Not Available Not Available clarithro mycin 500 mg tablet 1 tablet by mouth 04/17 completed Medicati on ID: [id number] D uration Value: 10 Prescri bed By [...] mg tablet 07/27 completed Medicati on ID: [id number] P rescribe d By Name: Russ Del [...] mg tablet 04/17 completed Medicati on ID: 126591 B rand Name: spironol actone S end [...] by mouth 01/22 completed Medicati on ID: 746036 D uration Value: 30 Brand Name: Zyrtec [...] layed release 04/17 completed Medicati on ID: 930820 B rand Name: aspirin Send Method: E-Prescr ibed Sub s Allowed: subs OK Medic ationGen ericName : aspirin Not Available Not Available Not Available Mapap (acetamin ophen) 500 mg capsule 04/17 completed Medicati on ID: 023847 B rand Name: Mapap (acetami nophen) Send [...] by mouth 04/17 completed Medicati on ID: [id number] D uration Value: 21 Prescri bed By [...] mg capsule 04/17 completed Medicati on ID: [id number] B rand Name: gabapent in Send Method: [...] ed release 05/09 completed Medicati on ID: [id number] D uration Value: 30 Reason: () Brand [...] mg capsule 04/17 completed Medicati on ID: [id number] B rand Name: fluoxeti ne Send Method: [...] mg tablet 04/17 completed Medicati on ID: [id number] B rand Name: Pain Relief Extra Strength [...] spray,dash pension 04/17 completed Medicati on ID: [id number] D uration Value: 30 Brand Name: Flonase [...] Updated DateTime 01/02/2025 154.94 cm 41 kg/m2 15710.54 g Mishel Dumont [facility] 01/02/2025 14:09:40 Social History None recorded. Functional [...] Disorder N Anesthesia Complications N Heart Attack (MO) N Other Skin Condition Y Diabetes N [...] ICD10 Code Diagnosis IMO Codes Diagnosis Note [id number] RADHA MARINO PA-C [facility] [address] [place] [address] 01/02/2025 13:51:57 01/02/2025 14:24:43 Hypertrophy of nasal turbinates 64343143 J34.3 Seasonal a llergic rhinitis 128327897 J30.89 30235356 Health Concerns Section Related Observation LastModified by Organization Detai ls LastModified Time None Recorded Concern Status LastModified by Organization Details LastModified Time None Recorded Payers Encounter Date Sequence Insurance Name Policy Number Policy Craft Covered Member ID Craft Member ID Guarantor Name 01/02/2025 1 [facility] [place] Margareth Grace [id number] Margareth Grace Notes Date Note Type [...] takes Flonase and twice daily Zyrtec. LENNY MURARY MD [address] [place] [address], [address], [facility] - [facility] 01/02/2025 15:21:56 OBGyn Episode No OBEpisode recorded.
--- OUTSIDE RECORDS SUMMARY | 2025-02-11 09:41 | XMS_ITS | Clinical Summary ---
Author Organization [facility] Address [address] [place], [place] [address] Care Team Providers Care Affiliate Marketing Manager Name Role Phone Qiana Crowe MD Unavailable [phone] Qiana Crowe MD Primary Care Provider Medications [...] patient's age to complete this topic Insurance [facility] Nomi Maintenance Organization (HMO) Address: [facility] [id number] R[address]HANA CABALLERO [address] [address] [facility] Care Teams Affiliate Marketing Manager Relationship Specialty Start Date End Date Qiana Crowe MD [address] [place] [address] PCP - Insurance Assigned PCP 08/12/23 Qiana Crowe MD [address] [place] [address] PCP - General Internal Medicine 08/15/23
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
== END 2025-02-11 10:40 | disposition home or self-care (01) ==
LOC: HO.HSM 08:47
PROVIDERS: PCP Nurse Practitioner Adult Health; Visit Provider Nurse Practitioner
DX: G43.709 Chronic migraine without aura, not intractable, without status migrainosus (principal); Z09 Encounter for follow-up examination after completed treatment for conditions other than malignant neoplasm
CPT/HCPCS: 64615; 99214

== ENCOUNTER → 2025-02-11 08:46 | Outpatient (BNVA) | payer OTHER, SELFPAY | PROVIDERS: PCP Nurse Practitioner Adult Health; Visit Provider Nurse Practitioner | DX: G43.709 Chronic migraine without aura, not intractable, without status migrainosus (principal); Z79.899 Other long term (current) drug therapy | CPT/HCPCS: 64615; J0585 ==

== ENCOUNTER 2025-03-04 10:16 | Outpatient (AMB) | payer OTHER, SELFPAY ==
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
[2025-03-04 10:28] VITALS: BP 132/92; PULSE 78; RESP 16; O2SAT 98; BMI 41.9
--- OUTSIDE RECORDS SUMMARY | 2025-03-04 12:27 | XMS_ITS | Clinical Summary ---
Author Organization [facility] [address] [facility] [address] Address [address] [place] [address] Phone Care Team Providers Care Brick Grader Name Role Phone Marybel Jerry ENERGY EFFICIENCY ENGINEER Primary Care Provider [phone] Allergies Active Allergy Reactions Criticality Noted Date Comments Fluconazole Hives,Itching 2019 Metronidazole Hcl Other 11/20/2024 metronidazole hydrochloride Morphine Respiratory Issues,Shortness of breath High 11/20/2024 rigid mucles morphine Oxcarbazepine Hives 11/20/2024 hives when dosage was increased Penicillins Anaphylaxis High 11/20/2024 Surgical History Surgery Date Site/Laterality Comments HERNIA REPAIR ADENOIDECTOMY FOOT FRACTURE SURGERY NASAL SEPTUM SURGERY Medical History Medical History Date Comments Benign brain tumor ([facility] V24, [facility] V28) Anxiety Depression IBS (irritable bowel syndrome) [...] on file Sexual Orientation Not on file Last Filed [...] patient's age to complete this topic Insurance [facility] Care Teams Brick Grader Relationship Specialty Start Date End Date Marybel Jerry NP [address] [facility] [place] [id number] PCP - General Nurse Practitioner 11/20/24
--- OUTSIDE RECORDS SUMMARY | 2025-03-04 12:27 | XMS_ITS | Clinical Summary ---
Author Organization [facility] Address [address] [place] [id number] Phone Care Team Providers Care Custom Tailor Name Role Phone Jordana Wong MD Primary [...] topic Medical Devices Not on file Insurance [facility] [employer] H[employer] [facility] [employer] [facility] Care Teams Custom Tailor Relationship Specialty Start Date End Date Jordana Wong MD [address] [place] [address] PCP - General Internal Medicine 03/21/23 Additional Source Comments The information contained in this document represents components of the legal health record. It is not the complete legal health record.Formerly [facility]
--- OUTSIDE RECORDS SUMMARY | 2025-03-04 12:27 | XMS_ITS | Clinical Summary ---
Author Organization [facility] Address [address] [place] [id number] Care Team Providers Care Intramural Director Name Role Phone Qiana Crowe MD Unavailable [phone] Qiana Crowe MD Primary Care Provider Medications [...] patient's age to complete this topic Insurance [facility] [employer] Maintenance Organization (HMO) Address: [facility] [id number] [id number] [facility] Care Teams Intramural Director Relationship Specialty Start Date End Date Qiana Crowe MD [address] [place] [address] PCP - Insurance Assigned PCP 08/12/23 Qiana Crowe MD [address] [place] [address] PCP - General Internal Medicine 08/15/23
== END 2025-03-04 11:23 | disposition home or self-care (01) ==
LOC: HO.HSM 10:17
PROVIDERS: PCP Nurse Practitioner Adult Health; Visit Provider Nurse Practitioner
DX: G43.709 Chronic migraine without aura, not intractable, without status migrainosus (principal)
CPT/HCPCS: 99214